=== PATIENT | female | born 1940 | race Caucasian/White ===

== ENCOUNTER 2016-11-07 14:21 | Inpatient (IN) | payer MEDICARE, OTHER ==
[~2016-11-07] VITALS: Ht 157.5 cm; Wt 71.6 kg
[~2016-11-07 14:21] MED LIST: ADVA250A INH; AMLO10TA2 PO; ASPI-110 PO; ATOR20TA15 PO; CYMB60CA PO; FURO20TA PO; GABA300C5 PO; GLIP5TAB8 PO; JANU50TA8 PO; LISI10TA3 PO; MOBI15TA PO; MONT10TA2 PO; PROT40TA PO; VENTAER INH; WALKER WHEELS/F1 MIS
[2016-11-07 14:23] VITALS: BP 144/85; PULSE 93; RESP 14; TEMP 98.8; O2SAT 97
--- NOTE | 2016-11-07 15:14 | PD ---
HPI Chief Complaint: Respiratory Symptoms Time Seen by Provider: 15:14 Travel History International Travel<30 days: No Contact w/Intl Traveler<30days: No Traveled to known affect area: No History of Present Illness HPI 76-year-old female who is primarily Tongan speaking, translation done by a family member in the room presents to emergency department today for evaluation of worsening shortness of breath with associated chest pain. Patient had a stent placed one week ago by Dr. Tena. I am told that she has had intermittent bouts with shortness of breath up until this point and then 3 days ago developed shortness of breath again worsening to the point of coming to the emergency department today. Pain is on the left side of her chest. She is having a headache as well. She denies a nausea vomiting. No fever or chills. No other recent illnesses. She has no other symptoms to report. PFSH Past Medical History Arthritis: Yes Asthma: Yes Heart Rhythm Problems: Yes (TACYCARDIA) Cancer: No Cardiac Catheterization: No Cardiovascular Problems: Yes High Cholesterol: Yes Congestive Heart Failure: Yes Diabetes: Yes Diminished Hearing: No Endocrine: Yes Genitourinary: Yes Hypertension: Yes Immune Disorder: No Kidney Stones: Yes Musculoskeletal: Yes (RIGHT KNEE FX, RIGHT 5TH FINGER FX) Neurologic: Yes (Diabetic neuropathy) Psychiatric: No Reproductive: No Respiratory: Yes Sickle Cell Disease: No ?: Not : 2 Para: 2 Miscarriage: 0 : 0 Past Surgical History Coronary Artery Bypass Graft: No Tonsillectomy: Yes Social History Alcohol Use: No Tobacco Use: No Substance Use: No Allergies-Medications (Allergen,Severity, Reaction): Coded Allergies: Shellfish (Verified Allergy, Severe, rash, 09/10/16) Reported Meds & Prescriptions Reported Meds & Active Scripts Active Ventolin Hfa 18 GM Inh (Albuterol Sulfate) 90 Mcg/Act Aer 2 Puff INH Q4H PRN Lisinopril 10 Mg Tab 10 Mg PO DAILY Walker with Front Wheels (Device) 1 Mis Mis 1 Ea .ROUTE DIRECTED Atorvastatin (Atorvastatin Calcium) 20 Mg Tab 20 Mg PO HS Furosemide 20 Mg Tab 20 Mg PO BID Advair Diskus Inh (Fluticasone-Salmeterol Inh) 250-50 Mcg/Blist Aer 1 Puff INH BID Rinse mouth after use. Glipizide 5 Mg Tab 5 Mg PO DAILY Take 30 minutes before a meal Amlodipine (Amlodipine Besylate) 10 Mg Tab 10 Mg PO DAILY Cymbalta DR (Duloxetine HCl) 60 Mg Capdr 60 Mg PO DAILY Aspirin 81 (Aspirin) 81 Mg Tabdr 81 Mg PO DAILY Mobic (Meloxicam) 15 Mg Tab 15 Mg PO DAILY Protonix (Pantoprazole Sodium) 40 Mg Tab 40 Mg PO DAILY Singulair (Montelukast Sodium) 10 Mg Tab 10 Mg PO HS Gabapentin 300 Mg Cap 300 Mg PO TID Janumet (Sitagliptin-Metformin) 50-1,000 Mg Tab 1 Tab PO BID Review of Systems Except as stated in HPI: all other systems reviewed are Neg Physical Exam Narrative GENERAL: Well-nourished but chronically ill appearing female, ambulatory and in no acute distress SKIN: Warm and dry. HEAD: Atraumatic. Normocephalic. EYES: Pupils equal and round. No scleral icterus. No injection or drainage. ENT: No nasal bleeding or discharge. Mucous membranes pink and moist. NECK: Trachea midline. No JVD. CARDIOVASCULAR: Elevated rate and rhythm. No murmur appreciated. RESPIRATORY: No accessory muscle use. Diminished throughout with faint inspiratory expiratory wheeze. Breath sounds equal bilaterally. GASTROINTESTINAL: Abdomen soft, non-tender, nondistended. Hepatic and splenic margins not palpable. MUSCULOSKELETAL: No obvious deformities. No clubbing. No cyanosis. No edema. NEUROLOGICAL: Awake and alert. No obvious cranial nerve deficits. Motor grossly within normal limits. Normal speech. PSYCHIATRIC: Appropriate mood and affect; insight and judgment normal. Data Data Last Documented VS Vital Signs Date Time Temp Pulse Resp B/P Pulse Ox O2 Delivery O2 Flow Rate FiO2 11/07/16 14:23 98.8 93 14 144/85 97 Room Air Orders Electrocardiogram (11/07/16 15:13) Basic Metabolic Panel (Bmp) (11/07/16 15:13) B-Type Natriuretic Peptide (11/07/16 15:13) Ckmb (Isoenzyme) Profile (11/07/16 15:13) Complete Blood Count With Diff (11/07/16 15:13) Magnesium (Mg) (11/07/16 15:13) Prothrombin Time / Inr (Pt) (11/07/16 15:13) Act Partial Throm Time (Ptt) (11/07/16 15:13) Troponin I (11/07/16 15:13) Chest, Single Ap (11/07/16 15:13) Electrocardiogram (11/07/16 18:23) Ckmb (Isoenzyme) Profile (11/07/16 18:23) Troponin I (11/07/16 18:23) Labs Laboratory Tests Test 11/07/16 15:36 White Blood Count 7.8 TH/MM3 Red Blood Count 3.63 MIL/MM3 Hemoglobin 9.8 GM/DL Hematocrit 30.3 % Mean Corpuscular Volume 83.3 FL Mean Corpuscular Hemoglobin 27.1 PG Mean Corpuscular Hemoglobin 32.5 % Concent Red Cell Distribution Width 15.8 % Platelet Count 297 TH/MM3 Mean Platelet Volume 9.4 FL Neutrophils (%) (Auto) 56.1 % Lymphocytes (%) (Auto) 29.0 % Monocytes (%) (Auto) 9.1 % Eosinophils (%) (Auto) 5.0 % Basophils (%) (Auto) 0.8 % Neutrophils # (Auto) 4.4 TH/MM3 Lymphocytes # (Auto) 2.3 TH/MM3 Monocytes # (Auto) 0.7 TH/MM3 Eosinophils # (Auto) 0.4 TH/MM3 Basophils # (Auto) 0.1 TH/MM3 CBC Comment DIFF FINAL Differential Comment Prothrombin Time 10.1 SEC Prothromb Time International 0.9 RATIO Ratio Activated Partial 24.9 SEC Thromboplast Time Sodium Level 140 MEQ/L Potassium Level 4.1 MEQ/L Chloride Level 103 MEQ/L Carbon Dioxide Level 28.2 MEQ/L Anion Gap 9 MEQ/L Blood Urea Nitrogen 17 MG/DL Creatinine 1.33 MG/DL Estimat Glomerular Filtration 39 ML/MIN Rate Random Glucose 145 MG/DL Calcium Level 9.1 MG/DL Magnesium Level 1.5 MG/DL Total Creatine Kinase 50 U/L Troponin I 0.06 NG/ML B-Type Natriuretic Peptide 553 PG/ML MDM Medical Decision Making Medical Screen Exam Complete: Yes Emergency Medical Condition: Yes Medical Record Reviewed: Yes Differential Diagnosis COPD exacerbation versus pneumonia versus influenza versus ACS Narrative Course 76 year-old female presents to emergency department for evaluation of worsening shortness of breath. Workup was initiated in triage once a medical bed becomes available, patient will be transferred and care assumed by that provider. 1830 patient troponin is elevated 0.06. Repeat troponin is due at this time. EKG and troponin are drawn. Condition: Stable Lu Patel Nov 07, 2016 15:14 Lu Patel Nov 07, 2016 15:14
[2016-11-07 15:48] LABS: AUTOMATED NEUTROPHIL # 4.4 TH/MM3 (1.8-7.7); BASOPHIL # 0.1 TH/MM3 (0-0.2); BASOPHIL % 0.8 % (0.0-2.0); EOSINOPHIL # 0.4 TH/MM3 (0-0.4); HEMATOCRIT 30.3 % (35.0-46.0); HEMO FLAGS DIFF FINAL; LYMPHOCYTE # 2.3 TH/MM3 (1.0-4.8); MEAN CELL VOLUME 83.3 FL (80.0-100.0); MEAN CORPUSCULAR HEMOGLOBIN 27.1 PG (27.0-34.0); MEAN CORPUSCULAR HGB CONC 32.5 % (32.0-36.0); MONO % 9.1 % (0.0-8.0); NEUT % 56.1 % (16.0-70.0); PLATELET COUNT 297 TH/MM3 (150-450); RED BLOOD COUNT 3.63 MIL/MM3 (4.00-5.30); RED CELL DISTRIBUTION WIDTH 15.8 % (11.6-17.2); WHITE BLOOD COUNT 7.8 TH/MM3 (4.0-11.0)
--- NOTE | 2016-11-07 15:59 | RADRPT ---
EXAM DATE/TIME: 11/07/2016 15:13 [facility] COMPARISON: CHEST SINGLE AP, September 11, 2016, 8:47. INDICATIONS : Short of breath and chest pain. MEDICAL HISTORY : None. SURGICAL HISTORY : None. ENCOUNTER: Initial ACUITY: 3 days PAIN SCORE: 3/10 LOCATION: Bilateral chest FINDINGS: A single view of the chest demonstrates the lungs to be symmetrically aerated without evidence of mas s, infiltrate or effusion. The cardiomediastinal contours reveal compensated left ventricular cardio megaly. Osseous structures are intact. CONCLUSION: Compensated left ventricular cardiomegaly Mik Hardin MD on November 07, 2016 at 15:57 Board Certified Radiologist. This report was verified electronically.
[2016-11-07 16:00] LABS: APTT (PATIENT) 24.9 SEC (24.3-30.1); INTERNATIONAL NORMALIZED RATIO 0.9 RATIO; PROTHROMBIN TIME - PATIENT 10.1 SEC (9.8-11.6)
[2016-11-07 16:05] LABS: BICARBONATE 28.2 MEQ/L (21.0-32.0); MAGNESIUM 1.5 MG/DL (1.5-2.5); POTASSIUM 4.1 MEQ/L (3.5-5.1)
--- NOTE | 2016-11-07 19:19 | EKG ---
Date Performed: 11/07/2016 Time Performed: 16:10:09 PTAGE: 76 years EKG: Sinus rhythm WITH FREQUENT VENTRICULAR PREMATURE COMPLEXES NONSPECIFIC T-WAVE ABNORMALITY ABNORMAL RHYTHM ECG NO PREVIOUS TRACING DOCTOR: Glen French Interpretating Date/Time 11/07/2016 19:18:16
[2016-11-07 20:05] VITALS: BP 204/98; PULSE 88; RESP 20; O2SAT 100
[2016-11-07] MEDS ORDERED: SODIUM CHLORIDE 0.9% FLUSH 5 ML FLUSH IVF PRN (20:15)
[2016-11-07] MEDS ORDERED: RESP: ALBUTEROL 2.5 MG/3 ML NEB (SCH) INH ONE (20:15)
[2016-11-07] MEDS ORDERED: methylPREDNISolone SOD SUCC 125 MG/2 ML VIAL IVP ONE (20:15)
[2016-11-07] MEDS ORDERED: FUROSEMIDE 40 MG/4 ML VIAL IVP ONE (20:15)
[2016-11-07] MEDS ORDERED: RANI300T PO (20:19)
[2016-11-07] MEDS ORDERED: CLOP75TA PO (20:19)
[2016-11-07] MEDS ORDERED: PRAV80TA2 PO (20:19)
[2016-11-07] MEDS ORDERED: PRED20 PO (20:19)
[2016-11-07] MEDS ORDERED: ISOS60TA PO (20:19)
[2016-11-07] MEDS ORDERED: VALS1TAB70 PO (20:19)
[2016-11-07] MEDS ORDERED: DEXI60CA PO (20:19)
--- NOTE | 2016-11-07 20:24 | PD ---
Data Data Last Documented VS Vital Signs Date Time Temp Pulse Resp B/P Pulse Ox O2 Delivery O2 Flow Rate FiO2 11/07/16 20:25 79 20 184/82 97 Room Air 11/07/16 14:23 98.8 Orders Electrocardiogram (11/07/16 15:13) Basic Metabolic Panel (Bmp) (11/07/16 15:13) B-Type Natriuretic Peptide (11/07/16 15:13) Ckmb (Isoenzyme) Profile (11/07/16 15:13) Complete Blood Count With Diff (11/07/16 15:13) Magnesium (Mg) (11/07/16 15:13) Prothrombin Time / Inr (Pt) (11/07/16 15:13) Act Partial Throm Time (Ptt) (11/07/16 15:13) Troponin I (11/07/16 15:13) Chest, Single Ap (11/07/16 15:13) Electrocardiogram (11/07/16 18:23) Ckmb (Isoenzyme) Profile (11/07/16 18:23) Troponin I (11/07/16 18:23) Sodium Chloride 0.9% Flush (Ns Flush) (11/07/16 20:15) Furosemide Inj (Lasix Inj) (11/07/16 20:15) Methylprednisolone So Succ Inj (Solumedr (11/07/16 20:15) Albuterol Neb (Albuterol Neb) (11/07/16 20:15) Nitroglycerin Sl (Nitrostat Sl) (11/07/16 20:30) Admit Order (Ed Use Only) (11/07/16 20:24) Labs Laboratory Tests Test 11/07/16 11/07/16 15:36 18:41 White Blood Count 7.8 TH/MM3 Red Blood Count 3.63 MIL/MM3 Hemoglobin 9.8 GM/DL Hematocrit 30.3 % Mean Corpuscular Volume 83.3 FL Mean Corpuscular Hemoglobin 27.1 PG Mean Corpuscular Hemoglobin 32.5 % Concent Red Cell Distribution Width 15.8 % Platelet Count 297 TH/MM3 Mean Platelet Volume 9.4 FL Neutrophils (%) (Auto) 56.1 % Lymphocytes (%) (Auto) 29.0 % Monocytes (%) (Auto) 9.1 % Eosinophils (%) (Auto) 5.0 % Basophils (%) (Auto) 0.8 % Neutrophils # (Auto) 4.4 TH/MM3 Lymphocytes # (Auto) 2.3 TH/MM3 Monocytes # (Auto) 0.7 TH/MM3 Eosinophils # (Auto) 0.4 TH/MM3 Basophils # (Auto) 0.1 TH/MM3 CBC Comment DIFF FINAL Differential Comment Prothrombin Time 10.1 SEC Prothromb Time International 0.9 RATIO Ratio Activated Partial 24.9 SEC Thromboplast Time Sodium Level 140 MEQ/L Potassium Level 4.1 MEQ/L Chloride Level 103 MEQ/L Carbon Dioxide Level 28.2 MEQ/L Anion Gap 9 MEQ/L Blood Urea Nitrogen 17 MG/DL Creatinine 1.33 MG/DL Estimat Glomerular Filtration 39 ML/MIN Rate Random Glucose 145 MG/DL Calcium Level 9.1 MG/DL Magnesium Level 1.5 MG/DL Total Creatine Kinase 50 U/L 57 U/L Troponin I 0.06 NG/ML 0.07 NG/ML B-Type Natriuretic Peptide 553 PG/ML MDM Medical Record Reviewed: Yes Supervised Visit with SUSAN: Yes Narrative Course I, Dr. Hoover, have reviewed the advance practice practitioner's documentation and am in agreement, met with the patient face to face, made the diagnosis, and the medical decision making was done by me. *My assessment and Findings: EKG reveals a sinus rhythm with PVCs, rate 77 the axis is normal Last Impressions Chest X-Ray 11/07/16 1513 Signed Impressions: Service Date/Time: Monday, November 07, 2016 15:13 - CONCLUSION: Compensated left ventricular cardiomegaly Mik Hardin MD CBC & BMP Diagram 11/07/16 15:36 Tn 0.06 BNP 533 Coags 10.1 / 0.9 / 24.9 Patient prefers translation by her son as she speaks Gabonese primarily. She has dyspnea coupled with headache. Workup reveals mildly elevated troponin probably nonspecific following catheterization about 10 days ago. Additionally the BNP is elevated. Lasix administered. Admission for monitoring and evaluation by cardiology. Discussed with Dr Sue for resident service. Diagnosis Primary Impression: Acute exacerbation of congestive heart failure Qualified Code: I50.9 - Acute on chronic congestive heart failure, unspecified congestive heart failure type Additional Impression: Asthma Qualified Code: J45.909 - Uncomplicated asthma, unspecified asthma severity Admitting Information Admitting Physician Requests: Admit Jeremiah Hoover MD Nov 07, 2016 20:24
[2016-11-07 20:25] VITALS: BP 184/82; PULSE 79; RESP 20; O2SAT 97
--- NOTE | 2016-11-07 20:27 | HHI.HP ---
[facility] Service Family Medicine, [facility] Dr. Sher attending Primary Care Physician Sixto Kovacs MD Admission Diagnosis Diagnoses: International Travel<30 Days: No Contact w/Intl Traveler<30days: No Known Affected Area: No History of Present Illness This is a 76 yo [address] patient of Dr. Kovacs who presents to the ED for SOB x 2 days. The patient had a heart cath performed by Dr. Tena last Sunday. This was a scheduled outpatient procedure. She states she was told that there were not able to visualize things well and would have to have another one. She was discharged on Plavix. She was discharged from [facility] the next day and states she was feeling better but her "heart burned" and had a CASH. Since then she has felt progressively SOB. The home health nurse came by and was found to have elevated BP, 248 systolic and the nurse told her to come to the ER. The patient states her BP gets high when she cant breath. She has asthma and has a nebulizer machine at home. She has been out of the medication for quite some time so has not been able to treat her asthma. The patient has received nitro and albuterol in the ED. The patient states she feels better. She denies any current chest pain. The patient is a poor historian and it is difficult to understand which medicines exactly the patient is taking. I have reviewed the patient's medications in the EMR which are different from the medications that Dr. Kovacs has documented, which are different than the medications that are listed on her she is paper that the patient has from [facility]. Review of Systems ROS Limitations: Language Barrier, Poor Historian Constitutional: DENIES: Fever, Chills Eyes: COMPLAINS OF: Diplopia, DENIES: Blurred vision, Eye pain Ears, nose, mouth, throat: DENIES: Tinnitus, Hearing loss Respiratory: COMPLAINS OF: Wheezing, Shortness of breath, DENIES: Cough, Sputum production Cardiovascular: COMPLAINS OF: Chest pain, Palpitations, Dyspnea on Exertion, DENIES: Lower Extremity Edema Gastrointestinal: COMPLAINS OF: Abdominal pain, Nausea, Vomiting Musculoskeletal: COMPLAINS OF: Muscle aches, Joint Swelling Neurologic: COMPLAINS OF: Localized weakness, DENIES: Abnormal gait Past Family Social History Past Medical History Diabetes mellitus previously on insulin Hypertension Major Depression Disorder Hypercholesterolemia GERD Asthma/COPD Diabetic Neuropathy Seasonal allergies Past Surgical History Shoulder arthroscopic carpal tunnel tonsillectomy Allergies: Coded Allergies: Shellfish (Verified Allergy, Severe, rash, 11/07/16) Active Ordered Medications Meds per Dr. Kovacs in Jun 2016 & list provided by patient * Sitagliptin-Metformin (Janumet) 50-1,000 MG TAB: 1 TAB PO BID #90 Ref 0 * Gabapentin 300 MG CAP: 300 MG PO TID #90 Ref 2 * Montelukast (Singulair) 10 MG TAB: 10 MG PO HS #30 Ref 2 * Meloxicam (Mobic) 15 MG TAB: 15 MG PO DAILY #30 Ref 1 * Furosemide 20 MG TAB: 20 MG PO DAILY #60 Ref 1 * Aspirin DR (Aspirin 81) 81 MG TABDR: 81 MG PO DAILY #90 Ref 0 * Duloxetine DR (Cymbalta DR) 60 MG CAPDR: 60 MG PO DAILY #60 Ref 1 * Amlodipine 10 MG TAB: 10 MG PO DAILY #60 Ref 1 * Pravastatin 80 mg PO daily * Clopidogrel/plavix 75 mg PO daily * Valsartan 320 Mg Tab 320 Mg PO DAILY * Prednisone 20 mg daily (listed on patients meds but unclear if she is taking this) * Ranitidine 300 mg PO HS * Glipizide 5 MG TAB: 5 MG PO DAILY #60 Ref 1 Instructions: Take 30 minutes before a meal Family History Mom - passed in 50s from diabetes mellitus and heart failure Father - passed in 60s from DM, and CHF. Sisters and brothers: Majority with DM, CHF, depression, osteoarthritis. Daughter - thyroid cancer at age 53 y/o Son - 54 y/o and healthy. Social History Born in [place] drinks 2 cups of wine with meals no tobacco use, had second hand smoke exposure from no illicit drug use . Physical Exam Vital Signs Vital Signs Date Time Temp Pulse Resp B/P Pulse Ox O2 Delivery O2 Flow Rate FiO2 11/07/16 20:05 88 20 204/98 100 Room Air 11/07/16 20:02 85 20 100 Room Air 11/07/16 14:23 98.8 93 14 144/85 97 Room Air Physical Exam GENERAL: This is a well-nourished, well-developed patient, in no apparent distress. SKIN: No rashes, ecchymoses or lesions. Cool and dry. HEAD: Atraumatic. Normocephalic. No temporal or scalp tenderness. EYES: Pupils equal round and reactive. Extraocular motions intact. No scleral icterus. No injection or drainage. ENT: Nose without bleeding, purulent drainage or septal hematoma. Throat without erythema, tonsillar hypertrophy or exudate. Uvula midline. Airway patent. NECK: Trachea midline. No JVD or lymphadenopathy. Supple, nontender, no meningeal signs. CARDIOVASCULAR: Regular rate and rhythm without murmurs, gallops, or rubs. Some tenderness to palpation of left anterior chest wall. RESPIRATORY: Short inspiratory phase, some expiratory wheezing heard at bilateral bases. No rales or rhonchi. GASTROINTESTINAL: Abdomen soft, non-tender, nondistended. No hepato-splenomegaly , or palpable masses. No guarding. MUSCULOSKELETAL: Extremities without clubbing, cyanosis, or edema. No joint tenderness, effusion, or edema noted. No calf tenderness. NEUROLOGICAL: Awake and alert. Motor and sensory grossly within normal limits. Normal speech. Laboratory Laboratory Tests Test 11/07/16 11/07/16 15:36 18:41 White Blood Count 7.8 Red Blood Count 3.63 Hemoglobin 9.8 Hematocrit 30.3 Mean Corpuscular Volume 83.3 Mean Corpuscular Hemoglobin 27.1 Mean Corpuscular Hemoglobin 32.5 Concent Red Cell Distribution Width 15.8 Platelet Count 297 Mean Platelet Volume 9.4 Neutrophils (%) (Auto) 56.1 Lymphocytes (%) (Auto) 29.0 Monocytes (%) (Auto) 9.1 Eosinophils (%) (Auto) 5.0 Basophils (%) (Auto) 0.8 Neutrophils # (Auto) 4.4 Lymphocytes # (Auto) 2.3 Monocytes # (Auto) 0.7 Eosinophils # (Auto) 0.4 Basophils # (Auto) 0.1 CBC Comment DIFF FINAL Differential Comment Prothrombin Time 10.1 Prothromb Time International 0.9 Ratio Activated Partial 24.9 Thromboplast Time Sodium Level 140 Potassium Level 4.1 Chloride Level 103 Carbon Dioxide Level 28.2 Anion Gap 9 Blood Urea Nitrogen 17 Creatinine 1.33 Estimat Glomerular Filtration 39 Rate Random Glucose 145 Calcium Level 9.1 Magnesium Level 1.5 Total Creatine Kinase 50 57 Troponin I 0.06 0.07 B-Type Natriuretic Peptide 553 Result Diagram: 11/07/16 1536 11/07/16 1536 Imaging Last Impressions Chest X-Ray 11/07/16 1513 Signed Impressions: Service Date/Time: Monday, November 07, 2016 15:13 - CONCLUSION: Compensated left ventricular cardiomegaly Mik Hardin MD Assessment and Plan Assessment and Plan 76 yo female with CAD s/p stent placement presents with worsening SOB likely related to both CHF and asthma. Code Status Full Discussed Condition With ED physician Will discuss with Dr. Armendariz Problem List: (1) Shortness of breath Status: Acute Plan: Etiology likely multifactorial. DDX include asthma exacerbation, CHF exacerbation, ACS, PNA, PE. EKG shows PVS, sinus rhythm, unchanged from previous, no ST or T wave abnormalities. Troponin 0.06, 0.07. (Creatinine is slightly elevated above baseline which could also explain the elevated troponin. ) BNP 553. For now plan as follows: - We'll treat her asthma: Exam did reveal some wheezing although was mild * She receive Solu-Medrol 125 mg IV in the ED * Prednisone 40 mg daily * Dual nebs every 6 scheduled * Albuterol when necessary * Acapella - We'll treat her CHF * Status post 40 mg IV Lasix * Strict I's and O's * Fluid restrict 1.5 L 24 hours * Continue home Lasix 20 mg by mouth twice a day * Continue home valsartan 320 mg by mouth daily * Does not appear the patient is on an LUH inhibitor or beta monique * Echo ordered * Patient's legal instruments examiner Dr. Tena consulted - ACS rule out * trend troponin * trend EKG * SAURAV therapy available (2) Type 2 diabetes mellitus Status: Chronic Plan: Hold home metformin and glipizide - Low-dose sliding scale - Diabetic diet - Continue home gabapentin (3) Depression Status: Acute Plan: Continue patient's home Cymbalta (4) Presence of stent in coronary artery in patient with coronary artery disease Status: Chronic Plan: Patient is on aspirin 81 mg daily. After her stent she was started on Plavix 75 mg daily. We'll continue these. (5) Hypertension Status: Chronic Plan: Continue home amlodipine - Clonidine when necessary (6) FEN Status: Acute Plan: Fluids: Hep-Lock IV Electrolytes: currently wnl, replete as necessary Nutrition: diabetic diet Bilat SCDs, if stays > 24hs consider chemoprophylaxis Ranitidine for GI prophylaxis while on steroids (this is also a home med for the patient) Physician Certification 2 Midnight Certification Type: Admission for Inpatient Services Order for Inpatient Services The services are ordered in accordance with Medicare regulations or non- Medicare payer requirements, as applicable. In the case of services not specified as inpatient-only, they are appropriately provided as inpatient services in accordance with the 2-midnight benchmark. Estimated LOS (days): 3 days is the estimated time the patient will need to remain in the hospital, assuming treatment plan goals are met and no additional complications. Post-Hospital Plan: Not yet determined Loni Sue MD R3 Nov 07, 2016 20:27
[2016-11-07] MEDS: NITROGLYCERIN 0.4 MG SL 25 TABS/BTL SL SCH ×3 (20:31→20:40)
[2016-11-07] MEDS ORDERED: GLUCAGON 1 MG/ML VIAL OTHER PRN (21:45)
[2016-11-07] MEDS ORDERED: DEXTROSE 50% IN WATER 50 ML VIAL(D50) IV PUSH PRN (21:45)
[2016-11-07 22:02] VITALS: BP 187/92; PULSE 78; RESP 20; O2SAT 99
[2016-11-07] MEDS ORDERED: RESP: ALBUTEROL 2.5 MG/3 ML NEB (PRN) NEB (22:15)
[2016-11-07] MEDS ORDERED: cloNIDine HCL 0.1 MG TAB PO PRN (22:30)
[2016-11-07] MEDS ORDERED: MORPHINE SULFATE 4 MG/ML INJ IV PRN (22:30)
[2016-11-07] MEDS ORDERED: NITROGLYCERIN 0.4 MG SL 25 TABS/BTL SL PRN (22:30)
[2016-11-07] MEDS: INSULIN ASPART SUPPLEMENTAL SCALE SQ SCH (22:37)
[2016-11-07 23:28] VITALS: BP 165/82; PULSE 73; RESP 18; TEMP 98.4; O2SAT 95
[2016-11-08 05:22] VITALS: BP 181/76; PULSE 95; RESP 18; TEMP 97.9; O2SAT 95
[2016-11-08] MEDS: RESP: ALBUTEROL 2.5 MG/IPRATROPIUM 0.5 MG NEB (SCH) NEB ×3 (05:31→15:29)
--- NOTE | 2016-11-08 05:44 | EKG ---
Date Performed: 11/07/2016 Time Performed: 18:45:27 PTAGE: 76 years EKG: Sinus rhythm WITH FREQUENT VENTRICULAR PREMATURE COMPLEXES POSSIBLE LEFT ATRIAL ENLARGEMENT NONSPECIFIC T-WAVE AB NORMALITY ABNORMAL RHYTHM ECG NO SIGNIFICANT CHANGE FROM PRIOR ELECTROCARDIOGRAM. PREVIOUS TRACING : 11/07/2016 16.10 DOCTOR: Glen French Interpretating Date/Time 11/08/2016 05:42:31
[2016-11-08] MEDS: INSULIN ASPART SUPPLEMENTAL SCALE SQ SCH ×4 (06:23→20:52)
[2016-11-08] MEDS ORDERED: INSULIN ASPART SUPPLEMENTAL SCALE SQ SCH (07:00)
[2016-11-08] MEDS: PRAVASTATIN SOD 80 MG TAB PO SCH (07:52)
[2016-11-08] MEDS: VALSARTAN 160 MG TAB PO SCH (07:52)
[2016-11-08] MEDS: DULoxetine HCl DR 60 MG CAP PO SCH (07:55)
[2016-11-08] MEDS: GABAPENTIN 300 MG CAP PO SCH ×3 (07:55→18:08)
[2016-11-08] MEDS: predniSONE 20 MG TAB PO SCH (07:55)
[2016-11-08] MEDS: FUROSEMIDE 20 MG TAB PO SCH ×2 (07:56→20:53)
[2016-11-08 08:03] LABS: AUTOMATED NEUTROPHIL # 4.9 TH/MM3 (1.8-7.7); BASOPHIL % 0.2 % (0.0-2.0); HEMATOCRIT 30.7 % (35.0-46.0); HEMO FLAGS DIFF FINAL; LYMPH % 8.7 % (9.0-44.0); LYMPHOCYTE # 0.5 TH/MM3 (1.0-4.8); MEAN CELL VOLUME 81.5 FL (80.0-100.0); MEAN CORPUSCULAR HEMOGLOBIN 26.9 PG (27.0-34.0); MEAN CORPUSCULAR HGB CONC 33.1 % (32.0-36.0); MONO % 0.9 % (0.0-8.0); NEUT % 90.2 % (16.0-70.0); PLATELET COUNT 289 TH/MM3 (150-450); RED BLOOD COUNT 3.76 MIL/MM3 (4.00-5.30); RED CELL DISTRIBUTION WIDTH 15.6 % (11.6-17.2); WHITE BLOOD COUNT 5.4 TH/MM3 (4.0-11.0)
[2016-11-08] MEDS: ASPIRIN EC 81 MG TABEC PO SCH (08:04)
[2016-11-08] MEDS: CLOPIDOGREL 75 MG TAB PO SCH (08:04)
[2016-11-08] MEDS ORDERED: MINOXIDIL 2.5 MG TAB PO ONE (08:15)
[2016-11-08 08:30] LABS: POTASSIUM 4.1 MEQ/L (3.5-5.1)
[2016-11-08 08:40] VITALS: BP 139/72; PULSE 70; RESP 16; TEMP 98.5; O2SAT 96
--- NOTE | 2016-11-08 08:46 | EKG ---
Date Performed: 11/08/2016 Time Performed: 00:17:34 PTAGE: 76 years EKG: Sinus rhythm WITH FREQUENT VENTRICULAR PREMATURE COMPLEXES POSSIBLE LEFT ATRIAL ENLARGEMENT POSSIBLE LEFT VENTRIC ULAR HYPERTROPHY Nonspecific ST-T wave changes ABNORMAL ECG COMPARED TO PRIOR ELECTROCARDIOGRAM, T wa ve changes are more marked. PREVIOUS TRACING : 11/07/2016 18.45 DOCTOR: Glen French Interpretating Date/Time 11/08/2016 08:44:44
[2016-11-08] MEDS ORDERED: MINOXIDIL 2.5 MG TAB PO SCH (09:00)
--- NOTE | 2016-11-08 09:35 | HHI.HP ---
[facility] Service Family Medicine Primary Care Physician Unknown Admission Diagnosis Diagnoses: (1) Shortness of breath Diagnosis: Principal (2) Type 2 diabetes mellitus Diagnosis: Principal (3) Depression Diagnosis: Principal (4) Presence of stent in coronary artery in patient with coronary artery disease Diagnosis: Principal (5) Hypertension Diagnosis: Principal (6) FEN Diagnosis: Principal International Travel<30 Days: No Contact w/Intl Traveler<30days: No Known Affected Area: No History of Present Illness Ms Aguirre is a 76 yo female patient of Dr. Kovacs who presented to the ED for SOB x 2 days. The patient had a heart cath performed by Dr. Tena last Sunday. This was a scheduled outpatient procedure. She states she was told that they were not able to visualize things well and would have to have another one. She was discharged on Plavix. She was discharged from [facility] the next day and states she was feeling better but her "heart burned" and had a CASH. unfortunately, we do not have the records of her cath report. Since then she has felt progressively SOB. The home health nurse came by and was found to have elevated BP, 248 systolic and the nurse told her to come to the ER. The patient states her BP gets high when she can't breathe. She has asthma and has a nebulizer machine at home. She has been out of the medication for quite some time so has not been able to treat her asthma. The patient received nitro and albuterol in the ED. The patient stated she felt better. She denied any current chest pain. However, she stated she could not lie flat and still was having some problems with her asthma. She has a history of CHF diagnosed on her last hospitalization and has an elevated BNP to some extent on this admission. Per Dr Sue who admitted her, patient is a poor historian and it is difficult to understand which medicines exactly the patient is taking. The patient's medications in the EMR are different from the medications that Dr. Kovacs has documented, which are different than the medications that are listed on her she is paper that the patient has from [facility]. When seen this am she still had some trouble breathing and also said she has been weak at home and had falls. She has some chest sxs and feels burning in her chest at times. She was going to have cardiac catheterization this am. Her troponins had been elevated this hospitalization at 0.07. She has received solumedrol, prednisone and nebulizers with some relief and on exam this am she was moving air well. History was obtained from the pt with my somewhat limited knowledge of Micronesian as well as from her nurse and Dr cao who are more proficient in that language and also all the pts questions were answered. Review of Systems ROS Limitations: Language Barrier, Poor Historian Constitutional: COMPLAINS OF: Fatigue Respiratory: COMPLAINS OF: Cough, Wheezing, Shortness of breath Cardiovascular: COMPLAINS OF: Chest pain, Dyspnea on Exertion, PND, DENIES: Lower Extremity Edema, Orthopnea Gastrointestinal: DENIES: Abdominal pain Musculoskeletal: COMPLAINS OF: Joint pain (knees), Muscle aches Integumentary: DENIES: Rash Hematologic/lymphatic: DENIES: Bruising Immunologic/allergic: DENIES: Eczema Neurologic: COMPLAINS OF: Abnormal gait (weakness), Poor Balance Psychiatric: COMPLAINS OF: Depression Other ROS Limitations: Language Barrier, Poor Historian Constitutional: DENIES: Fever, Chills Eyes: COMPLAINS OF: Diplopia, DENIES: Blurred vision, Eye pain Ears, nose, mouth, throat: DENIES: Tinnitus, Hearing loss Respiratory: COMPLAINS OF: Wheezing, Shortness of breath, DENIES: Cough, Sputum production Cardiovascular: COMPLAINS OF: Chest pain, Palpitations, Dyspnea on Exertion, DENIES: Lower Extremity Edema Gastrointestinal: COMPLAINS OF: Abdominal pain, Nausea, Vomiting Musculoskeletal: COMPLAINS OF: Muscle aches, Joint Swelling Neurologic: COMPLAINS OF: Localized weakness, DENIES: Abnormal gait Past Family Social History Past Medical History Diabetes mellitus previously on insulin Hypertension Major Depression Disorder Hypercholesterolemia GERD Asthma/COPD Diabetic Neuropathy Seasonal allergies Asthma Past Surgical History cardiac cath 10/31 Shoulder arthroscopic carpal tunnel tonsillectomy Allergies: Coded Allergies: Shellfish (Verified Allergy, Severe, rash, 11/07/16) Family History Mom - passed in 50s from diabetes mellitus and heart failure Father - passed in 60s from DM, and CHF. Sisters and brothers: Majority with DM, CHF, depression, osteoarthritis. Daughter - thyroid cancer at age 53 y/o Son - 54 y/o and healthy. "Lamberto" Social History Born in [place] drinks 2 cups of wine with meals no tobacco use, had second hand smoke exposure from no illicit drug use . Physical Exam Vital Signs Vital Signs Date Time Temp Pulse Resp B/P Pulse Ox O2 Delivery O2 Flow Rate FiO2 11/08/16 08:40 98.5 70 16 139/72 96 11/08/16 05:22 97.9 95 18 181/76 95 11/07/16 23:28 98.4 73 18 165/82 95 Room Air 11/07/16 22:02 78 20 187/92 99 Room Air 11/07/16 20:53 18 11/07/16 20:25 79 20 184/82 97 Room Air 11/07/16 20:05 88 20 204/98 100 Room Air 11/07/16 20:02 85 20 100 Room Air 11/07/16 14:23 98.8 93 14 144/85 97 Room Air Physical Exam GENERAL: This is a well-nourished, well-developed patient, in no apparent distress. nearly exclusively Micronesian speaking SKIN: No rashes, ecchymoses or lesions. Cool and dry. HEAD: Atraumatic. Normocephalic. EYES: Pupils equal round and reactive. Extraocular motions intact. No scleral icterus. No injection or drainage. ENT: Nose without bleeding, purulent drainage or septal hematoma. Airway patent. NECK: Trachea midline. No JVD or lymphadenopathy. Supple, nontender, no meningeal signs. CARDIOVASCULAR: Regular rate and rhythm without murmurs, gallops, or rubs. Some tenderness to palpation of left anterior chest wall. RESPIRATORY: Short inspiratory phase, some expiratory wheezing heard at bilateral bases but mainly clear today. No rales or rhonchi. good air movement GASTROINTESTINAL: Abdomen soft, non-tender, nondistended. No hepato-splenomegaly , or palpable masses. No guarding. MUSCULOSKELETAL: Extremities without clubbing, cyanosis, or edema. No joint tenderness, effusion, or edema noted. No calf tenderness. NEUROLOGICAL: Awake and alert. Motor and sensory grossly within normal limits. Normal speech. Laboratory Laboratory Tests Test 11/07/16 11/07/16 11/08/16 11/08/16 15:36 18:41 00:30 07:34 White Blood Count 7.8 5.4 Red Blood Count 3.63 3.76 Hemoglobin 9.8 10.1 Hematocrit 30.3 30.7 Mean Corpuscular Volume 83.3 81.5 Mean Corpuscular Hemoglobin 27.1 26.9 Mean Corpuscular Hemoglobin 32.5 33.1 Concent Red Cell Distribution Width 15.8 15.6 Platelet Count 297 289 Mean Platelet Volume 9.4 9.8 Neutrophils (%) (Auto) 56.1 90.2 Lymphocytes (%) (Auto) 29.0 8.7 Monocytes (%) (Auto) 9.1 0.9 Eosinophils (%) (Auto) 5.0 0.0 Basophils (%) (Auto) 0.8 0.2 Neutrophils # (Auto) 4.4 4.9 Lymphocytes # (Auto) 2.3 0.5 Monocytes # (Auto) 0.7 0.0 Eosinophils # (Auto) 0.4 0.0 Basophils # (Auto) 0.1 0.0 CBC Comment DIFF FINAL DIFF FINAL Differential Comment Prothrombin Time 10.1 Prothromb Time International 0.9 Ratio Activated Partial 24.9 Thromboplast Time Sodium Level 140 139 Potassium Level 4.1 4.1 Chloride Level 103 100 Carbon Dioxide Level 28.2 30.0 Anion Gap 9 9 Blood Urea Nitrogen 17 18 Creatinine 1.33 1.23 Estimat Glomerular Filtration 39 42 Rate Random Glucose 145 287 Calcium Level 9.1 9.3 Magnesium Level 1.5 Total Creatine Kinase 50 57 Troponin I 0.06 0.07 0.05 B-Type Natriuretic Peptide 553 680 Result Diagram: 11/08/16 0734 11/08/16 0734 Imaging Last Impressions Chest X-Ray 11/07/16 1513 Signed Impressions: Service Date/Time: Monday, November 07, 2016 15:13 - CONCLUSION: Compensated left ventricular cardiomegaly Mik Hardin MD Assessment and Plan Assessment and Plan 76 yo female with CAD s/p stent placement presents with worsening SOB likely related to both CHF and asthma. Problem List: (1) Shortness of breath Status: Acute Plan: Etiology likely multifactorial. DDX include asthma exacerbation, CHF exacerbation, ACS, PNA, PE. EKG shows PVS, sinus rhythm, unchanged from previous, no ST or T wave abnormalities. Troponin 0.06, 0.07. (Creatinine is slightly elevated above baseline which could also explain the elevated troponin. ) BNP 553. For now plan as follows: - We'll treat her asthma: Exam did reveal some wheezing although was mild * She received Solu-Medrol 125 mg IV in the ED * Prednisone 40 mg daily * Duo nebs every 6 scheduled * Albuterol when necessary * Acapella - We'll treat her CHF * Status post 40 mg IV Lasix * Strict I's and O's * Fluid restrict 1.5 L 24 hours * Continue home Lasix 20 mg by mouth twice a day * Continue home valsartan 320 mg by mouth daily * Does not appear the patient is on an LUH inhibitor or beta monique * Echo ordered * Patient's table hand Dr. Tena consulted * she is going to cath and she may need more fluids especially if her renal fxn suffers - ACS rule out * trended troponin * trend EKG * SAURAV therapy available (2) Type 2 diabetes mellitus Status: Chronic Plan: Hold home metformin and glipizide - Low-dose sliding scale - Diabetic diet - Continue home gabapentin (3) Depression Status: Acute Plan: Continue patient's home Cymbalta (4) Presence of stent in coronary artery in patient with coronary artery disease Status: Chronic Plan: Patient is on aspirin 81 mg daily. After her stent she was started on Plavix 75 mg daily. We'll continue these. (5) Hypertension Status: Chronic Plan: Continue home amlodipine - Clonidine when necessary (6) FEN Status: Acute Plan: Fluids: Hep-Lock IV Electrolytes: currently wnl, replete as necessary Nutrition: diabetic diet Bilat SCDs, if stays > 24hs consider chemoprophylaxis. she will have cath and may need anticoagulation based on what Cardiology feel is appropriate Ranitidine for GI prophylaxis while on steroids (this is also a home med for the patient) Physician Certification 2 Midnight Certification Type: Admission for Inpatient Services Order for Inpatient Services The services are ordered in accordance with Medicare regulations or non- Medicare payer requirements, as applicable. In the case of services not specified as inpatient-only, they are appropriately provided as inpatient services in accordance with the 2-midnight benchmark. Estimated LOS (days): 3 3 days is the estimated time the patient will need to remain in the hospital, assuming treatment plan goals are met and no additional complications. Post-Hospital Plan: Not yet determined Problem Qualifiers (1) Type 2 diabetes mellitus: Qualified Code: E11.8 - Type 2 diabetes mellitus with complication, unspecified terminal system operator insulin use status (2) Depression: Qualified Code: F32.9 - Depression, unspecified depression type (3) Hypertension: Qualified Code: I10 - Essential hypertension Niurka Sher MD Nov 08, 2016 09:35
[2016-11-08] MEDS ORDERED: diphenhydrAMINE HCL 50 MG/ML VIAL IV PUSH ONE (10:00)
[2016-11-08] MEDS ORDERED: FAMOTIDINE 20 MG/2 ML VIAL IV PUSH ONE (10:00)
[2016-11-08 11:56] VITALS: BP 141/59; PULSE 58; RESP 18; TEMP 98.1; O2SAT 96
[2016-11-08] MEDS: NITROGLYCERIN 2% OINT 1 GM PACKET TOPICAL SCH ×2 (12:23→18:08)
[2016-11-08] MEDS ORDERED: HEPARIN-NS/PF INJ 500 ML ONE (15:32)
[2016-11-08] MEDS ORDERED: SODIUM CHLORIDE 0.9% FLUSH 5 ML FLUSH IVF PRN (16:30)
[2016-11-08] MEDS ORDERED: MISC INFORMATION XX ONE (16:30)
[2016-11-08] MEDS ORDERED: FUROSEMIDE 40 MG/4 ML VIAL ONE (16:42)
[2016-11-08 17:05] VITALS: BP 120/94; PULSE 79; RESP 18; TEMP 97.6; O2SAT 98
--- NOTE | 2016-11-08 17:11 | MB ---
cc: GABRIEL BURRELL M.D. DATE OF CONSULTATION 11/08/2016 HISTORY Carolin is a very pleasant 76-year lady who has history of diabetes mellitus, severe, expiratory wheezing, reactive airway disease, hypertension which is complex requiring multiple medications to control. She underwent direct PCI of the mid LAD after having an FFR 0.80 last week. The patient had chest pain post stent placement. On angiogram there was no evidence of stenosis. Flow was JAMES III. The patient came to my office. She was still having chest pain, shortness of breath. She had an EKG post procedure which shows sinus rhythm with PVCs, however, this is her baseline EKG that she had prior to PCI as well. She had a 2-D echo my office last week which showed an EF of 55-60% with moderate to severe MR. Previous echo at [facility] last month showed EF of 50% with mild MR. The plan was to have the patient undergo a Lexiscan sestamibi on SundayNovember 06. The patient did not show up for the procedure despite multiple calls placed to her residence. She presented to the emergency room yesterday with chief complaint of chest pain, shortness of breath. She was found have severely elevated systolic blood pressure about 200. She was placed back on her medications. Currently she is pain free. Denies any fever or chills, cough, GI or bleeding, paroxysmal nocturnal dyspnea, orthopnea, syncope or dizziness. PAST MEDICAL HISTORY Is per the history of present illness. The patient has a history of: 1. Arthritis. 2. Tachycardia. 3. Hyperlipidemia. 4. "Right knee fracture". 5. Diabetic neuropathy. 6. Tonsillectomy. SOCIAL HISTORY Denies tobacco or alcohol use. ALLERGIES SHELLFISH, IODINE, CONTRAST. MEDICATIONS Documented prior to admission: 1. Ventolin. 2. Lisinopril 10 mg daily. 3. Atorvastatin 20 grams at bedtime. 4. Lasix 20 b.i.d. 5. Glipizide 10 milligrams daily. 6. Amlodipine 10 milligrams daily. 7. Cymbalta. 8. Aspirin 81 milligrams daily. 9. Mobic. 10. Protonix. 11. Singulair. 12. Gabapentin. 13. Janumet twice a day. Medications in the hospital: 1. Minoxidil 2.5 daily. 2. Famotidine 20 bedtime. 3. 2 inch Nitro paste q.6h. 4. Prednisone 40 milligrams daily. 5. Aspirin 81 milligrams daily. 6. The patient also received Solu-Medrol 125 last evening IV. 7. Clopidogrel 75 milligrams daily. 8. Cymbalta 60 milligrams daily. 9. Lasix 20 twice a day. 10. Pravastatin 80 daily. 11. Valsartan 320 daily. 12. Amlodipine 10 milligrams daily. 13. Albuterol. PHYSICAL EXAMINATION VITAL SIGNS: Blood pressure 141/59, pulse 58, respiratory rate 18, temperature 98.1. Saturation is 96% on room air, ranging between 95%-99%. GENERAL: She is alert and oriented times three in no acute distress. NECK: Supple. No JVD. No bruits. CARDIOVASCULAR: S1-S2. No murmurs, rubs, or gallops. LUNGS: Clear to auscultation bilaterally. ABDOMEN: Soft, nontender. Nondistended. Positive bowel sounds. EXTREMITIES: No lower extremity edema. IMAGING Chest x-ray shows "compensated left ventricular cardiomegaly". Lungs to be symmetrically aerated without evidence of mass, infiltrate or effusion. LABORATORY DATA White count 5.4, hemoglobin 10.1, hematocrit 30.7, platelet count 289. Sodium 139, potassium 4.1, chloride 100, bicarbonate 30.0, BUN 18, creatinine 1.23. Blood sugar is 287. BNP 553. Second BNP is 680. Troponin is 0.07 followed by 0.05. The initial troponin is 0.06. Her most recent EKG shows normal sinus rhythm at 78 beats per minute. Nonspecific ST-T wave changes. Asymmetric two inversions of 1-2 mm in depth in V2, V3, V4 and V5, PVCs appears to be no significant change compared to previous EKGs during her last admission. Corrected QT interval of 463 milliseconds. DIAGNOSES She has the following diagnoses: 1. Non-ST elevation myocardial infarction. 2. Diabetes mellitus. 3. Coronary artery disease. 4. Hypertension. 5. Chronic renal insufficiency. 6. Reactive airway disease. 7. Moderate to severe mitral regurgitation. 8. Decompensated congestive heart failure. 9. Anemia. DISCUSSION I have discussed the case in detail with the patient and the patient's son. The patient only speaks English. I explained to them the risks of the procedure there is a 5-10% of , stroke, heart attack, bleeding, need for emergency bypass, need for emergency surgery, need for dialysis, need for blood transfusion, anaphylaxis, bleeding, infection and arrhythmia. The patient understands and consents. PLAN Left heart catheterization urgently. Further recommendations pending results of her left heart catheterization. Gabriel Burrell MD AWC/KK /3:51 PM /4:28 PM
[2016-11-08 18:04] VITALS: PULSE 84
[2016-11-08 20:00] VITALS: BP 134/68; PULSE 85; RESP 16; TEMP 97.9; O2SAT 97
[2016-11-08] MEDS: SODIUM CHLORIDE 0.9% FLUSH 5 ML FLUSH IVF SCH (20:52)
[2016-11-08] MEDS: FAMOTIDINE 20 MG TAB PO SCH (20:53)
--- NOTE | 2016-11-08 21:02 | EC ---
Study Study Date:11/08/2016 STUDY CONCLUSIONS SUMMARY - Left ventricle: The cavity size was normal. Systolic function was probably normal. The estimated ejection fraction was in the range of 55% to 60%. Although no diagnostic regional wall motion abnormality was identified, this possibility cannot be completely excluded on the basis of this study. - Aortic valve: There was very mild stenosis. Valve area: 1.66cm^2 (Vmax). - Mitral valve: Mild regurgitation. - Left atrium: The atrium was mildly dilated. - Pulmonary arteries: PA peak pressure: 41mm Hg (S). If LV function is below 40, please consider prescribing an ACEI or ARB or document rationale for non-use. PROCEDURE DATA STUDY STATUS: Elective. Procedure: Transthoracic echocardiography. Image quality was good. Scanning was performed from the parasternal, apical, and subcostal acoustic windows. Study completion: The patient tolerated the procedure well. Transthoracic echocardiography. M-mode, complete 2D, complete spectral Doppler, and color Doppler. Height: Height: 62in. Weight: Weight: 153.7lb. Body mass index: BMI: 28.2kg/m^2. Body surface area: BSA: 1.71m^2. Patient status: Inpatient. CARDIAC ANATOMY LEFT VENTRICLE: The cavity size was normal. Systolic function was probably normal. The estimated ejection fraction was in the range of 55% to 60%. Although no diagnostic regional wall motion abnormality was identified, this possibility cannot be completely excluded on the basis of this study. AORTIC VALVE: Trileaflet. Doppler: There was very mild stenosis. No significant regurgitation. Valve area: 1.66cm^2 (Vmax). Indexed valve area: 0.97cm^2/m^2 (Vmax). Peak gradient: 17mm Hg (S). MITRAL VALVE: The valve appears to be grossly normal. Doppler: There was no evidence for stenosis. Mild regurgitation. Peak gradient: 10mm Hg (D). LEFT ATRIUM: The atrium was mildly dilated. RIGHT VENTRICLE: The cavity size was normal. PULMONIC VALVE: Not well visualized. TRICUSPID VALVE: Doppler: There was no evidence for stenosis. Trace regurgitation. PERICARDIUM: There was no pericardial effusion. Patient weight: 153.7lb _Ejection fraction:_ 65-75% _Fractional shortening:_ 32% up to 5Kg 5-11.5Kg 11.6-22.9Kg 23-45Kg 45-57Kg Aortic Root 7-13 <17 13-22 17-27 17-27 LA diam 6-13 <23 24-38 33-47 37-40 RVID 10-17 7-15 7-15 7-18 8-17 LVIDd 12-22 <32 24-38 33-47 37-40 LVPW 2-4 3-6 5-7 6-8 7-8 IVS 2-4 3-6 5-7 6-8 7-8 BASIC MEASUREMENTS ADULT NORMAL Left ventricle LV internal dimension, ED, chordal *59.9 mm 43-52 level, PLAX LV internal dimension, ES, chordal *44.3 mm 23-38 level, PLAX Fractional shortening, chordal level, *26 % >29 PLAX LV posterior wall thickness, ED 8.69 mm IVS/LVPW ratio, ED 1.1 <1.3 Ventricular septum Septal thickness, ED 9.53 mm Aortic valve Leaflet separation 21 mm 15-26 Right ventricle RV internal dimension, ED, PLAX 21.1 mm 19-38 BASIC MEASUREMENTS ADULT NORMAL Aortic valve Leaflet separation 21 mm 15-26 Aorta Root diameter, ED 25 mm 20-37 Left atrium Anterior-posterior dimension, ES *48 mm 19-40 Anterior-posterior dimension index, ES *2.81 cm/m^2 <2.2 LA/aortic root ratio 1.92 DOPPLER MEASUREMENTS ADULT NORMAL Main pulmonary artery Pressure, S *41 mm Hg =30 Aortic valve Peak velocity, S 204 cm/s Peak gradient, S 17 mm Hg Valve area, Vmax 1.66 cm^2 Valve area index, Vmax 0.97 cm^2/m^2 Mitral valve Peak E-wave velocity 158 cm/s Peak A-wave velocity 157 cm/s Deceleration time *99 ms 150-230 Peak gradient, D 10 mm Hg Peak E/A ratio 1 Maximal regurgitant velocity 409 cm/s Tricuspid valve Regurgitant peak velocity 295 cm/s Peak RV-RA gradient, S 35 mm Hg Maximal regurgitant velocity 295 cm/s Systemic veins Estimated CVP 10 mm Hg Right ventricle RV pressure, S *45 mm Hg <30 Pulmonic valve Peak velocity, S 105 cm/s LEGEND: Mean values are shown as u=mean value. Asterisk (*) bardales values outside specified normal range. Prepared and signed by Kam Hoover [id number]
[2016-11-09] VITALS (24 sets, daily range): BP systolic 122–151; BP diastolic 54–77; PULSE 67–94; RESP 16–18; TEMP 97.6–98.2; O2SAT 92–98
[2016-11-09] MEDS: RESP: ALBUTEROL 2.5 MG/IPRATROPIUM 0.5 MG NEB (SCH) NEB ×4 (04:07→20:55)
[2016-11-09] MEDS: NITROGLYCERIN 2% OINT 1 GM PACKET TOPICAL SCH ×2 (05:05)
[2016-11-09 05:13] LABS: AUTOMATED NEUTROPHIL # 6.3 TH/MM3 (1.8-7.7); BASOPHIL # 0.1 TH/MM3 (0-0.2); EOSINOPHIL % 0.3 % (0.0-4.0); HEMATOCRIT 28.5 % (35.0-46.0); HEMO FLAGS DIFF FINAL; LYMPH % 19.6 % (9.0-44.0); LYMPHOCYTE # 1.8 TH/MM3 (1.0-4.8); MEAN CELL VOLUME 82.2 FL (80.0-100.0); MEAN CORPUSCULAR HEMOGLOBIN 27.1 PG (27.0-34.0); MONO % 10.6 % (0.0-8.0); NEUT % 68.5 % (16.0-70.0); PLATELET COUNT 298 TH/MM3 (150-450); RED BLOOD COUNT 3.47 MIL/MM3 (4.00-5.30); RED CELL DISTRIBUTION WIDTH 15.2 % (11.6-17.2); WHITE BLOOD COUNT 9.3 TH/MM3 (4.0-11.0)
[2016-11-09 05:43] LABS: BICARBONATE 30.7 MEQ/L (21.0-32.0); MAGNESIUM 1.8 MG/DL (1.5-2.5); POTASSIUM 3.4 MEQ/L (3.5-5.1)
[2016-11-09] MEDS: INSULIN ASPART SUPPLEMENTAL SCALE SQ SCH ×4 (06:15→21:52)
--- NOTE | 2016-11-09 08:55 | PD.CARD.PN ---
Subjective Subjective Remarks alert in nad Objective Vital Signs / I&O Vital Signs Date Time Temp Pulse Resp B/P Pulse Ox O2 Delivery O2 Flow Rate FiO2 11/09/16 06:00 73 11/09/16 04:15 96 21 11/09/16 04:00 97.7 71 16 122/57 93 11/09/16 04:00 76 11/09/16 02:00 74 11/09/16 00:00 75 11/09/16 00:00 97.8 75 16 123/54 92 11/08/16 20:00 85 11/08/16 20:00 97.9 85 16 134/68 97 11/08/16 18:04 84 11/08/16 17:05 97.6 79 18 120/94 98 11/08/16 11:56 98.1 58 18 141/59 96 I/O 11/08/16 11/08/16 11/08/16 11/09/16 11/09/16 11/09/16 07:00 15:00 23:00 07:00 15:00 23:00 Intake Total 340 ml 240 ml Balance 340 ml 240 ml Intake Oral 240 ml 240 ml IV Total 100 ml # Voids 2 # Bowel Movements 0 0 Physical Exam GENERAL: SKIN: Warm and dry. HEAD: Normocephalic. EYES: No scleral icterus. No injection or drainage. NECK: Supple, trachea midline. No JVD or lymphadenopathy. CARDIOVASCULAR: Regular rate and rhythm without murmurs, gallops, or rubs. RESPIRATORY: Breath sounds equal bilaterally. No accessory muscle use. GASTROINTESTINAL: Abdomen soft, non-tender, nondistended. MUSCULOSKELETAL: No cyanosis, or edema. BACK: Nontender without obvious deformity. No CVA tenderness. Laboratory Laboratory Tests Test 11/09/16 04:38 White Blood Count 9.3 TH/MM3 Red Blood Count 3.47 MIL/MM3 Hemoglobin 9.4 GM/DL Hematocrit 28.5 % Mean Corpuscular Volume 82.2 FL Mean Corpuscular Hemoglobin 27.1 PG Mean Corpuscular Hemoglobin 33.0 % Concent Red Cell Distribution Width 15.2 % Platelet Count 298 TH/MM3 Mean Platelet Volume 9.7 FL Neutrophils (%) (Auto) 68.5 % Lymphocytes (%) (Auto) 19.6 % Monocytes (%) (Auto) 10.6 % Eosinophils (%) (Auto) 0.3 % Basophils (%) (Auto) 1.0 % Neutrophils # (Auto) 6.3 TH/MM3 Lymphocytes # (Auto) 1.8 TH/MM3 Monocytes # (Auto) 1.0 TH/MM3 Eosinophils # (Auto) 0.0 TH/MM3 Basophils # (Auto) 0.1 TH/MM3 CBC Comment DIFF FINAL Differential Comment Sodium Level 141 MEQ/L Potassium Level 3.4 MEQ/L Chloride Level 103 MEQ/L Carbon Dioxide Level 30.7 MEQ/L Anion Gap 7 MEQ/L Blood Urea Nitrogen 27 MG/DL Creatinine 1.39 MG/DL Estimat Glomerular Filtration 37 ML/MIN Rate Random Glucose 185 MG/DL Calcium Level 8.7 MG/DL Magnesium Level 1.8 MG/DL B-Type Natriuretic Peptide 268 PG/ML Assessment and Plan Problem List: (1) Diabetes (2) Shortness of breath (3) Hypertension (4) Type 2 diabetes mellitus (5) Presence of stent in coronary artery in patient with coronary artery disease (6) Asthma (7) Acute exacerbation of congestive heart failure (8) MS (mitral stenosis) (9) MR (mitral regurgitation) Assessment and Plan 1.) CAD - stent widely patent, continue aspirin, plavix, statin, valsartan, beta monique held d/t severe rad, right groin clean/dy and intact 2.) CHF - d/t uncontrolled htn, possible ms, mvpg=10 mm hg on echo and pcwp@ 10- 15 mm hg > lvedp suggesting mitral stenosis, she will need ANABEL, but i am on vacation until nov 21, 2016, i have left my coverage with my service number; i think this could probably be done as an outpatient whrn i return and the patient could be discharged from cv standpoint today, f/u with me week of nov 20 ; i discussed f/u with patient personally, i have instructed her to hold janumet x 48 hrs post cath; f/u rec of dr Jacquie Cronin 3.) HTN - controlled on current hospital meds, rec continue as outpatient; i suspect she has issues with noncompliance d/t lanaguage barrier and multiple translators that i have encountered, rec f/u in my office liz whrn i return week of nov 20, 2016 Problem Qualifiers (1) Hypertension: Qualified Code: I10 - Essential hypertension (2) Type 2 diabetes mellitus: Qualified Code: E11.8 - Type 2 diabetes mellitus with complication, unspecified long term care administrator insulin use status (3) Asthma: Qualified Code: J45.909 - Uncomplicated asthma, unspecified asthma severity (4) Acute exacerbation of congestive heart failure: Qualified Code: I50.9 - Acute on chronic congestive heart failure, unspecified congestive heart failure type Gabriel Tena MD Nov 09, 2016 08:55
[2016-11-09] MEDS: DULoxetine HCl DR 60 MG CAP PO SCH ×2 (09:00→09:17)
[2016-11-09] MEDS: VALSARTAN 160 MG TAB PO SCH (09:17)
[2016-11-09] MEDS: GABAPENTIN 300 MG CAP PO SCH ×3 (09:17→17:08)
[2016-11-09] MEDS: ASPIRIN EC 81 MG TABEC PO SCH (09:17)
[2016-11-09] MEDS: predniSONE 20 MG TAB PO SCH (09:18)
[2016-11-09] MEDS: FUROSEMIDE 20 MG TAB PO SCH ×2 (09:18→21:50)
[2016-11-09] MEDS: PRAVASTATIN SOD 80 MG TAB PO SCH (09:18)
[2016-11-09] MEDS: SODIUM CHLORIDE 0.9% FLUSH 5 ML FLUSH IVF SCH ×2 (09:18→21:51)
[2016-11-09] MEDS: CLOPIDOGREL 75 MG TAB PO SCH (09:19)
[2016-11-09] MEDS ORDERED: ACETAMINOPHEN 325 MG TAB PO PRN (09:30)
[2016-11-09] MEDS ORDERED: ACETAMINOPHEN 325 MG TAB PO ONE (10:15)
--- NOTE | 2016-11-09 10:30 | HHI.FPPN ---
Subjective Remarks Patient seen this morning. No acute events overnight. Vitals essentially WNL. Sating in the mid-90s on room air. S/p cardiac cath yesterday, which showed patent stent. Cards has cleared. Echo showed normal EF with possible mitral stenosis. Ms. Portillo' main complaint today is of chest wall pain on the left. She has been coughing much more recently. Not using anything for pain. She feels breathing is approaching baseline. She is concerned asthma may be getting worse with allergies. Not taking anything for this currently, but was on regimen in [place]. She says she thinks this is from old carpet in her appt. No fever or chills. (Arian Armendariz MD R3) Objective Vitals Vital Signs Date Time Temp Pulse Resp B/P Pulse Ox O2 Delivery O2 Flow Rate FiO2 11/09/16 06:00 73 11/09/16 04:15 96 21 11/09/16 04:00 97.7 71 16 122/57 93 11/09/16 04:00 76 11/09/16 02:00 74 11/09/16 00:00 75 11/09/16 00:00 97.8 75 16 123/54 92 11/08/16 20:00 85 11/08/16 20:00 97.9 85 16 134/68 97 11/08/16 18:04 84 11/08/16 17:05 97.6 79 18 120/94 98 11/08/16 11:56 98.1 58 18 141/59 96 I/O 11/08/16 11/08/16 11/08/16 11/09/16 11/09/16 11/09/16 07:00 15:00 23:00 07:00 15:00 23:00 Intake Total 340 ml 240 ml Balance 340 ml 240 ml Intake Oral 240 ml 240 ml IV Total 100 ml # Voids 2 # Bowel Movements 0 0 (Arian Armendariz MD R3) Result Diagram: 11/09/1643711/09/16437 Objective Remarks GENERAL: This is a well-nourished, well-developed patient, in no apparent distress. nearly exclusively Lao speaking CARDIOVASCULAR: Regular rate and rhythm without murmurs, gallops, or rubs. Some tenderness to palpation of left anterior chest wall. RESPIRATORY: non-labored. Better air movement today. Prolonged expiratory phase. Mild wheezing at the bases. GASTROINTESTINAL: Abdomen soft, non-tender, nondistended. No hepato-splenomegaly , or palpable masses. No guarding. MUSCULOSKELETAL: Extremities without clubbing, cyanosis, or edema. No joint tenderness, effusion, or edema noted. No calf tenderness. NEUROLOGICAL: Awake and alert. Motor and sensory grossly within normal limits. Normal speech. (Arian Armendariz MD R3) A/P Assessment and Plan 76 yo female with CAD s/p stent placement presents with worsening SOB likely related to both CHF and asthma. S/p cardiac cath 11/08. Now with improving SOB. Discharge Planning Plan for DC home tomorrow. (Arian Armendariz MD R3) Attending Attestation Patient seen and examined. Case reviewed and discussed with the resident team. Agree with plan of care as discussed with me and documented in the resident note. discussed with pt and son that heart valve problems, CAD and asthma can all make her SOB. She will follow up with Cardiology and keep "an eye" on her heart (Niurka Sher MD) Problem List: (1) Shortness of breath Status: Acute Plan: Improving. Multifactorial. - We'll treat her asthma: Exam did reveal some wheezing although was mild * Prednisone 40 mg daily * Duo nebs every 6 scheduled * Albuterol when necessary * Add singulair * Acapella - We'll treat her CHF * Strict I's and O's * Fluid restrict 1.5 L 24 hours * Continue Aspirin * Continue home Lasix 20 mg by mouth twice a day * Continue home valsartan 320 mg by mouth daily and Amlodipine 10 mg daily * Per cards, hold BB 2/2 severe asthma * DC nitroglycerine paste. Cont PRN morphine and nitro. * Echo 11/08 normal EF, ? 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 Tena consulted. Cards surgery to see. (2) Presence of stent in coronary artery in patient with coronary artery disease Status: Chronic Plan: Patient is on aspirin 81 mg daily. After her stent she was started on Plavix 75 mg daily. We'll continue these. (3) Type 2 diabetes mellitus Status: Chronic Plan: Hold home metformin and glipizide - Low-dose sliding scale - Diabetic diet - Continue home gabapentin (4) Depression Status: Acute Plan: Continue patient's home Cymbalta (5) Hypertension Status: Chronic Plan: Continue home amlodipine and valsartan - Clonidine when necessary (6) Musculoskeletal chest pain Status: Acute Plan: Likely 2/2 cough. -start Tylenol 650mg BID -cont prednisone, as above (7) FEN Status: Acute Plan: Fluids: Hep-Lock IV Electrolytes: currently wnl, replete as necessary Nutrition: diabetic diet Bilat SCDs, if stays > 24hs consider chemoprophylaxis. 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
--- NOTE | 2016-11-09 12:00 | PQ ---
Physician Query Response Document PATIENT: JAX FRANKS : 1940 ADMIT DATE: 11/07/2016 8:26 PM DISCH DATE: RESPONDING PROVIDER #: Jason QUERY TEXT: CHF Acuity and Type Congestive Heart Failure is documented in the Medical Record. Please document the type and acuity (in cludes probable or suspected) Such as: Type: -- Systolic -- Diastolic -- Combined -- Other, please specify Acuity: -- Acute -- Chronic -- Acute on chronic The patient's Clinical Indicators include: PER H - We'll treat her CHF Status post 40 mg IV Lasix Strict I's and O's Fluid restrict 1.5 L 24 hours Continue home Lasix 20 mg by mouth twice a day Continue home valsartan 320 mg by mouth daily ECHO 11/08/16 EF=55-60%, MITRAL REGURGITATION, BNP ON 11/08/16 = 680 Query created by: Christina Salmon on 11/09/2016 11:07 AM RESPONSE TEXT: She has intermittent CHF related to her mitral valve. If her regurgitation gets worse she can get pul monary edema and her heart failure is related to that. It would be diastolic as her EF is good and ac hoopa as she does not have a daily always present problem. Electronically signed by: Niurka Sher MD 11/09/2016 11:56 AM
[2016-11-09] MEDS: MINOXIDIL 2.5 MG TAB PO SCH (12:05)
[2016-11-09] MEDS ORDERED: IOHEXOL 350 MG/ML 100 ML BTL (for Cath Lab) OTHER ONE (16:00)
--- NOTE | 2016-11-09 20:37 | MB ---
cc: CHARLOTTE JUAREZ MD DATE OF CONSULTATION 11/09/16 1940. HISTORY OF PRESENT ILLNESS A very pleasant 76-year-old patient known to Dr. Tena's service, also Dr. García, history of diabetes mellitus, reactive airway disease, hypertension, coronary artery disease recently underwent PCI with stent placement to the mid LAD over a week ago. The patient was still apparently having some shortness of breath and fatigue and saw Dr. Tena and she also had an echocardiogram in his office a week ago that showed an EF of 50-60% with moderate to severe MR. Previous echo at [facility] a month before showed mild mitral regurgitation. The patient presented to the emergency department on the with shortness of breath, chest pain, blood pressure was very elevated. There has been some concern about how she is taking her medications or whether or not she is. She underwent heart catheterization by Dr. Tena for possible non-STEMI which showed no evidence of further disease. Her stent was widely patent. We were, however, consulted to evaluate for her moderate to severe mitral regurgitation. She had a repeat echocardiogram on the that showed mild aortic stenosis, mild mitral valve regurgitation. PAST MEDICAL HISTORY 1. Coronary artery disease, 2. Arthritis, 3. Hyperlipidemia, 4. Diabetes mellitus. 5. Major depressive disorder, 6. Anxiety, 7. Gastroesophageal reflux disease, 8. Asthma, 9. COPD, 10. Diabetic neuropathy PAST SURGICAL HISTORY 1. PCI stent to the mid LAD over a week ago 2. Shoulder arthroscopic surgery, 3. Carpal tunnel surgery, 4. Tonsillectomy ALLERGIES SHELLFISH FAMILY HISTORY Mother passed in her 50s from diabetes and heart failure. Father passed in his 60s from diabetes and heart failure. SOCIAL HISTORY Born in [place], speaks very limited East Timorese, drinks two cups of wine with meals. No tobacco, has some secondhand exposure from her . No illicit drugs. She is now . REVIEW OF SYSTEMS As above in HPI, otherwise, 12 systems unremarkable. PHYSICAL EXAMINATION VITAL SIGNS: Blood pressure 140/80, heart rate of 90, afebrile. GENERAL: Patient is awake, alert, no acute distress. We had to have a hand paster at the bedside for all questions. HEENT: Head is normocephalic, atraumatic. Pupils equal and reactive. Oral mucosa pink, moist. NECK: Supple. No JVD. CARDIAC: Heart sounds S1-S2, regular rate and rhythm. No audible rubs, murmurs, gallops. LUNGS: Clear to auscultation. No wheezes, rales or rhonchi. ABDOMEN: Soft, nontender. No masses or organomegaly. EXTREMITIES: No cyanosis, clubbing or edema. LABORATORY DATA Troponin 0.07, sodium 139, potassium 4.1, BUN of 18, creatinine 1.23, hemoglobin 10, hematocrit 30. IMPRESSION 1. Patient with recurrent chest pain following PCI with stent to the LAD, has been apparently on Plavix and aspirin. She underwent heart catheterization which showed patent stent. No other disease noted. 2. She apparently had an echo Dr. Tena's office showing moderate to severe mitral regurgitation. However, the echo report here at [facility] just shows mild mitral regurgitation at this time. She is welcome to follow up with us in the future if this valve were to become worse and the patient becomes more symptomatic. Otherwise, no surgical intervention warranted at this time. Further plan per Dr. Juarez. CODY Michel Dictating for Dr. Go Juarez T/ /2:21 PM /8:23 PM
[2016-11-09] MEDS: MONTELUKAST SODIUM 10 MG TAB PO SCH (20:53)
[2016-11-09] MEDS: ACETAMINOPHEN 325 MG TAB PO SCH (21:00)
[2016-11-09] MEDS: MELATONIN 5 MG TAB PO SCH (21:50)
[2016-11-09] MEDS: FAMOTIDINE 20 MG TAB PO SCH (21:50)
[2016-11-09] MEDS ORDERED: POTASSIUM CHLORIDE 10 MEQ CONTROLLED RELEASE TAB PO ONE (22:45)
[2016-11-10] VITALS (27 sets, daily range): BP systolic 152–166; BP diastolic 54–84; PULSE 61–103; RESP 18–20; TEMP 97.7–98.6; O2SAT 93–100
[2016-11-10] MEDS: RESP: ALBUTEROL 2.5 MG/IPRATROPIUM 0.5 MG NEB (SCH) NEB (03:28)
[2016-11-10] MEDS: INSULIN ASPART SUPPLEMENTAL SCALE SQ SCH ×4 (06:02→21:19)
[2016-11-10] MEDS: MINOXIDIL 2.5 MG TAB PO SCH (09:00)
[2016-11-10] MEDS: DULoxetine HCl DR 60 MG CAP PO SCH (09:00)
--- NOTE | 2016-11-10 09:17 | HHI.FF ---
Face to Face Verification Diagnosis: (1) Asthma (2) Presence of stent in coronary artery in patient with coronary artery disease Physical Therapy Order: Evaluate and Treat Home Health Nursing Order: Medical education Signs/symptoms of disease process I have seen patient Carolin Aguirre on 11/10/16. My clinical findings support the need for the requested home health care services because: Ltd mobility - disease progression Patient has SOB High risk of falls I certify that my clinical findings support that this patient is homebound because: Hx COPD- exertion dyspnea/weakness Unsteady gait/balance Poor cardiac reserve Arian Armendariz MD R3 Nov 10, 2016 09:17
--- NOTE | 2016-11-10 09:18 | HHI.FPPN ---
Subjective Remarks Ms Aguirre is still feeling SOB whenever she walks . She is having trouble walking to the bathroom without feeling very SOB and believes this is her asthma still causing her breathing problems. She wishes C and PT. Her stent was patent and CAD should not be worsening her SOB. The mitral valve was read on different echocardiograms as mild, then one reading was moderate to severe regurgitation and then a subsequent echo was read as mild regurgitation again. It is unclear if one of the reading was off a little or maybe there were technical difficulties in interpretation. Surgery feels that she does not need any urgent procedure so she will be followed as an outpt. Discussed all this with pt and tried to call her son twice yesterday and once today but have left messages as he did not answer his phone. Per his mother he is working in [employer] now and may not have the best rose grading supervisor. Objective Vitals Vital Signs Date Time Temp Pulse Resp B/P Pulse Ox O2 Delivery O2 Flow Rate FiO2 11/10/16 06:00 80 11/10/16 05:00 97 11/10/16 04:28 98.3 84 18 155/54 97 11/10/16 04:00 79 11/10/16 03:29 95 11/10/16 03:00 88 11/10/16 02:00 77 11/10/16 01:00 78 11/10/16 00:12 98.6 88 18 164/63 97 11/10/16 00:00 81 11/09/16 23:00 81 11/09/16 22:00 87 11/09/16 21:00 85 11/09/16 20:50 98.2 80 18 151/74 98 11/09/16 20:00 86 11/09/16 19:00 87 11/09/16 18:00 90 11/09/16 17:00 86 11/09/16 16:00 85 11/09/16 15:05 98 21 11/09/16 15:00 97.7 88 18 131/66 98 11/09/16 15:00 88 11/09/16 14:00 80 11/09/16 13:00 94 11/09/16 12:00 86 11/09/16 11:00 97.6 80 18 124/63 94 11/09/16 11:00 76 11/09/16 10:00 75 I/O 11/09/16 11/09/16 11/09/16 11/10/16 11/10/16 11/10/16 07:00 15:00 23:00 07:00 15:00 23:00 Intake Total 240 ml 720 ml 680 ml Balance 240 ml 720 ml 680 ml Intake Oral 240 ml 720 ml 680 ml IV Total 0 ml # Voids 2 3 3 # Bowel Movements 0 0 0 Result Diagram: 11/09/16 0438 11/09/16 0438 Objective Remarks GENERAL: This is a well-nourished, well-developed patient, in no apparent distress. nearly exclusively Chinese speaking CARDIOVASCULAR: Regular rate and rhythm without murmurs, gallops, or rubs. Some tenderness to palpation of left anterior chest wall. RESPIRATORY: non-labored. Prolonged expiratory phase. Mild wheezing at the bases. moving air but still clearly not able to breathe with complete ease even when just sitting in bed though able to speak in full sentences and paragraphs GASTROINTESTINAL: Abdomen soft, non-tender, nondistended. No hepato-splenomegaly , or palpable masses. No guarding. MUSCULOSKELETAL: Extremities without clubbing, cyanosis, or edema. No joint tenderness, effusion, or edema noted. No calf tenderness. NEUROLOGICAL: Awake and alert. Motor and sensory grossly within normal limits. Normal speech. Urinary Catheter: No Vascular Central Line Catheter: No A/P Assessment and Plan 76 yo female with CAD s/p stent placement presents with worsening SOB likely related to both CHF and asthma. S/p cardiac cath 11/08. Now with improving SOB but having an asthma exacerbation. Discharge Planning Plan for DC home tomorrow or within next few days once better with her breathing. Problem List: (1) Shortness of breath Status: Acute Plan: Improving. Multifactorial. - We'll keep treat her asthma: Exam did reveal some wheezing although was mild * Prednisone 40 mg daily * Duo nebs every 6 scheduled, will stop duonebs and try ipratropium scheduled, as albuterol is causing tremors and ectopy * Albuterol when necessary * Added Singulair * Acapella * ipratropium neb * Pulmicort * PFTs * walking test - We'll treat her CHF * Strict I's and O's * Fluid restrict 1.5 L 24 hours * Continue Aspirin * Continue home Lasix 20 mg by mouth twice a day * Continue home valsartan 320 mg by mouth daily and Amlodipine 10 mg daily * Per cards, hold BB 2/2 severe asthma * DC nitroglycerine paste. Cont PRN morphine and nitro. * Echo 11/08 normal EF, ? 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 Cards surgery saw (2) Presence of stent in coronary artery in patient with coronary artery disease Status: Chronic Plan: Patient is on aspirin 81 mg daily. After her stent she was started on Plavix 75 mg daily. We'll continue these. (3) Type 2 diabetes mellitus Status: Chronic Plan: Hold home metformin and glipizide - Low-dose sliding scale - Diabetic diet - Continue home gabapentin (4) Depression Status: Acute Plan: Continue patient's home Cymbalta (5) Hypertension Status: Chronic Plan: Continue home amlodipine and valsartan - Clonidine when necessary (6) Musculoskeletal chest pain Status: Acute Plan: Likely 2/2 cough. -start Tylenol 650mg BID -cont prednisone, as above (7) FEN Status: Acute Plan: Fluids: Hep-Lock IV Electrolytes: currently wnl, replete as necessary Nutrition: diabetic diet Bilat SCDs, if stays > 24hs consider chemoprophylaxis. she will have cath and may need anticoagulation based on what Cardiology feel is appropriate Ranitidine for GI prophylaxis while on steroids (this is also a home med for the patient) Melatonin for sleep Problem Qualifiers (1) Type 2 diabetes mellitus: Qualified Code: E11.8 - Type 2 diabetes mellitus with complication, unspecified long-term insulin use status (2) Depression: Qualified Code: F32.9 - Depression, unspecified depression type (3) Hypertension: Qualified Code: I10 - Essential hypertension Niurka Sher MD Nov 10, 2016 09:18
[2016-11-10] MEDS: DOCUSATE SODIUM 50 MG/SENNA 8.6 MG TAB PO SCH ×2 (09:39→21:19)
[2016-11-10] MEDS: GABAPENTIN 300 MG CAP PO SCH ×3 (09:39→17:19)
[2016-11-10] MEDS: predniSONE 20 MG TAB PO SCH (09:39)
[2016-11-10] MEDS: VALSARTAN 160 MG TAB PO SCH (09:40)
[2016-11-10] MEDS: CLOPIDOGREL 75 MG TAB PO SCH (09:40)
[2016-11-10] MEDS: PRAVASTATIN SOD 80 MG TAB PO SCH (09:40)
[2016-11-10] MEDS: FUROSEMIDE 20 MG TAB PO SCH ×2 (09:40→21:19)
[2016-11-10] MEDS: ACETAMINOPHEN 325 MG TAB PO SCH ×2 (09:40→21:20)
[2016-11-10] MEDS: ASPIRIN EC 81 MG TABEC PO SCH (09:41)
[2016-11-10] MEDS: SODIUM CHLORIDE 0.9% FLUSH 5 ML FLUSH IVF SCH ×2 (09:41→21:23)
[2016-11-10] MEDS: RESP: IPRATROPIUM 0.5 MG/2.5 ML NEB NEB SCH ×3 (10:31→20:20)
[2016-11-10] MEDS: RESP: BUDESONIDE 0.5 MG/2 ML NEB NEB SCH ×2 (10:31→20:20)
[2016-11-10] MEDS: MONTELUKAST SODIUM 10 MG TAB PO SCH (21:19)
[2016-11-10] MEDS: FAMOTIDINE 20 MG TAB PO SCH (21:19)
[2016-11-10] MEDS: MELATONIN 5 MG TAB PO SCH (21:22)
[2016-11-11] VITALS (9 sets, daily range): BP systolic 135–158; BP diastolic 63–88; PULSE 66–76; RESP 18–20; TEMP 97.5–98.7; O2SAT 94–98
[2016-11-11] MEDS: RESP: IPRATROPIUM 0.5 MG/2.5 ML NEB NEB SCH ×4 (03:47→11:57)
[2016-11-11] MEDS: INSULIN ASPART SUPPLEMENTAL SCALE SQ SCH ×2 (06:04→11:21)
--- NOTE | 2016-11-11 07:33 | HHI.FPPN ---
Subjective Remarks Patient seen this morning. No acute events overnight. Vitals essentially WNL. Patient has no complaints this morning. Breathing improved. No longer shaking after albuterol DCed. She feels ready for DC. Ambulating around the room without difficulty. Denies any CP or F/C at this time. (Arian Armendariz MD R3) Objective Vitals Vital Signs Date Time Temp Pulse Resp B/P Pulse Ox O2 Delivery O2 Flow Rate FiO2 11/11/16 04:00 98.0 70 20 146/65 94 11/11/16 03:52 96 21 11/11/16 00:02 95 11/11/16 00:00 97.5 66 20 135/63 95 11/10/16 21:30 66 11/10/16 20:23 95 11/10/16 20:00 98.0 61 20 155/84 95 11/10/16 18:00 102 11/10/16 17:00 84 11/10/16 16:00 78 11/10/16 15:24 93 21 11/10/16 15:00 98.0 80 18 152/78 97 11/10/16 15:00 82 11/10/16 14:00 81 11/10/16 13:00 78 11/10/16 12:00 88 11/10/16 11:00 73 11/10/16 11:00 97.7 94 18 166/65 99 11/10/16 10:31 97 11/10/16 10:00 95 11/10/16 09:00 103 11/10/16 08:00 69 I/O 11/10/16 11/10/16 11/10/16 11/11/16 11/11/16 11/11/16 07:00 15:00 23:00 07:00 15:00 23:00 Intake Total 680 ml 1320 ml 720 ml Balance 680 ml 1320 ml 720 ml Intake Oral 680 ml 1320 ml 720 ml IV Total 0 ml # Voids 3 6 1 # Bowel Movements 0 1 1 (Arian Armendariz MD R3) Result Diagram: 11/09/168 11/10/162050 Objective Remarks GENERAL: This is a well-nourished, well-developed patient, in no apparent distress. nearly exclusively Slovak speaking CARDIOVASCULAR: Regular rate and rhythm without murmurs, gallops, or rubs. Some tenderness to palpation of left anterior chest wall. RESPIRATORY: non-labored. CTAB. No adventitious sounds. GASTROINTESTINAL: Abdomen soft, non-tender, nondistended. No hepato-splenomegaly , or palpable masses. No guarding. MUSCULOSKELETAL: Extremities without clubbing, cyanosis, or edema. No joint tenderness, effusion, or edema noted. No calf tenderness. NEUROLOGICAL: Awake and alert. Motor and sensory grossly within normal limits. Normal speech. (Arian Armendariz MD R3) A/P Assessment and Plan 76 yo female with CAD s/p stent placement presents with worsening SOB likely related to both CHF and asthma. S/p cardiac cath 11/08. Now with improving SOB, approaching baseline. Discharge Planning DC home today with HH PT. Will discuss with case management. Will discuss with Dr. Sher. (Arian Armendariz MD R3) Attending Attestation Patient seen and examined. Case reviewed and discussed with the resident team. Agree with plan of care as discussed with me and documented in the resident note. she feels much better and wishes to go home today (Niurka Sher MD) Problem List: (1) Shortness of breath Status: Acute Plan: Improving. Multifactorial. At this point, believe more likely related to mitral valve regurgitation/CHF than asthma, given normal PFT on 11/07. - We'll keep treat her asthma: Exam did reveal some wheezing although was mild * Prednisone 40 mg daily * Ipratropium neb q4 * Albuterol when necessary * Singulair * Acapella * Pulmicort * PFTs show normal FEV1 * walking test passed - We'll treat her CHF * Strict I's and O's * Fluid restrict 1.5 L 24 hours * Continue Aspirin * Continue home Lasix 20 mg by mouth twice a day * Continue home valsartan 320 mg by mouth daily and Amlodipine 10 mg daily * Per cards, hold BB 2/2 severe asthma * DC nitroglycerine paste. Cont PRN morphine and nitro. * Echo 11/08 normal EF, ? 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 [facility] surgery has evaluated and recommend no intervention at this time. (2) Presence of stent in coronary artery in patient with coronary artery disease Status: Chronic Plan: Patient is on aspirin 81 mg daily. After her stent she was started on Plavix 75 mg daily. We'll continue these. (3) Type 2 diabetes mellitus Status: Chronic Plan: Hold home metformin and glipizide - Low-dose sliding scale - Diabetic diet - Continue home gabapentin (4) Depression Status: Acute Plan: Continue patient's home Cymbalta (5) Hypertension Status: Chronic Plan: Continue home amlodipine and valsartan - Clonidine when necessary (6) Musculoskeletal chest pain Status: Acute Plan: Likely 2/2 cough. -Tylenol 650mg BID -cont prednisone, as above (7) FEN Status: Acute Plan: Fluids: Hep-Lock IV Electrolytes: currently wnl, replete as necessary Nutrition: diabetic diet Bilat SCDs (patient ambulatory) Melatonin for sleep (Arian Armendariz MD R3) Problem Qualifiers (1) Type 2 diabetes mellitus: Qualified Code: E11.8 - Type 2 diabetes mellitus with complication, unspecified crisis clinician insulin use status (2) Depression: Qualified Code: F32.9 - Depression, unspecified depression type (3) Hypertension: Qualified Code: I10 - Essential hypertension Arian Armendariz MD R3 Nov 11, 2016 07:33 Niurka Sher MD Nov 13, 2016 10:21
[2016-11-11] MEDS ORDERED: MELA1TAB22 PO (07:39)
[2016-11-11] MEDS ORDERED: PRED20 PO (07:39)
[2016-11-11] MEDS ORDERED: MONT10TA4 PO (07:39)
[2016-11-11] MEDS ORDERED: IPRA0.02 NEB (07:39)
[2016-11-11] MEDS ORDERED: ADVA250A INH (07:40)
[2016-11-11] MEDS: RESP: BUDESONIDE 0.5 MG/2 ML NEB NEB SCH (07:58)
[2016-11-11] MEDS: predniSONE 20 MG TAB PO SCH (08:26)
[2016-11-11] MEDS: ACETAMINOPHEN 325 MG TAB PO SCH (08:26)
[2016-11-11] MEDS: VALSARTAN 160 MG TAB PO SCH (08:27)
[2016-11-11] MEDS: DULoxetine HCl DR 60 MG CAP PO SCH (08:27)
[2016-11-11] MEDS: DOCUSATE SODIUM 50 MG/SENNA 8.6 MG TAB PO SCH (08:27)
[2016-11-11] MEDS: MINOXIDIL 2.5 MG TAB PO SCH (08:27)
[2016-11-11] MEDS: CLOPIDOGREL 75 MG TAB PO SCH (08:27)
[2016-11-11] MEDS: GABAPENTIN 300 MG CAP PO SCH ×2 (08:27→13:17)
[2016-11-11] MEDS: ASPIRIN EC 81 MG TABEC PO SCH (08:28)
[2016-11-11] MEDS: SODIUM CHLORIDE 0.9% FLUSH 5 ML FLUSH IVF SCH (08:28)
[2016-11-11] MEDS: FUROSEMIDE 20 MG TAB PO SCH (08:28)
[2016-11-11] MEDS: PRAVASTATIN SOD 80 MG TAB PO SCH (08:28)
[2016-11-12] MEDS ORDERED: IPRASOL INH ×2 (12:22→14:45)
--- NOTE | 2016-11-14 18:12 | MR ---
cc: SYLVIA BURRELL M.D. DATE 11/08/16 PROCEDURES 1. Right heart catheterization, 2. Left heart catheterization, 3. Left coronary angiography INDICATIONS Non STEMI, hypertension, diabetes mellitus, [place] Cardiovascular Society Class IV angina. [place] Heart Association class IV heart failure, moderate to severe mitral valve regurgitation, pulmonary hypertension. The patient brought to the cardiac catheterization laboratory, prepped and draped in usual sterile fashion. Ten mL of 1% lidocaine was used to locally anesthetize the right common femoral artery. A 4-Mauritian sheath subsequently placed in the right common femoral artgery, 5-Mauritian sheath placed in the right common femoral vein. Right heart catheterization was performed first with a following findings: The pulmonary capillary wedge pressure was 32/71/24, PA pressure 44/13/30, EA sat 58.4%. RV pressure 48/11/14. RA sat 12/8/7. RA sat 62.7%. The FA sat 91.8%. Cardiac output by Yenny is 4.7 liters per minute. Cardiac index by Yenny is 2.7 liters per minute per meter squared. SVR is 1631 dynes. Left heart catheterization was then performed with a 4-Mauritian JR-4, JL-4 catheters with the following findings: LV pressure 150/12/14, EF 60%. The right coronary artery is dominant. Mild disease in the proximal segment up to 20% angiographically. The left main coronary artery has no significant disease angiographically. The left circumflex vessel has no significant disease angiographically. First obtuse marginal vessel is a large vessel approaching the apex, comes off the proximal circ and has no significant disease angiographically. The LAD has mild disease in the proximal segment up to 20% angiographically, distended proximal segment is widely patent. The LAD is transapical. The first diagonal artery is a small artery with an ostial 70% stenosis. CONCLUSION 1. Severe ostial first diagonal artery stenosis in a small vessel 60-70%. This is probably a 55 mm vessel at most. 2. Widely patent stent in proximal mid-LAD. 3. Normal LV systolic function, ejection fraction 60%. 4. Elevated pulmonary capillary wedge pressure with LVEDP within normal range suggestive of possible mitral valve stenosis or pulmonic main stenosis. RECOMMENDATION 1. Recommend continue aspirin, Plavix, statin. 2. Continue current medication for blood pressure control. Beta monique is held due to severe reactive airway disease requiring steroids. 3. We will continue minoxidil 2.5 daily, two inch nitro paste q.6 h, aspirin 81 mg daily, clopidogrel 75 daily, Lasix 20 b.i.d. valsartan 320 daily. Amlodipine 10 mg daily, 40 of IV Lasix has been given in the labor operator. We will follow up her BNP, BMP tomorrow. 4. I have consulted Dr. Jacquie Arnold for evaluation of risk and benefits of possible mitral valve repair and/or replacement as by echo in my office she has moderate to severe mitral valve regurgitation and right heart cath suggests the possibility of mitral valve stenosis of at least moderate to severe degree. 5. The patient has been instructed through collections representative to hold her Janumet for 14 hours postprocedure with myself present at the time. MD DARRELL Riley/ /4:31 PM /6:00 PM
--- NOTE | 2016-11-27 11:21 | RSPPFT ---
DATE OF PROCEDURE: 11/08/16 COMMENTS: Spirometry demonstrates an FEV1 of 1.6 at 88% of predicted, FVC of 1.9 at 76%, FEV1/FVC ratio at 88%. The FEF 25-75 is 127% of predicted. Post-bronchodilator study demonstrated significant improvements suggesting a response. Flow volume loops are unremarkable. IMPRESSION: 1. Essentially normal pulmonary function study. 2. Significant response to use of bronchodilator suggesting reactive airways.
--- NOTE | 2016-12-27 15:39 | HHI.DS ---
Discharge Summary Admission Date Nov 07, 2016 at 20:26 Discharge Date: Nov 11, 2016 Admitting Diagnosis (1) Shortness of breath Diagnosis: Principal Plan: Improving. Multifactorial. At this point, believe more likely related to mitral valve regurgitation/CHF than asthma, given normal PFT on 11/07. - We'll keep treat her asthma: Exam did reveal some wheezing although was mild * Prednisone 40 mg daily * Ipratropium neb q4 * Albuterol when necessary * Singulair * Acapella * Pulmicort * PFTs show normal FEV1 * walking test passed - We'll treat her CHF * Strict I's and O's * Fluid restrict 1.5 L 24 hours * Continue Aspirin * Continue home Lasix 20 mg by mouth twice a day * Continue home valsartan 320 mg by mouth daily and Amlodipine 10 mg daily * Per cards, hold BB 2/2 severe asthma * DC nitroglycerine paste. Cont PRN morphine and nitro. * Echo 11/08 normal EF, ? mitral valve regurgitation * cardiac cath 11/08 showed patent stent * Patient's commercial designer Dr. Tena consulted. [facility] surgery has evaluated and recommend no intervention at this time. (2) Presence of stent in coronary artery in patient with coronary artery disease Diagnosis: Secondary Plan: Patient is on aspirin 81 mg daily. After her stent she was started on Plavix 75 mg daily. We'll continue these. (3) Type 2 diabetes mellitus Diagnosis: Secondary Plan: Hold home metformin and glipizide - Low-dose sliding scale - Diabetic diet - Continue home gabapentin (4) Depression Diagnosis: Secondary Plan: Continue patient's home Cymbalta (5) Hypertension Diagnosis: Secondary Plan: Continue home amlodipine and valsartan - Clonidine when necessary (6) Musculoskeletal chest pain Diagnosis: Secondary Plan: Likely 2/2 cough. -Tylenol 650mg BID -cont prednisone, as above (7) FEN Plan: Fluids: Hep-Lock IV Electrolytes: currently wnl, replete as necessary Nutrition: diabetic diet Bilat SCDs (patient ambulatory) Melatonin for sleep Consultants Naif, Cardiovascular surgery Brief History Ms Aguirre is a 76 yo [address] patient of Dr. Kovacs who presented to the ED for SOB x 2 days. The patient had a heart cath performed by Dr. Tena last Sunday. This was a scheduled outpatient procedure. She states she was told that they were not able to visualize things well and would have to have another one. She was discharged on Plavix. She was discharged from [facility] the next day and states she was feeling better but her "heart burned" and had a CASH. unfortunately, we do not have the records of her cath report. Since then she has felt progressively SOB. The home health nurse came by and was found to have elevated BP, 248 systolic and the nurse told her to come to the ER. The patient states her BP gets high when she can't breathe. She has asthma and has a nebulizer machine at home. She has been out of the medication for quite some time so has not been able to treat her asthma. The patient received nitro and albuterol in the ED. The patient stated she felt better. She denied any current chest pain. However, she stated she could not lie flat and still was having some problems with her asthma. She has a history of CHF diagnosed on her last hospitalization and has an elevated BNP to some extent on this admission. Per Dr Sue who admitted her, patient is a poor historian and it is difficult to understand which medicines exactly the patient is taking. The patient's medications in the EMR are different from the medications that Dr. Kovacs has documented, which are different than the medications that are listed on her she is paper that the patient has from [facility]. When seen this am she still had some trouble breathing and also said she has been weak at home and had falls. She has some chest sxs and feels burning in her chest at times. She was going to have cardiac catheterization this am. Her troponins had been elevated this hospitalization at 0.07. She has received solumedrol, prednisone and nebulizers with some relief and on exam this am she was moving air well. History was obtained from the pt with my somewhat limited knowledge of Lao as well as from her nurse and Dr cao who are more proficient in that language and also all the pts questions were answered. PE at Discharge GENERAL: This is a well-nourished, well-developed patient, in no apparent distress. nearly exclusively Lao speaking CARDIOVASCULAR: Regular rate and rhythm without murmurs, gallops, or rubs. Some tenderness to palpation of left anterior chest wall. RESPIRATORY: non-labored. CTAB. No adventitious sounds. GASTROINTESTINAL: Abdomen soft, non-tender, nondistended. No hepato-splenomegaly , or palpable masses. No guarding. MUSCULOSKELETAL: Extremities without clubbing, cyanosis, or edema. No joint tenderness, effusion, or edema noted. No calf tenderness. NEUROLOGICAL: Awake and alert. Motor and sensory grossly within normal limits. Normal speech. Hospital Course 76 year old female with h/o CAD and asthma presenting with c/o SOB. ACS r/o was negative. Cardiology was consulted. Cardiac cath showed patent stent from previous PCI. No significant disease present. 2D echo showed mild mitral regurgitation with normal EF. BNP was elevated as high as the 600s. Cardiac surgery was consulted and recommended no intervention for mitral valve. She was started on empiric therapy for asthma exacerbation. Bedside PFT showed no evidence of obstruction. Also treated for CHF exacerbation with fluid restriction and lasix. Respiratory status improved throughout her course. Discharged home 11/11 with recommendation to f/u cards and PCP in the next 2 weeks. She did have some weakness during her stay and was seen by PT. She was DCed home with PT, per PT recs. Pt Condition on Discharge: Stable Discharge Disposition: Disch w/ Home Health Serv Discharge Instructions DIET: Follow Instructions for: Heart Healthy Diet, Diabetic Diet Activities you can perform: Weight Bearing as Arian Slaughter MD R3 Dec 27, 2016 15:39
== END 2016-11-11 16:21 | disposition home or self-care (01) | DRG 287 ==
LOC: NEPC 14:21 → NEDA 20:26 → NEDH 11-08 00:42 → NEPGCP 11-08 04:18 → HCIS 11-08 15:01 → N04B 11-10 18:50
PROVIDERS: ADMIT Family Medicine; ATTEND Family Medicine
PROC: B2111ZZ Fluoroscopy of Multiple Coronary Arteries using Low Osmolar Contrast (ICD-10-PCS; 2016-11-08)
PROC: 4A023N8 Measurement of Cardiac Sampling and Pressure, Bilateral, Percutaneous Approach (ICD-10-PCS; principal; 2016-11-08 15:00)
DX: I13.0 Hypertensive heart and chronic kidney disease with heart failure and stage 1 through stage 4 chronic kidney disease, or unspecified chronic kidney disease (principal); I50.9 Heart failure, unspecified; J45.901 Unspecified asthma with (acute) exacerbation; E11.22 Type 2 diabetes mellitus with diabetic chronic kidney disease; E11.40 Type 2 diabetes mellitus with diabetic neuropathy, unspecified; I27.2 Other secondary pulmonary hypertension; J44.9 Chronic obstructive pulmonary disease, unspecified; I34.0 Nonrheumatic mitral (valve) insufficiency; I25.119 Atherosclerotic heart disease of native coronary artery with unspecified angina pectoris; N18.9 Chronic kidney disease, unspecified; Z95.5 Presence of coronary angioplasty implant and graft; Z79.02 Long term (current) use of antithrombotics/antiplatelets; Z79.4 Long term (current) use of insulin; Z79.82 Long term (current) use of aspirin; E78.5 Hyperlipidemia, unspecified; E78.00 Pure hypercholesterolemia, unspecified; D64.9 Anemia, unspecified; K21.9 Gastro-esophageal reflux disease without esophagitis; F32.9 Major depressive disorder, single episode, unspecified; R00.0 Tachycardia, unspecified
CPT/HCPCS: 71010; 80048; 82550; 82810; 82947; 82948; 83735; 83880; 84484; 85025; 85610; 85730; 93005; 93306; 93460; 94060; 94620; 94640; 94664; 94667; 94668; C1769; C1893; J1200; J1644; J1815; J1940; J2930; J3010; J7512; J7613; J7626; J7644; Q9967

== ENCOUNTER 2016-11-17 11:41 | Emergency (ER) | payer MEDICARE, OTHER ==
[~2016-11-17] VITALS: Ht 157.5 cm; Wt 73.0 kg
[~2016-11-17 11:41] MED LIST changes: -ATOR20TA15 PO; +CLOP75TA PO; +DEXI60CA PO; +IPRA0.02 NEB; +IPRASOL INH; +ISOS60TA PO; +MELA1TAB22 PO; -MONT10TA2 PO; +MONT10TA4 PO; +PRAV80TA2 PO; +PRED20 PO; -PROT40TA PO; +RANI300T PO; +VALS1TAB70 PO
[2016-11-17 11:49] VITALS: BP 196/111; PULSE 50; RESP 24; TEMP 97.8; O2SAT 99
[2016-11-17 12:07] VITALS: BP 188/104; PULSE 92; RESP 17; O2SAT 96
[2016-11-17 12:15] VITALS: RESP 17; O2SAT 97
[2016-11-17] MEDS ORDERED: MORPHINE SULFATE 4 MG/ML INJ IV PUSH ONE (12:15)
[2016-11-17] MEDS ORDERED: SODIUM CHLORID 0.9% 500 ML INJ 500 ML IV ONE (12:15)
[2016-11-17] MEDS ORDERED: ONDANSETRON HCL 4 MG/2 ML VIAL IVP ONE (12:15)
[2016-11-17] MEDS ORDERED: SODIUM CHLORIDE 0.9% FLUSH 5 ML FLUSH IVF PRN (12:15)
[2016-11-17] MEDS ORDERED: ASPI81TA2 PO (12:54)
[2016-11-17] MEDS ORDERED: SYMB160A INH (12:54)
[2016-11-17] MEDS ORDERED: FURO1TAB62 PO (12:54)
[2016-11-17] MEDS ORDERED: PANT40TA3 PO (12:54)
[2016-11-17] MEDS ORDERED: LABE200T2 PO (12:56)
[2016-11-17 13:51] LABS: AUTOMATED NEUTROPHIL # 16.3 TH/MM3 (1.8-7.7); BASOPHIL # 0.1 TH/MM3 (0-0.2); BASOPHIL % 0.4 % (0.0-2.0); EOSINOPHIL # 0.2 TH/MM3 (0-0.4); EOSINOPHIL % 1.1 % (0.0-4.0); HEMATOCRIT 33.6 % (35.0-46.0); HEMO FLAGS DIFF FINAL; LYMPH % 1.7 % (9.0-44.0); LYMPHOCYTE # 0.3 TH/MM3 (1.0-4.8); MEAN CELL VOLUME 82.3 FL (80.0-100.0); MEAN CORPUSCULAR HEMOGLOBIN 26.7 PG (27.0-34.0); MEAN CORPUSCULAR HGB CONC 32.4 % (32.0-36.0); MONO % 4.4 % (0.0-8.0); NEUT % 92.4 % (16.0-70.0); PLATELET COUNT 298 TH/MM3 (150-450); RED BLOOD COUNT 4.09 MIL/MM3 (4.00-5.30); RED CELL DISTRIBUTION WIDTH 14.6 % (11.6-17.2); WHITE BLOOD COUNT 17.7 TH/MM3 (4.0-11.0)
[2016-11-17 14:03] LABS: ANION GAP 8 MEQ/L (5-15); AST (GOT) 7 U/L (15-37); BLOOD UREA NITROGEN 21 MG/DL (7-18); CHLORIDE 103 MEQ/L (98-107); GLOMERULAR FILTRATION RATE 45 ML/MIN (>89); POTASSIUM 4.6 MEQ/L (3.5-5.1); PROTHROMBIN TIME - PATIENT 10.7 SEC (9.8-11.6); SODIUM (NA) 139 MEQ/L (136-145)
[2016-11-17 14:08] LABS: ALKALINE PHOSPHATASE 54 U/L (45-117); ALT (GPT) 17 U/L (10-53)
[2016-11-17 15:01] VITALS: BP 145/67; PULSE 80; RESP 16; O2SAT 96
--- NOTE | 2016-11-17 15:04 | RADRPT ---
EXAM DATE/TIME: 11/17/2016 14:45 [facility] COMPARISON: CHEST SINGLE AP, November 07, 2016, 15:13. INDICATIONS: Chest pain. MEDICAL HISTORY: None. SURGICAL HISTORY: None. ENCOUNTER: Initial ACUITY: 1 day PAIN SCORE: 5/10 LOCATION: Left upper chest FINDINGS: Lungs under aerated with minimal bibasilar parenchymal changes worse on the left than the right. Hea rt is minimally enlarged. Pulmonary vascularity is normal. CONCLUSION: 1. Minimal bibasilar parenchymal changes, progressed from 11/07/16 worse on the left than the right. Say Jung MD FACR on November 17, 2016 at 14:53 Board Certified Radiologist. This report was verified electronically.
[2016-11-17] MEDS ORDERED: IOHEXOL 350 MG/ML 10 ML VIAL (for RAD DIAG) IV ONE (15:41)
--- NOTE | 2016-11-17 16:23 | RADRPT ---
EXAM DATE/TIME: 11/17/2016 15:34 [facility] COMPARISON: No previous studies available for comparison. INDICATIONS: Diffuse abdominal pain since yesterday. IV CONTRAST: 94 cc Omnipaque 350 (iohexol) IV ORAL CONTRAST: No oral contrast ingested. RADIATION DOSE: 10.08 CTDIvol (mGy) MEDICAL HISTORY: Hypertension. Cardiovascular disease Congestive heart failure. Renal calculi. SURGICAL HISTORY: Tonsillectomy. Cardiac stent. ENCOUNTER: Initial ACUITY: 1 day PAIN SCALE: 8/10 LOCATION: Bilateral abdomen TECHNIQUE: Volumetric scanning of the abdomen and pelvis was performed. Using automated exposure control and ad justment of the mA and/or kV according to patient size, radiation dose was kept as low as reasonably achievable to obtain optimal diagnostic quality images. FINDINGS: Lung bases are clear. There is no pericardial effusion. Trace ascites is present in the abdomen. T he liver is free of focal defects. Gallbladder, spleen, pancreas and adrenals unremarkable. Kidneys show multiple cortical defects. Extensive vascular disease is present involving the origin of both the right and the left renal arteries. Moderate vascular calcifications are seen in both common iliac origins. In the pelvis there is no diverticulitis, ascites or adenopathy. The superior mesenteric artery appears patent although there is calcification at the origin. The inf erior mesenteric artery is not visualized. Portal vein and superior mesenteric vein otherwise appear patent. CONCLUSION: 1. Extensive calcific vascular disease involving both renal arteries. Probably for the most part sp piyush the mesenteric vessel. 2. I do not see any other etiology for patient's abdominal pain. Say Jung MD FACR on November 17, 2016 at 15:45 Board Certified Radiologist. This report was verified electronically.
[2016-11-17 17:30] LABS: BLOOD, URINE NEG (NEG); COMMENT (UR) CULT NOT INDICATED; CULTURE IF INDICATED CULT NOT INDICATED; GLUCOSE,URINE 150 mg/dL (NEG); HYALINE CAST, URINE 3 /lpf (RARE); KETONE, URINE NEG (NEG); NITRITE,URINE NEG (NEG); PH, URINE 6.5 (5.0-8.5); SQUAMOUS EPITHELIAL CELL URINE 3 /hpf (0-5); URINE COLOR YELLOW (YELLW/STRAW)
[2016-11-17] MEDS ORDERED: LIDOCAINE VISCOUS 2% SOLN 15 ML UDC PO ONE (17:30)
[2016-11-17] MEDS ORDERED: FAMOTIDINE 20 MG TAB PO ONE (17:30)
[2016-11-17] MEDS ORDERED: ALUMINUM/MAGNESIUM/SIMETH 30 ML CUP PO ONE (17:30)
[2016-11-17] MEDS ORDERED: ZOFR4TAB3 SL (18:05)
[2016-11-17] MEDS ORDERED: ZANT150T2 PO (18:05)
--- NOTE | 2016-11-17 18:05 | PD ---
HPI Chief Complaint: Chest Pain Time Seen by Provider: 12:11 Travel History International Travel<30 days: No Contact w/Intl Traveler<30days: No Traveled to known affect area: No History of Present Illness HPI Patient is a 76-year-old female who comes in complaining of nausea, vomiting, and diarrhea. She also says she has some chest pain. Was here about a week ago with chest pain and had a cardiac catheterization at that time which showed a patent stent. She says she started to have vomiting and diarrhea last night. The last thing she ate was a distant had crab in it. She says she has some abdominal pain, mostly in the epigastric area. She denies any fever or chills. He denies seeing any blood in her vomit or her stool. PFSH Past Medical History Arthritis: Yes Asthma: Yes Heart Rhythm Problems: Yes (TACHYCARDIA) Cancer: No Cardiac Catheterization: No Cardiovascular Problems: Yes High Cholesterol: Yes Chest Pain: Yes Congestive Heart Failure: Yes Diabetes: Yes Patient Takes Glucophage: No Diminished Hearing: No Endocrine: Yes Genitourinary: Yes Hypertension: Yes Immune Disorder: No Kidney Stones: Yes Musculoskeletal: Yes (RIGHT KNEE FX, RIGHT 5TH FINGER FX) Neurologic: Yes (Diabetic neuropathy) Psychiatric: No Reproductive: No Respiratory: Yes Sickle Cell Disease: No Menopausal: Yes : 2 Para: 2 Miscarriage: 0 : 0 Past Surgical History Cardiac Surgery: Yes (cardiac stent) Coronary Artery Bypass Graft: No Tonsillectomy: Yes Other Surgery: Yes Family History Family Myocardial Infarction: Yes (MOM, ) Social History Alcohol Use: No Tobacco Use: No Substance Use: No Allergies-Medications (Allergen,Severity, Reaction): Coded Allergies: Shellfish (Verified Allergy, Severe, rash, 11/17/16) Reported Meds & Prescriptions Reported Meds & Active Scripts Active Zofran Odt (Ondansetron Odt) 4 Mg Tab 4 Mg SL Q6HR PRN Zantac (Ranitidine HCl) 150 Mg Tab 150 Mg PO BID Duoneb (Ipratropium-Albuterol Neb) 0.5-2.5 Mg/3 Ml Neb 1 Nebule INH Q6HR NEB Advair Diskus Inh (Fluticasone-Salmeterol Inh) 250-50 Mcg/Blist Aer 1 Puff INH BID Rinse mouth after use. Montelukast (Montelukast Sodium) 10 Mg Tab 10 Mg PO HS Melatonin 5 Mg Tab 5 Mg PO HS Cymbalta DR (Duloxetine HCl) 60 Mg Capdr 60 Mg PO DAILY Janumet (Sitagliptin-Metformin) 50-1,000 Mg Tab 1 Tab PO BID Reported Labetalol (Labetalol HCl) 200 Mg Tab 200 Mg PO BID Lasix (Furosemide) 20 Mg Tab 20 Mg PO DAILY Pantoprazole (Pantoprazole Sodium) 40 Mg Tab 40 Mg PO DAILY Aspirin EC Low Dose (Aspirin) 81 Mg Tabec 162 Mg PO DAILY Symbicort Inh (Budesonide/Formoterol Fumarate) 160-4.5 Mcg/Act Aero 1 Puff INH Q12HR Pravastatin 80 Mg Tab 80 Mg PO DAILY Isosorbide Mononitrate ER (Isosorbide Mononitrate) 60 Mg Tab 60 Mg PO DAILY Clopidogrel (Clopidogrel Bisulfate) 75 Mg Tab 75 Mg PO DAILY Review of Systems Except as stated in HPI: all other systems reviewed are Neg General / Constitutional: No: Fever, Chills Eyes: No: Blurred Vision HENT: No: Headaches, Lightheadedness Cardiovascular: Positive: Chest Pain or Discomfort Respiratory: No: Shortness of Breath Gastrointestinal: Positive: Nausea, Vomiting, Diarrhea, Abdominal Pain Genitourinary: No: Dysuria Musculoskeletal: No: Pain Skin: No Rash, No Change in Pigmentation Neurologic: No: Weakness, Dizziness Physical Exam Narrative GENERAL: Awake and alert in no acute distress. SKIN: Warm and dry. HEAD: Atraumatic. Normocephalic. EYES: Pupils equal and round. No scleral icterus. ENT: Mucous membranes pink and moist. NECK: Trachea midline. No JVD. CARDIOVASCULAR: Regular rate and rhythm. No murmur appreciated. RESPIRATORY: No accessory muscle use. Clear to auscultation. Breath sounds equal bilaterally. GASTROINTESTINAL: Abdomen soft, nondistended. Tender to palpation in the right lower quadrant as well as the midepigastric area. No rebound or guarding. MUSCULOSKELETAL: No obvious deformities. No clubbing. No cyanosis. No edema. NEUROLOGICAL: Awake and alert. No obvious cranial nerve deficits. Motor grossly within normal limits. Normal speech. PSYCHIATRIC: Appropriate mood and affect; insight and judgment normal. Data Data Last Documented VS Vital Signs Date Time Temp Pulse Resp B/P Pulse Ox O2 Delivery O2 Flow Rate FiO2 11/17/16 15:01 80 16 145/67 96 Room Air 11/17/16 11:49 97.8 Orders Electrocardiogram (11/17/16 ) Complete Blood Count With Diff (11/17/16 12:11) Comprehensive Metabolic Panel (11/17/16 12:11) Lipase (11/17/16 12:11) Lactic Acid (11/17/16 12:11) Prothrombin Time / Inr (Pt) (11/17/16 12:11) Act Partial Throm Time (Ptt) (11/17/16 12:11) Urinalysis - C+S If Indicated (11/17/16 12:11) Ua Includes Microscopic (11/17/16 12:11) Ct Abd/Pel W Iv Contrast(Rout) (11/17/16 12:11) Iv Access Insert/Monitor (11/17/16 12:11) Ecg Monitoring (11/17/16 12:11) Oximetry (11/17/16 12:11) Morphine Inj (Morphine Inj) (11/17/16 12:15) Ondansetron Inj (Zofran Inj) (11/17/16 12:15) Sodium Chloride 0.9% Flush (Ns Flush) (11/17/16 12:15) Sodium Chlorid 0.9% 500 Ml Inj (Ns 500 M (11/17/16 12:15) Troponin I (11/17/16 12:11) Chest, Single Ap (11/17/16 ) Iohexol 350 Inj (Omnipaque 350 Inj) (11/17/16 15:41) Al-Mag Hy-Si 40-40-4 Mg/Ml Liq (Mag-Al P (11/17/16 17:30) Lidocaine 2% Viscous (Xylocaine 2% Visco (11/17/16 17:30) Famotidine (Pepcid) (11/17/16 17:30) Labs Laboratory Tests Test 11/17/16 11/17/16 11/17/16 13:25 13:34 16:50 Lactic Acid Level 2.0 mmol/L White Blood Count 17.7 TH/MM3 Red Blood Count 4.09 MIL/MM3 Hemoglobin 10.9 GM/DL Hematocrit 33.6 % Mean Corpuscular Volume 82.3 FL Mean Corpuscular Hemoglobin 26.7 PG Mean Corpuscular Hemoglobin 32.4 % Concent Red Cell Distribution Width 14.6 % Platelet Count 298 TH/MM3 Mean Platelet Volume 9.3 FL Neutrophils (%) (Auto) 92.4 % Lymphocytes (%) (Auto) 1.7 % Monocytes (%) (Auto) 4.4 % Eosinophils (%) (Auto) 1.1 % Basophils (%) (Auto) 0.4 % Neutrophils # (Auto) 16.3 TH/MM3 Lymphocytes # (Auto) 0.3 TH/MM3 Monocytes # (Auto) 0.8 TH/MM3 Eosinophils # (Auto) 0.2 TH/MM3 Basophils # (Auto) 0.1 TH/MM3 CBC Comment DIFF FINAL Differential Comment Prothrombin Time 10.7 SEC Prothromb Time International 1.0 RATIO Ratio Activated Partial 21.0 SEC Thromboplast Time Sodium Level 139 MEQ/L Potassium Level 4.6 MEQ/L Chloride Level 103 MEQ/L Carbon Dioxide Level 28.0 MEQ/L Anion Gap 8 MEQ/L Blood Urea Nitrogen 21 MG/DL Creatinine 1.17 MG/DL Estimat Glomerular Filtration 45 ML/MIN Rate Random Glucose 275 MG/DL Calcium Level 8.8 MG/DL Total Bilirubin 1.0 MG/DL Aspartate Amino Transf 7 U/L (AST/SGOT) Alanine Aminotransferase 17 U/L (ALT/SGPT) Alkaline Phosphatase 54 U/L Troponin I 0.07 NG/ML Total Protein 6.4 GM/DL Albumin 3.3 GM/DL Lipase 217 U/L Urine Color YELLOW Urine Turbidity CLEAR Urine pH 6.5 Urine Specific [place] GREATER THAN 1.050 Urine Protein 30 mg/dL Urine Glucose (UA) 150 mg/dL Urine Ketones NEG mg/dL Urine Occult Blood NEG Urine Nitrite NEG Urine Bilirubin NEG Urine Urobilinogen LESS THAN 2.0 MG/DL Urine Leukocyte Esterase NEG Urine Squamous Epithelial 3 /hpf Cells Urine Hyaline Casts 3 /lpf Microscopic Urinalysis Comment CULT NOT INDICATED MDM Medical Decision Making Medical Screen Exam Complete: Yes Emergency Medical Condition: Yes Medical Record Reviewed: Yes Interpretation(s) ECG shows sinus rhythm at 94 with PVCs, no ST elevation or depression. Differential Diagnosis Appendicitis versus colitis versus gastroenteritis versus ACS Narrative Course Patient is a 76-year-old female who comes in complaining of nausea, vomiting, diarrhea as well as chest pain. Exam shows tenderness to her abdomen. IV established, patient connected to the court monitor. ECG shows no signs of ischemia. Sent show an elevated white blood cell count to 17. Troponin is 0.07. Patient given IV fluids, Zofran. Given GI cocktail. Patient was recently here for chest pain and had a repeat cath to check on her stent that was placed a few weeks ago. This Catheterization showed a patent stent with no issues. I spoke with Dr. Wing Borjas who says that patient can be discharged to follow up in the office. She says the pain is probably a chronic issue right now and that her Troponin is not worrisome. Patient reports feeling better. She is able to drink water without vomiting. I advised her to drink plenty of fluids. Advised her to follow-up with her managing consultant clinical professor on Sunday. Advised her to eat a bland diet if she is feeling hungry. Advised to return to the emergency department as needed for any worsening symptoms. Diagnosis Primary Impression: Nausea, vomiting and diarrhea Additional Impression: Atypical chest pain Patient Instructions: Acute Nausea and Vomiting (ED), General Instructions Additional Instructions: Drink plenty fluids. Eat a bland diet. Follow up with Dr. Tena Sunday. Return to the ED as needed for any worsening symptoms. Scripts Ondansetron Odt (Zofran Odt)4 Mg Tab4 Mg SL Q6HR PRN (Nausea/Vomiting) #10 TAB Ref 0 Prov:Ines Wright MD 11/17/16 Ranitidine (Zantac)150 Mg [id number] Mg PO BID #20 TAB Ref 0 Prov:Ines Wright MD 11/17/16 Disposition: 01 DISCHARGE HOME Condition: Stable Ines Wright MD Nov 17, 2016 18:05
--- NOTE | 2016-11-19 13:23 | EKG ---
Date Performed: 11/17/2016 Time Performed: 11:57:03 PTAGE: 76 years EKG: Sinus rhythm WITH FREQUENT VENTRICULAR PREMATURE COMPLEXES POSSIBLE LEFT ATRIAL ENLARGEMENT MODERATE T-WAVE ABNOR MALITY, CONSIDER LATERAL ISCHEMIA Since previous tracing, no significant change noted ABNORMAL ECG PREVIOUS TRACING : 11/08/2016 00.17 DOCTOR: Elysia Eastman Interpretating Date/Time 11/19/2016 13:21:51
== END 2016-11-17 18:25 | disposition home or self-care (01) ==
LOC: NEPC 11:41
DX: R11.2 Nausea with vomiting, unspecified (principal); R19.7 Diarrhea, unspecified; R07.89 Other chest pain; R10.31 Right lower quadrant pain; R10.13 Epigastric pain; R94.31 Abnormal electrocardiogram [ECG] [EKG]; E11.9 Type 2 diabetes mellitus without complications; I10 Essential (primary) hypertension; E78.00 Pure hypercholesterolemia, unspecified; Z79.84 Long term (current) use of oral hypoglycemic drugs; Z87.39 Personal history of other diseases of the musculoskeletal system and connective tissue; Z87.09 Personal history of other diseases of the respiratory system; Z86.79 Personal history of other diseases of the circulatory system; Z87.448 Personal history of other diseases of urinary system; Z86.69 Personal history of other diseases of the nervous system and sense organs
CPT/HCPCS: 71010; 74177; 80053; 81001; 83605; 83690; 84484; 85025; 85610; 85730; 93005; 96361; 96374; 96375; 99285; J2270; J2405; J7040; Q9967

== ENCOUNTER 2016-12-06 10:31 | Inpatient (IN) | payer MEDICARE, OTHER ==
[~2016-12-06] VITALS: Ht 157.5 cm; Wt 71.2 kg
[2016-12-06] VITALS (13 sets, daily range): BP systolic 133–219; BP diastolic 72–96; PULSE 68–101; RESP 18–24; TEMP 97.7; O2SAT 95–100
[~2016-12-06 10:31] MED LIST changes: -AMLO10TA2 PO; -ASPI-110 PO; +ASPI81TA2 PO; -DEXI60CA PO; +FURO1TAB62 PO; -FURO20TA PO; -GABA300C5 PO; -GLIP5TAB8 PO; -IPRA0.02 NEB; +LABE200T2 PO; -LISI10TA3 PO; -MOBI15TA PO; +PANT40TA3 PO; -PRED20 PO; -RANI300T PO; +SYMB160A INH; -VALS1TAB70 PO; -VENTAER INH; -WALKER WHEELS/F1 MIS; +ZANT150T2 PO; +ZOFR4TAB3 SL
[2016-12-06] MEDS ORDERED: SODIUM CHLORIDE 0.9% FLUSH 5 ML FLUSH IVF PRN (11:30)
[2016-12-06] MEDS ORDERED: methylPREDNISolone SOD SUCC 125 MG/2 ML VIAL IVP ONE (11:30)
[2016-12-06] MEDS: RESP: ALBUTEROL 2.5 MG/IPRATROPIUM 0.5 MG NEB (SCH) INH ×2 (11:44→11:45)
[2016-12-06 11:55] LABS: AUTOMATED NEUTROPHIL # 6.6 TH/MM3 (1.8-7.7); BASOPHIL # 0.1 TH/MM3 (0-0.2); BASOPHIL % 0.7 % (0.0-2.0); EOSINOPHIL # 0.1 TH/MM3 (0-0.4); EOSINOPHIL % 0.9 % (0.0-4.0); HEMATOCRIT 30.3 % (35.0-46.0); HEMO FLAGS DIFF FINAL; LYMPH % 16.1 % (9.0-44.0); LYMPHOCYTE # 1.5 TH/MM3 (1.0-4.8); MEAN CELL VOLUME 83.2 FL (80.0-100.0); MEAN CORPUSCULAR HEMOGLOBIN 26.6 PG (27.0-34.0); MEAN CORPUSCULAR HGB CONC 31.9 % (32.0-36.0); MONO % 10.4 % (0.0-8.0); NEUT % 71.9 % (16.0-70.0); PLATELET COUNT 263 TH/MM3 (150-450); RED BLOOD COUNT 3.64 MIL/MM3 (4.00-5.30); RED CELL DISTRIBUTION WIDTH 15.4 % (11.6-17.2); WHITE BLOOD COUNT 9.2 TH/MM3 (4.0-11.0)
--- NOTE | 2016-12-06 11:59 | RADRPT ---
EXAM DATE/TIME: 12/06/2016 11:31 [facility] COMPARISON: CHEST SINGLE AP, November 17, 2016, 14:45. INDICATIONS : Short of breath. MEDICAL HISTORY : 2 heart catherizations, 2 blockages SURGICAL HISTORY : None. ENCOUNTER: Initial ACUITY: 1 day PAIN SCORE: 0/10 LOCATION: Bilateral chest FINDINGS: There is diminished as Jann effort. There is persistent left ventricular cardiomegaly and there are b ibasilar faint opacities with thickening of the minor fissure suggesting effusion. Pulmonary vascular ity is probably mildly congested with perivascular edema. There are no consolidating infiltrates. CONCLUSION: Findings consistent with pulmonary vascular congestion CHF Mik Hardin MD on December 06, 2016 at 11:57 Board Certified Radiologist. This report was verified electronically.
[2016-12-06 12:01] LABS: APTT (PATIENT) 24.5 SEC (24.3-30.1); INTERNATIONAL NORMALIZED RATIO 1.1 RATIO; PROTHROMBIN TIME - PATIENT 11.8 SEC (9.8-11.6)
[2016-12-06 12:13] LABS: ALT (GPT) 27 U/L (10-53); ANION GAP 9 MEQ/L (5-15); AST (GOT) 24 U/L (15-37); BICARBONATE 25.1 MEQ/L (21.0-32.0); BLOOD UREA NITROGEN 19 MG/DL (7-18); CHLORIDE 108 MEQ/L (98-107); GLOMERULAR FILTRATION RATE 39 ML/MIN (>89); MAGNESIUM 1.5 MG/DL (1.5-2.5); POTASSIUM 4.5 MEQ/L (3.5-5.1); SODIUM (NA) 142 MEQ/L (136-145)
[2016-12-06] MEDS ORDERED: ONDANSETRON HCL 4 MG/2 ML VIAL ONE (12:16)
[2016-12-06 12:17] LABS: ALKALINE PHOSPHATASE 64 U/L (45-117); TOTAL BILIRUBIN ADULT 0.8 MG/DL (0.2-1.0)
[2016-12-06] MEDS ORDERED: FUROSEMIDE 20 MG/2 ML VIAL IV PUSH ONE (12:45)
--- NOTE | 2016-12-06 13:22 | PD ---
HPI Chief Complaint: Chest Pain Time Seen by Provider: 11:10 Travel History International Travel<30 days: No Contact w/Intl Traveler<30days: No Traveled to known affect area: No History of Present Illness HPI This 76-year-old woman who presents to the emergency department brought in by friends with worsening shortness of breath, chest pain, nausea. She has a history of CHF. A recent echo showed normal EF. There was some concern about mitral stenosis. She then apparently doing worse since being in the hospital. Cardiovascular the patient had worsening shortness of breath and chest pain associated with abdominal bloating. She started have nausea with that as well. He was systems is also positive for some constipation. History Past Medical History Narrative Medical Asthma Diabetes CAD Hypertension on hyperlipidemia depression Asthma/COPD, and normal PFTs November 08 Menopausal: Yes : 2 Para: 2 Social History Alcohol Use: No Tobacco Use: No Allergies-Medications (Allergen,Severity, Reaction): Coded Allergies: Shellfish (Verified Allergy, Severe, rash, 11/17/16) Reported Meds & Prescriptions Reported Meds & Active Scripts Active Zofran Odt (Ondansetron Odt) 4 Mg Tab 4 Mg SL Q6HR PRN Zantac (Ranitidine HCl) 150 Mg Tab 150 Mg PO BID Duoneb (Ipratropium-Albuterol Neb) 0.5-2.5 Mg/3 Ml Neb 1 Nebule INH Q6HR NEB Advair Diskus Inh (Fluticasone-Salmeterol Inh) 250-50 Mcg/Blist Aer 1 Puff INH BID Rinse mouth after use. Montelukast (Montelukast Sodium) 10 Mg Tab 10 Mg PO HS Melatonin 5 Mg Tab 5 Mg PO HS Cymbalta DR (Duloxetine HCl) 60 Mg Capdr 60 Mg PO DAILY Janumet (Sitagliptin-Metformin) 50-1,000 Mg Tab 1 Tab PO BID Reported Labetalol (Labetalol HCl) 200 Mg Tab 200 Mg PO BID Lasix (Furosemide) 20 Mg Tab 20 Mg PO DAILY Pantoprazole (Pantoprazole Sodium) 40 Mg Tab 40 Mg PO DAILY Aspirin EC Low Dose (Aspirin) 81 Mg Tabec 162 Mg PO DAILY Symbicort Inh (Budesonide/Formoterol Fumarate) 160-4.5 Mcg/Act Aero 1 Puff INH Q12HR Pravastatin 80 Mg Tab 80 Mg PO DAILY Isosorbide Mononitrate ER (Isosorbide Mononitrate) 60 Mg Tab 60 Mg PO DAILY Clopidogrel (Clopidogrel Bisulfate) 75 Mg Tab 75 Mg PO DAILY Review of Systems Except as stated in HPI: all other systems reviewed are Neg Physical Exam Narrative GENERAL: 76-year-old woman, somewhat ill-appearing, pale SKIN: Warm and dry. NECK: Trachea midline. No JVD. CARDIOVASCULAR: Regular rate and rhythm. No murmur appreciated. RESPIRATORY: Moderate respiratory distress with coarse wheezing. GASTROINTESTINAL: Abdomen is obese and soft. There is no jeronimo distention. Minimal tenderness. MUSCULOSKELETAL: No obvious deformities. Mild edema. NEUROLOGICAL: Awake and alert. No obvious cranial nerve deficits. Motor grossly within normal limits. Normal speech. PSYCHIATRIC: Appropriate mood and affect; insight and judgment normal. Data Data Last Documented VS Vital Signs Date Time Temp Pulse Resp B/P Pulse Ox O2 Delivery O2 Flow Rate FiO2 12/06/16 13:38 96 Nasal Cannula 2 12/06/16 13:38 68 18 164/77 Orders Complete Blood Count With Diff (12/06/16 11:18) Comprehensive Metabolic Panel (12/06/16 11:18) B-Type Natriuretic Peptide (12/06/16 11:18) Act Partial Throm Time (Ptt) (12/06/16 11:18) Prothrombin Time / Inr (Pt) (12/06/16 11:18) Magnesium (Mg) (12/06/16 11:18) Troponin I (12/06/16 11:18) Iv Access Insert/Monitor (12/06/16 11:18) Electrocardiogram (12/06/16 11:18) Ecg Monitoring (12/06/16 11:18) Oximetry (12/06/16 11:18) Oxygen Administration (12/06/16 11:18) Chest, Single Ap (12/06/16 11:18) Sodium Chloride 0.9% Flush (Ns Flush) (12/06/16 11:30) Methylprednisolone So Succ Inj (Solumedr (12/06/16 11:30) Albuterol-Ipratropium Neb (Duoneb Neb) (12/06/16 11:30) Ondansetron Inj (Zofran Inj) (12/06/16 12:16) Furosemide Inj (Lasix Inj) (12/06/16 12:45) Lactic Acid (12/06/16 13:17) Admit Order (Ed Use Only) (12/06/16 ) Labs Laboratory Tests Test 12/06/16 12/06/16 11:30 13:30 White Blood Count 9.2 TH/MM3 Red Blood Count 3.64 MIL/MM3 Hemoglobin 9.7 GM/DL Hematocrit 30.3 % Mean Corpuscular Volume 83.2 FL Mean Corpuscular Hemoglobin 26.6 PG Mean Corpuscular Hemoglobin 31.9 % Concent Red Cell Distribution Width 15.4 % Platelet Count 263 TH/MM3 Mean Platelet Volume 10.3 FL Neutrophils (%) (Auto) 71.9 % Lymphocytes (%) (Auto) 16.1 % Monocytes (%) (Auto) 10.4 % Eosinophils (%) (Auto) 0.9 % Basophils (%) (Auto) 0.7 % Neutrophils # (Auto) 6.6 TH/MM3 Lymphocytes # (Auto) 1.5 TH/MM3 Monocytes # (Auto) 1.0 TH/MM3 Eosinophils # (Auto) 0.1 TH/MM3 Basophils # (Auto) 0.1 TH/MM3 CBC Comment DIFF FINAL Differential Comment Prothrombin Time 11.8 SEC Prothromb Time International 1.1 RATIO Ratio Activated Partial 24.5 SEC Thromboplast Time Sodium Level 142 MEQ/L Potassium Level 4.5 MEQ/L Chloride Level 108 MEQ/L Carbon Dioxide Level 25.1 MEQ/L Anion Gap 9 MEQ/L Blood Urea Nitrogen 19 MG/DL Creatinine 1.33 MG/DL Estimat Glomerular Filtration 39 ML/MIN Rate Random Glucose 163 MG/DL Calcium Level 9.1 MG/DL Magnesium Level 1.5 MG/DL Total Bilirubin 0.8 MG/DL Aspartate Amino Transf 24 U/L (AST/SGOT) Alanine Aminotransferase 27 U/L (ALT/SGPT) Alkaline Phosphatase 64 U/L Troponin I 0.05 NG/ML B-Type Natriuretic Peptide GREATER THAN 5000 PG/ML Total Protein 6.7 GM/DL Albumin 3.5 GM/DL Lactic Acid Level 2.5 mmol/L [facility] Medical Decision Making Medical Screen Exam Complete: Yes Emergency Medical Condition: Yes Interpretation(s) My review of EKG: Sinus rhythm at a rate of 85, bigeminy, lateral T wave inversions. LABS: CBC remarkable for mild anemia. CMP remarkable for mildly elevated BUN/creatinine. Troponin 0.05 BNP greater than 5000 Coags unremarkable Chest x-ray: Pulmonary vascular Ulnar vascular congestion and CHF. Differential Diagnosis CHF exacerbation, cardiogenic shock, mesenteric ischemia, electrolyte abnormality, mitral stenosis, other Narrative Course Medical decision making FINAL: This is a 76-year-old woman with history of CHF. A pretty normal echocardiogram on her recent admission but now with shortness of breath pulmonary vascular congestion elevated BNP and ill appearance. She may be having some abdominal cardiogenic shock. She is not profoundly anemic. We'll check a lactate, diuresis, admission. Her EKG also shows bigeminy with the bigeminal PVCs being largely nonconducted giving her effective rate in the 40s. This could also be contributing to her symptoms. Diagnosis Primary Impression: Acute exacerbation of congestive heart failure Additional Impression: MS (mitral stenosis) Tod Vaca MD Dec 06, 2016 13:22
[2016-12-06] MEDS ORDERED: NALOXONE HCL 0.4 MG/ML AMP IV PRN (14:30)
[2016-12-06] MEDS ORDERED: SODIUM CHLORIDE 0.9% FLUSH 5 ML FLUSH FLUSH PRN (14:30)
[2016-12-06] MEDS ORDERED: GLUCAGON 1 MG/ML VIAL OTHER PRN ×2 (15:00→16:30)
[2016-12-06] MEDS ORDERED: DEXTROSE 50% IN WATER 50 ML VIAL(D50) IV PUSH PRN ×2 (15:00→16:30)
--- NOTE | 2016-12-06 15:23 | HHI.HP ---
[facility] Service [facility] Primary Care Physician Gabi Rios M.D. Admission Diagnosis CHF, rule out mitral stenosis Diagnoses: Chief Complaint: SOB, chest pain Travel History International Travel<30 Days: No Contact w/Intl Traveler <30 Da: No Traveled to Known Affected Are: No History of Present Illness 76-year-old female with history of CHF with echo with normal EF, very mild , mild MR, asthma/COPD, DM, CAD, HTN, HLD, depression, presents with a 3day history of shortness of breath and chest pain. Over the phone programmable logic controller assembler used per the patient request. The patient states she came to the hospital for her asthma, states she can "hardly breath". She also reports chest pain, states it's not sharp, but "it does bother me." She also has a nonproductive cough, worse when lying flat. She denies leg swelling but does report her stomach "swelled up" over the past several days and her eyes are "puffy". She reports compliance with her medications, has help from her son and [id number]. Denies any abdominal pain, constipation, or urinary complaints. In the ER, BP as high as 236/158. She checks her BP at home which is usually around 180s. She took her morning medications today. Of note, the patient has been using Afrin nasal spray over the past 2 weeks for her allergies. Her tutor coordinator is Dr. Tena. Review of Systems ROS Limitations: Language Barrier, Poor Historian Constitutional: DENIES: Fever, Chills, Dizziness Eyes: DENIES: Blurred vision, Double Vision Ears, nose, mouth, throat: COMPLAINS OF: Running Nose, DENIES: Throat pain, Odynophagia Respiratory: COMPLAINS OF: Cough, Wheezing, Shortness of breath, DENIES: Sputum production Cardiovascular: COMPLAINS OF: Chest pain, Dyspnea on Exertion, Orthopnea, DENIES: Palpitations, Syncope, Lower Extremity Edema Gastrointestinal: DENIES: Abdominal pain, Constipation, Diarrhea, Nausea, Vomiting Genitourinary: DENIES: Urinary frequency, Urgency, Dysuria Musculoskeletal: DENIES: Joint pain, Back pain, Neck pain Integumentary: DENIES: Abnormal pigmentation, Pruritus, Rash Hematologic/lymphatic: DENIES: Bruising, Lymphadenopathy Immunologic/allergic: DENIES: Eczema, Urticaria Neurologic: DENIES: Abnormal gait, Headache, Localized weakness Psychiatric: DENIES: Anxiety, Depression Past Family Social History Past Medical History CHF with echo with normal EF, very mild , mild MR asthma/COPD DM CAD HTN HLD depression diabetic neuropathy seasonal allergies Past Surgical History Cardiac catheterization 11/08 showed severe ostial first diagonal artery stenosis in small vessel 60-70%, widely patent stent in proximal mid-LAD, normal EF 60%, elevated pulmonary capillary wedge pressure with LVEDP within normal range suggestive of possible mitral valve stenosis or pulmonic main stenosis Arthroscopic shoulder surgery Carpal tunnel surgery Tonsillectomy Allergies: Coded Allergies: Shellfish (Verified Allergy, Severe, rash, 11/17/16) Active Ordered Medications Current Medications Medications (Trade) Dose Ordered Sig/Camille Route Start Time Stop Time Status Last Admin (NS Flush) 2 ml UNSCH PRN FLUSH 12/06/16 14:30 (NS Flush) 2 ml BID FLUSH 12/06/16 21:00 (Narcan Inj) 0.4 mg UNSCH PRN IV 12/06/16 14:30 (D50w (Vial) Inj) 25 ml UNSCH PRN IV PUSH 12/06/16 15:00 (Glucagon Inj) 1 mg UNSCH PRN OTHER 12/06/16 15:00 (Lasix Inj) 40 mg BID@09,18 IV PUSH 12/07/16 09:00 Family History Mom - passed in 50s from diabetes mellitus and heart failure Father - passed in 60s from DM, and CHF. Sisters and brothers: Majority with DM, CHF, depression, osteoarthritis. Daughter - thyroid cancer at age 53 y/o Son - 54 y/o and healthy. Social History From [place] Denies any tobacco use, second hand exposure from Very occasional glass of wine, but no recent alcohol use Denies illicit drug use Physical Exam Vital Signs Vital Signs Date Time Temp Pulse Resp B/P Pulse Ox O2 Delivery O2 Flow Rate FiO2 12/06/16 13:38 96 Nasal Cannula 2 12/06/16 13:38 68 18 164/77 96 Nasal Cannula 2 12/06/16 13:37 68 20 164/77 96 Nasal Cannula 2 12/06/16 11:40 100 Nasal Cannula 2.00 12/06/16 11:34 85 20 133/87 96 Nasal Cannula 2 12/06/16 11:34 86 20 133/87 96 2 12/06/16 11:34 96 Nasal Cannula 3 12/06/16 11:34 96 Nasal Cannula 2 12/06/16 10:33 92 24 187/87 95 Room Air Physical Exam GENERAL: Well-nourished, well-developed elderly female patient in NAD. SKIN: Warm and dry. No rash. HEAD: Normocephalic. Atraumatic. EYES: Pupils equal and round. No scleral icterus. No injection or drainage. ENT: No nasal bleeding or discharge. Mucous membranes pink and moist. NECK: Supple. Trachea midline. CARDIOVASCULAR: Regular rate and rhythm. S1, S2 noted. No murmur appreciated. RESPIRATORY: No accessory muscle use. Poor air movement throughout with diffuse expiratory wheezing. Breath sounds equal bilaterally. GASTROINTESTINAL: Abdomen soft, non-tender, nondistended. Normoactive bowel sounds x4. MUSCULOSKELETAL: No obvious deformities. Extremities without clubbing, cyanosis , or edema. NEUROLOGICAL: Awake and alert. No obvious cranial nerve deficits. Motor grossly within normal limits. Normal speech. PSYCHIATRIC: Appropriate mood and affect; insight and judgment normal. Laboratory Laboratory Tests Test 12/06/16 12/06/16 11:30 13:30 White Blood Count 9.2 Red Blood Count 3.64 Hemoglobin 9.7 Hematocrit 30.3 Mean Corpuscular Volume 83.2 Mean Corpuscular Hemoglobin 26.6 Mean Corpuscular Hemoglobin 31.9 Concent Red Cell Distribution Width 15.4 Platelet Count 263 Mean Platelet Volume 10.3 Neutrophils (%) (Auto) 71.9 Lymphocytes (%) (Auto) 16.1 Monocytes (%) (Auto) 10.4 Eosinophils (%) (Auto) 0.9 Basophils (%) (Auto) 0.7 Neutrophils # (Auto) 6.6 Lymphocytes # (Auto) 1.5 Monocytes # (Auto) 1.0 Eosinophils # (Auto) 0.1 Basophils # (Auto) 0.1 CBC Comment DIFF FINAL Differential Comment Prothrombin Time 11.8 Prothromb Time International 1.1 Ratio Activated Partial 24.5 Thromboplast Time Sodium Level 142 Potassium Level 4.5 Chloride Level 108 Carbon Dioxide Level 25.1 Anion Gap 9 Blood Urea Nitrogen 19 Creatinine 1.33 Estimat Glomerular Filtration 39 Rate Random Glucose 163 Calcium Level 9.1 Magnesium Level 1.5 Total Bilirubin 0.8 Aspartate Amino Transf 24 (AST/SGOT) Alanine Aminotransferase 27 (ALT/SGPT) Alkaline Phosphatase 64 Troponin I 0.05 B-Type Natriuretic Peptide GREATER THAN 5000 Total Protein 6.7 Albumin 3.5 Lactic Acid Level 2.5 Result Diagram: 12/06/16 1130 12/06/16 1130 Imaging Last Impressions Chest X-Ray 12/06/16 1118 Signed Impressions: Service Date/Time: Tuesday, December 06, 2016 11:31 - CONCLUSION: Findings consistent with pulmonary vascular congestion CHF Mik Hardin MD Assessment and Plan Assessment and Plan 76-year-old female with history of CHF with echo with normal EF, very mild , mild MR, asthma/COPD, DM, CAD, HTN, HLD, depression, presents with a 3day history of shortness of breath and chest pain. Dyspnea: suspect multifactorial with asthma exacerbation and possible CHF exacerbation, see treatment below. -CXR images reviewed by me, showed findings consistent with pulmonary vascular congestion/CHF. Acute CHF Exacerbation: CXR with vascular congestion. BNP >5000. S/p IV Lasix 20mg x1 in the ER. Echocardiogram 11/08/16 showed normal systolic function EF 55- 60%, very mild , mild MR. However, pt had Cardiac catheterization 11/08 which showed elevated pulmonary capillary wedge pressure with LVEDP wnl suggestive of possible mitral valve stenosis or pulmonic main stenosis. Cardiothoracic surgery was consulted by Dr. Tena, no surgical intervention recommended at that time. -Give another IV Lasix 40mg x1 now and continue on IV Lasix 40mg bid -Monitor Is&Os, Fluid restrictions < 1500cc/day -Continue patient's home meds once med list reconciled -Monitor on telemetry -Consult patient's tutor coordinator, Dr. Tena Asthma Exacerbation: pt with diffuse wheezing on exam. S/p duonebs x3 and IV Solumedrol 125mg x1 in the ED. -Continue duonebs q6h camille and q2h prn -Continue IV Solumedrol 40mg bid -Continue patient's Advair bid Hypertensive Urgency secondary to Accelerated Hypertension: BP 236/158 in the ED. Give IV Hydralazine 20mg x1 now, then give IV Labetalol 10mg x1. -Continue patient's home meds once list updated by RN, includes labetalol 200mg bid, imdur -Continue IV Hydralazine and IV Vasotec prn -Monitor BP, adjust antihypertensives as needed Diabetes Mellitus: chronic, HgbA1c 6.8 on 09/12/16 -Monitor Accuchecks and cover with low dose SSI -Diabetic diet CAD: Cardiac cath by Dr. Tena 11/08/16 showed severe ostial first diagonal artery stenosis in small vessel 60-70%, widely patent stent in proximal mid-LAD , normal EF 60%. -Continue patient's home meds once verified: labetalol, statin, imdur, aspirin, plavix -patient with vague complaint of chest pain, rule out ACS with serial cardiac enzymes and EKG HLD: chronic -continue patient's statin All other chronic medical problems stable, continue home medications once verified and updated in the med rec. DVT Prophylaxis: teds/SCDs, also on aspirin/plavix Written by Nicole Ventura, acting as scribe for Dr. Varma on 12/06/16 at 15:23. 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 Varma on 12/06/16 at 15:23. Nicole Ventura PA-C Dec 06, 2016 15:23 Rajat Varma MD Dec 06, 2016 22:45
[2016-12-06] MEDS ORDERED: hydrALAZINE HCL 20 MG/ML VIAL IV PUSH ONE (15:30)
[2016-12-06] MEDS ORDERED: LABETALOL HCL 100 MG/20 ML VIAL IV PUSH ONE (15:30)
[2016-12-06] MEDS ORDERED: FUROSEMIDE 40 MG/4 ML VIAL IV PUSH ONE (15:30)
[2016-12-06] MEDS ORDERED: cloNIDine HCL 0.1 MG TAB PO ONE (16:00)
[2016-12-06] MEDS ORDERED: RESP: ALBUTEROL 2.5 MG/IPRATROPIUM 0.5 MG NEB (PRN) NEB (16:30)
[2016-12-06] MEDS ORDERED: THIAMINE HCL 100 MG TAB PO ONE (16:45)
[2016-12-06] MEDS ORDERED: NEXI40CA PO (17:17)
[2016-12-06] MEDS ORDERED: ATOR20TA15 PO (17:17)
[2016-12-06] MEDS ORDERED: LISI10TA3 PO (17:17)
[2016-12-06] MEDS ORDERED: POTA10TA2 PO (17:17)
[2016-12-06] MEDS ORDERED: GABA300C5 PO (17:17)
[2016-12-06] MEDS ORDERED: FLUT1SPR5 EACH NARE (17:17)
[2016-12-06] MEDS ORDERED: MOBI15TA PO (17:17)
[2016-12-06] MEDS ORDERED: GLIP5TAB8 PO (17:17)
[2016-12-06] MEDS ORDERED: DEXI60CA PO (17:17)
[2016-12-06] MEDS ORDERED: HUMALOG SQ (17:22)
[2016-12-06] MEDS ORDERED: LABETALOL HCL 100 MG TAB PO ONE (17:30)
[2016-12-06] MEDS: GABAPENTIN 300 MG CAP PO SCH (18:19)
[2016-12-06] MEDS: INSULIN ASPART SUPPLEMENTAL SCALE SQ SCH ×2 (18:19→22:14)
[2016-12-06] MEDS ORDERED: ENALAPRILAT 1.25 MG/ML VIAL IV PUSH PRN (20:00)
[2016-12-06] MEDS: RESP: ALBUTEROL 2.5 MG/IPRATROPIUM 0.5 MG NEB (SCH) NEB (20:00)
[2016-12-06] MEDS: LISINOPRIL 10 MG TAB PO SCH (21:33)
[2016-12-06] MEDS: ATORVASTATIN 20 MG TAB PO SCH (21:33)
[2016-12-06] MEDS: SODIUM CHLORIDE 0.9% FLUSH 5 ML FLUSH FLUSH SCH (22:12)
[2016-12-06] MEDS: BUDESONIDE-FORMOTEROL 160/4.5 MCG INHALER INH SCH (22:12)
[2016-12-06] MEDS: methylPREDNISolone SOD SUCC 40 MG/1 ML VIAL IV PUSH SCH (22:13)
--- NOTE | 2016-12-06 23:17 | EKG ---
Date Performed: 12/06/2016 Time Performed: 12:32:11 PTAGE: 76 years EKG: Sinus rhythm WITH FREQUENT VENTRICULAR PREMATURE COMPLEXES IN A BIGEMINAL PATTERN POSSIBLE LEFT ATRIAL ENLARGEMEN T MODERATE T-WAVE ABNORMALITY, CONSIDER ANTEROLATERAL ISCHEMIA ABNORMAL ECG PREVIOUS TRACING : 11/17/2016 11.57 Compared to the previous tracing, previously sinus rhythm w ith PVCS not in bigeminy DOCTOR: Kam Hoover Interpretating Date/Time 12/06/2016 23:15:36
[2016-12-07] VITALS (11 sets, daily range): BP systolic 140–170; BP diastolic 62–75; PULSE 63–77; RESP 16–22; TEMP 97–98.1; O2SAT 93–100
[2016-12-07] MEDS: INSULIN ASPART SUPPLEMENTAL SCALE SQ SCH ×4 (05:34→22:23)
[2016-12-07 07:07] LABS: AUTOMATED NEUTROPHIL # 4.1 TH/MM3 (1.8-7.7); BASOPHIL % 0.7 % (0.0-2.0); EOSINOPHIL # 0.1 TH/MM3 (0-0.4); HEMATOCRIT 25.8 % (35.0-46.0); HEMO FLAGS DIFF FINAL; LYMPH % 14.9 % (9.0-44.0); LYMPHOCYTE # 0.8 TH/MM3 (1.0-4.8); MEAN CORPUSCULAR HEMOGLOBIN 26.9 PG (27.0-34.0); MEAN CORPUSCULAR HGB CONC 33.2 % (32.0-36.0); NEUT % 80.4 % (16.0-70.0); PLATELET COUNT 240 TH/MM3 (150-450); RED BLOOD COUNT 3.18 MIL/MM3 (4.00-5.30); RED CELL DISTRIBUTION WIDTH 15.5 % (11.6-17.2); WHITE BLOOD COUNT 5.1 TH/MM3 (4.0-11.0)
[2016-12-07 07:25] LABS: ALT (GPT) 27 U/L (10-53); ANION GAP 9 MEQ/L (5-15); AST (GOT) 17 U/L (15-37); BICARBONATE 28.3 MEQ/L (21.0-32.0); BLOOD UREA NITROGEN 24 MG/DL (7-18); CHLORIDE 104 MEQ/L (98-107); GLOMERULAR FILTRATION RATE 44 ML/MIN (>89); POTASSIUM 3.8 MEQ/L (3.5-5.1); SODIUM (NA) 141 MEQ/L (136-145)
[2016-12-07 07:34] LABS: ALKALINE PHOSPHATASE 51 U/L (45-117); FREE T4 1.13 NG/DL (0.76-1.46); TOTAL BILIRUBIN ADULT 0.6 MG/DL (0.2-1.0)
[2016-12-07] MEDS: RESP: ALBUTEROL 2.5 MG/IPRATROPIUM 0.5 MG NEB (SCH) NEB ×3 (08:08→21:49)
[2016-12-07] MEDS: BUDESONIDE-FORMOTEROL 160/4.5 MCG INHALER INH SCH ×2 (09:00→22:22)
[2016-12-07] MEDS: THIAMINE HCL 100 MG TAB PO SCH (09:01)
[2016-12-07] MEDS: SODIUM CHLORIDE 0.9% FLUSH 5 ML FLUSH FLUSH SCH ×2 (09:01→22:22)
[2016-12-07] MEDS: PANTOPRAZOLE SOD 40 MG DELAYED RELEASE TAB PO SCH (09:02)
[2016-12-07] MEDS: ISOSORBIDE MONONITRATE 60 MG TAB PO SCH (09:02)
[2016-12-07] MEDS: methylPREDNISolone SOD SUCC 40 MG/1 ML VIAL IV PUSH SCH (09:02)
[2016-12-07] MEDS: FUROSEMIDE 40 MG/4 ML VIAL IV PUSH SCH ×2 (09:02→16:51)
[2016-12-07] MEDS: ASPIRIN EC 81 MG TABEC PO SCH (09:02)
[2016-12-07] MEDS: LABETALOL HCL 100 MG TAB PO SCH ×2 (09:03→22:21)
[2016-12-07] MEDS: GABAPENTIN 300 MG CAP PO SCH ×3 (09:03→16:51)
[2016-12-07] MEDS: LISINOPRIL 10 MG TAB PO SCH ×2 (09:03→22:21)
[2016-12-07] MEDS ORDERED: CLOPIDOGREL 75 MG TAB PO ONE (11:45)
--- NOTE | 2016-12-07 12:50 | MB ---
cc: SYLVIA BURRELL M.D. DATE OF CONSULTATION 12/07/2016 REASON FOR CONSULTATION Carolin is a very pleasant 76-year lady with a history of coronary artery disease status post PCI of the proximal LAD. Re-look coronary angiogram last month showed widely patent stent in the LAD. No significant coronary disease, normal LV systolic function. The right heart catheterizations suggestive mitral stenosis. I actually talked to Dr. Cronin about this. The PA cell the patient, did not address the mitral stenosis and only addressed MR. The patient was discharged. I did see her in the office. She was doing well and she is readmitted with a chief complaint of shortness of breath. BNP is greater than 5000. She feels better today after diuresis. She speaks only Kinyarwanda and her chief complaint appears to be some sort of the epigastric otherwise denies any fever, chills, cough, GI/ bleeding, numbness or dizziness. PAST MEDICAL HISTORY Per history of present illness. History of: 1. Asthma 2. Severe reactive airway disease 3. Diabetes 4. Hypertension 5. Hyperlipidemia 6. Depression 7. COPD SOCIAL HISTORY Denies tobacco or alcohol use. ALLERGIES SHELLFISH Echocardiogram on 11/08/2016 shows an EF of 60%, mild aortic valve stenosis, mild mitral valve regurgitation. PA pressure of 41. Peak mitral valve gradient of 10 mmHg. Right heart catheterization revealed a pulmonary capillary wedge pressure of 10-15 mmHg greater than LVDP. MEDICATIONS In the hospital: 1. Lasix 40 mg IV q12h 2. Aspirin 162 daily 3. Imdur 60 daily 4. Pantoprazole 40 daily 5. Labetalol 100 q12h 6. Thiamine 7. Methylprednisolone 8. Atorvastatin 20 at bedtime 9. Symbicort 10. Lisinopril 10 b.i.d. 11. Gabapentin 12. Albuterol 13. Sliding scale insulin PHYSICAL EXAMINATION Blood pressure 170/73, pulse 77, respiratory rate 22, temperature 97.5, blood pressure on admission was 219/96 at peak. GENERAL: She is alert and oriented times three in no acute distress. NECK: Supple. No JVD or bruits. CARDIOVASCULAR: S1 and S2. No murmurs, rubs or gallops. LUNGS: Clear to auscultation bilaterally. ABDOMEN: Soft, nontender and nondistended with positive bowel sounds. EXTREMITIES: No extremity edema. LABORATORY DATA White count 5.1, hemoglobin 8.6, hematocrit 25.8, platelet count 240. Sodium 141, potassium 3.8, chloride 104, bicarb 28.3, BUN 24, creatinine 1.19, glucose 168, troponin is 0.05, 0.05 and 0.03. CK negative times 3, TSH 0.152. Albumin 3.2. BNP is greater than 5000. Lactic acid 2.5, INR is 1.1. Chest x-ray findings consistent with pulmonary vascular congestion, and CHF. EKG shows normal sinus rhythm at 85 beats per minute, PACs, right bundle-branch block, PVCs, biphasic T-wave V1, V2, V3 and V4. FINAL DIAGNOSIS 1. Decompensated congestive heart failure. 2. Coronary disease 3. Probable suspected mitral valve stenosis. 4. Mitral valve regurgitation. 5. Hypertension 6. Diabetes mellitus 7. Anemia DISCUSSION I have recommended the patient do a ANABEL as soon as possible. The patient refuses. I have told her I will discuss the risks and benefits with her son. Her son is going to call my office as soon as I can identify his phone number and call him back to discuss the risks and benefits of doing ANABEL. I do think noncardiac procedures would be high risk at this point time if she indeed does have moderate to severe mitral valve stenosis which her history, physical and prior work up suggests. Otherwise, recommend continue aspirin 162 daily and restart Plavix 75 daily given her recent stent placement. MD DARRELL Riley/HENRRY /11:36 AM /12:26 PM
--- NOTE | 2016-12-07 15:08 | RADRPT ---
EXAM DATE/TIME: 12/07/2016 14:55 [facility] COMPARISON: No previous studies available for comparison. INDICATIONS : Constipation. MEDICAL HISTORY : Hypertension. Cardiovascular disease Congestive heart failure. Renal calculi. SURGICAL HISTORY : None. ENCOUNTER: Initial ACUITY: 1 day PAIN SCORE: 5/10 LOCATION: Bilateral abdomen FINDINGS: Supine view of the abdomen was performed. The abdominal bowel gas pattern is normal. No abnormal ma sses, calcifications, or organomegaly is seen. The osseous structures are unremarkable. CONCLUSION: No dilated loops of small or large bowel. Dmitry Stuart MD on December 07, 2016 at 15:06 Board Certified Radiologist. This report was verified electronically.
--- NOTE | 2016-12-07 19:18 | RADRPT ---
EXAM DATE/TIME: 12/07/2016 19:08 [facility] COMPARISON: CHEST SINGLE AP, December 06, 2016, 11:31. INDICATIONS : Short of breath. MEDICAL HISTORY : Hypertension. Cardiovascular disease. Congestive heart failure. SURGICAL HISTORY : None. ENCOUNTER: Subsequent ACUITY: 2 days PAIN SCORE: 0/10 LOCATION: chest FINDINGS: A single view of the chest demonstrates the lungs to be symmetrically aerated without evidence of mas s, infiltrate or effusion. The cardiomediastinal contours again reveal left ventricular cardiomegaly which now appears compensated.. Osseous structures are intact. CONCLUSION: Compensated left ventricular cardiomegaly. Mik Hardin MD on December 07, 2016 at 19:16 Board Certified Radiologist. This report was verified electronically.
--- NOTE | 2016-12-07 19:21 | HHI.PR ---
Subjective Remarks Patient seen today around 3 PM. Used certified phone hydropulper operator. Patient says she is feeling better than yesterday. Says shortness of breath is much better. Denies any chest pain. Denies any nausea or vomiting. She says her chest pain from yesterday has resolved. She tells me she is constipated, says she has not had a bowel movement in 10 days. Does report some abnormal bloating from gas, however denies any abdominal pain. After further discussion with nurse, patient reportedly had bowel movement this afternoon, and continuing to do well. Objective Vital Signs Date Time Temp Pulse Resp B/P Pulse Ox O2 Delivery O2 Flow Rate FiO2 12/07/16 16:00 98.0 63 18 140/66 100 12/07/16 12:51 Nasal Cannula 2.00 12/07/16 12:51 71 12/07/16 12:00 98.1 66 20 162/64 95 12/07/16 08:10 97 Nasal Cannula 2.00 12/07/16 08:00 97.5 77 22 170/73 95 12/07/16 05:46 98 Nasal Cannula 2.00 12/07/16 04:00 97.0 76 17 145/75 93 12/07/16 00:09 96 Nasal Cannula 2.00 12/07/16 00:00 97.8 75 17 166/62 96 12/06/16 21:00 168/72 12/06/16 20:00 Nasal Cannula 3.00 12/06/16 20:00 97.7 76 18 194/84 95 I/O 12/06/16 12/06/16 12/06/16 12/07/16 12/07/16 12/07/16 07:00 15:00 23:00 07:00 15:00 23:00 Intake Total 9 ml Balance 9 ml Intake IV Total 9 ml # Voids 1 Result Diagram: 12/07/16 0647 12/07/16 0647 Imaging Last Impressions Abdomen X-Ray 12/07/16 0000 Signed Impressions: Service Date/Time: November 14:55 - CONCLUSION: No dilated loops of small or large bowel. Dmitry Stuart MD Chest X-Ray 12/06/16 1118 Signed Impressions: Service Date/Time: Tuesday, December 06, 2016 11:31 - CONCLUSION: Findings consistent with pulmonary vascular congestion CHF Mik Hardin MD Objective Remarks GENERAL: patient sitting up in bed initially, upon subsequent evaluation sitting up in chair. Appears comfortable. Alert and oriented 3. SKIN: Warm and dry. HEAD: Normocephalic. EYES: No scleral icterus. No injection or drainage. NECK: Supple, trachea midline. No JVD. CARDIOVASCULAR: Regular rate and rhythm without murmurs, gallops, or rubs. RESPIRATORY: Breath sounds equal bilaterally. No accessory muscle use. GASTROINTESTINAL: Abdomen soft, non-tender, nondistended. no rebound or guarding. Hyperresonance of stomach, which improved upon repeat examination after sitting up. MUSCULOSKELETAL: No cyanosis, or edema. BACK: Nontender without obvious deformity. No CVA tenderness. A/P Assessment and Plan === 12/07/16 Doing much better overall Lactic acid elevation. No fevers. No white count or sinus infection. Chest x- ray, repeat labs, ABG ordered. Urinalysis ordered. Constipation. Patient reported no bowel movement for week. Resolved today 76-year-old female with history of CHF with echo with normal EF, very mild , mild MR, asthma/COPD, DM, CAD, HTN, HLD, depression, presents with a 3day history of shortness of breath and chest pain. Dyspnea: suspect multifactorial with asthma exacerbation and possible CHF exacerbation, see treatment below. -CXR images reviewed by me, showed findings consistent with pulmonary vascular congestion/CHF. Acute CHF Exacerbation: CXR with vascular congestion. BNP >5000. S/p IV Lasix 20mg x1 in the ER. Echocardiogram 11/08/16 showed normal systolic function EF 55- 60%, very mild , mild MR. However, pt had Cardiac catheterization 11/08 which showed elevated pulmonary capillary wedge pressure with LVEDP wnl suggestive of possible mitral valve stenosis or pulmonic main stenosis. Cardiothoracic surgery was consulted by Dr. Tena, no surgical intervention recommended at that time. -Give another IV Lasix 40mg x1 now and continue on IV Lasix 40mg bid -Monitor Is&Os, Fluid restrictions < 1500cc/day -Continue patient's home meds once med list reconciled -Monitor on telemetry -Consult patient's manager traffic, Dr. Tena -Respiratory status much better. Continue Lasix IV 20 mg twice daily. Stressed monitor intake and output. Discussed with nursing. Asthma Exacerbation: pt with diffuse wheezing on exam. S/p duonebs x3 and IV Solumedrol 125mg x1 in the ED. -Respiratory status much improved. -We will taper to by mouth prednisone. Hypertensive Urgency secondary to Accelerated Hypertension: BP 236/158 in the ED. Give IV Hydralazine 20mg x1 now, then give IV Labetalol 10mg x1. -Continue patient's home meds once list updated by RN, includes labetalol 200mg bid, imdur -Continue IV Hydralazine and IV Vasotec prn -Monitor BP, adjust antihypertensives as needed Diabetes Mellitus: chronic, HgbA1c 6.8 on 09/12/16 -Monitor Accuchecks and cover with low dose SSI -Diabetic diet -Continue to monitor blood glucose CAD: Cardiac cath by Dr. Tena 11/08/16 showed severe ostial first diagonal artery stenosis in small vessel 60-70%, widely patent stent in proximal mid-LAD , normal EF 60%. -Continue patient's home meds once verified: labetalol, statin, imdur, aspirin, plavix -patient with vague complaint of chest pain, rule out ACS with serial cardiac enzymes and EKG HLD: chronic -continue patient's statin -12/07. Chest pain has resolved. Troponin peaked at 0.05.. Cardiology following. Appreciate assistance. Continue medications as ordered. //Constipation. Patient reported no bowel movement for week. Resolved today //Lactic acid elevation. Question significance of increase in lactic acid. Overall patient symptomatically is improving. No fevers or signs of infection.- 12/07. Lactic acid up to 4.8. No anion gap. Will repeat stat labs, ABG, chest x-ray, urinalysis. Repeat lactic acid ordered. -And is on metformin. Possibility of L lactate acidosis. Neuro last we'll continue to monitor. All other chronic medical problems stable, continue home medications once verified and updated in the med rec. DVT Prophylaxis: teds/SCDs, also on aspirin/plavix Rajat Varma MD Dec 07, 2016 19:21
--- NOTE | 2016-12-07 19:29 | EKG ---
Date Performed: 12/07/2016 Time Performed: 05:24:56 PTAGE: 76 years EKG: Sinus rhythm with PVC(s) Prolonged QT interval Possible left ventricular hypertrophy Extensive ST-T changes may b e due to hypertrophy and/or ischemia Abnormal ECG NO PREVIOUS TRACING Compared to the previous tracing, previously in [facility], ST/T wave c hanges are more prominent DOCTOR: Kam Hoover Interpretating Date/Time 12/07/2016 19:28:28
[2016-12-07 20:29] LABS: AUTOMATED NEUTROPHIL # 6.7 TH/MM3 (1.8-7.7); HEMATOCRIT 25.5 % (35.0-46.0); HEMO FLAGS DIFF FINAL; LYMPH % 9.5 % (9.0-44.0); LYMPHOCYTE # 0.8 TH/MM3 (1.0-4.8); MEAN CELL VOLUME 80.6 FL (80.0-100.0); MEAN CORPUSCULAR HEMOGLOBIN 26.7 PG (27.0-34.0); MEAN CORPUSCULAR HGB CONC 33.1 % (32.0-36.0); MONO % 7.7 % (0.0-8.0); NEUT % 82.8 % (16.0-70.0); PLATELET COUNT 254 TH/MM3 (150-450); RED BLOOD COUNT 3.16 MIL/MM3 (4.00-5.30); RED CELL DISTRIBUTION WIDTH 15.8 % (11.6-17.2); WHITE BLOOD COUNT 8.1 TH/MM3 (4.0-11.0)
[2016-12-07 20:33] LABS: BLOOD GAS BASE EXCESS 4.9 mmol/L (-2-2); BLOOD GAS CARBOXYHEMOGLOBIN 1.4 % (0-4); BLOOD GAS HCO3 29 mmol/L (22-26); BLOOD GAS METHEMOGLOBIN 0.8 % (0-2); BLOOD GAS O2 HGB SATURATION 97 % (90-100); BLOOD GAS OXYGEN CONTENT 11.4 Vol % (12.0-20.0); BLOOD GAS PCO2 41 mmHg (38-42); BLOOD GAS PO2 128 mmHg (61-120); BLOOD GAS TOTAL HGB 8.2 G/DL (12.0-16.0); CRITICAL VALUE NO; DRAW SITE RT RADIAL; LITER FLOW 4 L/M; NUMBER OF ARTERIAL PUNCTURES 1; OXYGEN DEVICE NASAL CANNULA; STAT YES; TEMP CORR TO 98.6; ULNAR PULSE PRESENT
[2016-12-07 20:44] LABS: ANION GAP 10 MEQ/L (5-15); AST (GOT) 19 U/L (15-37); BICARBONATE 29.9 MEQ/L (21.0-32.0); BLOOD UREA NITROGEN 31 MG/DL (7-18); CHLORIDE 96 MEQ/L (98-107); GLOMERULAR FILTRATION RATE 35 ML/MIN (>89); POTASSIUM 3.9 MEQ/L (3.5-5.1); SODIUM (NA) 136 MEQ/L (136-145)
[2016-12-07 20:47] LABS: ALKALINE PHOSPHATASE 50 U/L (45-117); ALT (GPT) 29 U/L (10-53); TOTAL BILIRUBIN ADULT 0.5 MG/DL (0.2-1.0)
[2016-12-07] MEDS: ATORVASTATIN 20 MG TAB PO SCH (22:20)
[2016-12-07] MEDS: predniSONE 20 MG TAB PO SCH (22:21)
[2016-12-07 22:55] LABS: BACTERIA, URINE RARE /hpf; BLOOD, URINE NEG (NEG); COMMENT (UR) CULT NOT INDICATED; CULTURE IF INDICATED CULT NOT INDICATED; GLUCOSE,URINE NEG (NEG); HYALINE CAST, URINE 1 /lpf (RARE); KETONE, URINE NEG (NEG); NITRITE,URINE NEG (NEG); SQUAMOUS EPITHELIAL CELL URINE <1 /hpf (0-5); URINE COLOR COLORLESS (YELLW/STRAW)
[2016-12-08] VITALS (8 sets, daily range): BP systolic 113–190; BP diastolic 55–85; PULSE 62–92; RESP 16–20; TEMP 97.4–98.8; O2SAT 91–100
[2016-12-08] MEDS: INSULIN ASPART SUPPLEMENTAL SCALE SQ SCH ×4 (06:01→21:00)
[2016-12-08] MEDS: RESP: ALBUTEROL 2.5 MG/IPRATROPIUM 0.5 MG NEB (SCH) NEB ×3 (07:46→19:48)
[2016-12-08 08:17] LABS: AUTOMATED NEUTROPHIL # 7.2 TH/MM3 (1.8-7.7); EOSINOPHIL % 0.1 % (0.0-4.0); HEMATOCRIT 25.4 % (35.0-46.0); HEMO FLAGS DIFF FINAL; LYMPH % 7.2 % (9.0-44.0); LYMPHOCYTE # 0.6 TH/MM3 (1.0-4.8); MEAN CORPUSCULAR HEMOGLOBIN 26.4 PG (27.0-34.0); MEAN CORPUSCULAR HGB CONC 32.2 % (32.0-36.0); MONO % 4.1 % (0.0-8.0); NEUT % 88.6 % (16.0-70.0); PLATELET COUNT 220 TH/MM3 (150-450); RED CELL DISTRIBUTION WIDTH 15.6 % (11.6-17.2); WHITE BLOOD COUNT 8.2 TH/MM3 (4.0-11.0)
[2016-12-08 08:37] LABS: BICARBONATE 30.5 MEQ/L (21.0-32.0); POTASSIUM 3.8 MEQ/L (3.5-5.1)
[2016-12-08] MEDS: THIAMINE HCL 100 MG TAB PO SCH (09:46)
[2016-12-08] MEDS: BUDESONIDE-FORMOTEROL 160/4.5 MCG INHALER INH SCH ×2 (09:46→20:57)
[2016-12-08] MEDS: SODIUM CHLORIDE 0.9% FLUSH 5 ML FLUSH FLUSH SCH ×2 (09:46→20:52)
[2016-12-08] MEDS: ISOSORBIDE MONONITRATE 60 MG TAB PO SCH (09:46)
[2016-12-08] MEDS: predniSONE 20 MG TAB PO SCH (09:47)
[2016-12-08] MEDS: CLOPIDOGREL 75 MG TAB PO SCH (09:47)
[2016-12-08] MEDS: PANTOPRAZOLE SOD 40 MG DELAYED RELEASE TAB PO SCH (09:47)
[2016-12-08] MEDS: GABAPENTIN 300 MG CAP PO SCH ×3 (09:47→16:15)
[2016-12-08] MEDS: ASPIRIN EC 81 MG TABEC PO SCH (09:47)
[2016-12-08] MEDS: LABETALOL HCL 100 MG TAB PO SCH ×2 (09:47→20:52)
[2016-12-08] MEDS ORDERED: LISINOPRIL 10 MG TAB PO ONE (11:00)
[2016-12-08] MEDS ORDERED: MAGNESIUM HYDROXIDE SUSP 30 ML CUP PO ONE (12:00)
[2016-12-08] MEDS ORDERED: FUROSEMIDE 20 MG TAB PO ONE (12:00)
[2016-12-08] MEDS ORDERED: DOCUSATE SODIUM 50 MG/SENNA 8.6 MG TAB PO ONE (12:00)
[2016-12-08] MEDS: FUROSEMIDE 20 MG TAB PO SCH (16:16)
--- NOTE | 2016-12-08 17:18 | PD.CARD.PN ---
Subjective Subjective Remarks alert in nad Objective Vital Signs / I&O Vital Signs Date Time Temp Pulse Resp B/P Pulse Ox O2 Delivery O2 Flow Rate FiO2 12/08/16 12:00 98.0 92 18 190/85 91 168/78 12/08/16 09:40 Nasal Cannula 3.00 12/08/16 08:00 98.8 62 20 181/79 100 170/76 12/08/16 07:46 99 Nasal Cannula 3.00 12/08/16 04:00 97.4 62 16 140/72 95 12/08/16 00:00 97.5 64 18 138/75 96 12/07/16 21:51 99 Nasal Cannula 4.00 12/07/16 20:00 97.8 63 16 142/70 97 12/07/16 20:00 Nasal Cannula 3.00 I/O 12/07/16 12/07/16 12/07/16 12/08/16 12/08/16 12/08/16 07:00 15:00 23:00 07:00 15:00 23:00 Intake Total 9 ml 360 ml 120 ml 2 ml Balance 9 ml 360 ml 120 ml 2 ml Intake Oral 360 ml 120 ml IV Total 9 ml 2 ml # Voids 3 1 # Bowel Movements 0 0 Physical Exam GENERAL: SKIN: Warm and dry. HEAD: Normocephalic. EYES: No scleral icterus. No injection or drainage. NECK: Supple, trachea midline. No JVD or lymphadenopathy. CARDIOVASCULAR: Regular rate and rhythm without murmurs, gallops, or rubs. RESPIRATORY: Breath sounds equal bilaterally. No accessory muscle use. GASTROINTESTINAL: Abdomen soft, non-tender, nondistended. MUSCULOSKELETAL: No cyanosis, or edema. BACK: Nontender without obvious deformity. No CVA tenderness. Laboratory Laboratory Tests Test 12/07/16 12/07/16 12/07/16 12/07/16 17:28 19:53 20:25 22:00 Lactic Acid Level 4.8 mmol/L 2.6 mmol/L White Blood Count 8.1 TH/MM3 Red Blood Count 3.16 MIL/MM3 Hemoglobin 8.4 GM/DL Hematocrit 25.5 % Mean Corpuscular Volume 80.6 FL Mean Corpuscular Hemoglobin 26.7 PG Mean Corpuscular Hemoglobin 33.1 % Concent Red Cell Distribution Width 15.8 % Platelet Count 254 TH/MM3 Mean Platelet Volume 10.1 FL Neutrophils (%) (Auto) 82.8 % Lymphocytes (%) (Auto) 9.5 % Monocytes (%) (Auto) 7.7 % Eosinophils (%) (Auto) 0.0 % Basophils (%) (Auto) 0.0 % Neutrophils # (Auto) 6.7 TH/MM3 Lymphocytes # (Auto) 0.8 TH/MM3 Monocytes # (Auto) 0.6 TH/MM3 Eosinophils # (Auto) 0.0 TH/MM3 Basophils # (Auto) 0.0 TH/MM3 CBC Comment DIFF FINAL Differential Comment Erythrocyte Sedimentation Rate 42 mm/hr Sodium Level 136 MEQ/L Potassium Level 3.9 MEQ/L Chloride Level 96 MEQ/L Carbon Dioxide Level 29.9 MEQ/L Anion Gap 10 MEQ/L Blood Urea Nitrogen 31 MG/DL Creatinine 1.47 MG/DL Estimat Glomerular Filtration 35 ML/MIN Rate Random Glucose 145 MG/DL Calcium Level 8.5 MG/DL Total Bilirubin 0.5 MG/DL Aspartate Amino Transf 19 U/L (AST/SGOT) Alanine Aminotransferase 29 U/L (ALT/SGPT) Alkaline Phosphatase 50 U/L Total Protein 6.4 GM/DL Albumin 3.3 GM/DL Blood Gas Puncture Site RT RADIAL Blood Gas Patient Temperature 98.6 Blood Gas HCO3 29 mmol/L Blood Gas Base Excess 4.9 mmol/L Blood Gas Oxygen Saturation 97 % Arterial Blood pH 7.46 Arterial Blood Partial 41 mmHg Pressure CO2 Arterial Blood Partial 128 mmHg Pressure O2 Arterial Blood Oxygen Content 11.4 Vol % Arterial Blood 1.4 % Carboxyhemoglobin Arterial Blood Methemoglobin 0.8 % Blood Gas Hemoglobin 8.2 G/DL Oxygen Delivery Device NASAL CANNULA Blood Gas Liter Flow 4 L/M Urine Color COLORLESS Urine Turbidity CLEAR Urine pH 5.0 Urine Specific [place] 1.004 Urine Protein NEG mg/dL Urine Glucose (UA) NEG mg/dL Urine Ketones NEG mg/dL Urine Occult Blood NEG Urine Nitrite NEG Urine Bilirubin NEG Urine Urobilinogen LESS THAN 2.0 MG/DL Urine Leukocyte Esterase NEG Urine RBC LESS THAN 1 /hpf Urine WBC LESS THAN 1 /hpf Urine Squamous Epithelial <1 /hpf Cells Urine Bacteria RARE /hpf Urine Hyaline Casts 1 /lpf Microscopic Urinalysis Comment CULT NOT INDICATED Test 12/08/16 07:35 White Blood Count 8.2 TH/MM3 Red Blood Count 3.10 MIL/MM3 Hemoglobin 8.2 GM/DL Hematocrit 25.4 % Mean Corpuscular Volume 82.0 FL Mean Corpuscular Hemoglobin 26.4 PG Mean Corpuscular Hemoglobin 32.2 % Concent Red Cell Distribution Width 15.6 % Platelet Count 220 TH/MM3 Mean Platelet Volume 9.9 FL Neutrophils (%) (Auto) 88.6 % Lymphocytes (%) (Auto) 7.2 % Monocytes (%) (Auto) 4.1 % Eosinophils (%) (Auto) 0.1 % Basophils (%) (Auto) 0.0 % Neutrophils # (Auto) 7.2 TH/MM3 Lymphocytes # (Auto) 0.6 TH/MM3 Monocytes # (Auto) 0.3 TH/MM3 Eosinophils # (Auto) 0.0 TH/MM3 Basophils # (Auto) 0.0 TH/MM3 CBC Comment DIFF FINAL Differential Comment Sodium Level 140 MEQ/L Potassium Level 3.8 MEQ/L Chloride Level 101 MEQ/L Carbon Dioxide Level 30.5 MEQ/L Anion Gap 9 MEQ/L Blood Urea Nitrogen 32 MG/DL Creatinine 1.41 MG/DL Estimat Glomerular Filtration 36 ML/MIN Rate Random Glucose 204 MG/DL Calcium Level 8.5 MG/DL B-Type Natriuretic Peptide 581 PG/ML Assessment and Plan Problem List: (1) Type 2 diabetes mellitus (2) MR (mitral regurgitation) (3) Presence of stent in coronary artery in patient with coronary artery disease Assessment and Plan 1.) mitral stenosis - rec saturnino, patient undecided Gabriel Tena MD Dec 08, 2016 17:18
[2016-12-08] MEDS ORDERED: SOD PHOSPHATE/SOD BIPHOSPHATE (ADULT) ENEMA 133ML PR ONE (18:45)
[2016-12-08] MEDS: ATORVASTATIN 20 MG TAB PO SCH (20:52)
[2016-12-08] MEDS ORDERED: NIFEdipine 30 MG SUSTAINED RELEASE TAB PO ONE (21:00)
[2016-12-08] MEDS: LISINOPRIL 10 MG TAB PO SCH (21:00)
--- NOTE | 2016-12-08 21:08 | HHI.PR ---
Subjective Remarks Patient seen today around 3 PM. Over the phone industrial methods consultant offered, however patient to use Polish-speaking family at bedside. Says she is feeling better than yesterday. Abdominal discomfort resolved, however still no bowel movement. Bowel movement had incorrectly been documented and reported. Discussed with nursing. Objective Vital Signs Date Time Temp Pulse Resp B/P Pulse Ox O2 Delivery O2 Flow Rate FiO2 12/08/16 19:50 98 Nasal Cannula 2.00 12/08/16 16:00 98.2 66 18 187/79 97 158/66 12/08/16 12:00 98.0 92 18 190/85 91 168/78 12/08/16 09:40 Nasal Cannula 3.00 12/08/16 08:00 98.8 62 20 181/79 100 170/76 12/08/16 07:46 99 Nasal Cannula 3.00 12/08/16 04:00 97.4 62 16 140/72 95 12/08/16 00:00 97.5 64 18 138/75 96 12/07/16 21:51 99 Nasal Cannula 4.00 I/O 12/07/16 12/07/16 12/07/16 12/08/16 12/08/16 12/08/16 07:00 15:00 23:00 07:00 15:00 23:00 Intake Total 9 ml 360 ml 120 ml 722 ml Output Total 2000 ml Balance 9 ml 360 ml 120 ml -1278 ml Intake Oral 360 ml 120 ml 720 ml IV Total 9 ml 2 ml Output Urine Total 2000 ml # Voids 3 1 # Bowel Movements 0 0 0 Result Diagram: 12/08/16 0735 12/08/16 0735 Objective Remarks GENERAL: patient sitting up in chair at bedside. Appears comfortable. Alert and oriented 3. SKIN: Warm and dry. HEAD: Normocephalic. EYES: No scleral icterus. No injection or drainage. NECK: Supple, trachea midline. No JVD. CARDIOVASCULAR: Regular rate and rhythm without murmurs, gallops, or rubs. RESPIRATORY: Breath sounds equal bilaterally. No accessory muscle use. GASTROINTESTINAL: Abdomen soft, non-tender, nondistended. no rebound or guarding. Positive bowel sounds. MUSCULOSKELETAL: No cyanosis, or edema. BACK: Nontender without obvious deformity. No CVA tenderness. A/P Assessment and Plan === 12/08/16 Feels much better today. Lactic acid elevation. Resolved. No signs of acute infection. Constipation. Resolution of constipation reported yesterday, however incorrect. Enema ordered for today. Abdominal distention resolved. Blood pressure elevated. Add nifedipine for better control. 76-year-old female with history of CHF with echo with normal EF, very mild , mild MR, asthma/COPD, DM, CAD, HTN, HLD, depression, presents with a 3day history of shortness of breath and chest pain. Dyspnea: suspect multifactorial with asthma exacerbation and possible CHF exacerbation, see treatment below. -CXR images reviewed by me, showed findings consistent with pulmonary vascular congestion/CHF. Acute CHF Exacerbation: CXR with vascular congestion. BNP >5000. S/p IV Lasix 20mg x1 in the ER. Echocardiogram 11/08/16 showed normal systolic function EF 55- 60%, very mild , mild MR. However, pt had Cardiac catheterization 11/08 which showed elevated pulmonary capillary wedge pressure with LVEDP wnl suggestive of possible mitral valve stenosis or pulmonic main stenosis. Cardiothoracic surgery was consulted by Dr. Tena, no surgical intervention recommended at that time. -Give another IV Lasix 40mg x1 now and continue on IV Lasix 40mg bid -Monitor Is&Os, Fluid restrictions < 1500cc/day -Continue patient's home meds once med list reconciled -Monitor on telemetry -Consult patient's manager market development, Dr. Tena -Respiratory status much better. -12/08. Lasix restarted at 20 mg by mouth twice daily. Asthma Exacerbation: pt with diffuse wheezing on exam. S/p duonebs x3 and IV Solumedrol 125mg x1 in the ED. -Respiratory status much improved. -10 you to taper prednisone. This will help with hyperglycemia. Hypertensive Urgency secondary to Accelerated Hypertension: BP 236/158 in the ED. Give IV Hydralazine 20mg x1 now, then give IV Labetalol 10mg x1. -Continue patient's home meds once list updated by RN, includes labetalol 200mg bid, imdur -Continue IV Hydralazine and IV Vasotec prn -Monitor BP, adjust antihypertensives as needed 12/08Blood pressure elevated. Add nifedipine for better control. Diabetes Mellitus: chronic, HgbA1c 6.8 on 09/12/16 -Monitor Accuchecks and cover with low dose SSI -Diabetic diet -Continue to monitor blood glucose 12/08. Expect hyperglycemia to improve with tapering prednisone. CAD: Cardiac cath by Dr. Tena 11/08/16 showed severe ostial first diagonal artery stenosis in small vessel 60-70%, widely patent stent in proximal mid-LAD , normal EF 60%. -Continue patient's home meds once verified: labetalol, statin, imdur, aspirin, plavix -patient with vague complaint of chest pain, rule out ACS with serial cardiac enzymes and EKGTroponin peaked at 0.05.. Chest pain resolved. Cardiology following. Appreciate assistance. HLD: chronic -continue patient's statin //Constipation. No bowel movements for week. Enema ordered 12/08. //Lactic acid elevation. Question significance of increase in lactic acid. Overall patient symptomatically is improving. No fevers or signs of infection.- 12/07. Lactic acid up to 4.8. No anion gap. -Resolved. -And is on metformin. Possibility of L lactate acidosis. All other chronic medical problems stable, continue home medications once verified and updated in the med rec. DVT Prophylaxis: teds/SCDs, also on aspirin/plavix Discharge Planning Home when cleared by cardiology. Rajat Varma MD Dec 08, 2016 21:08
[2016-12-09] VITALS (9 sets, daily range): BP systolic 150–186; BP diastolic 56–90; PULSE 62–71; RESP 18–20; TEMP 98.1–98.6; O2SAT 93–99
[2016-12-09] MEDS: INSULIN ASPART SUPPLEMENTAL SCALE SQ SCH ×4 (05:58→21:00)
[2016-12-09 07:03] LABS: AUTOMATED NEUTROPHIL # 5.7 TH/MM3 (1.8-7.7); BASOPHIL % 0.2 % (0.0-2.0); EOSINOPHIL # 0.2 TH/MM3 (0-0.4); HEMATOCRIT 25.1 % (35.0-46.0); HEMO FLAGS DIFF FINAL; LYMPH % 21.4 % (9.0-44.0); LYMPHOCYTE # 1.9 TH/MM3 (1.0-4.8); MEAN CELL VOLUME 81.7 FL (80.0-100.0); MEAN CORPUSCULAR HEMOGLOBIN 26.7 PG (27.0-34.0); MEAN CORPUSCULAR HGB CONC 32.7 % (32.0-36.0); MONO % 12.3 % (0.0-8.0); NEUT % 64.1 % (16.0-70.0); PLATELET COUNT 225 TH/MM3 (150-450); RED BLOOD COUNT 3.08 MIL/MM3 (4.00-5.30); RED CELL DISTRIBUTION WIDTH 15.2 % (11.6-17.2)
[2016-12-09 07:10] LABS: BICARBONATE 34.8 MEQ/L (21.0-32.0); POTASSIUM 3.9 MEQ/L (3.5-5.1)
[2016-12-09] MEDS: RESP: ALBUTEROL 2.5 MG/IPRATROPIUM 0.5 MG NEB (SCH) NEB ×3 (08:38→19:32)
[2016-12-09] MEDS ORDERED: predniSONE 20 MG TAB PO SCH (09:00)
[2016-12-09] MEDS ORDERED: NIFEdipine 30 MG SUSTAINED RELEASE TAB PO SCH (09:00)
[2016-12-09] MEDS: BUDESONIDE-FORMOTEROL 160/4.5 MCG INHALER INH SCH ×2 (09:00→22:27)
[2016-12-09] MEDS: SODIUM CHLORIDE 0.9% FLUSH 5 ML FLUSH FLUSH SCH ×2 (09:00→22:28)
[2016-12-09] MEDS: ISOSORBIDE MONONITRATE 60 MG TAB PO SCH (10:08)
[2016-12-09] MEDS: THIAMINE HCL 100 MG TAB PO SCH (10:08)
[2016-12-09] MEDS: PANTOPRAZOLE SOD 40 MG DELAYED RELEASE TAB PO SCH (10:08)
[2016-12-09] MEDS: ASPIRIN EC 81 MG TABEC PO SCH (10:08)
[2016-12-09] MEDS: GABAPENTIN 100 MG CAP PO SCH ×3 (10:08→16:27)
[2016-12-09] MEDS: LISINOPRIL 10 MG TAB PO SCH ×2 (10:09→22:27)
[2016-12-09] MEDS: LABETALOL HCL 100 MG TAB PO SCH ×2 (10:09→22:27)
[2016-12-09] MEDS: CLOPIDOGREL 75 MG TAB PO SCH (10:09)
[2016-12-09] MEDS: FUROSEMIDE 20 MG TAB PO SCH ×2 (10:09→16:27)
--- NOTE | 2016-12-09 12:49 | PD.CARD.PN ---
Subjective Subjective Remarks alert in nad Objective Vital Signs / I&O Vital Signs Date Time Temp Pulse Resp B/P Pulse Ox O2 Delivery O2 Flow Rate FiO2 12/09/16 12:18 98.1 66 20 186/73 98 150/56 12/09/16 08:38 97 Nasal Cannula 2.00 12/09/16 08:03 98.1 62 20 167/72 97 160/68 12/09/16 08:00 Nasal Cannula 2.00 12/09/16 04:00 98.1 64 18 168/68 98 12/09/16 00:00 98.2 63 18 160/90 99 12/08/16 20:30 Nasal Cannula 2.00 12/08/16 20:00 98.8 64 18 160/70 97 12/08/16 20:00 76 12/08/16 19:50 98 Nasal Cannula 2.00 12/08/16 16:00 98.2 66 18 187/79 97 158/66 I/O 12/08/16 12/08/16 12/08/16 12/09/16 12/09/16 12/09/16 07:00 15:00 23:00 07:00 15:00 23:00 Intake Total 120 ml 722 ml 320 ml Output Total 2000 ml Balance 120 ml -1278 ml 320 ml Intake Oral 120 ml 720 ml 320 ml IV Total 2 ml Output Urine Total 2000 ml # Voids 1 2 # Bowel Movements 0 0 0 Physical Exam GENERAL: SKIN: Warm and dry. HEAD: Normocephalic. EYES: No scleral icterus. No injection or drainage. NECK: Supple, trachea midline. No JVD or lymphadenopathy. CARDIOVASCULAR: Regular rate and rhythm without murmurs, gallops, or rubs. RESPIRATORY: Breath sounds equal bilaterally. No accessory muscle use. GASTROINTESTINAL: Abdomen soft, non-tender, nondistended. MUSCULOSKELETAL: No cyanosis, or edema. BACK: Nontender without obvious deformity. No CVA tenderness. Laboratory Laboratory Tests Test 12/09/16 05:21 White Blood Count 9.0 TH/MM3 Red Blood Count 3.08 MIL/MM3 Hemoglobin 8.2 GM/DL Hematocrit 25.1 % Mean Corpuscular Volume 81.7 FL Mean Corpuscular Hemoglobin 26.7 PG Mean Corpuscular Hemoglobin 32.7 % Concent Red Cell Distribution Width 15.2 % Platelet Count 225 TH/MM3 Mean Platelet Volume 9.6 FL Neutrophils (%) (Auto) 64.1 % Lymphocytes (%) (Auto) 21.4 % Monocytes (%) (Auto) 12.3 % Eosinophils (%) (Auto) 2.0 % Basophils (%) (Auto) 0.2 % Neutrophils # (Auto) 5.7 TH/MM3 Lymphocytes # (Auto) 1.9 TH/MM3 Monocytes # (Auto) 1.1 TH/MM3 Eosinophils # (Auto) 0.2 TH/MM3 Basophils # (Auto) 0.0 TH/MM3 CBC Comment DIFF FINAL Differential Comment Sodium Level 144 MEQ/L Potassium Level 3.9 MEQ/L Chloride Level 103 MEQ/L Carbon Dioxide Level 34.8 MEQ/L Anion Gap 6 MEQ/L Blood Urea Nitrogen 22 MG/DL Creatinine 1.03 MG/DL Estimat Glomerular Filtration 52 ML/MIN Rate Random Glucose 100 MG/DL Calcium Level 8.5 MG/DL Assessment and Plan Problem List: (1) Type 2 diabetes mellitus (2) MR (mitral regurgitation) (3) Presence of stent in coronary artery in patient with coronary artery disease Assessment and Plan 1.) mitral stenosis - rec saturnino, patient undecided, chf improved, continue lasix, lisinopril, imdur Gabriel Tena MD Dec 09, 2016 12:49
[2016-12-09] MEDS ORDERED: NIFEdipine 30 MG SUSTAINED RELEASE TAB PO ONE (18:00)
--- NOTE | 2016-12-09 18:26 | HHI.PR ---
Subjective Remarks pt says she is feeling well. no cp or sob. no n/v/abd pain. had bm last night, no need for enema. has bitemporal headache this am getting better throuighout day. says she snores and wakes herself up from sleep. sleeps on her side at home , but on her back here. no dx of sleep apnea in past. Objective Vital Signs Date Time Temp Pulse Resp B/P Pulse Ox O2 Delivery O2 Flow Rate FiO2 12/09/16 16:05 98.6 66 20 164/72 94 12/09/16 12:18 98.1 66 20 186/73 98 150/56 12/09/16 09:00 71 12/09/16 08:38 97 Nasal Cannula 2.00 12/09/16 08:03 98.1 62 20 167/72 97 160/68 12/09/16 08:00 Nasal Cannula 2.00 12/09/16 04:00 98.1 64 18 168/68 98 12/09/16 00:00 98.2 63 18 160/90 99 12/08/16 20:30 Nasal Cannula 2.00 12/08/16 20:00 98.8 64 18 160/70 97 12/08/16 20:00 76 12/08/16 19:50 98 Nasal Cannula 2.00 I/O 12/08/16 12/08/16 12/08/16 12/09/16 12/09/16 12/09/16 07:00 15:00 23:00 07:00 15:00 23:00 Intake Total 120 ml 722 ml 320 ml Output Total 2000 ml Balance 120 ml -1278 ml 320 ml Intake Oral 120 ml 720 ml 320 ml IV Total 2 ml Output Urine Total 2000 ml # Voids 1 2 # Bowel Movements 0 0 0 Result Diagram: 12/09/1621 12/09/16520 Objective Remarks GENERAL: patient sitting up in chair at bedside, walking in room. Appears comfortable. Alert and oriented 3. smiling today. SKIN: Warm and dry. HEAD: Normocephalic. EYES: No scleral icterus. No injection or drainage. NECK: Supple, trachea midline. No JVD. CARDIOVASCULAR: Regular rate and rhythm without murmurs, gallops, or rubs. RESPIRATORY: Breath sounds equal bilaterally. No accessory muscle use. still with wheezes BL improved. GASTROINTESTINAL: Abdomen soft, non-tender, nondistended. no rebound or guarding. Positive bowel sounds. MUSCULOSKELETAL: No cyanosis, or edema. BACK: Nontender without obvious deformity. No CVA tenderness. A/P Assessment and Plan === 12/09/16 Feels better today bp still elevated. incr nifedipine to 60mg QD hyperglycemia - misses am coverage. stop prednisone. Constipation. Resolved last night 76-year-old female with history of CHF with echo with normal EF, very mild , mild MR, asthma/COPD, DM, CAD, HTN, HLD, depression, presents with a 3day history of shortness of breath and chest pain. Dyspnea: suspect multifactorial with asthma exacerbation and possible CHF exacerbation, see treatment below. -CXR images reviewed by me, showed findings consistent with pulmonary vascular congestion/CHF. Acute CHF Exacerbation: CXR with vascular congestion. BNP >5000. S/p IV Lasix 20mg x1 in the ER. Echocardiogram 11/08/16 showed normal systolic function EF 55- 60%, very mild , mild MR. However, pt had Cardiac catheterization 11/08 which showed elevated pulmonary capillary wedge pressure with LVEDP wnl suggestive of possible mitral valve stenosis or pulmonic main stenosis. Cardiothoracic surgery was consulted by Dr. Tena, no surgical intervention recommended at that time. -Give another IV Lasix 40mg x1 now and continue on IV Lasix 40mg bid -Monitor Is&Os, Fluid restrictions < 1500cc/day -Continue patient's home meds once med list reconciled -Monitor on telemetry -Consult patient's hi lo driver, Dr. Tena -Respiratory status much better. -12/08. Lasix restarted at 20 mg by mouth twice daily. -12/09 bp still elevated. incr nifedipine to 60mg QD Asthma Exacerbation: pt with diffuse wheezing on exam. S/p duonebs x3 and IV Solumedrol 125mg x1 in the ED. -Respiratory status much improved. -stop prednisone. This will help with hyperglycemia. Hypertensive Urgency secondary to Accelerated Hypertension: BP 236/158 in the ED. Give IV Hydralazine 20mg x1 now, then give IV Labetalol 10mg x1. -Continue patient's home meds once list updated by RN, includes labetalol 200mg bid, imdur -Continue IV Hydralazine and IV Vasotec prn -Monitor BP, adjust antihypertensives as needed 12/09 again incr nifedipine for better control. monitor Diabetes Mellitus: chronic, HgbA1c 6.8 on 09/12/16 -Monitor Accuchecks and cover with low dose SSI -Diabetic diet -Continue to monitor blood glucose 12/08. Expect hyperglycemia to improve with tapering prednisone. hyperglycemia - 300s. missed am coverage. stop prednisone. a1c 6.8 - should not need insulin off of prednisone CAD: Cardiac cath by Dr. Tena 11/08/16 showed severe ostial first diagonal artery stenosis in small vessel 60-70%, widely patent stent in proximal mid-LAD , normal EF 60%. -Continue patient's home meds once verified: labetalol, statin, imdur, aspirin, plavix -patient with vague complaint of chest pain, rule out ACS with serial cardiac enzymes and EKGTroponin peaked at 0.05.. Chest pain resolved. Cardiology following. Appreciate assistance. HLD: chronic -continue patient's statin //Constipation. resolved. monitor //Lactic acid elevation. Question significance of increase in lactic acid. Overall patient symptomatically is improving. No fevers or signs of infection.- 12/07. Lactic acid up to 4.8. No anion gap. -Resolved. -And is on metformin. Possibility of L lactate acidosis. //headache. no alram symptoms. likle from PRIYA. pt will sleep on side tonight, help with breathing. All other chronic medical problems stable, continue home medications once verified and updated in the med rec. DVT Prophylaxis: teds/SCDs, also on aspirin/plavix Discharge Planning Home when cleared by cardiology. yvonne LITTLE sunday. Rajat Varma MD Dec 09, 2016 18:26
[2016-12-09] MEDS: ATORVASTATIN 20 MG TAB PO SCH (22:27)
[2016-12-10] VITALS (8 sets, daily range): BP systolic 144–221; BP diastolic 64–89; PULSE 50–65; RESP 18–20; TEMP 97.2–98.3; O2SAT 93–97
[2016-12-10] MEDS: INSULIN ASPART SUPPLEMENTAL SCALE SQ SCH ×4 (06:04→20:45)
[2016-12-10] MEDS: RESP: ALBUTEROL 2.5 MG/IPRATROPIUM 0.5 MG NEB (SCH) NEB ×3 (08:18→19:48)
[2016-12-10] MEDS: FUROSEMIDE 20 MG TAB PO SCH ×2 (08:53→17:53)
[2016-12-10] MEDS: CLOPIDOGREL 75 MG TAB PO SCH (08:54)
[2016-12-10] MEDS: GABAPENTIN 100 MG CAP PO SCH ×3 (08:54→17:54)
[2016-12-10] MEDS: ISOSORBIDE MONONITRATE 60 MG TAB PO SCH (08:54)
[2016-12-10] MEDS: ASPIRIN EC 81 MG TABEC PO SCH (08:55)
[2016-12-10] MEDS: THIAMINE HCL 100 MG TAB PO SCH (08:56)
[2016-12-10] MEDS: LISINOPRIL 10 MG TAB PO SCH ×2 (08:57→20:43)
[2016-12-10] MEDS: LABETALOL HCL 100 MG TAB PO SCH ×2 (08:57→20:43)
[2016-12-10] MEDS: PANTOPRAZOLE SOD 40 MG DELAYED RELEASE TAB PO SCH (08:57)
[2016-12-10] MEDS: SODIUM CHLORIDE 0.9% FLUSH 5 ML FLUSH FLUSH SCH ×2 (08:58→20:43)
[2016-12-10] MEDS ORDERED: NIFEdipine 30 MG SUSTAINED RELEASE TAB PO SCH (09:00)
[2016-12-10] MEDS: BUDESONIDE-FORMOTEROL 160/4.5 MCG INHALER INH SCH ×2 (09:05→20:46)
[2016-12-10 10:34] LABS: AUTOMATED NEUTROPHIL # 3.9 TH/MM3 (1.8-7.7); BASOPHIL % 0.2 % (0.0-2.0); EOSINOPHIL # 0.2 TH/MM3 (0-0.4); EOSINOPHIL % 2.8 % (0.0-4.0); HEMATOCRIT 29.5 % (35.0-46.0); HEMO FLAGS DIFF FINAL; LYMPH % 31.4 % (9.0-44.0); LYMPHOCYTE # 2.4 TH/MM3 (1.0-4.8); MEAN CELL VOLUME 81.1 FL (80.0-100.0); MEAN CORPUSCULAR HGB CONC 32.1 % (32.0-36.0); MONO % 13.2 % (0.0-8.0); NEUT % 52.4 % (16.0-70.0); PLATELET COUNT 279 TH/MM3 (150-450); RED BLOOD COUNT 3.65 MIL/MM3 (4.00-5.30); RED CELL DISTRIBUTION WIDTH 15.3 % (11.6-17.2); WHITE BLOOD COUNT 7.5 TH/MM3 (4.0-11.0)
[2016-12-10 10:55] LABS: BICARBONATE 32.7 MEQ/L (21.0-32.0); POTASSIUM 3.3 MEQ/L (3.5-5.1)
--- NOTE | 2016-12-10 13:44 | PD.CARD.PN ---
Subjective Subjective Remarks alert in nad Objective Vital Signs / I&O Vital Signs Date Time Temp Pulse Resp B/P Pulse Ox O2 Delivery O2 Flow Rate FiO2 12/10/16 12:00 98.3 50 18 184/75 97 176/70 12/10/16 08:00 98.0 60 20 221/89 94 144/78 12/10/16 04:00 97.2 58 18 183/79 93 12/10/16 00:00 97.9 64 18 164/73 96 12/09/16 22:00 Room Air 12/09/16 20:00 98.1 70 18 169/71 93 12/09/16 20:00 69 12/09/16 19:33 96 Nasal Cannula 12/09/16 16:05 98.6 66 20 164/72 94 I/O 12/09/16 12/09/16 12/09/16 12/10/16 12/10/16 12/10/16 07:00 15:00 23:00 07:00 15:00 23:00 Intake Total 530 ml 180 ml Balance 530 ml 180 ml Intake Oral 530 ml 180 ml # Voids 2 1 # Bowel Movements 0 0 Physical Exam GENERAL: SKIN: Warm and dry. HEAD: Normocephalic. EYES: No scleral icterus. No injection or drainage. NECK: Supple, trachea midline. No JVD or lymphadenopathy. CARDIOVASCULAR: Regular rate and rhythm without murmurs, gallops, or rubs. RESPIRATORY: Breath sounds equal bilaterally. No accessory muscle use. GASTROINTESTINAL: Abdomen soft, non-tender, nondistended. MUSCULOSKELETAL: No cyanosis, or edema. BACK: Nontender without obvious deformity. No CVA tenderness. Laboratory Laboratory Tests Test 12/10/16 08:52 White Blood Count 7.5 TH/MM3 Red Blood Count 3.65 MIL/MM3 Hemoglobin 9.5 GM/DL Hematocrit 29.5 % Mean Corpuscular Volume 81.1 FL Mean Corpuscular Hemoglobin 26.0 PG Mean Corpuscular Hemoglobin 32.1 % Concent Red Cell Distribution Width 15.3 % Platelet Count 279 TH/MM3 Mean Platelet Volume 9.7 FL Neutrophils (%) (Auto) 52.4 % Lymphocytes (%) (Auto) 31.4 % Monocytes (%) (Auto) 13.2 % Eosinophils (%) (Auto) 2.8 % Basophils (%) (Auto) 0.2 % Neutrophils # (Auto) 3.9 TH/MM3 Lymphocytes # (Auto) 2.4 TH/MM3 Monocytes # (Auto) 1.0 TH/MM3 Eosinophils # (Auto) 0.2 TH/MM3 Basophils # (Auto) 0.0 TH/MM3 CBC Comment DIFF FINAL Differential Comment Sodium Level 141 MEQ/L Potassium Level 3.3 MEQ/L Chloride Level 99 MEQ/L Carbon Dioxide Level 32.7 MEQ/L Anion Gap 9 MEQ/L Blood Urea Nitrogen 18 MG/DL Creatinine 0.88 MG/DL Estimat Glomerular Filtration 62 ML/MIN Rate Random Glucose 164 MG/DL Calcium Level 9.5 MG/DL Assessment and Plan Problem List: (1) Type 2 diabetes mellitus (2) MR (mitral regurgitation) (3) Presence of stent in coronary artery in patient with coronary artery disease Assessment and Plan 1.) mitral stenosis - rec saturnino, patient undecided, chf improved, continue lasix, lisinopril, imdur, recheck bnp Gabriel Tena MD Dec 10, 2016 13:43
[2016-12-10] MEDS ORDERED: POTASSIUM CHLORIDE 10 MEQ CONTROLLED RELEASE TAB PO ONE (15:45)
[2016-12-10] MEDS ORDERED: NIFEdipine 30 MG SUSTAINED RELEASE TAB PO ONE (16:00)
--- NOTE | 2016-12-10 16:18 | HHI.PR ---
Subjective Remarks using art department head over phone. pt says she has some epigastric discomfort dull, which is releived by walking around. last bm two days ago. no n/v. slep better last night. no headache. Objective Vital Signs Date Time Temp Pulse Resp B/P Pulse Ox O2 Delivery O2 Flow Rate FiO2 12/10/16 12:00 98.3 50 18 184/75 97 176/70 12/10/16 08:00 98.0 60 20 221/89 94 144/78 12/10/16 08:00 Room Air 12/10/16 04:00 97.2 58 18 183/79 93 12/10/16 00:00 97.9 64 18 164/73 96 12/09/16 22:00 Room Air 12/09/16 20:00 98.1 70 18 169/71 93 12/09/16 20:00 69 12/09/16 19:33 96 Nasal Cannula I/O 12/09/16 12/09/16 12/09/16 12/10/16 12/10/16 12/10/16 07:00 15:00 23:00 07:00 15:00 23:00 Intake Total 530 ml 180 ml Balance 530 ml 180 ml Intake Oral 530 ml 180 ml # Voids 2 1 # Bowel Movements 0 0 Result Diagram: 12/10/1652 12/10/16851 Objective Remarks GENERAL: patient sitting up in bed. Appears comfortable. Alert and oriented 3. smiling today. SKIN: Warm and dry. HEAD: Normocephalic. EYES: No scleral icterus. No injection or drainage. NECK: Supple, trachea midline. No JVD. CARDIOVASCULAR: Regular rate and rhythm without murmurs, gallops, or rubs. RESPIRATORY: Breath sounds equal bilaterally. No accessory muscle use. still with wheezes BL improved. GASTROINTESTINAL: Abdomen soft, non-tender, nondistended. no rebound or guarding. Positive bowel sounds. MUSCULOSKELETAL: No cyanosis, or edema. BACK: Nontender without obvious deformity. No CVA tenderness. A/P Assessment and Plan === 12/10/16 bp still elevated 180s. incr nifedipine to 90mg QD. for ANABEL tomorrow. hyperglycemia - stop prednisone. still high 300s start glipizide, sitagliptin half dose. Constipation. says bm was not large enough. still constipated today. lax ordered. 76-year-old female with history of CHF with echo with normal EF, very mild , mild MR, asthma/COPD, DM, CAD, HTN, HLD, depression, presents with a 3day history of shortness of breath and chest pain. Dyspnea: suspect multifactorial with asthma exacerbation and possible CHF exacerbation, see treatment below. -CXR images reviewed by me, showed findings consistent with pulmonary vascular congestion/CHF. Acute CHF Exacerbation: CXR with vascular congestion. BNP >5000. S/p IV Lasix 20mg x1 in the ER. Echocardiogram 11/08/16 showed normal systolic function EF 55- 60%, very mild , mild MR. However, pt had Cardiac catheterization 11/08 which showed elevated pulmonary capillary wedge pressure with LVEDP wnl suggestive of possible mitral valve stenosis or pulmonic main stenosis. Cardiothoracic surgery was consulted by Dr. Tena, no surgical intervention recommended at that time. -Give another IV Lasix 40mg x1 now and continue on IV Lasix 40mg bid -Monitor Is&Os, Fluid restrictions < 1500cc/day -Continue patient's home meds once med list reconciled -Monitor on telemetry -Consult patient's engineering lab technician, Dr. Tena -Respiratory status much better. -12/08. Lasix restarted at 20 mg by mouth twice daily. -12/09 bp still elevated. incr nifedipine to 60mg QD 12/10 bp still elevated 180s. incr nifedipine to 90mg QD. for ANABEL tomorrow. Asthma Exacerbation: pt with diffuse wheezing on exam. S/p duonebs x3 and IV Solumedrol 125mg x1 in the ED. -Respiratory status much improved. -stop prednisone. This will help with hyperglycemia. Hypertensive Urgency secondary to Accelerated Hypertension: BP 236/158 in the ED. Give IV Hydralazine 20mg x1 now, then give IV Labetalol 10mg x1. -Continue patient's home meds once list updated by RN, includes labetalol 200mg bid, imdur -Continue IV Hydralazine and IV Vasotec prn -Monitor BP, adjust antihypertensives as needed 12/09 incr nifedipine again for better control. monitor Diabetes Mellitus: chronic, HgbA1c 6.8 on 09/12/16 -Monitor Accuchecks and cover with low dose SSI -Diabetic diet -Continue to monitor blood glucose 12/08. Expect hyperglycemia to improve with tapering prednisone. hyperglycemia - 300s. missed am coverage. stop prednisone. a1c 6.8 - should not need insulin off of prednisone 12/10hyperglycemia - stop prednisone. still high 300s start glipizide, sitagliptin half dose. CAD: Cardiac cath by Dr. Tena 11/08/16 showed severe ostial first diagonal artery stenosis in small vessel 60-70%, widely patent stent in proximal mid-LAD , normal EF 60%. -Continue patient's home meds once verified: labetalol, statin, imdur, aspirin, plavix -patient with vague complaint of chest pain, rule out ACS with serial cardiac enzymes and EKGTroponin peaked at 0.05.. Chest pain resolved. Cardiology following. Appreciate assistance. HLD: chronic -continue patient's statin //Constipation. says bm was not large enough. still constipated today. lax ordered. //Lactic acid elevation. Question significance of increase in lactic acid. Overall patient symptomatically is improving. No fevers or signs of infection.- 12/07. Lactic acid up to 4.8. No anion gap. -Resolved. -And is on metformin. Possibility of L lactate acidosis. //headache. no alram symptoms. likle from PRIYA. pt will sleep on side tonight, help with breathing. All other chronic medical problems stable, continue home medications once verified and updated in the med rec. DVT Prophylaxis: teds/SCDs, also on aspirin/plavix Discharge Planning Home when cleared by cardiology. ANABEL sunday. Rajat Varma MD Dec 10, 2016 16:18
[2016-12-10] MEDS ORDERED: MAGNESIUM HYDROXIDE SUSP 30 ML CUP PO ONE (16:30)
[2016-12-10] MEDS ORDERED: SOD PHOSPHATE/SOD BIPHOSPHATE (ADULT) ENEMA 133ML PR ONE (16:30)
[2016-12-10] MEDS ORDERED: DOCUSATE SODIUM 50 MG/SENNA 8.6 MG TAB PO ONE (16:30)
[2016-12-10] MEDS: glipiZIDE 5 MG TAB PO SCH (18:35)
[2016-12-10] MEDS: ATORVASTATIN 20 MG TAB PO SCH (20:43)
[2016-12-11] VITALS (8 sets, daily range): BP systolic 107–164; BP diastolic 57–77; PULSE 56–79; RESP 16–20; TEMP 97.5–98; O2SAT 93–98
[2016-12-11] MEDS: INSULIN ASPART SUPPLEMENTAL SCALE SQ SCH ×4 (05:59→21:00)
[2016-12-11] MEDS: glipiZIDE 5 MG TAB PO SCH (08:24)
[2016-12-11] MEDS: GABAPENTIN 100 MG CAP PO SCH ×3 (08:24→16:53)
[2016-12-11] MEDS: FUROSEMIDE 20 MG TAB PO SCH ×2 (08:24→16:53)
[2016-12-11] MEDS: LISINOPRIL 10 MG TAB PO SCH ×2 (08:24→21:43)
[2016-12-11] MEDS: THIAMINE HCL 100 MG TAB PO SCH (08:24)
[2016-12-11] MEDS: CLOPIDOGREL 75 MG TAB PO SCH (08:25)
[2016-12-11] MEDS: ISOSORBIDE MONONITRATE 60 MG TAB PO SCH (08:25)
[2016-12-11] MEDS: PANTOPRAZOLE SOD 40 MG DELAYED RELEASE TAB PO SCH (08:25)
[2016-12-11] MEDS: NIFEdipine 90 MG SUSTAINED RELEASE TAB PO SCH (08:25)
[2016-12-11] MEDS: ASPIRIN EC 81 MG TABEC PO SCH (08:25)
[2016-12-11] MEDS: SODIUM CHLORIDE 0.9% FLUSH 5 ML FLUSH FLUSH SCH ×2 (08:26→21:43)
[2016-12-11] MEDS: BUDESONIDE-FORMOTEROL 160/4.5 MCG INHALER INH SCH ×2 (08:26→21:43)
[2016-12-11] MEDS: LABETALOL HCL 100 MG TAB PO SCH ×2 (08:26→21:43)
[2016-12-11 09:00] LABS: BASOPHIL % 0.5 % (0.0-2.0); EOSINOPHIL # 0.5 TH/MM3 (0-0.4); EOSINOPHIL % 5.8 % (0.0-4.0); HEMATOCRIT 34.2 % (35.0-46.0); HEMO FLAGS DIFF FINAL; LYMPH % 26.4 % (9.0-44.0); LYMPHOCYTE # 2.3 TH/MM3 (1.0-4.8); MEAN CELL VOLUME 81.2 FL (80.0-100.0); MEAN CORPUSCULAR HEMOGLOBIN 26.1 PG (27.0-34.0); MEAN CORPUSCULAR HGB CONC 32.1 % (32.0-36.0); MONO % 10.8 % (0.0-8.0); NEUT % 56.5 % (16.0-70.0); PLATELET COUNT 352 TH/MM3 (150-450); RED BLOOD COUNT 4.21 MIL/MM3 (4.00-5.30); RED CELL DISTRIBUTION WIDTH 15.3 % (11.6-17.2); WHITE BLOOD COUNT 8.9 TH/MM3 (4.0-11.0)
[2016-12-11 09:30] LABS: BICARBONATE 33.8 MEQ/L (21.0-32.0); POTASSIUM 4.5 MEQ/L (3.5-5.1)
--- NOTE | 2016-12-11 14:19 | PD.CARD.PN ---
Subjective Subjective Remarks alert in nad Objective Vital Signs / I&O Vital Signs Date Time Temp Pulse Resp B/P Pulse Ox O2 Delivery O2 Flow Rate FiO2 12/11/16 12:29 97.6 69 18 142/63 96 12/11/16 08:20 Room Air 12/11/16 08:03 97.5 71 20 145/67 96 12/11/16 08:00 79 12/11/16 04:00 97.9 62 18 137/65 95 12/11/16 00:00 97.5 63 18 164/77 98 12/10/16 21:00 Room Air 12/10/16 20:00 97.7 62 18 183/79 96 12/10/16 20:00 65 12/10/16 19:49 97 Nasal Cannula 12/10/16 18:18 64 12/10/16 16:00 98.1 54 18 157/64 95 I/O 12/10/16 12/10/16 12/10/16 12/11/16 12/11/16 12/11/16 07:00 15:00 23:00 07:00 15:00 23:00 Intake Total 180 ml 1000 ml 240 ml 240 ml Output Total 1800 ml Balance 180 ml -800 ml 240 ml 240 ml Intake Oral 180 ml 1000 ml 240 ml 240 ml Output Urine Total 1800 ml # Voids 1 2 2 # Bowel Movements 0 0 0 0 Physical Exam GENERAL: SKIN: Warm and dry. HEAD: Normocephalic. EYES: No scleral icterus. No injection or drainage. NECK: Supple, trachea midline. No JVD or lymphadenopathy. CARDIOVASCULAR: Regular rate and rhythm without murmurs, gallops, or rubs. RESPIRATORY: Breath sounds equal bilaterally. No accessory muscle use. GASTROINTESTINAL: Abdomen soft, non-tender, nondistended. MUSCULOSKELETAL: No cyanosis, or edema. BACK: Nontender without obvious deformity. No CVA tenderness. Laboratory Laboratory Tests Test 12/11/16 08:31 White Blood Count 8.9 TH/MM3 Red Blood Count 4.21 MIL/MM3 Hemoglobin 11.0 GM/DL Hematocrit 34.2 % Mean Corpuscular Volume 81.2 FL Mean Corpuscular Hemoglobin 26.1 PG Mean Corpuscular Hemoglobin 32.1 % Concent Red Cell Distribution Width 15.3 % Platelet Count 352 TH/MM3 Mean Platelet Volume 9.5 FL Neutrophils (%) (Auto) 56.5 % Lymphocytes (%) (Auto) 26.4 % Monocytes (%) (Auto) 10.8 % Eosinophils (%) (Auto) 5.8 % Basophils (%) (Auto) 0.5 % Neutrophils # (Auto) 5.0 TH/MM3 Lymphocytes # (Auto) 2.3 TH/MM3 Monocytes # (Auto) 1.0 TH/MM3 Eosinophils # (Auto) 0.5 TH/MM3 Basophils # (Auto) 0.0 TH/MM3 CBC Comment DIFF FINAL Differential Comment Sodium Level 138 MEQ/L Potassium Level 4.5 MEQ/L Chloride Level 98 MEQ/L Carbon Dioxide Level 33.8 MEQ/L Anion Gap 6 MEQ/L Blood Urea Nitrogen 23 MG/DL Creatinine 1.24 MG/DL Estimat Glomerular Filtration 42 ML/MIN Rate Random Glucose 156 MG/DL Calcium Level 9.9 MG/DL B-Type Natriuretic Peptide 192 PG/ML Assessment and Plan Problem List: (1) Type 2 diabetes mellitus (2) MR (mitral regurgitation) (3) Presence of stent in coronary artery in patient with coronary artery disease Assessment and Plan 1.) mitral stenosis - rec saturnino, patient undecided, chf improved, continue lasix, lisinopril, imdur, recheck bnp; d/w son at patient request, son states patient had severe reaction to anesthesia, will get anesthesia consult to d/w son risks and benefits of anesthesia, d/w patient, charge nurse Gabriel Ramos MD Dec 11, 2016 14:19
--- NOTE | 2016-12-11 20:35 | HHI.PR ---
Subjective Remarks using autism specialist over the phone. Patient says she feels well. Denies any chest pain or shortness of breath. Walking around without difficulty. Objective Vital Signs Date Time Temp Pulse Resp B/P Pulse Ox O2 Delivery O2 Flow Rate FiO2 12/11/16 16:03 98.0 66 20 107/57 98 12/11/16 12:29 97.6 69 18 142/63 96 12/11/16 08:20 Room Air 12/11/16 08:03 97.5 71 20 145/67 96 12/11/16 08:00 79 12/11/16 04:00 97.9 62 18 137/65 95 12/11/16 00:00 97.5 63 18 164/77 98 12/10/16 21:00 Room Air I/O 12/10/16 12/10/16 12/10/16 12/11/16 12/11/16 12/11/16 07:00 15:00 23:00 07:00 15:00 23:00 Intake Total 180 ml 1000 ml 240 ml 240 ml 840 ml Output Total 1800 ml Balance 180 ml -800 ml 240 ml 240 ml 840 ml Intake Oral 180 ml 1000 ml 240 ml 240 ml 840 ml Output Urine Total 1800 ml # Voids 1 2 2 3 # Bowel Movements 0 0 0 0 0 Result Diagram: 12/11/1683012/11/16830 Objective Remarks GENERAL: patient sitting up in bed. Appears comfortable. Alert and oriented 3. sitting up in chair. Walking in room. Smiling. SKIN: Warm and dry. HEAD: Normocephalic. EYES: No scleral icterus. No injection or drainage. NECK: Supple, trachea midline. No JVD. CARDIOVASCULAR: Regular rate and rhythm without murmurs, gallops, or rubs. RESPIRATORY: Breath sounds equal bilaterally. No accessory muscle use. no wheezing at all. GASTROINTESTINAL: Abdomen soft, non-tender, nondistended. no rebound or guarding. Positive bowel sounds. MUSCULOSKELETAL: No cyanosis, or edema. BACK: Nontender without obvious deformity. No CVA tenderness. A/P Assessment and Plan === 12/11/16 creatinine elevation. Creatinine 1.24. Around recent baseline. Will decrease lisinopril to once daily. Continue to monitor. blood pressure much lower. Patient feeling great however. No wheezing whatsoever. due to history of anesthesia reaction, patient will need anesthesia sedation prior to ANABEL hyperglycemia - improved. We'll increase sitigliptin to 50 mg daily, iss. Constipation. resolved. 76-year-old female with history of CHF with echo with normal EF, very mild , mild MR, asthma/COPD, DM, CAD, HTN, HLD, depression, presents with a 3day history of shortness of breath and chest pain. Dyspnea: suspect multifactorial with asthma exacerbation and possible CHF exacerbation, see treatment below. -CXR images reviewed by me, showed findings consistent with pulmonary vascular congestion/CHF. Acute CHF Exacerbation: CXR with vascular congestion. BNP >5000. S/p IV Lasix 20mg x1 in the ER. Echocardiogram 11/08/16 showed normal systolic function EF 55- 60%, very mild , mild MR. However, pt had Cardiac catheterization 11/08 which showed elevated pulmonary capillary wedge pressure with LVEDP wnl suggestive of possible mitral valve stenosis or pulmonic main stenosis. Cardiothoracic surgery was consulted by Dr. Tena, no surgical intervention recommended at that time. -Give another IV Lasix 40mg x1 now and continue on IV Lasix 40mg bid -Monitor Is&Os, Fluid restrictions < 1500cc/day -Continue patient's home meds once med list reconciled -Monitor on telemetry -Consult patient's drivers license examiner, Dr. Tena -Respiratory status much better. -12/08. Lasix restarted at 20 mg by mouth twice daily. -12/09 bp still elevated. incr nifedipine to 60mg QD 12/10 bp still elevated 180s. incr nifedipine to 90mg QD. for ANABEL tomorrow. Asthma Exacerbation: pt with diffuse wheezing on exam. S/p duonebs x3 and IV Solumedrol 125mg x1 in the ED. -Respiratory status much improved. -stop prednisone. This will help with hyperglycemia. Hypertensive Urgency secondary to Accelerated Hypertension: BP 236/158 in the ED. Give IV Hydralazine 20mg x1 now, then give IV Labetalol 10mg x1. -Continue patient's home meds once list updated by RN, includes labetalol 200mg bid, imdur -Continue IV Hydralazine and IV Vasotec prn -Monitor BP, adjust antihypertensives as needed 12/09 incr nifedipine again for better control. monitor =blood pressure a little low. Decrease lisinopril to once daily. Diabetes Mellitus: chronic, HgbA1c 6.8 on 09/12/16 -Monitor Accuchecks and cover with low dose SSI -Diabetic diet -Continue to monitor blood glucose 12/08. Expect hyperglycemia to improve with tapering prednisone. hyperglycemia - 300s. missed am coverage. stop prednisone. a1c 6.8 - should not need insulin off of prednisone 12/10hyperglycemia - stop prednisone. still high 300s start glipizide, sitagliptin half dose. CAD: Cardiac cath by Dr. Tena 11/08/16 showed severe ostial first diagonal artery stenosis in small vessel 60-70%, widely patent stent in proximal mid-LAD , normal EF 60%. -Continue patient's home meds once verified: labetalol, statin, imdur, aspirin, plavix -patient with vague complaint of chest pain, rule out ACS with serial cardiac enzymes and EKGTroponin peaked at 0.05.. Chest pain resolved. Cardiology following. Appreciate assistance. HLD: chronic -continue patient's statin //Constipation. says bm was not large enough. still constipated today. lax ordered. //Lactic acid elevation. Question significance of increase in lactic acid. Overall patient symptomatically is improving. No fevers or signs of infection.- 12/07. Lactic acid up to 4.8. No anion gap. -Resolved. -And is on metformin. Possibility of L lactate acidosis. //headache. no alram symptoms. likle from PRIYA. pt will sleep on side tonight, help with breathing. All other chronic medical problems stable, continue home medications once verified and updated in the med rec. DVT Prophylaxis: teds/SCDs, also on aspirin/plavix Discharge Planning Home when cleared by cardiology. ANABEL pending.. Rajat Varma MD Dec 11, 2016 20:35
[2016-12-11] MEDS: ATORVASTATIN 20 MG TAB PO SCH (21:43)
[2016-12-12] VITALS: BP 140/66; PULSE 60; RESP 18; TEMP 97.8; O2SAT 95
[2016-12-12 04:00] VITALS: BP 138/64; PULSE 65; RESP 16; TEMP 98.4; O2SAT 95
[2016-12-12] MEDS: INSULIN ASPART SUPPLEMENTAL SCALE SQ SCH ×3 (06:12→17:10)
[2016-12-12 08:00] VITALS: BP 176/76; PULSE 58; RESP 18; TEMP 98.3; O2SAT 100
[2016-12-12 08:20] VITALS: PULSE 73
[2016-12-12] MEDS: BUDESONIDE-FORMOTEROL 160/4.5 MCG INHALER INH SCH (09:20)
[2016-12-12] MEDS: PANTOPRAZOLE SOD 40 MG DELAYED RELEASE TAB PO SCH (09:21)
[2016-12-12] MEDS: ASPIRIN EC 81 MG TABEC PO SCH (09:21)
[2016-12-12] MEDS: GABAPENTIN 100 MG CAP PO SCH ×3 (09:21→17:09)
[2016-12-12] MEDS: LISINOPRIL 10 MG TAB PO SCH (09:21)
[2016-12-12] MEDS: LABETALOL HCL 100 MG TAB PO SCH (09:22)
[2016-12-12] MEDS: SODIUM CHLORIDE 0.9% FLUSH 5 ML FLUSH FLUSH SCH (09:22)
[2016-12-12] MEDS: ISOSORBIDE MONONITRATE 60 MG TAB PO SCH (09:22)
[2016-12-12] MEDS: CLOPIDOGREL 75 MG TAB PO SCH (09:22)
[2016-12-12] MEDS: THIAMINE HCL 100 MG TAB PO SCH (09:22)
[2016-12-12] MEDS: FUROSEMIDE 20 MG TAB PO SCH (09:22)
[2016-12-12] MEDS: NIFEdipine 90 MG SUSTAINED RELEASE TAB PO SCH (09:22)
[2016-12-12] MEDS: glipiZIDE 5 MG TAB PO SCH (09:22)
[2016-12-12 10:28] LABS: AUTOMATED NEUTROPHIL # 4.8 TH/MM3 (1.8-7.7); BASOPHIL % 0.6 % (0.0-2.0); EOSINOPHIL # 0.3 TH/MM3 (0-0.4); EOSINOPHIL % 3.9 % (0.0-4.0); HEMATOCRIT 30.5 % (35.0-46.0); HEMO FLAGS DIFF FINAL; LYMPH % 22.6 % (9.0-44.0); LYMPHOCYTE # 1.7 TH/MM3 (1.0-4.8); MEAN CELL VOLUME 80.2 FL (80.0-100.0); MEAN CORPUSCULAR HGB CONC 33.6 % (32.0-36.0); MONO % 9.8 % (0.0-8.0); NEUT % 63.1 % (16.0-70.0); PLATELET COUNT 337 TH/MM3 (150-450); RED BLOOD COUNT 3.81 MIL/MM3 (4.00-5.30); RED CELL DISTRIBUTION WIDTH 15.2 % (11.6-17.2); WHITE BLOOD COUNT 7.6 TH/MM3 (4.0-11.0)
[2016-12-12 10:52] LABS: MAGNESIUM 1.8 MG/DL (1.5-2.5); POTASSIUM 3.5 MEQ/L (3.5-5.1)
[2016-12-12 11:43] VITALS: BP 136/62; PULSE 64; RESP 16; TEMP 97.8; O2SAT 98
[2016-12-12] MEDS ORDERED: PILL SPLITTER OTHER PRN (13:30)
[2016-12-12] MEDS ORDERED: POTASSIUM CHLORIDE 10 MEQ CONTROLLED RELEASE TAB PO ONE (14:00)
--- NOTE | 2016-12-12 14:05 | PD.CARD.PN ---
Subjective Subjective Remarks alert in nad Objective Vital Signs / I&O Vital Signs Date Time Temp Pulse Resp B/P Pulse Ox O2 Delivery O2 Flow Rate FiO2 12/12/16 11:43 97.8 64 16 136/62 98 12/12/16 08:20 73 12/12/16 08:20 Room Air 12/12/16 08:00 98.3 58 18 176/76 100 12/12/16 04:00 98.4 65 16 138/64 95 12/12/16 00:00 97.8 60 18 140/66 95 12/11/16 20:55 Room Air 12/11/16 20:28 56 12/11/16 20:00 97.6 58 16 158/74 93 12/11/16 16:03 98.0 66 20 107/57 98 I/O 12/11/16 12/11/16 12/11/16 12/12/16 12/12/16 12/12/16 07:00 15:00 23:00 07:00 15:00 23:00 Intake Total 240 ml 840 ml 362 ml 120 ml Balance 240 ml 840 ml 362 ml 120 ml Intake Oral 240 ml 840 ml 360 ml 120 ml IV Total 2 ml # Voids 2 3 2 1 # Bowel Movements 0 0 0 0 Physical Exam GENERAL: SKIN: Warm and dry. HEAD: Normocephalic. EYES: No scleral icterus. No injection or drainage. NECK: Supple, trachea midline. No JVD or lymphadenopathy. CARDIOVASCULAR: Regular rate and rhythm without murmurs, gallops, or rubs. RESPIRATORY: Breath sounds equal bilaterally. No accessory muscle use. GASTROINTESTINAL: Abdomen soft, non-tender, nondistended. MUSCULOSKELETAL: No cyanosis, or edema. BACK: Nontender without obvious deformity. No CVA tenderness. Laboratory Laboratory Tests Test 12/12/16 09:25 White Blood Count 7.6 TH/MM3 Red Blood Count 3.81 MIL/MM3 Hemoglobin 10.3 GM/DL Hematocrit 30.5 % Mean Corpuscular Volume 80.2 FL Mean Corpuscular Hemoglobin 27.0 PG Mean Corpuscular Hemoglobin 33.6 % Concent Red Cell Distribution Width 15.2 % Platelet Count 337 TH/MM3 Mean Platelet Volume 9.4 FL Neutrophils (%) (Auto) 63.1 % Lymphocytes (%) (Auto) 22.6 % Monocytes (%) (Auto) 9.8 % Eosinophils (%) (Auto) 3.9 % Basophils (%) (Auto) 0.6 % Neutrophils # (Auto) 4.8 TH/MM3 Lymphocytes # (Auto) 1.7 TH/MM3 Monocytes # (Auto) 0.7 TH/MM3 Eosinophils # (Auto) 0.3 TH/MM3 Basophils # (Auto) 0.0 TH/MM3 CBC Comment DIFF FINAL Differential Comment Sodium Level 141 MEQ/L Potassium Level 3.5 MEQ/L Chloride Level 103 MEQ/L Carbon Dioxide Level 30.0 MEQ/L Anion Gap 8 MEQ/L Blood Urea Nitrogen 27 MG/DL Creatinine 1.27 MG/DL Estimat Glomerular Filtration 41 ML/MIN Rate Random Glucose 273 MG/DL Calcium Level 8.9 MG/DL Phosphorus Level 3.9 MG/DL Magnesium Level 1.8 MG/DL Albumin 3.2 GM/DL Assessment and Plan Problem List: (1) Type 2 diabetes mellitus (2) MR (mitral regurgitation) (3) Presence of stent in coronary artery in patient with coronary artery disease Assessment and Plan 1.) mitral stenosis - rec saturnino, patient undecided, chf improved, continue lasix, lisinopril, imdur, recheck bnp; d/w son at patient request, son states patient had severe reaction to anesthesia, euvolemic, ok to dc fom cv standpoint, d/w nurse Gabriel Tena MD Dec 12, 2016 14:05
[2016-12-12 16:00] VITALS: BP 134/63; PULSE 66; RESP 18; TEMP 98.6; O2SAT 99
[2016-12-12] MEDS ORDERED: glipiZIDE 5 MG TAB PO SCH (16:00)
[2016-12-12 16:27] LABS: HEMOGLOBIN A1a 1.4 %; HEMOGLOBIN A1b 1.1 %; HEMOGLOBIN F 1.4 %; HEMOGLOBIN P3 4.5 %
[2016-12-12] MEDS ORDERED: LISI10TA3 PO (17:05)
[2016-12-12] MEDS ORDERED: GABA100C4 PO (17:05)
[2016-12-12] MEDS ORDERED: PLAV75TA29 PO (17:05)
[2016-12-12] MEDS ORDERED: FURO20TA PO (17:05)
[2016-12-12] MEDS ORDERED: VITA100T2 PO (17:05)
[2016-12-12] MEDS ORDERED: GLIP5TAB8 PO (17:05)
[2016-12-12] MEDS ORDERED: POTA10TA2 PO (17:05)
[2016-12-12] MEDS ORDERED: GLIP5 PO (17:05)
[2016-12-12] MEDS ORDERED: LABE100T2 PO (17:05)
[2016-12-12] MEDS ORDERED: SITA1TAB2 PO (17:05)
[2016-12-12] MEDS ORDERED: LEVEMIR SQ (17:05)
[2016-12-12] MEDS ORDERED: NIFE90TA2 PO (17:05)
[2016-12-12] MEDS ORDERED: GETGO ROLLING W1 MI1 (17:06)
--- NOTE | 2016-12-12 17:09 | HHI.FF ---
Face to Face Verification Diagnosis: (1) Acute exacerbation of congestive heart failure (2) Generalized weakness (3) Presence of stent in coronary artery in patient with coronary artery disease (4) Type 2 diabetes mellitus Home Health Nursing Order: Medical education Diabetic education Nursing assessment with vital signs Instructions: medication management. I have seen patient Carolin Aguirre on 12/12/16. My clinical findings support the need for the requested home health care services because: Limited ability to care for self I certify that my clinical findings support that this patient is homebound because: Unsafe to leave home unassisted Rajat Varma MD Dec 12, 2016 17:09
[2016-12-13] MEDS ORDERED: FUROSEMIDE 20 MG TAB PO SCH (09:00)
--- NOTE | 2016-12-18 01:10 | HHI.DS ---
Discharge Summary Admission Date Dec 06, 2016 at 14:32 Discharge Date: Dec 12, 2016 Admitting Diagnosis CHF, rule out mitral stenosis (1) Type 2 diabetes mellitus ICD Code: E11.9 (2) Hypertension ICD Code: I10 (3) Acute exacerbation of congestive heart failure ICD Code: I50.9 Procedures no invasive procedures. Brief History - From Admission 76-year-old female with history of CHF with echo with normal EF, very mild , mild MR, asthma/COPD, DM, CAD, HTN, HLD, depression, presents with a 3day history of shortness of breath and chest pain. Over the phone biological aide used per the patient request. The patient states she came to the hospital for her asthma, states she can "hardly breath". She also reports chest pain, states it's not sharp, but "it does bother me." She also has a nonproductive cough, worse when lying flat. She denies leg swelling but does report her stomach "swelled up" over the past several days and her eyes are "puffy". She reports compliance with her medications, has help from her son and [id number]. Denies any abdominal pain, constipation, or urinary complaints. In the ER, BP as high as 236/158. She checks her BP at home which is usually around 180s. She took her morning medications today. Of note, the patient has been using Afrin nasal spray over the past 2 weeks for her allergies. Her hoop driving machine operator helper is Dr. Tena. Imaging Last Impressions Chest X-Ray 12/07/16 0000 Signed Impressions: Service Date/Time: November 19:08 - CONCLUSION: Compensated left ventricular cardiomegaly. Mik Hardin MD Abdomen X-Ray 12/07/16 0000 Signed Impressions: Service Date/Time: November 14:55 - CONCLUSION: No dilated loops of small or large bowel. Dmitry Stuart MD PE at Discharge GENERAL: patient sitting up in bed. Appears comfortable. Alert and oriented 3. sitting up in chair. Walking in room. Smiling.exam unchanged. SKIN: Warm and dry. HEAD: Normocephalic. EYES: No scleral icterus. No injection or drainage. NECK: Supple, trachea midline. No JVD. CARDIOVASCULAR: Regular rate and rhythm without murmurs, gallops, or rubs. RESPIRATORY: Breath sounds equal bilaterally. No accessory muscle use. no wheezing at all. GASTROINTESTINAL: Abdomen soft, non-tender, nondistended. no rebound or guarding. Positive bowel sounds. MUSCULOSKELETAL: No cyanosis, or edema. BACK: Nontender without obvious deformity. No CVA tenderness. Pt update on day of discharge patient says she is feeling well. Denies any chest pain or shortness of breath. Hospital Course Patient was treated for acute CHF exacerbation. BNP 2000 on admission. Cardiology consultation. Appreciate assistance. Medications were adjusted, patient started on diuretics, as well as increased doses of blood pressure medications. Patient will need follow-up with Dr. Tena, as well as primary care as outpatient...TSH was found to be low, however in the setting of acute hospitalization, will need to be rechecked as outpatient. For problem-based summary from most recent progress note, please see below. === 12/11/16 creatinine elevation. Creatinine 1.24. Around recent baseline. Will decrease lisinopril to once daily. Continue to monitor. blood pressure much lower. Patient feeling great however. No wheezing whatsoever. due to history of anesthesia reaction, patient will need anesthesia sedation prior to ANABEL hyperglycemia - improved. We'll increase sitigliptin to 50 mg daily, iss. Constipation. resolved. 76-year-old female with history of CHF with echo with normal EF, very mild , mild MR, asthma/COPD, DM, CAD, HTN, HLD, depression, presents with a 3day history of shortness of breath and chest pain. Dyspnea: suspect multifactorial with asthma exacerbation and possible CHF exacerbation, see treatment below. -CXR images reviewed by me, showed findings consistent with pulmonary vascular congestion/CHF. Acute CHF Exacerbation: CXR with vascular congestion. BNP >5000. S/p IV Lasix 20mg x1 in the ER. Echocardiogram 11/08/16 showed normal systolic function EF 55- 60%, very mild , mild MR. However, pt had Cardiac catheterization 11/08 which showed elevated pulmonary capillary wedge pressure with LVEDP wnl suggestive of possible mitral valve stenosis or pulmonic main stenosis. Cardiothoracic surgery was consulted by Dr. Tena, no surgical intervention recommended at that time. -Give another IV Lasix 40mg x1 now and continue on IV Lasix 40mg bid -Monitor Is&Os, Fluid restrictions < 1500cc/day -Continue patient's home meds once med list reconciled -Monitor on telemetry -Consult patient's hoop driving machine operator helper, Dr. Tena -Respiratory status much better. -12/08. Lasix restarted at 20 mg by mouth twice daily. -12/09 bp still elevated. incr nifedipine to 60mg QD 12/10 bp still elevated 180s. incr nifedipine to 90mg QD. for ANABEL tomorrow. Asthma Exacerbation: pt with diffuse wheezing on exam. S/p duonebs x3 and IV Solumedrol 125mg x1 in the ED. -Respiratory status much improved. -stop prednisone. This will help with hyperglycemia. Hypertensive Urgency secondary to Accelerated Hypertension: BP 236/158 in the ED. Give IV Hydralazine 20mg x1 now, then give IV Labetalol 10mg x1. -Continue patient's home meds once list updated by RN, includes labetalol 200mg bid, imdur -Continue IV Hydralazine and IV Vasotec prn -Monitor BP, adjust antihypertensives as needed 12/09 incr nifedipine again for better control. monitor =blood pressure a little low. Decrease lisinopril to once daily. Diabetes Mellitus: chronic, HgbA1c 6.8 on 09/12/16 -Monitor Accuchecks and cover with low dose SSI -Diabetic diet -Continue to monitor blood glucose 12/08. Expect hyperglycemia to improve with tapering prednisone. hyperglycemia - 300s. missed am coverage. stop prednisone. a1c 6.8 - should not need insulin off of prednisone 12/10hyperglycemia - stop prednisone. still high 300s start glipizide, sitagliptin half dose. CAD: Cardiac cath by Dr. Tena 11/08/16 showed severe ostial first diagonal artery stenosis in small vessel 60-70%, widely patent stent in proximal mid-LAD , normal EF 60%. -Continue patient's home meds once verified: labetalol, statin, imdur, aspirin, plavix -patient with vague complaint of chest pain, rule out ACS with serial cardiac enzymes and EKGTroponin peaked at 0.05.. Chest pain resolved. Cardiology following. Appreciate assistance. HLD: chronic -continue patient's statin //Constipation. says bm was not large enough. still constipated today. lax ordered. //Lactic acid elevation. Question significance of increase in lactic acid. Overall patient symptomatically is improving. No fevers or signs of infection.- 12/07. Lactic acid up to 4.8. No anion gap. -Resolved. -And is on metformin. Possibility of L lactate acidosis. //headache. no alram symptoms. likle from PRIYA. pt will sleep on side tonight, help with breathing. All other chronic medical problems stable, continue home medications once verified and updated in the med rec. DVT Prophylaxis: teds/SCDs, also on aspirin/plavix Discharge Planning Home when cleared by cardiology. ANABEL pending.. Pt Condition on Discharge: Good Discharge Disposition: Disch w/ Home Health Serv Discharge Time: <= 30 minutes Discharge Instructions DIET: Follow Instructions for: Diabetic Diet Activities you can perform: Regular-No Restrictions Follow up Referrals: Cardiology - 2-3 Days with Gabriel Tena MD PCP Follow-up - 2-3 Days with Gabi Rios M.d. New Medications: Insulin Detemir Inj (Levemir Inj) 1,000 unit/ 10 ML Vial 5 UNITS SQ HS Do not mix with any other Insulin. Blood Sugar Management Days 30 Ref 0 VIAL Walker Rolling/GetGo (Walker Rolling/GetGo) 1 Mis Mis 1 EA .ROUTE DIRECTED #1 EA Clopidogrel (Plavix) 75 Mg Tab 75 MG PO DAILY heart Days 30 TAB Furosemide (Furosemide) 20 Mg Tab 30 MG PO DAILY heart Days 30 TAB Gabapentin (Gabapentin) 100 Mg Cap 200 MG PO TID Pain Management Days 30 CAP Glipizide (Glucotrol) 5 Mg Tab 5 MG PO BIDAC Blood Sugar Management Days 30 TAB Labetalol (Labetalol) 100 Mg Tab 100 MG PO Q12HR heart Days 30 TAB Nifedipine (Nifedipine ER) 90 Mg Tab 90 MG PO DAILY heart Days 30 TAB Sitagliptin (Januvia) 100 Mg Tab 100 MG PO DAILY Blood Sugar Management Days 30 TAB Thiamine (Vitamin B-1) 100 Mg Tab 100 MG PO DAILY vitamin Days 30 TAB Changed Medications: Glipizide (Glipizide) 5 Mg Tab 5 MG PO BID Take 30 minutes before a meal Blood Sugar Management #30 Ref 0 TAB ( Changed from: DAILY) Lisinopril (Lisinopril) 10 Mg Tab 10 MG PO DAILY #30 Ref 0 TAB (Changed from: BID) Potassium Chloride ER (Potassium Chloride ER) 10 Meq Tab 30 MEQ PO DAILY Electrolyte Replacement #30 Ref 0 TAB (Changed from: 10 MEQ) Continued Medications: Aspirin DR (Aspirin EC Low Dose) 81 Mg Tabec 162 MG PO DAILY TAB Atorvastatin (Atorvastatin) 20 Mg Tab 20 MG PO HS Cholesterol Management #30 Ref 0 TAB Budesonide-Formoterol Inh (Symbicort Inh) 160-4.5 Mcg/Act Aero 1 PUFF INH Q12HR #1 Ref [address] (Nexium) 40 Mg Capdr 40 MG PO BID Ref 0 CAP Fluticasone Nasal [place] (Flonase Nasal [place]) 50 Mcg/Act [place] 1 SPRAY EACH NARE BID Allergies #1 Ref 0 BOTTLE Fluticasone-Salmeterol Inh (Advair Diskus Inh) 250-50 Mcg/Blist Aer 1 PUFF INH BID Rinse mouth after use. #1 Ref 5 INHALER Ipratropium-Albuterol Neb (Duoneb) 0.5-2.5 Mg/3 Ml Neb 1 NEBULE INH Q6HR NEB Breathing Treatment #120 Ref 5 NEBULE Isosorbide Mononitrate ER (Isosorbide Mononitrate ER) 60 Mg Tab 60 MG PO DAILY Prevent Chest Pain #30 Ref 0 TAB Discontinued Medications: Dexlansoprazole (Dexilant) 60 Mg Cap 60 MG PO DAILY #30 Ref 0 CAP Gabapentin (Gabapentin) 300 Mg Cap 300 MG PO TID #90 Ref 0 CAP Insulin Lispro (Human) Inj (Humalog Inj) 1,000 Unit/10 Ml Vial 1-9 UNITS SQ ACHS sugars< 70,(0)units; sugars 150-199,(1)unit; sugars 200-249,(3 )units; sugars 250-299,(5)units; sugars 300-349,(7)units; sugars more than 349,( 9)units. Blood Sugar Management #1 Ref 0 VIAL Meloxicam (Mobic) 15 Mg Tab 15 MG PO DAILY Arthritis pain Ref 0 TAB Sitagliptin-Metformin (Janumet) 50-1,000 Mg Tab 1 TAB PO BID Blood Sugar Management #90 Ref 0 TAB Rajat Varma MD Dec 18, 2016 01:10
== END 2016-12-12 19:58 | disposition home health service (06) | DRG 292 ==
LOC: NEPC 10:31 → NEDA 14:32 → N04A 18:54
PROVIDERS: ADMIT Hospitalist; ATTEND Hospitalist
DX: I50.9 Heart failure, unspecified (principal); J45.901 Unspecified asthma with (acute) exacerbation; E87.2 Acidosis; I08.0 Rheumatic disorders of both mitral and aortic valves; E11.65 Type 2 diabetes mellitus with hyperglycemia; E11.40 Type 2 diabetes mellitus with diabetic neuropathy, unspecified; J44.9 Chronic obstructive pulmonary disease, unspecified; I10 Essential (primary) hypertension; E78.5 Hyperlipidemia, unspecified; K59.00 Constipation, unspecified; I25.10 Atherosclerotic heart disease of native coronary artery without angina pectoris; Z91.013 Allergy to seafood; I16.0 Hypertensive urgency; Z95.5 Presence of coronary angioplasty implant and graft; R51 Headache; G47.33 Obstructive sleep apnea (adult) (pediatric); J30.2 Other seasonal allergic rhinitis
CPT/HCPCS: 36600; 71010; 74000; 76937; 80048; 80053; 80069; 81001; 82550; 82805; 82948; 83036; 83605; 83735; 83880; 84439; 84443; 84480; 84484; 85025; 85610; 85652; 85730; 93005; 94640; 94664; 96374; 96375; J0360; J1815; J1940; J2405; J2920; J2930; J7512

== ENCOUNTER 2017-03-16 13:02 | Inpatient (IN) | payer MEDICARE, MEDICAID ==
[2017-03-16] VITALS (8 sets, daily range): BP systolic 136–200; BP diastolic 74–96; PULSE 44–77; RESP 16–22; TEMP 97.8–98.4; O2SAT 95–99
[~2017-03-16] VITALS: Ht 154.9 cm; Wt 72.2 kg
[~2017-03-16 13:02] MED LIST changes: +ATOR20TA15 PO; -CLOP75TA PO; -CYMB60CA PO; +FLUT1SPR5 EACH NARE; -FURO1TAB62 PO; +FURO20TA PO; +GABA100C4 PO; +GETGO ROLLING W1 MI1; +GLIP5 PO; +GLIP5TAB8 PO; -JANU50TA8 PO; +LABE100T2 PO; -LABE200T2 PO; +LEVEMIR SQ; +LISI10TA3 PO; -MELA1TAB22 PO; -MONT10TA4 PO; +NEXI40CA PO; +NIFE90TA2 PO; -PANT40TA3 PO; +PLAV75TA29 PO; +POTA10TA2 PO; -PRAV80TA2 PO; +SITA1TAB2 PO; +VITA100T2 PO; -ZANT150T2 PO; -ZOFR4TAB3 SL
--- NOTE | 2017-03-16 13:09 | PD ---
Physical Exam Time Seen by Provider: 13:07 Narrative 76 y/o female here for evaluation of fatigue, shortness of breath, cp/back pain. Vital signs reviewed. Seen at triage desk. Awaiting bed placement. Data Data Last Documented VS Vital Signs Date Time Temp Pulse Resp B/P Pulse Ox O2 Delivery O2 Flow Rate FiO2 03/16/17 13:04 97.8 71 18 138/74 95 MDM Medical Record Reviewed: Yes Supervised Visit with SUSAN: Milton Velazquez Mar 16, 2017 13:09
[2017-03-16] MEDS ORDERED: SODIUM CHLORIDE 0.9% FLUSH 10 ML FLUSH IVF PRN (13:45)
[2017-03-16] MEDS ORDERED: RESP: ALBUTEROL 2.5 MG/IPRATROPIUM 0.5 MG NEB (SCH) INH ONE (13:45)
[2017-03-16 14:30] LABS: AUTOMATED NEUTROPHIL # 7.1 TH/MM3 (1.8-7.7); BASOPHIL # 0.1 TH/MM3 (0-0.2); BASOPHIL % 0.7 % (0.0-2.0); EOSINOPHIL # 0.3 TH/MM3 (0-0.4); EOSINOPHIL % 3.3 % (0.0-4.0); HEMATOCRIT 28.4 % (35.0-46.0); HEMO FLAGS DIFF FINAL; LYMPH % 17.3 % (9.0-44.0); LYMPHOCYTE # 1.7 TH/MM3 (1.0-4.8); MEAN CELL VOLUME 76.7 FL (80.0-100.0); MEAN CORPUSCULAR HEMOGLOBIN 25.1 PG (27.0-34.0); MEAN CORPUSCULAR HGB CONC 32.7 % (32.0-36.0); MONO % 8.5 % (0.0-8.0); NEUT % 70.2 % (16.0-70.0); PLATELET COUNT 284 TH/MM3 (150-450); RED BLOOD COUNT 3.71 MIL/MM3 (4.00-5.30); RED CELL DISTRIBUTION WIDTH 17.4 % (11.6-17.2); WHITE BLOOD COUNT 10.1 TH/MM3 (4.0-11.0)
[2017-03-16 14:37] LABS: ANION GAP 10 MEQ/L (5-15); AST (GOT) 13 U/L (15-37); BICARBONATE 25.5 MEQ/L (21.0-32.0); BLOOD UREA NITROGEN 34 MG/DL (7-18); CHLORIDE 109 MEQ/L (98-107); GLOMERULAR FILTRATION RATE 29 ML/MIN (>89); SODIUM (NA) 144 MEQ/L (136-145)
[2017-03-16 14:40] LABS: APTT (PATIENT) 23.3 SEC (24.3-30.1); INTERNATIONAL NORMALIZED RATIO 0.9 RATIO
[2017-03-16 14:41] LABS: ALKALINE PHOSPHATASE 71 U/L (45-117); ALT (GPT) 18 U/L (10-53); CREATINE KINASE 124 U/L (26-192); TOTAL BILIRUBIN ADULT 0.3 MG/DL (0.2-1.0)
--- NOTE | 2017-03-16 14:49 | RADRPT ---
EXAM DATE/TIME: 03/16/2017 14:00 [facility] COMPARISON: CHEST SINGLE AP, December 07, 2016, 19:08. INDICATIONS : Shortness of Breath MEDICAL HISTORY : Hypertension. Cardiovascular disease. Congestive heart failure. Asthma SURGICAL HISTORY : None. ENCOUNTER: Initial ACUITY: 1 day PAIN SCORE: 0/10 LOCATION: Bilateral chest FINDINGS: Single AP view of the chest. The lungs are clear. Chronic mild cardiac silhouette enlargement. No chintan dence of pleural effusion or pneumothorax. CONCLUSION: Chronic mild cardiac silhouette enlargement. No acute cardiopulmonary disease iden tified. Evan Lal MD on March 16, 2017 at 14:46 Board Certified Radiologist. This report was verified electronically.
[2017-03-16 14:54] LABS: CKMB 1.5 NG/ML (0.5-3.6)
[2017-03-16] MEDS ORDERED: K-TA10TA PO (15:02)
[2017-03-16] MEDS ORDERED: JANU50TA8 PO (15:02)
[2017-03-16] MEDS ORDERED: DEXILANT PO (15:02)
[2017-03-16] MEDS ORDERED: MONT10TA4 PO (15:02)
[2017-03-16] MEDS ORDERED: LABE200T2 PO (15:04)
[2017-03-16] MEDS ORDERED: GABA300C5 PO (15:04)
[2017-03-16] MEDS ORDERED: FURO1TAB62 PO (15:06)
[2017-03-16] MEDS ORDERED: GLIP5TAB8 PO (15:14)
[2017-03-16] MEDS: RESP: ALBUTEROL 2.5 MG/IPRATROPIUM 0.5 MG NEB (SCH) INH ×2 (17:02→20:28)
[2017-03-16] MEDS ORDERED: FUROSEMIDE 40 MG/4 ML VIAL IV PUSH ONE (17:45)
--- NOTE | 2017-03-16 17:45 | PD ---
HPI Chief Complaint: Cardiac Complaint Time Seen by Provider: 13:22 Travel History International Travel<30 days: No Contact w/Intl Traveler<30days: No Traveled to known affect area: No History of Present Illness HPI 76-year-old female with a history of asthma and CHF arrives with shortness of breath and fatigue for a few days. She used breathing treatments at home without significant improvement. The patient reports for a few months she has had difficulty walking and bathing. Compliance with medications is reported. No fever reported. Chest pain with radiation to the back reported. PFSH Past Medical History Arthritis: Yes Asthma: Yes Heart Rhythm Problems: Yes (TACHYCARDIA) Cancer: No Cardiac Catheterization: No Cardiovascular Problems: Yes (CHF) High Cholesterol: Yes Chest Pain: Yes Congestive Heart Failure: Yes Diabetes: Yes Diminished Hearing: No Endocrine: Yes Genitourinary: Yes Hypertension: Yes Immune Disorder: No Kidney Stones: Yes Musculoskeletal: Yes (RIGHT KNEE FX, RIGHT 5TH FINGER FX) Neurologic: Yes (Diabetic neuropathy) Psychiatric: No Reproductive: No Respiratory: Yes (ASTHMA) Sickle Cell Disease: No Menopausal: Yes : 2 Para: 2 Miscarriage: 0 : 0 Past Surgical History Cardiac Surgery: Yes (cardiac stent) Coronary Artery Bypass Graft: No Tonsillectomy: Yes Other Surgery: Yes Social History Alcohol Use: No Tobacco Use: No Substance Use: No Allergies-Medications (Allergen,Severity, Reaction): Coded Allergies: Shellfish (Verified Allergy, Severe, rash, 11/17/16) Reported Meds & Prescriptions Reported Meds & Active Scripts Active Levemir Inj (Insulin Detemir) 1,000 unit/ 10 ML Vial 5 Units SQ HS 30 Days Do not mix with any other Insulin. Nifedipine ER (Nifedipine) 90 Mg Tab 90 Mg PO DAILY 30 Days Plavix (Clopidogrel Bisulfate) 75 Mg Tab 75 Mg PO DAILY 30 Days Lisinopril 10 Mg Tab 10 Mg PO DAILY Duoneb (Ipratropium-Albuterol Neb) 0.5-2.5 Mg/3 Ml Neb 1 Nebule INH Q6HR NEB Advair Diskus Inh (Fluticasone-Salmeterol Inh) 250-50 Mcg/Blist Aer 1 Puff INH BID Rinse mouth after use. Reported Glipizide 5 Mg Tab 5 Mg PO DAILY Take 30 minutes before a meal Lasix (Furosemide) 20 Mg Tab 20 Mg PO DAILY Gabapentin 300 Mg Cap 300 Mg PO TID Labetalol (Labetalol HCl) 200 Mg Tab 200 Mg PO BID Janumet (Sitagliptin-Metformin) 50-1,000 Mg Tab 1 Tab PO BID K-Tab (Potassium Chloride) 10 Meq Tab 10 Meq PO BID Montelukast (Montelukast Sodium) 10 Mg Tab 10 Mg PO DAILY [Dexilant] 60 Mg PO DAILY Nexium (Esomeprazole DR) 40 Mg Capdr 40 Mg PO DAILY Atorvastatin (Atorvastatin Calcium) 20 Mg Tab 20 Mg PO HS Flonase Nasal [place] (Fluticasone Nasal [place]) 50 Mcg/Act [place] 1 [place] EACH NARE BID Isosorbide Mononitrate ER (Isosorbide Mononitrate) 60 Mg Tab 60 Mg PO DAILY Review of Systems Except as stated in HPI: all other systems reviewed are Neg General / Constitutional: No: Fever Cardiovascular: Positive: Chest Pain or Discomfort Respiratory: Positive: Shortness of Breath Physical Exam Narrative GENERAL: 76 -year-old female well-nourished well-developed pleasant, patient speaks Yoruba however prefers translation by family members SKIN: Focused skin assessment warm/dry. HEAD: Atraumatic. Normocephalic. EYES: Pupils equal and round. No scleral icterus. No injection or drainage. ENT: No nasal bleeding or discharge. Mucous membranes pink and moist. NECK: Trachea midline. No JVD. CARDIOVASCULAR: Regular rate and rhythm. No murmur appreciated. RESPIRATORY: Tachypnea with minimal accessory muscle use present. GASTROINTESTINAL: Abdomen soft, non-tender, nondistended. Hepatic and splenic margins not palpable. MUSCULOSKELETAL: No obvious deformities. No clubbing. No cyanosis. No edema. NEUROLOGICAL: Awake and alert. No obvious cranial nerve deficits. Motor grossly within normal limits. Normal speech. PSYCHIATRIC: Appropriate mood and affect; insight and judgment normal. Data Data Last Documented VS Vital Signs Date Time Temp Pulse Resp B/P Pulse Ox O2 Delivery O2 Flow Rate FiO2 03/16/17 18:02 71 16 157/96 97 03/16/17 14:16 Room Air 03/16/17 13:53 21 03/16/17 13:04 97.8 Orders Complete Blood Count With Diff (03/16/17 13:34) Comprehensive Metabolic Panel (03/16/17 13:34) B-Type Natriuretic Peptide (03/16/17 13:34) Act Partial Throm Time (Ptt) (03/16/17 13:34) Prothrombin Time / Inr (Pt) (03/16/17 13:34) Ckmb (Isoenzyme) Profile (03/16/17 13:34) Troponin I (03/16/17 13:34) Iv Access Insert/Monitor (03/16/17 13:34) Electrocardiogram (03/16/17 13:34) Ecg Monitoring (03/16/17 13:34) Oximetry (03/16/17 13:34) Oxygen Administration (03/16/17 13:34) Chest, Single Ap (03/16/17 13:34) Sodium Chloride 0.9% Flush (Ns Flush) (03/16/17 13:45) Albuterol-Ipratropium Neb (Duoneb Neb) (03/16/17 13:45) CKMB (03/16/17 14:00) CKMB% (03/16/17 14:00) Albuterol-Ipratropium Neb (Duoneb Neb) (03/16/17 17:00) Furosemide Inj (Lasix Inj) (03/16/17 17:45) Admit To Inpatient (03/16/17 ) Vital Signs (Adult) Q4H (03/16/17 18:14) Activity Oob With Assistance (03/16/17 18:14) Residential Real Estate Assistant / Telemetry .CONTINUOUS (03/16/17 18:14) Diet 1800 Ada Cons Carb (03/16/17 Dinner) Sodium Chloride 0.9% Flush (Ns Flush) (03/16/17 18:15) Sodium Chloride 0.9% Flush (Ns Flush) (03/16/17 21:00) Comprehensive Metabolic Panel (03/17/17 06:00) Complete Blood Count With Diff (03/17/17 06:00) Scd Bilateral/Knee High KELLY.BID (03/16/17 18:14) Naloxone Inj (Narcan Inj) (03/16/17 18:15) Docusate Sodium-Senna (Laine-Colace) (03/16/17 21:00) Magnesium Hydroxide Liq (Milk Of Magnesi (03/16/17 18:15) Sennosides (Senokot) (03/16/17 18:15) Bisacodyl Supp (Dulcolax Supp) (03/16/17 18:15) Lactulose Liq (Lactulose Liq) (03/16/17 18:15) Inpatient Certification (03/16/17 ) Consult Cardiology (03/16/17 ) Furosemide Inj (Lasix Inj) (03/17/17 09:00) Admit Order (Ed Use Only) (03/16/17 18:23) Labs Laboratory Tests Test 03/16/17 14:00 White Blood Count 10.1 TH/MM3 Red Blood Count 3.71 MIL/MM3 Hemoglobin 9.3 GM/DL Hematocrit 28.4 % Mean Corpuscular Volume 76.7 FL Mean Corpuscular Hemoglobin 25.1 PG Mean Corpuscular Hemoglobin 32.7 % Concent Red Cell Distribution Width 17.4 % Platelet Count 284 TH/MM3 Mean Platelet Volume 9.5 FL Neutrophils (%) (Auto) 70.2 % Lymphocytes (%) (Auto) 17.3 % Monocytes (%) (Auto) 8.5 % Eosinophils (%) (Auto) 3.3 % Basophils (%) (Auto) 0.7 % Neutrophils # (Auto) 7.1 TH/MM3 Lymphocytes # (Auto) 1.7 TH/MM3 Monocytes # (Auto) 0.9 TH/MM3 Eosinophils # (Auto) 0.3 TH/MM3 Basophils # (Auto) 0.1 TH/MM3 CBC Comment DIFF FINAL Differential Comment Prothrombin Time 10.0 SEC Prothromb Time International 0.9 RATIO Ratio Activated Partial 23.3 SEC Thromboplast Time Sodium Level 144 MEQ/L Potassium Level 5.0 MEQ/L Chloride Level 109 MEQ/L Carbon Dioxide Level 25.5 MEQ/L Anion Gap 10 MEQ/L Blood Urea Nitrogen 34 MG/DL Creatinine 1.70 MG/DL Estimat Glomerular Filtration 29 ML/MIN Rate Random Glucose 125 MG/DL Calcium Level 9.2 MG/DL Total Bilirubin 0.3 MG/DL Aspartate Amino Transf 13 U/L (AST/SGOT) Alanine Aminotransferase 18 U/L (ALT/SGPT) Alkaline Phosphatase 71 U/L Total Creatine Kinase 124 U/L Creatine Kinase MB 1.5 NG/ML Troponin I LESS THAN 0.02 NG/ML B-Type Natriuretic Peptide 470 PG/ML Total Protein 7.1 GM/DL Albumin 3.8 GM/DL MDM Medical Decision Making Medical Screen Exam Complete: Yes Emergency Medical Condition: Yes Medical Record Reviewed: Yes Differential Diagnosis CHF, COPD, pneumonia, anemia, renal failure, electrolyte imbalance Narrative Course CBC & BMP Diagram 03/16/17 14:00 Troponin less than 0.02 BNP 470 EKG reveals a sinus rhythm with ventricular premature contractions rate 62 Last 24 hours Impressions Chest X-Ray 03/16/17 1334 Signed Impressions: Service Date/Time: Thursday, March 16, 2017 14:00 - CONCLUSION: Chronic mild cardiac silhouette enlargement. No acute cardiopulmonary disease identified. Evan Lal MD Patient received breathing treatments which helped marginally. BNP is elevated. We'll admit for CHF exacerbation. IV Lasix administered. Diagnosis Primary Impression: Acute exacerbation of congestive heart failure Qualified Code: I50.9 - Acute on chronic congestive heart failure, unspecified congestive heart failure type Additional Impression: Chest pain Qualified Code: R07.9 - Chest pain, unspecified type Admitting Information Admitting Physician Requests: Observation Jeremiah Hoover MD Mar 16, 2017 17:44
[2017-03-16] MEDS ORDERED: BISACODYL 10 MG SUPP RECTAL PRN (18:15)
[2017-03-16] MEDS ORDERED: LACTULOSE SYRUP 20 GM/30 ML CUP PO PRN (18:15)
[2017-03-16] MEDS ORDERED: NALOXONE HCL 0.4 MG/ML AMP IV PRN (18:15)
[2017-03-16] MEDS ORDERED: SENNOSIDES 8.6 MG TAB PO PRN (18:15)
[2017-03-16] MEDS ORDERED: MAGNESIUM HYDROXIDE SUSP 30 ML CUP PO PRN (18:15)
[2017-03-16] MEDS ORDERED: SODIUM CHLORIDE 0.9% FLUSH 10 ML FLUSH IV FLUSH PRN (18:15)
[2017-03-16] MEDS ORDERED: RESP: ALBUTEROL 2.5 MG/3 ML NEB (PRN) NEB (18:30)
--- NOTE | 2017-03-16 18:41 | HHI.HP ---
[facility] Service [facility] Primary Care Physician Gabi Rios M.D. Admission Diagnosis Diagnoses: (1) Acute exacerbation of congestive heart failure Diagnosis: Principal (2) Mitral stenosis Diagnosis: Principal (3) Hypertension Diagnosis: Principal (4) Generalized weakness Diagnosis: Principal (5) Acute dyspnea Diagnosis: Principal (6) Acute pulmonary edema Diagnosis: Principal Travel History International Travel<30 Days: No Contact w/Intl Traveler <30 Da: No Traveled to Known Affected Are: No History of Present Illness Mrs. hCong is a 76-year-old female with a history of congestive heart failure and mitral valve stenosis. She came into the emergency department today with complaints of progressive shortness of breath over the last week. She has asthma but does not feel that this is an asthma exacerbation. Findings are consistent with a CHF exacerbation, related to mitral stenosis. Increase work of breathing. Moderate respiratory distress. Pulmonary edema on exam. Elevated BNP. She also complains of chest wall pain. The pain is worse with deep breathing. The pain has been worsening as her CHF exacerbation symptoms have been worsening. As an outpatient she says she follows with Dr. Gabriel Tena. No other complaints tonight. No reports of syncope, no cough or fever, no new changes in medications. Review of Systems Constitutional: DENIES: Fatigue, Fever, Chills Eyes: DENIES: Blurred vision, Diplopia Ears, nose, mouth, throat: DENIES: Hearing loss, Vertigo Respiratory: COMPLAINS OF: Cough, Shortness of breath, DENIES: Wheezing Cardiovascular: COMPLAINS OF: Chest pain, DENIES: Palpitations, Syncope Gastrointestinal: DENIES: Abdominal pain, Black stools, Bloody stools Musculoskeletal: DENIES: Joint pain, Muscle aches Integumentary: DENIES: Abnormal pigmentation Hematologic/lymphatic: DENIES: Bruising Immunologic/allergic: DENIES: Eczema Neurologic: DENIES: Abnormal gait Psychiatric: DENIES: Anxiety, Confusion Past Family Social History Past Medical History CHF related to mitral stenosis Asthma Diabetes mellitus type 2 Coronary artery disease Hypertension Hyperlipidemia Depression Diabetic neuropathy Allergic rhinitis Past Surgical History Cardiac catheterization Carpal tunnel surgery Tonsillectomy Arthroscopic shoulder surgery Reported Medications Reported Meds & Active Scripts Active Levemir Inj (Insulin Detemir) 1,000 unit/ 10 ML Vial 5 Units SQ HS 30 Days Do not mix with any other Insulin. Nifedipine ER (Nifedipine) 90 Mg Tab 90 Mg PO DAILY 30 Days Plavix (Clopidogrel Bisulfate) 75 Mg Tab 75 Mg PO DAILY 30 Days Lisinopril 10 Mg Tab 10 Mg PO DAILY Duoneb (Ipratropium-Albuterol Neb) 0.5-2.5 Mg/3 Ml Neb 1 Nebule INH Q6HR NEB Advair Diskus Inh (Fluticasone-Salmeterol Inh) 250-50 Mcg/Blist Aer 1 Puff INH BID Rinse mouth after use. Reported Glipizide 5 Mg Tab 5 Mg PO DAILY Take 30 minutes before a meal Lasix (Furosemide) 20 Mg Tab 20 Mg PO DAILY Gabapentin 300 Mg Cap 300 Mg PO TID Labetalol (Labetalol HCl) 200 Mg Tab 200 Mg PO BID Janumet (Sitagliptin-Metformin) 50-1,000 Mg Tab 1 Tab PO BID K-Tab (Potassium Chloride) 10 Meq Tab 10 Meq PO BID Montelukast (Montelukast Sodium) 10 Mg Tab 10 Mg PO DAILY [Dexilant] 60 Mg PO DAILY Nexium (Esomeprazole DR) 40 Mg Capdr 40 Mg PO DAILY Atorvastatin (Atorvastatin Calcium) 20 Mg Tab 20 Mg PO HS Flonase Nasal [place] (Fluticasone Nasal [place]) 50 Mcg/Act [place] 1 [place] EACH NARE BID Isosorbide Mononitrate ER (Isosorbide Mononitrate) 60 Mg Tab 60 Mg PO DAILY Allergies: Coded Allergies: Shellfish (Verified Allergy, Severe, rash, 11/17/16) Family History Diabetes and CHF in mother Diabetes CHF and father Diabetes CHF depression and osteoarthritis in siblings Thyroid cancer in daughter Social History No tobacco use History of secondhand exposure from her smoking Occasional glass of wine, no alcohol abuse No drug abuse Patient is Physical Exam Vital Signs Vital Signs Date Time Temp Pulse Resp B/P Pulse Ox O2 Delivery O2 Flow Rate FiO2 03/16/17 18:02 71 16 157/96 97 03/16/17 14:16 59 20 96 Room Air 03/16/17 13:54 Room Air 03/16/17 13:54 20 96 03/16/17 13:53 99 21 03/16/17 13:04 97.8 71 18 138/74 95 Physical Exam GENERAL: NAD, A&Ox3 SKIN: Warm and dry. HEAD: Normocephalic. EYES: No scleral icterus. No injection or drainage. NECK: Supple, trachea midline. No JVD or lymphadenopathy. CARDIOVASCULAR: Regular rate and rhythm without murmurs, gallops, or rubs. RESPIRATORY: Breath sounds equal bilaterally. No accessory muscle use. Bilateral crackles at bases GASTROINTESTINAL: Abdomen soft, non-tender, nondistended. MUSCULOSKELETAL: No cyanosis, or edema. Laboratory Laboratory Tests Test 03/16/17 14:00 White Blood Count 10.1 Red Blood Count 3.71 Hemoglobin 9.3 Hematocrit 28.4 Mean Corpuscular Volume 76.7 Mean Corpuscular Hemoglobin 25.1 Mean Corpuscular Hemoglobin 32.7 Concent Red Cell Distribution Width 17.4 Platelet Count 284 Mean Platelet Volume 9.5 Neutrophils (%) (Auto) 70.2 Lymphocytes (%) (Auto) 17.3 Monocytes (%) (Auto) 8.5 Eosinophils (%) (Auto) 3.3 Basophils (%) (Auto) 0.7 Neutrophils # (Auto) 7.1 Lymphocytes # (Auto) 1.7 Monocytes # (Auto) 0.9 Eosinophils # (Auto) 0.3 Basophils # (Auto) 0.1 CBC Comment DIFF FINAL Differential Comment Prothrombin Time 10.0 Prothromb Time International 0.9 Ratio Activated Partial 23.3 Thromboplast Time Sodium Level 144 Potassium Level 5.0 Chloride Level 109 Carbon Dioxide Level 25.5 Anion Gap 10 Blood Urea Nitrogen 34 Creatinine 1.70 Estimat Glomerular Filtration 29 Rate Random Glucose 125 Calcium Level 9.2 Total Bilirubin 0.3 Aspartate Amino Transf 13 (AST/SGOT) Alanine Aminotransferase 18 (ALT/SGPT) Alkaline Phosphatase 71 Total Creatine Kinase 124 Creatine Kinase MB 1.5 Troponin I LESS THAN 0.02 B-Type Natriuretic Peptide 470 Total Protein 7.1 Albumin 3.8 Result Diagram: 03/16/17 1400 03/16/17 1400 Imaging Last Impressions Chest X-Ray 03/16/17 1334 Signed Impressions: Service Date/Time: Thursday, March 16, 2017 14:00 - CONCLUSION: Chronic mild cardiac silhouette enlargement. No acute cardiopulmonary disease identified. Evan Lal MD Assessment and Plan Problem List: (1) Acute pulmonary edema ICD Code: J81.0 Status: Acute (2) Acute dyspnea ICD Code: R06.00 Status: Acute (3) Acute exacerbation of congestive heart failure ICD Code: I50.9 Status: Acute (4) Hypertension ICD Code: I10 Status: Chronic (5) INGRIS (acute kidney injury) ICD Code: N17.9 Status: Acute Assessment and Plan Assessment and plan 76-year-old female admitted with CHF exacerbation related to mitral stenosis. Acute CHF exacerbation Pulmonary edema Mitral stenosis coronary artery disease Lasix 40 mg IV twice a day Follow for improvement Oxygen supplementation as needed Monitor for improvement in raspatory status Acute kidney injury on chronic kidney disease Creatinine levels worsening baseline Diuresis and monitor Etiology is likely secondary to CHF exacerbation Asthma No exacerbation Continue baseline treatments When necessary albuterol Diabetes mellitus type 2 Insulin sliding scale Follow blood sugars Diabetic diet Hypertension Continue baseline blood pressure medications next time follow blood pressure Adjust if necessary Hyperlipidemia continue statin Follow cholesterol as an outpatient DVT prophylaxis SCDs given acute kidney injury Physician Certification 2 Midnight Certification Type: Admission for Inpatient Services Order for Inpatient Services The services are ordered in accordance with Medicare regulations or non- Medicare payer requirements, as applicable. In the case of services not specified as inpatient-only, they are appropriately provided as inpatient services in accordance with the 2-midnight benchmark. Estimated LOS (days): 2 days is the estimated time the patient will need to remain in the hospital, assuming treatment plan goals are met and no additional complications. Post-Hospital Plan: Home Problem Qualifiers (1) Acute exacerbation of congestive heart failure: Qualified Code: I50.9 - Acute on chronic congestive heart failure, unspecified congestive heart failure type Jeremiah Page MD Mar 16, 2017 18:41
[2017-03-16] MEDS ORDERED: DEXTROSE 50% IN WATER 50 ML VIAL(D50) IV PRN (18:45)
[2017-03-16] MEDS ORDERED: GLUCAGON 1 MG/ML VIAL OTHER PRN (18:45)
[2017-03-16] MEDS: BUDESONIDE-FORMOTEROL 160/4.5 MCG INHALER INH SCH (21:00)
[2017-03-16] MEDS: INSULIN DETEMIR 100 UNITS/ML VIAL SQ SCH (21:37)
[2017-03-16] MEDS: ATORVASTATIN 20 MG TAB PO SCH (21:38)
[2017-03-16] MEDS: DOCUSATE SODIUM 50 MG/SENNA 8.6 MG TAB PO SCH (21:38)
[2017-03-16] MEDS: SODIUM CHLORIDE 0.9% FLUSH 10 ML FLUSH IV FLUSH SCH (21:38)
[2017-03-16] MEDS: INSULIN ASPART SUPPLEMENTAL SCALE SQ SCH (21:38)
[2017-03-16] MEDS: POTASSIUM CHLORIDE 10 MEQ CONTROLLED RELEASE TAB PO SCH (21:39)
[2017-03-16] MEDS: LABETALOL HCL 200 MG TAB PO SCH (21:39)
[2017-03-16] MEDS: guaiFENesin/DEXTROMETHORPHAN 200 MG/20 MG/10 ML CUP PO PRN (22:26)
[2017-03-17] VITALS (8 sets, daily range): BP systolic 143–183; BP diastolic 65–77; PULSE 56–69; RESP 16–20; TEMP 97.6–98.8; O2SAT 95–98
[2017-03-17] MEDS: RESP: ALBUTEROL 2.5 MG/IPRATROPIUM 0.5 MG NEB (SCH) INH ×4 (03:49→21:40)
[2017-03-17] MEDS: INSULIN ASPART SUPPLEMENTAL SCALE SQ SCH ×4 (06:03→21:59)
[2017-03-17] MEDS ORDERED: cloNIDine HCL 0.1 MG TAB PO PRN (08:00)
[2017-03-17 08:14] LABS: AUTOMATED NEUTROPHIL # 4.1 TH/MM3 (1.8-7.7); BASOPHIL # 0.1 TH/MM3 (0-0.2); BASOPHIL % 0.8 % (0.0-2.0); EOSINOPHIL # 0.5 TH/MM3 (0-0.4); EOSINOPHIL % 7.2 % (0.0-4.0); HEMATOCRIT 29.2 % (35.0-46.0); HEMO FLAGS DIFF FINAL; LYMPH % 22.9 % (9.0-44.0); LYMPHOCYTE # 1.6 TH/MM3 (1.0-4.8); MEAN CELL VOLUME 77.1 FL (80.0-100.0); MEAN CORPUSCULAR HEMOGLOBIN 24.5 PG (27.0-34.0); MEAN CORPUSCULAR HGB CONC 31.8 % (32.0-36.0); MONO % 12.1 % (0.0-8.0); PLATELET COUNT 245 TH/MM3 (150-450); RED BLOOD COUNT 3.79 MIL/MM3 (4.00-5.30); RED CELL DISTRIBUTION WIDTH 17.7 % (11.6-17.2); WHITE BLOOD COUNT 7.2 TH/MM3 (4.0-11.0)
[2017-03-17 08:31] LABS: ANION GAP 6 MEQ/L (5-15); AST (GOT) 6 U/L (15-37); BLOOD UREA NITROGEN 30 MG/DL (7-18); CHLORIDE 106 MEQ/L (98-107); GLOMERULAR FILTRATION RATE 38 ML/MIN (>89); POTASSIUM 4.3 MEQ/L (3.5-5.1); SODIUM (NA) 141 MEQ/L (136-145)
[2017-03-17 08:32] LABS: ALT (GPT) 16 U/L (10-53)
[2017-03-17 08:35] LABS: ALKALINE PHOSPHATASE 51 U/L (45-117); TOTAL BILIRUBIN ADULT 0.6 MG/DL (0.2-1.0)
[2017-03-17] MEDS ORDERED: DEXILANT 60 MG PO SCH (09:00)
--- NOTE | 2017-03-17 09:12 | HHI.PR ---
Subjective Remarks Shortness of breath is improved. She has chest pain with deep breaths. Chest pain is likely secondary to CHF. Her present condition is not conducive with stress test. Given CHF has improved since yesterday should continue to improve over the next 24 hours. We discussed the possibility of a stress test tomorrow. Objective Vital Signs Date Time Temp Pulse Resp B/P Pulse Ox O2 Delivery O2 Flow Rate FiO2 03/17/17 08:00 98.8 69 18 168/73 97 03/17/17 04:34 97.8 60 18 166/74 95 03/17/17 03:52 98 21 03/17/17 00:39 98.8 60 16 165/74 95 03/16/17 21:00 98.4 44 22 200/84 98 03/16/17 20:29 95 03/16/17 20:00 73 03/16/17 18:46 77 16 136/76 97 03/16/17 18:02 71 16 157/96 97 03/16/17 14:16 59 20 96 Room Air 03/16/17 13:54 Room Air 03/16/17 13:54 20 96 03/16/17 13:53 99 21 03/16/17 13:04 97.8 71 18 138/74 95 I/O 03/16/17 03/16/17 03/16/17 03/17/17 03/17/17 03/17/17 07:00 15:00 23:00 07:00 15:00 23:00 Intake Total 360 ml Balance 360 ml Intake Oral 360 ml # Voids 1 # Bowel Movements 0 Result Diagram: 03/17/17 0715 03/17/17 0715 Imaging Last Impressions Chest X-Ray 03/16/17 1334 Signed Impressions: Service Date/Time: Thursday, March 16, 2017 14:00 - CONCLUSION: Chronic mild cardiac silhouette enlargement. No acute cardiopulmonary disease identified. Evan Lal MD Objective Remarks GENERAL: NAD, A&Ox3 SKIN: Warm and dry. HEAD: Normocephalic. EYES: No scleral icterus. No injection or drainage. NECK: Supple, trachea midline. No JVD or lymphadenopathy. CARDIOVASCULAR: Regular rate and rhythm without murmurs, gallops, or rubs. RESPIRATORY: Breath sounds equal bilaterally. No accessory muscle use. GASTROINTESTINAL: Abdomen soft, non-tender, nondistended. MUSCULOSKELETAL: No cyanosis, or edema. Medications and IVs Administered Medications Medications (Trade) Dose Ordered Sig/Camille Route PRN Reason Start Time Stop Time Status Last Admin Dose Admin Sodium Chloride (NS Flush) 2 ml BID IV FLUSH 03/16/17 21:00 03/16/17 21:38 Senna/Docusate Sodium (Laine-Colace) 1 tab BID PO 03/16/17 21:00 03/16/17 21:38 Atorvastatin Calcium (Lipitor) 20 mg HS PO 03/16/17 21:00 03/16/17 21:38 Insulin Detemir (Levemir Inj) 5 units HS SQ 03/16/17 21:00 03/16/17 21:37 Labetalol HCl (Trandate) 200 mg BID PO 03/16/17 21:00 03/16/17 21:39 Potassium Chloride (KCl) 10 meq BID PO 03/16/17 21:00 03/16/17 21:39 Budesonide/ Formoterol Fumarate (Symbicort 160-4.5 Inh) 2 puff BID INH 03/16/17 21:00 03/16/17 21:00 Guaifenesin/ Dextromethorphan (Robitussin Dm 200-20 Mg/10 ml Liq) 10 ml Q4H PRN PO COUGH 03/16/17 22:15 03/16/17 22:26 A/P Problem List: (1) Acute dyspnea ICD Code: R06.00 (2) INGRIS (acute kidney injury) ICD Code: N17.9 (3) Acute exacerbation of congestive heart failure ICD Code: I50.9 (4) Hypertension ICD Code: I10 (5) Acute pulmonary edema ICD Code: J81.0 (6) Mitral stenosis ICD Code: I05.0 (7) Chest pain ICD Code: R07.9 (8) Generalized weakness ICD Code: R53.1 Assessment and Plan Assessment and plan 76-year-old female admitted with acute CHF exacerbation secondary to mitral stenosis. Acute CHF exacerbation Pulmonary edema Mitral stenosis coronary artery disease Chest pain Improved through this morning Not yet to baseline Continue Lasix 40 mg IV twice a day Follow for improvement Oxygen supplementation as needed Monitor for improvement in raspatory status Chest pain is pleuritic in nature Acute kidney injury on chronic kidney disease Creatinine levels returned to baseline Diuresis and monitor Etiology is likely secondary to CHF exacerbation Asthma No exacerbation Continue baseline treatments When necessary albuterol Diabetes mellitus type 2 Insulin sliding scale Follow blood sugars Diabetic diet Hypertension Continue baseline blood pressure medications next time follow blood pressure Adjust if necessary Hyperlipidemia continue statin Follow cholesterol as an outpatient DVT prophylaxis SCDs given acute kidney injury Problem Qualifiers (1) Acute exacerbation of congestive heart failure: Qualified Code: I50.9 - Acute on chronic congestive heart failure, unspecified congestive heart failure type (2) Chest pain: Qualified Code: R07.9 - Chest pain, unspecified type Jeremiah Page MD Mar 17, 2017 09:12
[2017-03-17] MEDS: MONTELUKAST SODIUM 10 MG TAB PO SCH (09:40)
[2017-03-17] MEDS: PANTOPRAZOLE SOD 40 MG DELAYED RELEASE TAB PO SCH (09:40)
[2017-03-17] MEDS: DOCUSATE SODIUM 50 MG/SENNA 8.6 MG TAB PO SCH ×2 (09:40→21:59)
[2017-03-17] MEDS: GABAPENTIN 300 MG CAP PO SCH (09:40)
[2017-03-17] MEDS: NIFEdipine 90 MG SUSTAINED RELEASE TAB PO SCH (09:40)
[2017-03-17] MEDS: ISOSORBIDE MONONITRATE 60 MG TAB PO SCH (09:40)
[2017-03-17] MEDS: LABETALOL HCL 200 MG TAB PO SCH ×2 (09:40→21:59)
[2017-03-17] MEDS: CLOPIDOGREL 75 MG TAB PO SCH (09:40)
[2017-03-17] MEDS: FUROSEMIDE 40 MG/4 ML VIAL IV PUSH SCH ×2 (09:41→17:58)
[2017-03-17] MEDS: POTASSIUM CHLORIDE 10 MEQ CONTROLLED RELEASE TAB PO SCH ×2 (09:41→21:58)
[2017-03-17] MEDS: SODIUM CHLORIDE 0.9% FLUSH 10 ML FLUSH IV FLUSH SCH ×2 (09:41→22:00)
[2017-03-17] MEDS: guaiFENesin/DEXTROMETHORPHAN 200 MG/20 MG/10 ML CUP PO PRN ×3 (09:51→22:04)
[2017-03-17] MEDS: BUDESONIDE-FORMOTEROL 160/4.5 MCG INHALER INH SCH ×2 (09:51→22:01)
--- NOTE | 2017-03-17 13:56 | EKG ---
Date Performed: 03/16/2017 Time Performed: 13:38:29 PTAGE: 76 years EKG: Sinus rhythm WITH OCCASIONAL VENTRICULAR PREMATURE COMPLEXES DIFFUSE NONSPECIFIC ST-T WAVE CHANGE Compared to marcia or tracing no significant change ABNORMAL ECG INTERPRETATION BASED ON A DEFAULT AGE OF 40 YEARS PREVIOUS TRACING : 12/07/2016 05.24 DOCTOR: Nathan Jacobo Interpretating Date/Time 03/17/2017 13:54:48
--- NOTE | 2017-03-17 15:05 | MB ---
cc: SYLVIA BURRELL M.D. DATE OF CONSULTATION: 03/17/2017. HISTORY OF PRESENT ILLNESS: Carolin is a very pleasant 76-year-old lady with history of coronary artery disease status post percutaneous coronary intervention of the left anterior descending, multiple admissions for congestive heart failure exacerbations. From what I recall, she has severe MR and possibly some degree of mitral valve stenosis. She has been seen by CT surgery at [place] in the past and essentially no further workup or plans for surgery were completed. The patient did see Dr. Leblanc as an outpatient. Again from what I recall, I think there was a lack of follow up for proceeding with mitral valve surgery. The patient only speaks [place] and communication is definitely difficulty and there does appear to be a pattern of missed follow up appointments over time. Nevertheless, the patient presents with a chief complaint of shortness of breath and fatigue, also dyspnea on exertion with activities of daily living. She also reported chest pain radiating to the back. This morning she appears to be very comfortable. She is sitting up in her chair eating breakfast in no acute distress. She denies current chest pain, shortness of breath, fevers, chills, cough, GI or bleeding, paroxysmal nocturnal dyspnea, orthopnea, syncope or dizziness. She does state she wants to stay in the hospital another day to further recover however. PAST MEDICAL HISTORY: Her past medical history is per the history of present illness. 1. She has a history of arthritis. 2. Asthma. 3. Tachycardia. 4. Congestive heart failure. 5. Diabetes. 6. Hypertension. SOCIAL HISTORY: Denies tobacco or alcohol use. ALLERGIES: Shellfish. MEDICATIONS PRIOR TO ADMISSION: 1. Levemir. 2. Nifedipine. 3. Plavix 75. 4. Lisinopril 10. 5. DuoNeb. 6. Advair. 7. Glipizide. 8. Lasix. 9. Gabapentin. 10. Labetalol 200 twice a day.. 11. Janumet. 12. K-Tab. 13. Montelukast. 14. Nexium. 15. Atorvastatin 20. 16. Flonase. 17. Isosorbide. MEDICATIONS IN THE HOSPITAL: 1. Lasix 40 IV twice a day. 2. Clopidogrel 75 daily. 3. Gabapentin 300 daily. 4. Imdur 60 daily. 5. Montelukast 10 daily. 6. Nifedipine 90 milligrams daily. 7. Pantoprazole 40 daily. 8. Atorvastatin 20 at bedtime. 9. Levemir. 10. Labetalol 200 twice a day. PHYSICAL EXAMINATION: VITAL SIGNS: Her blood pressure was 200/84 with a pulse of 44 at 2100 on 03/16/17. Currently blood pressure 178/73, pulse 69, respiratory rate 18, temperature 98.8. GENERAL: She is alert and oriented times three and in no acute distress. NECK: The neck is supple. No jugular venous distention. No bruits. CARDIOVASCULAR EXAM: S1-S2. No murmurs, rubs or gallops. LUNGS: Clear to auscultation bilaterally. ABDOMEN: The abdomen is soft, nontender and nondistended with positive bowel sounds. EXTREMITIES: No lower extremity edema. IMAGING STUDIES: Chest x-ray shows chronic mild cardiac silhouette enlargement. No acute cardiopulmonary disease identified. EKGS: EKG shows normal sinus rhythm at 63 beats per minute, PVCs, left anterior fascicular block, nonspecific S-T wave changes, possible lateral ischemia. LABORATORY DATA: White count 7.2, hemoglobin 9.3, hematocrit 29.2, platelet count 245,000. Sodium 141, potassium 4.3, chloride 106, bicarb 29, BUN 30. Initial creatinine 1.70, current creatinine 1.34, blood glucose 123. Troponin less than 0.02. BNP is 470. Liver function tests normal. INR was 0.9. DIAGNOSES: She has the following diagnoses: 1. Severe mitral regurgitation. 2. Mitral stenosis. 3. Coronary artery disease. 4. Diabetes. 5. Asthma. 6. Chronic renal insufficiency. 7. Acute renal failure. 8. Anemia. 9. Noncompliance. 10. Hypertension. DISCUSSION: At this point in time, the patient is euvolemic responding well to diuresis. Blood pressure is suboptimally controlled on what appears to be optimal medical therapy. Could consider adding an ARB if the patient's creatinine improves. I do think that her CHF exacerbations are due to her mitral valve disease as she has had multiple heart catheterizations have shown a patent LAD stent. She has followup with Dr. Leblanc as an outpatient and from what I recall there were plans to possibly proceed with surgery or a referral for on mitral valve surgery. I do think it is reasonable to ascertain that the patient is euvolemic with a BNP in the morning and make sure creatinine is stable and blood pressure is stable and at that point in time, if the patient is asymptomatic, I do think she can be discharged with follow up with Dr. Leblanc as soon as possible. MD DARRELL Riley/MARIUSZ /10:02 AM /2:50 PM
[2017-03-17] MEDS: INSULIN DETEMIR 100 UNITS/ML VIAL SQ SCH (21:58)
[2017-03-17] MEDS: ATORVASTATIN 20 MG TAB PO SCH (21:59)
[2017-03-18] VITALS (9 sets, daily range): BP systolic 137–179; BP diastolic 64–72; PULSE 55–65; RESP 16–20; TEMP 95–98; O2SAT 93–98
[2017-03-18] MEDS: RESP: ALBUTEROL 2.5 MG/IPRATROPIUM 0.5 MG NEB (SCH) INH ×4 (03:44→21:06)
[2017-03-18] MEDS: guaiFENesin/DEXTROMETHORPHAN 200 MG/20 MG/10 ML CUP PO PRN (06:01)
[2017-03-18] MEDS: INSULIN ASPART SUPPLEMENTAL SCALE SQ SCH ×4 (06:03→20:39)
[2017-03-18] MEDS: SODIUM CHLORIDE 0.9% FLUSH 10 ML FLUSH IV FLUSH SCH ×2 (09:00→20:36)
[2017-03-18] MEDS: BUDESONIDE-FORMOTEROL 160/4.5 MCG INHALER INH SCH ×2 (09:00→20:37)
[2017-03-18] MEDS: CLOPIDOGREL 75 MG TAB PO SCH (09:09)
[2017-03-18] MEDS: DOCUSATE SODIUM 50 MG/SENNA 8.6 MG TAB PO SCH ×2 (09:09→20:35)
[2017-03-18] MEDS: PANTOPRAZOLE SOD 40 MG DELAYED RELEASE TAB PO SCH (09:10)
[2017-03-18] MEDS: GABAPENTIN 300 MG CAP PO SCH (09:10)
[2017-03-18] MEDS: NIFEdipine 90 MG SUSTAINED RELEASE TAB PO SCH (09:10)
[2017-03-18] MEDS: ISOSORBIDE MONONITRATE 60 MG TAB PO SCH (09:10)
[2017-03-18] MEDS: LABETALOL HCL 200 MG TAB PO SCH ×2 (09:10→20:35)
[2017-03-18] MEDS: MONTELUKAST SODIUM 10 MG TAB PO SCH (09:10)
[2017-03-18] MEDS: FUROSEMIDE 40 MG/4 ML VIAL IV PUSH SCH ×2 (09:10→16:48)
[2017-03-18] MEDS: POTASSIUM CHLORIDE 10 MEQ CONTROLLED RELEASE TAB PO SCH ×2 (09:10→20:36)
[2017-03-18 10:11] LABS: HEMATOCRIT 29.8 % (35.0-46.0); MEAN CELL VOLUME 77.4 FL (80.0-100.0); MEAN CORPUSCULAR HEMOGLOBIN 24.3 PG (27.0-34.0); MEAN CORPUSCULAR HGB CONC 31.3 % (32.0-36.0); PLATELET COUNT 274 TH/MM3 (150-450); RED BLOOD COUNT 3.85 MIL/MM3 (4.00-5.30); RED CELL DISTRIBUTION WIDTH 17.2 % (11.6-17.2); REVIEW FLAG FINAL; WHITE BLOOD COUNT 6.4 TH/MM3 (4.0-11.0)
[2017-03-18] MEDS ORDERED: hydrALAZINE HCL 25 MG TAB PO ONE (10:15)
[2017-03-18 10:29] LABS: ANION GAP 8 MEQ/L (5-15); BICARBONATE 29.2 MEQ/L (21.0-32.0); BLOOD UREA NITROGEN 32 MG/DL (7-18); CHLORIDE 105 MEQ/L (98-107); GLOMERULAR FILTRATION RATE 40 ML/MIN (>89); POTASSIUM 4.1 MEQ/L (3.5-5.1); SODIUM (NA) 142 MEQ/L (136-145)
--- NOTE | 2017-03-18 10:34 | PD.CARD.PN ---
Subjective Subjective Remarks alert in nad Objective Vital Signs / I&O Vital Signs Date Time Temp Pulse Resp B/P Pulse Ox O2 Delivery O2 Flow Rate FiO2 03/18/17 09:00 65 03/18/17 08:05 97.8 64 18 179/69 94 03/18/17 04:00 Room Air 03/18/17 04:00 98.0 64 18 141/65 93 03/18/17 03:45 95 21 03/18/17 00:00 95.0 65 20 164/72 97 03/18/17 00:00 Room Air 03/17/17 22:00 Room Air 03/17/17 20:00 97.6 61 20 183/77 97 03/17/17 20:00 61 03/17/17 16:00 98.2 60 18 143/65 96 03/17/17 12:00 98.7 56 18 161/74 97 I/O 03/17/17 03/17/17 03/17/17 03/18/17 03/18/17 03/18/17 07:00 15:00 23:00 07:00 15:00 23:00 Intake Total 360 ml 600 ml Output Total 150 ml 350 ml Balance 360 ml 600 ml -150 ml -350 ml Intake Oral 360 ml 600 ml Output Urine Total 150 ml 350 ml # Voids 1 2 # Bowel Movements 0 0 0 Laboratory GENERAL: SKIN: Warm and dry. HEAD: Normocephalic. EYES: No scleral icterus. No injection or drainage. NECK: Supple, trachea midline. No JVD or lymphadenopathy. CARDIOVASCULAR: Regular rate and rhythm without murmurs, gallops, or rubs. RESPIRATORY: Breath sounds equal bilaterally. No accessory muscle use. GASTROINTESTINAL: Abdomen soft, non-tender, nondistended. MUSCULOSKELETAL: No cyanosis, or edema. BACK: Nontender without obvious deformity. No CVA tenderness. Laboratory Tests Test 03/18/17 08:37 White Blood Count 6.4 TH/MM3 Red Blood Count 3.85 MIL/MM3 Hemoglobin 9.3 GM/DL Hematocrit 29.8 % Mean Corpuscular Volume 77.4 FL Mean Corpuscular Hemoglobin 24.3 PG Mean Corpuscular Hemoglobin 31.3 % Concent Red Cell Distribution Width 17.2 % Platelet Count 274 TH/MM3 Mean Platelet Volume 9.6 FL Sodium Level 142 MEQ/L Potassium Level 4.1 MEQ/L Chloride Level 105 MEQ/L Carbon Dioxide Level 29.2 MEQ/L Anion Gap 8 MEQ/L Blood Urea Nitrogen 32 MG/DL Creatinine 1.29 MG/DL Estimat Glomerular Filtration 40 ML/MIN Rate Random Glucose 131 MG/DL Calcium Level 9.4 MG/DL Assessment and Plan Problem List: (1) Wheezing (2) Heart failure (3) Shortness of breath (4) Diabetes (5) Asthma (6) MS (mitral stenosis) (7) MR (mitral regurgitation) (8) Type 2 diabetes mellitus (9) Presence of stent in coronary artery in patient with coronary artery disease (10) Hypertension (11) INGRIS (acute kidney injury) Assessment and Plan 1.) CHF - suspect due to mr and htn, rec add hydralazine 25 mg q8, beta monique held to severe asthma with active wheezing, maria isabel held due to arf, f/u bnp/bmp 2.) CAD - continue lipitor, plavix Gabriel Tena MD Mar 18, 2017 10:34
--- NOTE | 2017-03-18 10:36 | HHI.PR ---
Subjective Remarks Blood pressure is not controlled today. Patient complains of shortness of breath with ambulation. She has a cough. Pulmonary edema is improved from time of admit that she may benefit from one more day of treatment as her cough and blood pressure may be secondary to pulmonary edema. She does not feel strong on her feet yet. Objective Vital Signs Date Time Temp Pulse Resp B/P Pulse Ox O2 Delivery O2 Flow Rate FiO2 03/18/17 09:00 65 03/18/17 08:05 97.8 64 18 179/69 94 03/18/17 04:00 Room Air 03/18/17 04:00 98.0 64 18 141/65 93 03/18/17 03:45 95 21 03/18/17 00:00 95.0 65 20 164/72 97 03/18/17 00:00 Room Air 03/17/17 22:00 Room Air 03/17/17 20:00 97.6 61 20 183/77 97 03/17/17 20:00 61 03/17/17 16:00 98.2 60 18 143/65 96 03/17/17 12:00 98.7 56 18 161/74 97 I/O 03/17/17 03/17/17 03/17/17 03/18/17 03/18/17 03/18/17 07:00 15:00 23:00 07:00 15:00 23:00 Intake Total 360 ml 600 ml Output Total 150 ml 350 ml Balance 360 ml 600 ml -150 ml -350 ml Intake Oral 360 ml 600 ml Output Urine Total 150 ml 350 ml # Voids 1 2 # Bowel Movements 0 0 0 Result Diagram: 03/18/1737 03/18/17 0837 Objective Remarks GENERAL: NAD, A&Ox3 SKIN: Warm and dry. HEAD: Normocephalic. EYES: No scleral icterus. No injection or drainage. NECK: Supple, trachea midline. No JVD or lymphadenopathy. CARDIOVASCULAR: Regular rate and rhythm without murmurs, gallops, or rubs. RESPIRATORY: Breath sounds equal bilaterally. No accessory muscle use. GASTROINTESTINAL: Abdomen soft, non-tender, nondistended. MUSCULOSKELETAL: No cyanosis, or edema. A/P Problem List: (1) Acute dyspnea ICD Code: R06.00 (2) INGRIS (acute kidney injury) ICD Code: N17.9 (3) Acute exacerbation of congestive heart failure ICD Code: I50.9 (4) Hypertension ICD Code: I10 (5) Acute pulmonary edema ICD Code: J81.0 (6) Mitral stenosis ICD Code: I05.0 (7) Chest pain ICD Code: R07.9 (8) Generalized weakness ICD Code: R53.1 Assessment and Plan Assessment and plan 76-year-old female admitted with acute CHF exacerbation secondary to mitral stenosis. Improved from time of admit. Not yet to baseline. Blood pressures are not controlled. Treatment will be continued for 1 day further, with reassessment tomorrow. Robitussin added for cough. Lisinopril added for better blood pressure control. Acute CHF exacerbation Pulmonary edema Mitral stenosis coronary artery disease Chest pain Improved through this morning Not yet to baseline Continue Lasix 40 mg IV twice a day Follow for improvement Oxygen supplementation as needed Monitor for improvement in raspatory status Chest pain is pleuritic in nature Acute kidney injury on chronic kidney disease Creatinine levels returned to baseline Diuresis and monitor Etiology is likely secondary to CHF exacerbation Asthma No exacerbation Continue baseline treatments When necessary albuterol Diabetes mellitus type 2 Insulin sliding scale Follow blood sugars Diabetic diet Hypertension Continue baseline blood pressure medications next time follow blood pressure Lisinopril added 10 mg by mouth daily. Hyperlipidemia continue statin Follow cholesterol as an outpatient DVT prophylaxis SCDs given acute kidney injury Problem Qualifiers (1) Acute exacerbation of congestive heart failure: Qualified Code: I50.9 - Acute on chronic congestive heart failure, unspecified congestive heart failure type (2) Chest pain: Qualified Code: R07.9 - Chest pain, unspecified type Jeremiah Page MD Mar 18, 2017 10:36
[2017-03-18] MEDS ORDERED: ASPIRIN EC 81 MG TABEC PO ONE (10:45)
[2017-03-18] MEDS ORDERED: LISINOPRIL 10 MG TAB PO ONE (10:45)
[2017-03-18] MEDS: guaiFENesin SOLUTION 200 MG/10 ML CUP PO PRN ×2 (16:47→20:35)
[2017-03-18] MEDS: hydrALAZINE HCL 25 MG TAB PO SCH ×2 (16:47→20:36)
[2017-03-18] MEDS: ATORVASTATIN 20 MG TAB PO SCH (20:36)
[2017-03-18] MEDS: INSULIN DETEMIR 100 UNITS/ML VIAL SQ SCH (20:40)
[2017-03-19] VITALS: BP 144/69; PULSE 67; RESP 18; TEMP 97.9; O2SAT 99
[2017-03-19] MEDS: RESP: ALBUTEROL 2.5 MG/IPRATROPIUM 0.5 MG NEB (SCH) INH ×3 (03:13→16:48)
[2017-03-19] MEDS: guaiFENesin SOLUTION 200 MG/10 ML CUP PO PRN (03:48)
[2017-03-19 04:00] VITALS: BP 143/67; PULSE 58; RESP 16; TEMP 98.1; O2SAT 96
[2017-03-19] MEDS: INSULIN ASPART SUPPLEMENTAL SCALE SQ SCH ×3 (05:13→16:30)
[2017-03-19] MEDS: hydrALAZINE HCL 25 MG TAB PO SCH ×2 (05:38→13:18)
[2017-03-19 08:00] VITALS: BP 141/72; PULSE 51; RESP 20; TEMP 97.7; O2SAT 99
[2017-03-19] MEDS ORDERED: ASPIRIN EC 81 MG TABEC PO SCH (09:00)
[2017-03-19] MEDS ORDERED: LISINOPRIL 10 MG TAB PO SCH (09:00)
[2017-03-19] MEDS: NIFEdipine 90 MG SUSTAINED RELEASE TAB PO SCH (10:05)
[2017-03-19] MEDS: PANTOPRAZOLE SOD 40 MG DELAYED RELEASE TAB PO SCH (10:06)
[2017-03-19] MEDS: ISOSORBIDE MONONITRATE 60 MG TAB PO SCH (10:07)
[2017-03-19] MEDS: LABETALOL HCL 200 MG TAB PO SCH (10:07)
[2017-03-19] MEDS: CLOPIDOGREL 75 MG TAB PO SCH (10:07)
[2017-03-19] MEDS: POTASSIUM CHLORIDE 10 MEQ CONTROLLED RELEASE TAB PO SCH (10:07)
[2017-03-19] MEDS: GABAPENTIN 300 MG CAP PO SCH (10:08)
[2017-03-19] MEDS: MONTELUKAST SODIUM 10 MG TAB PO SCH (10:08)
[2017-03-19] MEDS: FUROSEMIDE 40 MG/4 ML VIAL IV PUSH SCH ×2 (10:08→18:00)
[2017-03-19] MEDS: SODIUM CHLORIDE 0.9% FLUSH 10 ML FLUSH IV FLUSH SCH (10:09)
[2017-03-19] MEDS: DOCUSATE SODIUM 50 MG/SENNA 8.6 MG TAB PO SCH (10:11)
[2017-03-19] MEDS: guaiFENesin/DEXTROMETHORPHAN 200 MG/20 MG/10 ML CUP PO PRN ×2 (10:15→19:22)
[2017-03-19 10:47] VITALS: O2SAT 96
[2017-03-19 12:00] VITALS: BP 131/60; PULSE 57; RESP 20; TEMP 97; O2SAT 96
--- NOTE | 2017-03-19 12:23 | PD.CARD.PN ---
Subjective Subjective Remarks alert in nad Objective Vital Signs / I&O Vital Signs Date Time Temp Pulse Resp B/P Pulse Ox O2 Delivery O2 Flow Rate FiO2 03/19/17 10:47 96 21 03/19/17 08:00 97.7 51 20 141/72 99 03/19/17 07:59 98 Room Air 03/19/17 04:00 98.1 58 16 143/67 96 03/19/17 00:00 97.9 67 18 144/69 99 03/18/17 21:55 Room Air 03/18/17 21:40 Room Air 03/18/17 20:08 59 03/18/17 20:00 98.0 60 16 141/64 98 03/18/17 16:04 97.6 55 18 137/64 96 I/O 03/18/17 03/18/17 03/18/17 03/19/17 03/19/17 03/19/17 07:00 15:00 23:00 07:00 15:00 23:00 Intake Total 360 ml 2 ml 0 ml Output Total 350 ml 800 ml 700 ml Balance -350 ml 360 ml -798 ml -700 ml Intake Oral 360 ml 0 ml 0 ml IV Total 0 ml 2 ml Output Urine Total 350 ml 800 ml 700 ml # Voids 5 # Bowel Movements 0 0 0 0 Laboratory GENERAL: SKIN: Warm and dry. HEAD: Normocephalic. EYES: No scleral icterus. No injection or drainage. NECK: Supple, trachea midline. No JVD or lymphadenopathy. CARDIOVASCULAR: Regular rate and rhythm without murmurs, gallops, or rubs. RESPIRATORY: Breath sounds equal bilaterally. No accessory muscle use. GASTROINTESTINAL: Abdomen soft, non-tender, nondistended. MUSCULOSKELETAL: No cyanosis, or edema. BACK: Nontender without obvious deformity. No CVA tenderness. Laboratory Tests Test 03/19/17 06:17 B-Type Natriuretic Peptide 150 PG/ML Assessment and Plan Problem List: (1) Wheezing (2) Heart failure (3) Shortness of breath (4) Diabetes (5) Asthma (6) MS (mitral stenosis) (7) MR (mitral regurgitation) (8) Type 2 diabetes mellitus (9) Presence of stent in coronary artery in patient with coronary artery disease (10) Hypertension (11) INGRIS (acute kidney injury) Assessment and Plan 1.) CHF - suspect due to mr and htn, rec add hydralazine 25 mg q8, beta monique held to severe asthma with active wheezing, maria isabel held due to arf, f/u bnp/bmp 2.) CAD - continue lipitor, plavix 3.) HTN - controlled with addition of hydralazine 4.) i advised patient to f/u with me in office liz(shyla or wed) Gabriel Tena MD Mar 19, 2017 12:23
[2017-03-19] MEDS: BUDESONIDE-FORMOTEROL 160/4.5 MCG INHALER INH SCH (13:18)
[2017-03-19] MEDS ORDERED: HYDR-3799 PO (13:54)
[2017-03-19 16:00] VITALS: BP 124/58; PULSE 53; RESP 20; TEMP 98.1; O2SAT 96
--- NOTE | 2017-03-19 16:40 | HHI.DS ---
Discharge Summary Admission Date Mar 16, 2017 at 20:22 Discharge Date: Mar 19, 2017 Admitting Diagnosis (1) Acute pulmonary edema ICD Code: J81.0 Diagnosis: Principal (2) Acute dyspnea ICD Code: R06.00 Diagnosis: Principal (3) Acute exacerbation of congestive heart failure ICD Code: I50.9 Diagnosis: Principal (4) Hypertension ICD Code: I10 Diagnosis: Principal (5) INGRIS (acute kidney injury) ICD Code: N17.9 Diagnosis: Principal Procedures none Brief History - From Admission Mrs. Chong is a 76-year-old female with a history of congestive heart failure and mitral valve stenosis. She came into the emergency department today with complaints of progressive shortness of breath over the last week. She has asthma but does not feel that this is an asthma exacerbation. Findings are consistent with a CHF exacerbation, related to mitral stenosis. Increase work of breathing. Moderate respiratory distress. Pulmonary edema on exam. Elevated BNP. She also complains of chest wall pain. The pain is worse with deep breathing. The pain has been worsening as her CHF exacerbation symptoms have been worsening. As an outpatient she says she follows with Dr. Gabriel Tena. No other complaints tonight. No reports of syncope, no cough or fever, no new changes in medications. CBC/BMP: 03/18/17 0837 03/18/17 0837 Significant Findings Laboratory Tests Test 03/17/17 03/18/17 03/19/17 07:15 08:37 06:17 Red Blood Count 3.79 MIL/MM3 3.85 MIL/MM3 (4.00-5.30) (4.00-5.30) Hemoglobin 9.3 GM/DL 9.3 GM/DL (11.6-15.3) (11.6-15.3) Hematocrit 29.2 % 29.8 % (35.0-46.0) (35.0-46.0) Mean Corpuscular Volume 77.1 FL 77.4 FL (80.0-100.0) (80.0-100.0) Mean Corpuscular Hemoglobin 24.5 PG 24.3 PG (27.0-34.0) (27.0-34.0) Mean Corpuscular Hemoglobin 31.8 % 31.3 % Concent (32.0-36.0) (32.0-36.0) Red Cell Distribution Width 17.7 % (11.6-17.2) Monocytes (%) (Auto) 12.1 % (0.0-8.0) Eosinophils (%) (Auto) 7.2 % (0.0-4.0) Eosinophils # (Auto) 0.5 TH/MM3 (0-0.4) Blood Urea Nitrogen 30 MG/DL (7-18) 32 MG/DL (7-18) Creatinine 1.34 MG/DL 1.29 MG/DL (0.50-1.00) (0.50-1.00) Estimat Glomerular Filtration 38 ML/MIN (>89) 40 ML/MIN (>89) Rate Random Glucose 123 MG/DL 131 MG/DL (74-106) (74-106) Aspartate Amino Transf 6 U/L (15-37) (AST/SGOT) Albumin 3.3 GM/DL (3.4-5.0) Troponin I LESS THAN 0.02 NG/ML (0.02-0.05) B-Type Natriuretic Peptide 224 PG/ML 150 PG/ML (0-100) (0-100) Hospital Course Mrs. Aguirre is a 76 year old female admitted with a CHF Exacerbation related to her mitral valve stenosis. She has done well with diuresis through time. Complications of her CHF exacerbation included pulmonary edema, acute dyspnea, and INGRIS. All of these have resolved and she is at her baseline state this afternoon. Presently she is medically stable for a return home with resumption of home diuretic dosings. Her HTN treatment has been adjusted with cessation of lisinopril and a start of hydralazine. Pt Condition on Discharge: Stable Discharge Disposition: Discharge Home Discharge Time: <= 30 minutes Discharge Instructions DIET: Follow Instructions for: As Tolerated, No Restrictions Activities you can perform: Regular-No Restrictions Follow up Referrals: Cardiology - 2-3 Days PCP Follow-up - 2 Weeks New Medications: Hydralazine HCl (Hydralazine HCl) 25 Mg Tablet 25 MG PO Q8HR Blood Pressure Management #90 BOTTLE Continued Medications: Atorvastatin (Atorvastatin) 20 Mg Tab 20 MG PO HS Cholesterol Management #30 Ref 0 TAB Clopidogrel (Plavix) 75 Mg Tab 75 MG PO DAILY heart Days [address] (Nexium) 40 Mg Capdr 40 MG PO DAILY Ref 0 CAP Fluticasone Nasal [place]ren[place] (Flonase Nasal Trenary) 50 Mcg/Act Trenary 1 SPRAY EACH NARE BID Allergies #1 Ref 0 BOTTLE Fluticasone-Salmeterol Inh (Advair Diskus Inh) 250-50 Mcg/Blist Aer 1 PUFF INH BID Rinse mouth after use. #1 Ref 5 INHALER Furosemide (Lasix) 20 Mg Tab 20 MG PO DAILY #30 Ref 0 TAB Gabapentin (Gabapentin) 300 Mg Cap 300 MG PO TID #90 Ref 0 CAP Glipizide (Glipizide) 5 Mg Tab 5 MG PO DAILY Take 30 minutes before a meal Blood Sugar Management #30 Ref 0 TAB Insulin Detemir Inj (Levemir Inj) 1,000 unit/ 10 ML Vial 5 UNITS SQ HS Do not mix with any other Insulin. Blood Sugar Management Days 30 Ref 0 VIAL Ipratropium-Albuterol Neb (Duoneb) 0.5-2.5 Mg/3 Ml Neb 1 NEBULE INH Q6HR NEB Breathing Treatment #120 Ref 5 NEBULE Isosorbide Mononitrate ER (Isosorbide Mononitrate ER) 60 Mg Tab 60 MG PO DAILY Prevent Chest Pain #30 Ref 0 TAB Labetalol (Labetalol) 200 Mg Tab 200 MG PO BID Blood Pressure Management Ref 0 TAB Montelukast (Montelukast) 10 Mg Tab 10 MG PO DAILY #30 Ref 0 TAB Nifedipine (Nifedipine ER) 90 Mg Tab 90 MG PO DAILY heart Days 30 TAB Potassium Chloride ER (K-Tab) 10 Meq Tab 10 MEQ PO BID Electrolyte Replacement #60 Ref 0 TAB Sitagliptin-Metformin (Janumet) 50-1,000 Mg Tab 1 TAB PO BID Blood Sugar Management #60 Ref 0 TAB ([Dexilant]) 60 MG PO DAILY Discontinued Medications: Lisinopril (Lisinopril) 10 Mg Tab 10 MG PO DAILY #30 Ref 0 TAB Jeremiah Page MD Mar 19, 2017 16:40
== END 2017-03-19 19:41 | disposition home or self-care (01) | DRG 292 ==
LOC: NEPE 13:02 → NEDA 18:24 → OBSVTOIN 20:22 → N04B 20:45
PROVIDERS: ADMIT Hospitalist; ATTEND Hospitalist
DX: I50.9 Heart failure, unspecified (principal); N17.9 Acute kidney failure, unspecified; E11.40 Type 2 diabetes mellitus with diabetic neuropathy, unspecified; E11.22 Type 2 diabetes mellitus with diabetic chronic kidney disease; Z79.4 Long term (current) use of insulin; Z79.84 Long term (current) use of oral hypoglycemic drugs; I34.0 Nonrheumatic mitral (valve) insufficiency; D64.9 Anemia, unspecified; R53.1 Weakness; J45.909 Unspecified asthma, uncomplicated; I25.10 Atherosclerotic heart disease of native coronary artery without angina pectoris; E78.5 Hyperlipidemia, unspecified; F32.9 Major depressive disorder, single episode, unspecified; I12.9 Hypertensive chronic kidney disease with stage 1 through stage 4 chronic kidney disease, or unspecified chronic kidney disease; N18.9 Chronic kidney disease, unspecified; Z77.22 Contact with and (suspected) exposure to environmental tobacco smoke (acute) (chronic)
CPT/HCPCS: 71010; 80048; 80053; 82550; 82552; 82948; 83880; 84484; 85025; 85027; 85610; 85730; 93005; 94640; 94664; 96374; J1815; J1940

== ENCOUNTER 2017-03-22 13:47 | Emergency (ER) | payer MEDICARE, MEDICAID ==
[~2017-03-22] VITALS: Ht 157.5 cm; Wt 74.0 kg
[~2017-03-22 13:47] MED LIST changes: -ASPI81TA2 PO; +DEXILANT PO; +FURO1TAB62 PO; -FURO20TA PO; -GABA100C4 PO; +GABA300C5 PO; -GETGO ROLLING W1 MI1; -GLIP5 PO; +HYDR-3799 PO; +JANU50TA8 PO; +K-TA10TA PO; -LABE100T2 PO; +LABE200T2 PO; -LISI10TA3 PO; +MONT10TA4 PO; -POTA10TA2 PO; -SITA1TAB2 PO; -SYMB160A INH; -VITA100T2 PO
[2017-03-22 13:48] VITALS: BP 153/103; PULSE 62; RESP 24; TEMP 98.7; O2SAT 98
--- NOTE | 2017-03-22 16:21 | PD ---
HPI Chief Complaint: Respiratory Symptoms Time Seen by Provider: 16:17 Travel History International Travel<30 days: No Contact w/Intl Traveler<30days: No Traveled to known affect area: No History of Present Illness HPI pt was admitted over weekend for asthma ? got released on sunday and now returns today because SOB got worse last night and today RETURNS...DENIES SPUTUM /FEVER/ABD PAIN/N/V/D PFSH Past Medical History Arthritis: Yes Asthma: Yes Heart Rhythm Problems: Yes (TACHYCARDIA) Cancer: No Cardiac Catheterization: No Cardiovascular Problems: Yes High Cholesterol: Yes Chest Pain: Yes Congestive Heart Failure: Yes Diabetes: Yes Diminished Hearing: No Endocrine: Yes Genitourinary: Yes Hypertension: Yes Immune Disorder: No Kidney Stones: Yes Musculoskeletal: Yes (RIGHT KNEE FX, RIGHT 5TH FINGER FX) Neurologic: Yes (Diabetic neuropathy) Psychiatric: No Reproductive: No Respiratory: Yes (ASTHMA) Sickle Cell Disease: No Menopausal: Yes : 2 Para: 2 Miscarriage: 0 : 0 Past Surgical History Cardiac Surgery: Yes (cardiac stent) Coronary Artery Bypass Graft: No Tonsillectomy: Yes Other Surgery: Yes Social History Alcohol Use: No Tobacco Use: No Substance Use: No Allergies-Medications (Allergen,Severity, Reaction): Coded Allergies: Shellfish (Verified Allergy, Severe, rash, 03/22/17) Reported Meds & Prescriptions Reported Meds & Active Scripts Active Hydralazine HCl 25 Mg Tablet 25 Mg PO Q8HR Levemir Inj (Insulin Detemir) 1,000 unit/ 10 ML Vial 5 Units SQ HS 30 Days Do not mix with any other Insulin. Nifedipine ER (Nifedipine) 90 Mg Tab 90 Mg PO DAILY 30 Days Plavix (Clopidogrel Bisulfate) 75 Mg Tab 75 Mg PO DAILY 30 Days Duoneb (Ipratropium-Albuterol Neb) 0.5-2.5 Mg/3 Ml Neb 1 Nebule INH Q6HR NEB Advair Diskus Inh (Fluticasone-Salmeterol Inh) 250-50 Mcg/Blist Aer 1 Puff INH BID Rinse mouth after use. Reported Glipizide 5 Mg Tab 5 Mg PO DAILY Take 30 minutes before a meal Lasix (Furosemide) 20 Mg Tab 20 Mg PO DAILY Gabapentin 300 Mg Cap 300 Mg PO TID Labetalol (Labetalol HCl) 200 Mg Tab 200 Mg PO BID Janumet (Sitagliptin-Metformin) 50-1,000 Mg Tab 1 Tab PO BID K-Tab (Potassium Chloride) 10 Meq Tab 10 Meq PO BID Montelukast (Montelukast Sodium) 10 Mg Tab 10 Mg PO DAILY [Dexilant] 60 Mg PO DAILY Nexium (Esomeprazole DR) 40 Mg Capdr 40 Mg PO DAILY Atorvastatin (Atorvastatin Calcium) 20 Mg Tab 20 Mg PO HS Flonase Nasal [place] (Fluticasone Nasal [place]) 50 Mcg/Act [place] 1 [place] EACH NARE BID Isosorbide Mononitrate ER (Isosorbide Mononitrate) 60 Mg Tab 60 Mg PO DAILY Review of Systems Except as stated in HPI: all other systems reviewed are Neg Respiratory: Positive: Shortness of Breath, Wheezing Physical Exam Narrative GENERAL: SKIN: Warm and dry. HEAD: Atraumatic. Normocephalic. EYES: Pupils equal and round. No scleral icterus. No injection or drainage. ENT: No nasal bleeding or discharge. Mucous membranes pink and moist. NECK: Trachea midline. No JVD. CARDIOVASCULAR: Regular rate and rhythm. RESPIRATORY: No accessory muscle use. wheezing, tachypneic, but no tripoding 97% ra GASTROINTESTINAL: Abdomen soft, non-tender, nondistended. Hepatic and splenic margins not palpable. MUSCULOSKELETAL: Extremities without clubbing, cyanosis, or edema. No obvious deformities. NEUROLOGICAL: Awake and alert. No obvious cranial nerve deficits. Motor grossly within normal limits. Five out of 5 muscle strength in the arms and legs. Normal speech. PSYCHIATRIC: Appropriate mood and affect; insight and judgment normal. Data Data Last Documented VS Vital Signs Date Time Temp Pulse Resp B/P Pulse Ox O2 Delivery O2 Flow Rate FiO2 03/22/17 13:48 98.7 62 24 153/103 98 Room Air Orders Complete Blood Count With Diff (03/22/17 16:23) Comprehensive Metabolic Panel (03/22/17 16:23) B-Type Natriuretic Peptide (03/22/17 16:23) Act Partial Throm Time (Ptt) (03/22/17 16:23) Prothrombin Time / Inr (Pt) (03/22/17 16:23) Ckmb (Isoenzyme) Profile (03/22/17 16:23) Troponin I (03/22/17 16:23) Influenzae A/B Antigen (03/22/17 16:23) Blood Culture (03/22/17 16:23) Iv Access Insert/Monitor (03/22/17 16:23) Electrocardiogram (03/22/17 16:23) Ecg Monitoring (03/22/17 16:23) Oximetry (03/22/17 16:23) Oxygen Administration (03/22/17 16:23) Chest, Single Ap (03/22/17 16:23) Sodium Chloride 0.9% Flush (Ns Flush) (03/22/17 16:30) Methylprednisolone So Succ Inj (Solumedr (03/22/17 16:30) Albuterol Neb (Albuterol Neb) (03/22/17 16:30) Albuterol Neb (Albuterol Neb) (03/22/17 18:00) Labs Laboratory Tests Test 03/22/17 16:35 White Blood Count 8.4 TH/MM3 Red Blood Count 3.66 MIL/MM3 Hemoglobin 9.1 GM/DL Hematocrit 28.2 % Mean Corpuscular Volume 77.1 FL Mean Corpuscular Hemoglobin 24.8 PG Mean Corpuscular Hemoglobin 32.2 % Concent Red Cell Distribution Width 17.4 % Platelet Count 261 TH/MM3 Mean Platelet Volume 9.5 FL Neutrophils (%) (Auto) 64.3 % Lymphocytes (%) (Auto) 22.6 % Monocytes (%) (Auto) 9.7 % Eosinophils (%) (Auto) 2.8 % Basophils (%) (Auto) 0.6 % Neutrophils # (Auto) 5.4 TH/MM3 Lymphocytes # (Auto) 1.9 TH/MM3 Monocytes # (Auto) 0.8 TH/MM3 Eosinophils # (Auto) 0.2 TH/MM3 Basophils # (Auto) 0.0 TH/MM3 CBC Comment DIFF FINAL Differential Comment Prothrombin Time 10.1 SEC Prothromb Time International 0.9 RATIO Ratio Activated Partial 24.5 SEC Thromboplast Time Sodium Level 138 MEQ/L Potassium Level 3.8 MEQ/L Chloride Level 103 MEQ/L Carbon Dioxide Level 24.4 MEQ/L Anion Gap 11 MEQ/L Blood Urea Nitrogen 33 MG/DL Creatinine 1.39 MG/DL Estimat Glomerular Filtration 37 ML/MIN Rate Random Glucose 73 MG/DL Calcium Level 9.6 MG/DL Total Bilirubin 0.4 MG/DL Aspartate Amino Transf 7 U/L (AST/SGOT) Alanine Aminotransferase 14 U/L (ALT/SGPT) Alkaline Phosphatase 59 U/L Total Creatine Kinase 92 U/L Troponin I LESS THAN 0.02 NG/ML B-Type Natriuretic Peptide 333 PG/ML Total Protein 6.7 GM/DL Albumin 3.7 GM/DL MDM Medical Decision Making Medical Screen Exam Complete: Yes Emergency Medical Condition: Yes Medical Record Reviewed: Yes Differential Diagnosis chf, pna, asthma exacerbation, mi syndrome Narrative Course SEE ABOVE...CXR CLEAR, WILL D/C Diagnosis Primary Impression: Asthma exacerbation Patient Instructions: General Instructions Med/Other Pt SpecificInfo: Prescription(s) given Scripts Methylprednisolone Dosepak (Medrol Dosepak)4 Mg Dspk4 Mg PO DIRECTED #1 DSPK Ref 1 Per Pharmacist direction Prov:Carlos Lo MD 03/22/17 Disposition: 01 DISCHARGE HOME Condition: Stable Carlos Lo MD Mar 22, 2017 16:21
[2017-03-22] MEDS ORDERED: SODIUM CHLORIDE 0.9% FLUSH 10 ML FLUSH IVF PRN (16:30)
[2017-03-22] MEDS ORDERED: methylPREDNISolone SOD SUCC 125 MG/2 ML VIAL IVP ONE (16:30)
[2017-03-22] MEDS: RESP: ALBUTEROL 2.5 MG/3 ML NEB (SCH) INH ×4 (16:32→17:59)
[2017-03-22 17:10] LABS: AUTOMATED NEUTROPHIL # 5.4 TH/MM3 (1.8-7.7); BASOPHIL % 0.6 % (0.0-2.0); EOSINOPHIL # 0.2 TH/MM3 (0-0.4); EOSINOPHIL % 2.8 % (0.0-4.0); HEMATOCRIT 28.2 % (35.0-46.0); HEMO FLAGS DIFF FINAL; LYMPH % 22.6 % (9.0-44.0); LYMPHOCYTE # 1.9 TH/MM3 (1.0-4.8); MEAN CELL VOLUME 77.1 FL (80.0-100.0); MEAN CORPUSCULAR HEMOGLOBIN 24.8 PG (27.0-34.0); MEAN CORPUSCULAR HGB CONC 32.2 % (32.0-36.0); MONO % 9.7 % (0.0-8.0); NEUT % 64.3 % (16.0-70.0); PLATELET COUNT 261 TH/MM3 (150-450); RED BLOOD COUNT 3.66 MIL/MM3 (4.00-5.30); RED CELL DISTRIBUTION WIDTH 17.4 % (11.6-17.2); WHITE BLOOD COUNT 8.4 TH/MM3 (4.0-11.0)
--- NOTE | 2017-03-22 17:12 | RADRPT ---
EXAM DATE/TIME: 03/22/2017 16:45 [facility] COMPARISON: CHEST SINGLE AP, March 16, 2017, 14:00. INDICATIONS : Short of breath. MEDICAL HISTORY : None. SURGICAL HISTORY : None. ENCOUNTER: Initial ACUITY: 3 days PAIN SCORE: 0/10 LOCATION: Bilateral chest FINDINGS: A single view of the chest demonstrates the lungs to be symmetrically aerated without evidence of mas s, infiltrate or effusion. The cardiomediastinal contours are unremarkable. Osseous structures are intact. CONCLUSION: The lungs are clear. Dmitry Stuart MD on March 22, 2017 at 17:10 Board Certified Radiologist. This report was verified electronically.
[2017-03-22 17:21] LABS: APTT (PATIENT) 24.5 SEC (24.3-30.1); INTERNATIONAL NORMALIZED RATIO 0.9 RATIO; PROTHROMBIN TIME - PATIENT 10.1 SEC (9.8-11.6)
[2017-03-22 17:46] LABS: ANION GAP 11 MEQ/L (5-15); AST (GOT) 7 U/L (15-37); BICARBONATE 24.4 MEQ/L (21.0-32.0); BLOOD UREA NITROGEN 33 MG/DL (7-18); CHLORIDE 103 MEQ/L (98-107); GLOMERULAR FILTRATION RATE 37 ML/MIN (>89); POTASSIUM 3.8 MEQ/L (3.5-5.1); SODIUM (NA) 138 MEQ/L (136-145)
[2017-03-22 17:47] LABS: ALT (GPT) 14 U/L (10-53)
[2017-03-22 17:51] LABS: ALKALINE PHOSPHATASE 59 U/L (45-117); TOTAL BILIRUBIN ADULT 0.4 MG/DL (0.2-1.0)
[2017-03-22 17:54] LABS: CREATINE KINASE 92 U/L (26-192)
[2017-03-22] MEDS ORDERED: MEDR4PAK PO (18:17)
[2017-03-22 18:45] VITALS: BP 178/97; PULSE 74; RESP 18; O2SAT 98
--- NOTE | 2017-03-23 17:50 | EKG ---
Date Performed: 03/22/2017 Time Performed: 16:37:51 PTAGE: 76 years EKG: SINUS BRADYCARDIA WITH OCCASIONAL VENTRICULAR PREMATURE COMPLEXES NONSPECIFIC T-WAVE ABNORM ALITY ABNORMAL RHYTHM ECG PREVIOUS TRACING : 03/16/2017 13.38 Compared to prior tracing no significant change DOCTOR: Poonam Naranjo Interpretating Date/Time 03/23/2017 17:48:50
== END 2017-03-22 18:50 | disposition home or self-care (01) ==
LOC: NEPC 13:47
DX: J45.901 Unspecified asthma with (acute) exacerbation (principal); I10 Essential (primary) hypertension; I50.9 Heart failure, unspecified; E11.40 Type 2 diabetes mellitus with diabetic neuropathy, unspecified; Z79.02 Long term (current) use of antithrombotics/antiplatelets; Z79.84 Long term (current) use of oral hypoglycemic drugs; Z79.4 Long term (current) use of insulin; Z79.899 Other long term (current) drug therapy
CPT/HCPCS: 71010; 80053; 82550; 83880; 84484; 85025; 85610; 85730; 87040; 87804; 93005; 94640; 94664; 96374; 99285; J2930; J7613

== ENCOUNTER 2017-07-22 14:13 | Emergency (ER) | payer MEDICARE, MEDICAID ==
[~2017-07-22] VITALS: Ht 160 cm; Wt 72.0 kg
[~2017-07-22 14:13] MED LIST changes: +MEDR4PAK PO
[2017-07-22 14:16] VITALS: BP 146/60; PULSE 73; RESP 13; TEMP 99.3; O2SAT 95
[2017-07-22 14:51] LABS: AUTOMATED NEUTROPHIL # 5.5 TH/MM3 (1.8-7.7); BASOPHIL # 0.1 TH/MM3 (0-0.2); BASOPHIL % 0.8 % (0.0-2.0); EOSINOPHIL # 0.2 TH/MM3 (0-0.4); EOSINOPHIL % 1.9 % (0.0-4.0); HEMO FLAGS DIFF FINAL; LYMPH % 22.2 % (9.0-44.0); LYMPHOCYTE # 1.8 TH/MM3 (1.0-4.8); MEAN CELL VOLUME 85.7 FL (80.0-100.0); MEAN CORPUSCULAR HEMOGLOBIN 28.2 PG (27.0-34.0); MEAN CORPUSCULAR HGB CONC 32.9 % (32.0-36.0); MONO % 8.3 % (0.0-8.0); NEUT % 66.8 % (16.0-70.0); PLATELET COUNT 214 TH/MM3 (150-450); WHITE BLOOD COUNT 8.3 TH/MM3 (4.0-11.0)
[2017-07-22 15:02] LABS: ANION GAP 12 MEQ/L (5-15); BICARBONATE 21.1 MEQ/L (21.0-32.0); BLOOD UREA NITROGEN 39 MG/DL (7-18); CHLORIDE 105 MEQ/L (98-107); GLOMERULAR FILTRATION RATE 22 ML/MIN (>89); POTASSIUM 4.6 MEQ/L (3.5-5.1); SODIUM (NA) 138 MEQ/L (136-145)
[2017-07-22 15:09] LABS: CREATINE KINASE 78 U/L (26-192)
--- NOTE | 2017-07-22 15:11 | RADRPT ---
EXAM DATE/TIME: 07/22/2017 14:56 [facility] COMPARISON: CHEST SINGLE AP, March 22, 2017, 16:45. INDICATIONS : Chest pain. MEDICAL HISTORY : None. SURGICAL HISTORY : None. ENCOUNTER: Initial ACUITY: 2 days PAIN SCORE: 7/10 LOCATION: Bilateral chest FINDINGS: The heart is normal in size. The lungs are clear. The visualized bony structures are grossly intact. CONCLUSION: 1. No acute cardiopulmonary findings. Stable compared to previous. Jeremiah Jung MD on July 22, 2017 at 15:09 Board Certified Radiologist. This report was verified electronically.
[2017-07-22] MEDS ORDERED: ALUMINUM/MAGNESIUM/SIMETH 30 ML CUP PO ONE (16:45)
[2017-07-22] MEDS ORDERED: LIDOCAINE VISCOUS 2% SOLN 15 ML UDC PO ONE (16:45)
[2017-07-22] MEDS ORDERED: MORPHINE SULFATE 4 MG/ML INJ IV PUSH ONE (16:45)
[2017-07-22] MEDS ORDERED: PANTOPRAZOLE SODIUM 40 MG VIAL IVP ONE (16:45)
[2017-07-22] MEDS ORDERED: ONDANSETRON HCL 4 MG/2 ML VIAL IVP ONE (16:45)
[2017-07-22] MEDS ORDERED: SODIUM CHLORID 0.9% 500 ML INJ 500 ML IV ONE (16:45)
--- NOTE | 2017-07-22 16:49 | PD ---
HPI Chief Complaint: Abdominal Pain Time Seen by Provider: 16:45 Travel History International Travel<30 days: No Contact w/Intl Traveler<30days: No Traveled to known affect area: No History of Present Illness HPI This patient speaks Ghanaian. She declines official translator/interpreter. Interpretation was performed by her friend and the nurse. This is a 77-year- old female who has a history of diabetes, hypertension, coronary artery disease , CHF, asthma. She presents for evaluation of epigastric pain. Symptoms started early this morning. She reports that the pain is constant, burning sensation, seems to be exacerbated by vomiting, no alleviating factors. 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 Because of the epigastric pain, she came for evaluation. She denies shortness of breath, flank pain, fevers or chills, dysuria. Her primary care physician is Dr. Bojorquez. Her friend reports that she ate chicken nuggets and fries yesterday evening and the friend ate the same food and did not develop any of these symptoms. No other complaints. PFSH Past Medical History Arthritis: Yes Asthma: Yes Heart Rhythm Problems: Yes (TACHYCARDIA) Cancer: No Cardiac Catheterization: No Cardiovascular Problems: Yes High Cholesterol: Yes Chest Pain: Yes Congestive Heart Failure: Yes Diabetes: Yes Patient Takes Glucophage: Yes Diminished Hearing: No Endocrine: Yes Genitourinary: Yes Hypertension: Yes Immune Disorder: No Kidney Stones: Yes Musculoskeletal: Yes (RIGHT KNEE FX, RIGHT 5TH FINGER FX) Neurologic: Yes (Diabetic neuropathy) Psychiatric: No Reproductive: No Respiratory: Yes (ASTHMA) Sickle Cell Disease: No Tetanus Vaccination: > 5 Years Influenza Vaccination: Yes Menopausal: Yes : 2 Para: 2 Miscarriage: 0 : 0 Past Surgical History Cardiac Surgery: Yes (cardiac stent) Coronary Artery Bypass Graft: No Tonsillectomy: Yes Other Surgery: Yes Family History Family Myocardial Infarction: Yes (MOM, ) Social History Alcohol Use: No Tobacco Use: No Substance Use: No Allergies-Medications (Allergen,Severity, Reaction): Coded Allergies: shellfish derived (Verified Allergy, Severe, rash, 07/22/17) Reported Meds & Prescriptions Reported Meds & Active Scripts Active Phenergan (Promethazine HCl) 25 Mg Tablet 25 Mg PO Q6H PRN Hydralazine HCl 25 Mg Tablet 25 Mg PO Q8HR Levemir Inj (Insulin Detemir) 1,000 unit/ 10 ML Vial 5 Units SQ HS 30 Days Do not mix with any other Insulin. Nifedipine ER (Nifedipine) 90 Mg Tab 90 Mg PO DAILY 30 Days Plavix (Clopidogrel Bisulfate) 75 Mg Tab 75 Mg PO DAILY 30 Days Duoneb (Ipratropium-Albuterol Neb) 0.5-2.5 Mg/3 Ml Neb 1 Nebule INH Q6HR NEB Advair Diskus Inh (Fluticasone-Salmeterol Inh) 250-50 Mcg/Blist Aer 1 Puff INH BID Rinse mouth after use. Reported Glipizide 5 Mg Tab 5 Mg PO DAILY Take 30 minutes before a meal Lasix (Furosemide) 20 Mg Tab 20 Mg PO DAILY Gabapentin 300 Mg Cap 300 Mg PO TID Labetalol (Labetalol HCl) 200 Mg Tab 200 Mg PO BID Janumet (Sitagliptin-Metformin) 50-1,000 Mg Tab 1 Tab PO BID K-Tab (Potassium Chloride) 10 Meq Tab 10 Meq PO BID Montelukast (Montelukast Sodium) 10 Mg Tab 10 Mg PO DAILY Nexium (Esomeprazole DR) 40 Mg Capdr 40 Mg PO DAILY Atorvastatin (Atorvastatin Calcium) 20 Mg Tab 20 Mg PO HS Flonase Nasal [place] (Fluticasone Nasal [place]) 50 Mcg/Act [place] 1 [place] EACH NARE BID Isosorbide Mononitrate ER (Isosorbide Mononitrate) 60 Mg Tab 60 Mg PO DAILY Review of Systems Except as stated in HPI: all other systems reviewed are Neg Physical Exam Narrative GENERAL: Well-developed well-nourished female in no acute distress SKIN: Warm and dry. HEAD: Atraumatic. Normocephalic. EYES: Pupils equal and round. No scleral icterus. No injection or drainage. ENT: No nasal bleeding or discharge. Mucous membranes pink and moist. NECK: Trachea midline. No JVD. CARDIOVASCULAR: Regular rate and rhythm. No murmur appreciated. RESPIRATORY: No accessory muscle use. Clear to auscultation. Breath sounds equal bilaterally. GASTROINTESTINAL: Abdomen soft, mild epigastric tenderness without guarding. MUSCULOSKELETAL: No obvious deformities. No clubbing. No cyanosis. No edema. NEUROLOGICAL: Awake and alert. No obvious cranial nerve deficits. Motor grossly within normal limits. Normal speech. PSYCHIATRIC: Appropriate mood and affect; insight and judgment normal. Data Data Last Documented VS Vital Signs Date Time Temp Pulse Resp B/P (MAP) Pulse Ox O2 Delivery O2 Flow Rate FiO2 07/22/17 18:35 68 18 129/60 (83) 96 Room Air 07/22/17 14:16 99.3 Orders Orders Electrocardiogram (07/22/17 14:28) Complete Blood Count With Diff (07/22/17 14:28) Basic Metabolic Panel (Bmp) (07/22/17 14:28) Ckmb (Isoenzyme) Profile (07/22/17 14:28) Troponin I (07/22/17 14:28) Chest, Single Ap (07/22/17 14:28) Hepatic Functional Panel (07/22/17 16:40) Lipase (07/22/17 16:40) Ct Abd/Pel W/O Iv Contrast (07/22/17 16:40) Ondansetron Inj (Zofran Inj) (07/22/17 16:45) Pantoprazole Inj (Protonix Inj) (07/22/17 16:45) Al-Mag Hy-Si 40-40-4 Mg/Ml Liq (Mag-Al P (07/22/17 16:45) Lidocaine 2% Viscous (Xylocaine 2% Visco (07/22/17 16:45) Iv Access Insert/Monitor (07/22/17 16:40) Sodium Chlorid 0.9% 500 Ml Inj (Ns 500 M (07/22/17 16:45) Morphine Inj (Morphine Inj) (07/22/17 16:45) Creatine Kinase (Cpk) (07/22/17 18:46) Troponin I (07/22/17 18:46) Electrocardiogram (07/22/17 ) Labs Laboratory Tests Test 07/22/17 14:30 07/22/17 18:50 White Blood Count 8.3 TH/MM3 Red Blood Count 4.20 MIL/MM3 Hemoglobin 11.8 GM/DL Hematocrit 36.0 % Mean Corpuscular Volume 85.7 FL Mean Corpuscular Hemoglobin 28.2 PG Mean Corpuscular Hemoglobin Concent 32.9 % Red Cell Distribution Width 19.0 % Platelet Count 214 TH/MM3 Mean Platelet Volume 9.6 FL Neutrophils (%) (Auto) 66.8 % Lymphocytes (%) (Auto) 22.2 % Monocytes (%) (Auto) 8.3 % Eosinophils (%) (Auto) 1.9 % Basophils (%) (Auto) 0.8 % Neutrophils # (Auto) 5.5 TH/MM3 Lymphocytes # (Auto) 1.8 TH/MM3 Monocytes # (Auto) 0.7 TH/MM3 Eosinophils # (Auto) 0.2 TH/MM3 Basophils # (Auto) 0.1 TH/MM3 CBC Comment DIFF FINAL Differential Comment Blood Urea Nitrogen 39 MG/DL Creatinine 2.15 MG/DL Random Glucose 122 MG/DL Calcium Level 9.3 MG/DL Sodium Level 138 MEQ/L Potassium Level 4.6 MEQ/L Chloride Level 105 MEQ/L Carbon Dioxide Level 21.1 MEQ/L Anion Gap 12 MEQ/L Estimat Glomerular Filtration Rate 22 ML/MIN Total Bilirubin 0.4 MG/DL Direct Bilirubin 0.1 MG/DL Indirect Bilirubin 0.3 MG/DL Aspartate Amino Transf (AST/SGOT) 10 U/L Alanine Aminotransferase (ALT/SGPT) 16 U/L Alkaline Phosphatase 58 U/L Total Creatine Kinase 78 U/L 76 U/L Troponin I LESS THAN 0.02 NG/ML LESS THAN 0.02 NG/ML Total Protein 6.9 GM/DL Albumin 3.7 GM/DL Lipase 141 U/L MDM Medical Decision Making Medical Screen Exam Complete: Yes Emergency Medical Condition: Yes Medical Record Reviewed: Yes Differential Diagnosis Gastritis, pancreatitis, aortic dissection, acute coronary syndrome, pneumothorax, angina Narrative Course The patient was placed on ECG monitoring pulse oximetry. Plan is for basic lab work, 12-lead EKG, chest x-ray, CT abdomen and pelvis. Her renal function is diminished and so the CT is being performed without IV contrast. The patient appears to have chronic kidney disease, she seems to have worsened renal function and her baseline today. Therefore 500 ml fluid bolus has been initiated. The patient will be given GI cocktail, Zofran, Protonix, morphine. Keep the abdomen and pelvis reveals a tiny lung nodule and the radiologist recommends outpatient CT imaging for stability. The patient feels improved after these medications. She feels that her symptoms are secondary to the nausea vomiting and diarrhea and her symptoms would be highly atypical for an acute coronary event. Reassuringly her EKG is nonischemic and her initial troponin or CK are negative. Also reassuringly the patient had a cardiac catheterization which revealed a patent stent on November [address] Tena. The plan will be to perform a second troponin and EKG and if negative the patient be discharged with Zofran. Diagnosis Primary Impression: Gastroenteritis Additional Instructions: Medication as needed for nausea. Slowly advance diet as tolerated. Follow up closely with primary care physician in regards to the pulmonary nodule. Return for any acutely new or worsening symptoms. Med/Other Pt SpecificInfo: Prescription(s) given Scripts Promethazine (Phenergan) 25 Mg Tablet 25 MG PO Q6H Y for NAUSEA OR VOMITING, #15 TAB 0 Refills Prov: Carlos Lo MD 07/22/17 Disposition: 01 DISCHARGE HOME Condition: Stable Milton Joyce Jul 22, 2017 16:49
--- NOTE | 2017-07-22 17:45 | RADRPT ---
EXAM DATE/TIME: 07/22/2017 17:27 [facility] COMPARISON: CT ABDOMEN & PELVIS W CONTRAST, November 17, 2016, 15:34. INDICATIONS : Abdomen pain. ORAL CONTRAST: No oral contrast ingested. RADIATION DOSE: 14.18 CTDIvol (mGy) MEDICAL HISTORY : Cardiovascular disease. Congestive heart failure. Hypertension. SURGICAL HISTORY : None. ENCOUNTER: Initial ACUITY: 1 day PAIN SCALE: 6/10 LOCATION: Bilateral lower quadrant TECHNIQUE: Volumetric scanning of the abdomen and pelvis was performed. Using automated exposure control and ad justment of the mA and/or kV according to patient size, radiation dose was kept as low as reasonably achievable to obtain optimal diagnostic quality images. DICOM format image data is available electro nically for review and comparison. FINDINGS: LOWER LUNGS: A 4 mm nodule in the lateral right lung base was not clearly seen previously. This will need to be fo llowed LIVER: Homogeneous density without lesion. There is no dilation of the biliary tree. No calcified gallston es. SPLEEN: Normal size without lesion. PANCREAS: Within normal limits. KIDNEYS: Normal in size and shape. There is no mass, stone, or hydronephrosis. ADRENAL GLANDS: Within normal limits. VASCULAR: There is no aortic aneurysm. BOWEL/MESENTERY: Small hiatal hernia. Distal colonic diverticulosis. No abnormal dilatation, wall thickening or focal inflammatory changes. ABDOMINAL WALL: Within normal limits. RETROPERITONEUM: There is no lymphadenopathy. BLADDER: No wall thickening or mass. REPRODUCTIVE: Within normal limits. INGUINAL: There is no lymphadenopathy or hernia. MUSCULOSKELETAL: Within normal limits for patient age. CONCLUSION: Tiny lung base nodule which was not clearly present previously. Followup with outpatient CT chest sug gested. No acute CT findings in the abdomen or pelvis. Mikey Lau MD on July 22, 2017 at 17:37 Board Certified Radiologist. This report was verified electronically.
[2017-07-22 18:14] LABS: INDIRECT BILIRUBIN 0.3 MG/DL (0.0-0.8); TOTAL BILIRUBIN ADULT 0.4 MG/DL (0.2-1.0)
[2017-07-22 18:35] VITALS: BP 129/60; PULSE 68; RESP 18; O2SAT 96
[2017-07-22] MEDS ORDERED: PROM25TA10 PO (19:13)
[2017-07-22 20:02] LABS: CREATINE KINASE 76 U/L (26-192)
--- NOTE | 2017-07-23 12:43 | EKG ---
Date Performed: 07/22/2017 Time Performed: 14:46:35 PTAGE: 77 years EKG: Sinus rhythm NORMAL ECG Compared to prior tracing no significant change PREVIOUS TRACING : 03/22/2017 16.37 DOCTOR: Neto Mendez Interpretating Date/Time 07/23/2017 12:42:57
--- NOTE | 2017-07-23 12:44 | EKG ---
Date Performed: 07/22/2017 Time Performed: 18:56:13 PTAGE: 77 years EKG: Sinus rhythm WITH OCCASIONAL VENTRICULAR PREMATURE COMPLEXES BORDERLINE ECG Compared to prior tracing no signific ant change PREVIOUS TRACING : 07/22/2017 14.46 DOCTOR: Neto Mendez Interpretating Date/Time 07/23/2017 12:43:11
== END 2017-07-22 20:20 | disposition home or self-care (01) ==
LOC: NEPC 14:13
DX: K52.9 Noninfective gastroenteritis and colitis, unspecified (principal); J45.909 Unspecified asthma, uncomplicated; I10 Essential (primary) hypertension; E11.21 Type 2 diabetes mellitus with diabetic nephropathy; R91.1 Solitary pulmonary nodule; R94.31 Abnormal electrocardiogram [ECG] [EKG]
CPT/HCPCS: 71010; 74176; 80048; 80076; 82550; 83690; 84484; 85025; 93005; 96361; 96374; 96375; 99285; C9113; J2270; J2405; J7040

== ENCOUNTER 2017-08-02 13:59 | Emergency (ER) | payer MEDICARE, MEDICAID ==
[~2017-08-02 13:59] MED LIST changes: -DEXILANT PO; -MEDR4PAK PO; +PROM25TA10 PO
[2017-08-02 14:03] VITALS: BP 182/81; PULSE 52; RESP 15; TEMP 99.4; O2SAT 98
[2017-08-02] MEDS ORDERED: SODIUM CHLORIDE 0.9% FLUSH 10 ML FLUSH IVF PRN (15:30)
[2017-08-02] MEDS ORDERED: methylPREDNISolone SOD SUCC 125 MG/2 ML VIAL IV PUSH ONE (15:30)
[2017-08-02 15:43] VITALS: BP 148/76; PULSE 82; RESP 16; O2SAT 97
[2017-08-02 15:47] VITALS: O2SAT 95
[2017-08-02] MEDS: RESP: ALBUTEROL 2.5 MG/IPRATROPIUM 0.5 MG NEB (SCH) INH (15:47)
--- NOTE | 2017-08-02 15:59 | RADRPT ---
EXAM DATE/TIME: 08/02/2017 16:30 [facility] COMPARISON: CT ABDOMEN & PELVIS W/O CONTRAST, July 22, 2017, 17:27. CHEST SINGLE AP, July 22, 2017, 14:56. INDICATIONS : Wheezing, cough, chest pain, nausea, vomiting. MEDICAL HISTORY : Hypertension. Diabetes mellitus type II. Congestive heart failure. Asthma. SURGICAL HISTORY : None. ENCOUNTER: Initial ACUITY: 2 weeks PAIN SCORE: 2/10 LOCATION: Left chest FINDINGS: Underinflated AP view of the chest demonstrates the cardiac silhouette size at upper limits for kymberly l. No effusion, consolidation, or pneumothorax is identified. There is mild atelectasis at the lung b ases. Bones and soft tissues demonstrate no acute finding. CONCLUSION: Underinflated examination with atelectasis at the lung bases. Otherwise, no acute finding is apprecia torres given the technique. Mikey Burrows MD on August 02, 2017 at 15:56 Board Certified Radiologist. This report was verified electronically.
[2017-08-02] MEDS ORDERED: DEXI60CA2 PO (16:21)
[2017-08-02] MEDS ORDERED: CYMB60CA PO (16:21)
[2017-08-02] MEDS ORDERED: ASPI1TAB91 PO (16:21)
[2017-08-02 16:31] LABS: AUTOMATED NEUTROPHIL # 9.4 TH/MM3 (1.8-7.7); BASOPHIL # 0.1 TH/MM3 (0-0.2); BASOPHIL % 0.6 % (0.0-2.0); EOSINOPHIL # 0.5 TH/MM3 (0-0.4); HEMATOCRIT 32.5 % (35.0-46.0); HEMO FLAGS DIFF FINAL; LYMPHOCYTE # 1.7 TH/MM3 (1.0-4.8); MEAN CELL VOLUME 86.6 FL (80.0-100.0); MEAN CORPUSCULAR HEMOGLOBIN 28.2 PG (27.0-34.0); MEAN CORPUSCULAR HGB CONC 32.5 % (32.0-36.0); MONO % 8.7 % (0.0-8.0); NEUT % 73.7 % (16.0-70.0); PLATELET COUNT 186 TH/MM3 (150-450); RED BLOOD COUNT 3.75 MIL/MM3 (4.00-5.30); RED CELL DISTRIBUTION WIDTH 18.7 % (11.6-17.2); WHITE BLOOD COUNT 12.8 TH/MM3 (4.0-11.0)
[2017-08-02 16:48] LABS: ALT (GPT) 16 U/L (10-53)
[2017-08-02 16:51] LABS: ALKALINE PHOSPHATASE 49 U/L (45-117); TOTAL BILIRUBIN ADULT 0.5 MG/DL (0.2-1.0)
[2017-08-02 16:55] LABS: ANION GAP 7 MEQ/L (5-15); AST (GOT) 16 U/L (15-37); BICARBONATE 24.4 MEQ/L (21.0-32.0); BLOOD UREA NITROGEN 27 MG/DL (7-18); CHLORIDE 107 MEQ/L (98-107); GLOMERULAR FILTRATION RATE 34 ML/MIN (>89); POTASSIUM 4.7 MEQ/L (3.5-5.1); SODIUM (NA) 138 MEQ/L (136-145)
--- NOTE | 2017-08-02 17:01 | PD ---
HPI Chief Complaint: Respiratory Distress Time Seen by Provider: 15:19 Travel History International Travel<30 days: No Contact w/Intl Traveler<30days: No Traveled to known affect area: No History of Present Illness HPI This is a 77-year-old female who presents to the emergency department with increasing cough, shortness of breath, constant, moderate severity associated with some productive yellow sputum with no fevers or chills. The Cough has been keeping her up at night. She also has had some abdominal cramping. She used her nebulizers at home but that's not helping. PFSH Past Medical History Arthritis: Yes Asthma: Yes Heart Rhythm Problems: Yes (TACHYCARDIA) Cancer: No Cardiac Catheterization: No Cardiovascular Problems: Yes High Cholesterol: Yes Chest Pain: Yes Congestive Heart Failure: Yes Diabetes: Yes Patient Takes Glucophage: No Diminished Hearing: No Endocrine: Yes Genitourinary: Yes Hypertension: Yes Immune Disorder: No Kidney Stones: Yes Musculoskeletal: Yes (RIGHT KNEE FX, RIGHT 5TH FINGER FX) Neurologic: Yes (Diabetic neuropathy) Psychiatric: No Reproductive: No Respiratory: Yes (ASTHMA) Sickle Cell Disease: No Influenza Vaccination: Yes ?: Not Menopausal: Yes : 2 Para: 2 Miscarriage: 0 : 0 Past Surgical History Cardiac Surgery: Yes (cardiac stent) Coronary Artery Bypass Graft: No Tonsillectomy: Yes Other Surgery: Yes Family History Family Myocardial Infarction: Yes (MOM, ) Social History Alcohol Use: No Tobacco Use: No Substance Use: No Allergies-Medications (Allergen,Severity, Reaction): Coded Allergies: shellfish derived (Verified Allergy, Severe, rash, 08/02/17) Reported Meds & Prescriptions Reported Meds & Active Scripts Active Phenergan (Promethazine HCl) 25 Mg Tablet 25 Mg PO Q6H PRN Hydralazine HCl 25 Mg Tablet 25 Mg PO Q8HR Levemir Inj (Insulin Detemir) 1,000 unit/ 10 ML Vial 5 Units SQ HS 30 Days Do not mix with any other Insulin. Nifedipine ER (Nifedipine) 90 Mg Tab 90 Mg PO DAILY 30 Days Plavix (Clopidogrel Bisulfate) 75 Mg Tab 75 Mg PO DAILY 30 Days Duoneb (Ipratropium-Albuterol Neb) 0.5-2.5 Mg/3 Ml Neb 1 Nebule INH Q6HR NEB Advair Diskus Inh (Fluticasone-Salmeterol Inh) 250-50 Mcg/Blist Aer 1 Puff INH BID Rinse mouth after use. Reported Cymbalta DR (Duloxetine HCl) 60 Mg Capdr 60 Mg PO DAILY Aspirin Adult Low Strength (Aspirin) 81 Mg Tabdr 81 Mg PO DAILY Dexilant (Dexlansoprazole) 60 Mg Cap.dr.bp 60 Mg PO DAILY Glipizide 5 Mg Tab 5 Mg PO DAILY Take 30 minutes before a meal Lasix (Furosemide) 20 Mg Tab 20 Mg PO DAILY Gabapentin 300 Mg Cap 300 Mg PO TID Labetalol (Labetalol HCl) 200 Mg Tab 200 Mg PO BID Janumet (Sitagliptin-Metformin) 50-1,000 Mg Tab 1 Tab PO BID K-Tab (Potassium Chloride) 10 Meq Tab 10 Meq PO BID Montelukast (Montelukast Sodium) 10 Mg Tab 10 Mg PO HS Nexium (Esomeprazole DR) 40 Mg Capdr 40 Mg PO DAILY Atorvastatin (Atorvastatin Calcium) 20 Mg Tab 20 Mg PO HS Flonase Nasal [place] (Fluticasone Nasal [place]) 50 Mcg/Act [place] 1 [place] EACH NARE BID Isosorbide Mononitrate ER (Isosorbide Mononitrate) 60 Mg Tab 60 Mg PO DAILY Review of Systems Except as stated in HPI: all other systems reviewed are Neg Physical Exam Narrative GENERAL:Well appearing, no acute distress SKIN: Focused skin assessment warm and dry. HEAD: Atraumatic. Normocephalic. EYES: Pupils equal and round. No injection or drainage. ENT: Moist mucous membranes NECK: Trachea midline. CARDIOVASCULAR: Regular rate and rhythm. No murmur appreciated. RESPIRATORY: Diffuse wheezing bilaterally, no increased work of breathing GASTROINTESTINAL: Abdomen soft, non-tender, nondistended. MUSCULOSKELETAL: No obvious deformities. NEUROLOGICAL: Awake and alert. No obvious cranial nerve deficits. Moving all extremities. Data Data Last Documented VS Vital Signs Date Time Temp Pulse Resp B/P (MAP) Pulse Ox O2 Delivery O2 Flow Rate FiO2 08/02/17 15:47 95 21 08/02/17 15:43 82 16 148/76 (100) Room Air 08/02/17 14:03 99.4 Orders Orders Complete Blood Count With Diff (08/02/17 15:23) Comprehensive Metabolic Panel (08/02/17 15:23) Chest, Single Ap (08/02/17 15:23) Ecg Monitoring (08/02/17 15:23) Iv Access Insert/Monitor (08/02/17 15:23) Oximetry (08/02/17 15:23) Oxygen Administration (08/02/17 15:23) Methylprednisolone So Succ Inj (Solumedr (08/02/17 15:30) Albuterol-Ipratropium Neb (Duoneb Neb) (08/02/17 15:30) Sodium Chloride 0.9% Flush (Ns Flush) (08/02/17 15:30) Labs Laboratory Tests Test 08/02/17 15:56 White Blood Count 12.8 TH/MM3 Red Blood Count 3.75 MIL/MM3 Hemoglobin 10.6 GM/DL Hematocrit 32.5 % Mean Corpuscular Volume 86.6 FL Mean Corpuscular Hemoglobin 28.2 PG Mean Corpuscular Hemoglobin Concent 32.5 % Red Cell Distribution Width 18.7 % Platelet Count 186 TH/MM3 Mean Platelet Volume 10.3 FL Neutrophils (%) (Auto) 73.7 % Lymphocytes (%) (Auto) 13.0 % Monocytes (%) (Auto) 8.7 % Eosinophils (%) (Auto) 4.0 % Basophils (%) (Auto) 0.6 % Neutrophils # (Auto) 9.4 TH/MM3 Lymphocytes # (Auto) 1.7 TH/MM3 Monocytes # (Auto) 1.1 TH/MM3 Eosinophils # (Auto) 0.5 TH/MM3 Basophils # (Auto) 0.1 TH/MM3 CBC Comment DIFF FINAL Differential Comment Blood Urea Nitrogen 27 MG/DL Creatinine 1.49 MG/DL Random Glucose 102 MG/DL Total Protein 6.5 GM/DL Albumin 3.5 GM/DL Calcium Level 9.0 MG/DL Alkaline Phosphatase 49 U/L Aspartate Amino Transf (AST/SGOT) 16 U/L Alanine Aminotransferase (ALT/SGPT) 16 U/L Total Bilirubin 0.5 MG/DL Sodium Level 138 MEQ/L Potassium Level 4.7 MEQ/L Chloride Level 107 MEQ/L Carbon Dioxide Level 24.4 MEQ/L Anion Gap 7 MEQ/L Estimat Glomerular Filtration Rate 34 ML/MIN MDM Medical Decision Making Medical Screen Exam Complete: Yes Emergency Medical Condition: Yes Interpretation(s) Temperature is 99.4, hypertensive Mild leukocytosis Mild anemia Mild renal insufficiency improved from prior Last 24 hours Impressions Chest X-Ray 08/02/17 0443 Signed Impressions: Service Date/Time: July 16:30 - CONCLUSION: Underinflated examination with atelectasis at the lung bases. Otherwise, no acute finding is appreciated given the technique. Mikey Burrows MD Differential Diagnosis COPD exacerbation, bronchitis, congestive heart failure, pneumonia Narrative Course This is a 77-year-old female who presents to the emergency department with wheezing and cough that's been going on for 2 days. She does have a history of COPD as well as mitral valve disease. She doesn't appear volume up on exam. Chest x-ray demonstrates no volume overload or pneumonia. Labs are reassuring. She feels much better after steroids and bronchodilator treatments. I think she can be discharged on prednisone and can follow-up with her primary care physician. Diagnosis Primary Impression: Asthma exacerbation Qualified Codes: J45.901 - Unspecified asthma with (acute) exacerbation Patient Instructions: General Instructions Additional Instructions: If you develop severe chest pain, shortness of breath, sweating, lightheadedness , dizziness or difficulty breathing return to the emergency department immediately. Followup with your primary care physician in 2-3 days if your symptoms are not resolved. Med/Other Pt SpecificInfo: Prescription(s) given Scripts Prednisone (Prednisone) 20 Mg Tab 40 MG PO DAILY, #10 TAB 0 Refills Take 40 mg (2 tablets) daily for 5 days Prov: Rowena Mays MD 08/02/17 Disposition: 01 DISCHARGE HOME Condition: Stable Rowena Mays MD Aug 02, 2017 17:01
[2017-08-02] MEDS ORDERED: PRED20 PO (17:03)
[2017-08-02] MEDS ORDERED: GUAISYP4 PO (17:21)
== END 2017-08-02 17:30 | disposition home or self-care (01) ==
LOC: NEPD 13:59
DX: J45.901 Unspecified asthma with (acute) exacerbation (principal); I11.0 Hypertensive heart disease with heart failure; I50.9 Heart failure, unspecified; E11.40 Type 2 diabetes mellitus with diabetic neuropathy, unspecified; Z79.4 Long term (current) use of insulin
CPT/HCPCS: 71010; 80053; 85025; 94640; 94664; 96374; 99284; J2930

== ENCOUNTER 2017-12-22 10:23 | Observation (INO) | payer OTHER ==
[~2017-12-22] VITALS: Ht 154.9 cm; Wt 70.0 kg
[~2017-12-22 10:23] MED LIST changes: +ASPI81TA16 PO; +CYMB60CA PO; +DEXI60CA3 PO; +GUAISYP4 PO; +PRED20 PO
[2017-12-22 10:44] VITALS: BP 211/88; PULSE 73; RESP 18; TEMP 98.5; O2SAT 98
--- NOTE | 2017-12-22 11:36 | RADRPT ---
EXAM DATE/TIME: 12/22/2017 11:13 [facility] COMPARISON: CHEST SINGLE AP, August 02, 2017, 16:30. INDICATIONS : Chest pain and shortness of breath. MEDICAL HISTORY : Hypertension. Diabetes mellitus type II. Congestive heart failure. Asthma. SURGICAL HISTORY : None. ENCOUNTER: Initial ACUITY: 3 days PAIN SCORE: 7/10 LOCATION: Left chest FINDINGS: The heart is moderately enlarged. Hilar and mediastinal structures are unremarkable. Lungs are well-expanded and clear. CONCLUSION: Cardiomegaly without evidence of acute process. Ryan Rosa MD on December 22, 2017 at 11:34 Board Certified Radiologist. This report was verified electronically.
[2017-12-22 12:23] LABS: AUTOMATED NEUTROPHIL # 6.6 TH/MM3 (1.8-7.7); BASOPHIL % 0.2 % (0.0-2.0); EOSINOPHIL % 0.5 % (0.0-4.0); HEMATOCRIT 35.3 % (35.0-46.0); LYMPH % 19.9 % (9.0-44.0); LYMPHOCYTE # 1.9 TH/MM3 (1.0-4.8); MEAN CORPUSCULAR HEMOGLOBIN 30.3 PG (27.0-34.0); MEAN CORPUSCULAR HGB CONC 34.1 % (32.0-36.0); MEAN PLATELET VOLUME 9.5 FL (7.0-11.0); MONO % 12.2 % (0.0-8.0); MONOCYTE # 1.2 TH/MM3 (0-0.9); NEUT % 67.2 % (16.0-70.0); PLATELET COUNT 300 TH/MM3 (150-450); RED BLOOD COUNT 3.97 MIL/MM3 (4.00-5.30); RED CELL DISTRIBUTION WIDTH 13.1 % (11.6-17.2); WHITE BLOOD COUNT 9.8 TH/MM3 (4.0-11.0)
[2017-12-22 12:48] LABS: BICARBONATE 23.5 MEQ/L (21.0-32.0); BLOOD UREA NITROGEN 31 MG/DL (7-18); CALCIUM 9.7 MG/DL (8.5-10.1); CHLORIDE 105 MEQ/L (98-107); CREATININE 1.54 MG/DL (0.50-1.00); GLOMERULAR FILTRATION RATE 33 ML/MIN (>89); GLUCOSE,RANDOM 141 MG/DL (74-106); SODIUM (NA) 138 MEQ/L (136-145)
[2017-12-22 12:52] LABS: TROPONIN I LESS THAN 0.02 NG/ML (0.02-0.05)
[2017-12-22 13:52] VITALS: BP 198/85; PULSE 62; RESP 16; TEMP 97.8; O2SAT 100
--- NOTE | 2017-12-22 14:04 | PD ---
HPI Chief Complaint: Chest Pain Time Seen by Provider: 13:19 Travel History International Travel<30 days: No Contact w/Intl Traveler<30days: No Traveled to known affect area: No History of Present Illness HPI Patient comes in complaining of chest pain substernal 4 out of 10 intermittent. Ongoing since yesterday when she presented to her primary care's office and it was relieved with a sublingual nitroglycerin that she received. Today patient presents complaining of chest pain along with elevated blood pressure. Chest pain is as previously described currently she is pain-free. Denies any aggravating factors. Alleviated by nitroglycerin. Allergies to pork and shellfish. Past medical history significant for diabetic neuropathy, congestive heart failure, hypercholesterolemia, hypertension, mitral valve disorder, kidney stones, stent 2, diabetes PFSH Past Medical History Arthritis: Yes Asthma: Yes Heart Rhythm Problems: Yes (TACHYCARDIA) Cancer: No Cardiac Catheterization: No Cardiovascular Problems: Yes High Cholesterol: Yes Chest Pain: Yes Congestive Heart Failure: Yes Diabetes: Yes Diminished Hearing: No Endocrine: Yes Genitourinary: Yes Hypertension: Yes Immune Disorder: No Kidney Stones: Yes Musculoskeletal: Yes (RIGHT KNEE FX, RIGHT 5TH FINGER FX) Neurologic: Yes (Diabetic neuropathy) Psychiatric: No Reproductive: No Respiratory: Yes (ASTHMA) Sickle Cell Disease: No Menopausal: Yes : 2 Para: 2 Miscarriage: 0 : 0 Past Surgical History Cardiac Surgery: Yes (cardiac stent) Coronary Artery Bypass Graft: No Tonsillectomy: Yes Other Surgery: Yes Social History Alcohol Use: No Tobacco Use: No Substance Use: No Allergies-Medications (Allergen,Severity, Reaction): Coded Allergies: shellfish derived (Verified Allergy, Severe, rash, 12/22/17) pork derived (porcine) (Verified Adverse Reaction, Unknown, nauseas/ diarrheas, 12/22/17) Reported Meds & Prescriptions Reported Meds & Active Scripts Active Hydralazine HCl 25 Mg Tablet 25 Mg PO Q8HR Levemir Inj (Insulin Detemir) 1,000 unit/ 10 ML Vial 5 Units SQ HS 30 Days Do not mix with any other Insulin. Nifedipine ER (Nifedipine) 90 Mg Tab 90 Mg PO DAILY 30 Days Plavix (Clopidogrel Bisulfate) 75 Mg Tab 75 Mg PO DAILY 30 Days Duoneb (Ipratropium-Albuterol Neb) 0.5-2.5 Mg/3 Ml Neb 1 Nebule INH Q6HR NEB Advair Diskus Inh (Fluticasone-Salmeterol Inh) 250-50 Mcg/Blist Aer 1 Puff INH BID Rinse mouth after use. Reported Cymbalta DR (Duloxetine HCl) 60 Mg Capdr 60 Mg PO DAILY Glipizide 5 Mg Tab 5 Mg PO DAILY Take 30 minutes before a meal Lasix (Furosemide) 20 Mg Tab 20 Mg PO DAILY Gabapentin 300 Mg Cap 300 Mg PO TID Labetalol (Labetalol HCl) 200 Mg Tab 200 Mg PO BID Janumet (Sitagliptin-Metformin) 50-1,000 Mg Tab 1 Tab PO BID Montelukast (Montelukast Sodium) 10 Mg Tab 10 Mg PO HS Atorvastatin (Atorvastatin Calcium) 20 Mg Tab 20 Mg PO HS Isosorbide Mononitrate ER (Isosorbide Mononitrate) 60 Mg Tab 60 Mg PO DAILY Review of Systems Except as stated in HPI: all other systems reviewed are Neg General / Constitutional: No: Fever Eyes: No: Visual changes HENT: No: Headaches Cardiovascular: Positive: Chest Pain or Discomfort Respiratory: No: Shortness of Breath Gastrointestinal: No: Abdominal Pain Genitourinary: No: Dysuria Musculoskeletal: No: Pain Skin: No Rash Neurologic: No: Weakness Psychiatric: No: Depression Endocrine: No: Polydipsia Hematologic/Lymphatic: No: Easy Bruising Physical Exam Narrative GENERAL: SKIN: Warm and dry. HEAD: Atraumatic. Normocephalic. EYES: Pupils equal and round. No scleral icterus. No injection or drainage. ENT: No nasal bleeding or discharge. Mucous membranes pink and moist. NECK: Trachea midline. No JVD. CARDIOVASCULAR: Regular rate and rhythm. RESPIRATORY: No accessory muscle use. Clear to auscultation. Breath sounds equal bilaterally. GASTROINTESTINAL: Abdomen soft, non-tender, nondistended. MUSCULOSKELETAL: Extremities without clubbing, cyanosis, or edema. No obvious deformities. NEUROLOGICAL: Awake and alert. No obvious cranial nerve deficits. Motor grossly within normal limits. Five out of 5 muscle strength in the arms and legs. Normal speech. PSYCHIATRIC: Appropriate mood and affect; insight and judgment normal. Data Data Last Documented VS Orders Orders Electrocardiogram (12/22/17 10:57) Complete Blood Count With Diff (12/22/17 10:57) Basic Metabolic Panel (Bmp) (12/22/17 10:57) Ckmb (Isoenzyme) Profile (12/22/17 10:57) Troponin I (12/22/17 10:57) Chest, Single Ap (12/22/17 10:57) Hydralazine Inj (Apresoline Inj) (12/22/17 14:15) Admit Order (Ed Use Only) (12/22/17 14:45) Labs Laboratory Tests Test 12/22/17 11:23 White Blood Count 9.8 TH/MM3 Red Blood Count 3.97 MIL/MM3 Hemoglobin 12.0 GM/DL Hematocrit 35.3 % Mean Corpuscular Volume 89.0 FL Mean Corpuscular Hemoglobin 30.3 PG Mean Corpuscular Hemoglobin Concent 34.1 % Red Cell Distribution Width 13.1 % Platelet Count 300 TH/MM3 Mean Platelet Volume 9.5 FL Neutrophils (%) (Auto) 67.2 % Lymphocytes (%) (Auto) 19.9 % Monocytes (%) (Auto) 12.2 % Eosinophils (%) (Auto) 0.5 % Basophils (%) (Auto) 0.2 % Neutrophils # (Auto) 6.6 TH/MM3 Lymphocytes # (Auto) 1.9 TH/MM3 Monocytes # (Auto) 1.2 TH/MM3 Eosinophils # (Auto) 0.0 TH/MM3 Basophils # (Auto) 0.0 TH/MM3 CBC Comment DIFF FINAL Differential Comment Blood Urea Nitrogen 31 MG/DL Creatinine 1.54 MG/DL Random Glucose 141 MG/DL Calcium Level 9.7 MG/DL Sodium Level 138 MEQ/L Potassium Level 4.1 MEQ/L Chloride Level 105 MEQ/L Carbon Dioxide Level 23.5 MEQ/L Anion Gap 10 MEQ/L Estimat Glomerular Filtration Rate 33 ML/MIN Total Creatine Kinase 58 U/L Troponin I LESS THAN 0.02 NG/ML B-Type Natriuretic Peptide 561 PG/ML MDM Medical Decision Making Medical Screen Exam Complete: Yes Emergency Medical Condition: Yes Medical Record Reviewed: Yes Interpretation(s) Normal sinus rhythm, motion artifact, LVH pattern, no STEMI pattern. Excellent pleth wave, pulse ox reading 98% room air which is of normal interpretation. Differential Diagnosis CT versus non-STEMI versus pneumonia versus pneumothorax versus pulmonary effusion versus accelerated hypertension Narrative Course CBC does not show any leukocytosis, anemia, or any left shift. Also no abnormal platelet count. Chemistry shows normal electrolytes, prerenal azotemia with a BUN of 31, creatinine 1.54, GFR 33, with a glucose of 141. First troponin is negative as less than 0.02 Diagnosis Primary Impression: Chest pain rule out CT Admitting Information Admitting Physician Requests: Observation Carlos Lo MD Dec 22, 2017 14:04
[2017-12-22] MEDS ORDERED: hydrALAZINE HCL 20 MG/ML VIAL IV PUSH ONE (14:15)
--- NOTE | 2017-12-22 14:52 | EKG ---
Date Performed: 12/22/2017 Time Performed: 11:03:52 PTAGE: 77 years EKG: Sinus rhythm WITH FREQUENT VENTRICULAR PREMATURE COMPLEXES POSSIBLE LEFT ATRIAL ENLARGEMENT ABNORMAL RHYTHM ECG N o significant change from prior electrocardiogram. PREVIOUS TRACING : 07/22/2017 18.56 DOCTOR: Glen French Interpretating Date/Time 12/25/2017 07:32:20
[2017-12-22 14:56] VITALS: BP 186/78; PULSE 76
[2017-12-22 16:00] VITALS: BP 185/85; PULSE 59; RESP 18; TEMP 98.1; O2SAT 99
[2017-12-22] MEDS ORDERED: TEMAZEPAM 15 MG CAP PO PRN (17:45)
[2017-12-22] MEDS ORDERED: SODIUM CHLORIDE 0.9% FLUSH 10 ML FLUSH IV FLUSH PRN (17:45)
--- NOTE | 2017-12-22 17:56 | HHI.HP ---
HPI Service [facility] Primary Care Physician Cardiology Dr. Tena and Dr. Pushpa Rogers Has new primary care name not known Chief Complaint Burning in the left chest History of Present Illness Very complicated 77-year-old lady with an extensive medical history. She has known coronary artery disease with a stent in the LAD subsequent cath showing patency. However she also has probably severe mitral regurgitation and possible mitral stenosis. She has been evaluated by Dr. Tena and by Dr. Rogers with referral and consultation to Dr. Leblanc regarding possible surgery. She has been deemed is a high risk surgical intervention with the feeling that she lacks the stamina and ability to make it through recovery and rehab. I verified this information personally with Dr. Rogers. She comes in currently complaining of a burning feeling in her left upper chest and elevated blood pressure. The patient has very poor understanding of her medical situation and in spite of assistance from several Ukrainian-speaking friends does not seem to comprehend thoroughly. She has had recurrent episodes of congestive heart failure but is not complaining of PND or shortness of breath currently. It is also learned that she has a problem with her hypertension apparently severe asthma chronic renal failure diabetes and hyperlipidemia. She also has a good bit of pain from her arthritis Review of Systems Consitutional: COMPLAINS OF: Fatigue Respiratory: COMPLAINS OF: See HPI Cardiovascular: COMPLAINS OF: See HPI Musculoskeletal: COMPLAINS OF: Joint pain Past Family Social History Allergies: Coded Allergies: shellfish derived (Verified Allergy, Severe, rash, 12/22/17) pork derived (porcine) (Verified Adverse Reaction, Unknown, nauseas/ diarrheas, 12/22/17) Past Medical History Coronary artery disease with a stent in the LAD Valvular heart disease with severe mitral regurgitation possible mitral stenosis Hypertension difficult to control Diabetes Chronic renal failure Severe asthma Arthritis Recurring CHF Past Surgical History Tonsillectomy Reported Medications Reported Meds & Active Scripts Active Hydralazine HCl 25 Mg Tablet 25 Mg PO Q8HR Levemir Inj (Insulin Detemir) 1,000 unit/ 10 ML Vial 5 Units SQ HS 30 Days Do not mix with any other Insulin. Nifedipine ER (Nifedipine) 90 Mg Tab 90 Mg PO DAILY 30 Days Plavix (Clopidogrel Bisulfate) 75 Mg Tab 75 Mg PO DAILY 30 Days Duoneb (Ipratropium-Albuterol Neb) 0.5-2.5 Mg/3 Ml Neb 1 Nebule INH Q6HR NEB Advair Diskus Inh (Fluticasone-Salmeterol Inh) 250-50 Mcg/Blist Aer 1 Puff INH BID Rinse mouth after use. Reported Cymbalta DR (Duloxetine HCl) 60 Mg Capdr 60 Mg PO DAILY Glipizide 5 Mg Tab 5 Mg PO DAILY Take 30 minutes before a meal Lasix (Furosemide) 20 Mg Tab 20 Mg PO DAILY Gabapentin 300 Mg Cap 300 Mg PO TID Labetalol (Labetalol HCl) 200 Mg Tab 200 Mg PO BID Janumet (Sitagliptin-Metformin) 50-1,000 Mg Tab 1 Tab PO BID Montelukast (Montelukast Sodium) 10 Mg Tab 10 Mg PO HS Atorvastatin (Atorvastatin Calcium) 20 Mg Tab 20 Mg PO HS Isosorbide Mononitrate ER (Isosorbide Mononitrate) 60 Mg Tab 60 Mg PO DAILY Active Ordered Medications Current Medications Medications (Trade) Dose Ordered Sig/Camille Route Start Time Stop Time Status Last Admin (NS Flush) 2 ml UNSCH PRN IV FLUSH 12/22/17 17:45 UNV (NS Flush) 2 ml BID IV FLUSH 12/22/17 21:00 UNV (Tylenol) 500 mg Q4H PRN PO 12/22/17 17:45 UNV (Morphine Inj) 2 mg Q4H PRN IV PUSH 12/22/17 17:45 UNV (Protonix) 40 mg DAILY PO 12/22/17 17:45 UNV (Nitroglycerin 2% Oint) 1 inch Q6HR TOP 12/22/17 18:00 UNV (Restoril) 15 mg HS PRN PO 12/22/17 17:45 UNV Family History Not pertinent to admission Social History Lives alone is dependent upon a son who is not present with her today No alcohol tobacco or drugs Physical Exam Vital Signs Vital Signs Date Time Temp Pulse Resp B/P (MAP) Pulse Ox O2 Delivery O2 Flow Rate FiO2 12/22/17 16:00 98.1 59 18 185/85 (118) 99 12/22/17 15:48 12/22/17 14:56 76 186/78 (114) 12/22/17 13:52 97.8 62 16 198/85 (122) 100 Room Air 12/22/17 10:44 98.5 73 18 211/88 (129) 98 Physical Exam GENERAL: Somewhat obese lady sitting upright in bed SKIN: Warm and dry. HEAD: Atraumatic. Normocephalic. EYES: Pupils equal and round. No scleral icterus. No injection or drainage. Bilateral intraocular lenses ENT: No nasal bleeding or discharge. Mucous membranes pink and moist. NECK: Trachea midline. No JVD. CARDIOVASCULAR: Regular rate and rhythm. Heart sounds are distant probably due to her obesity. There appears to be a soft systolic murmur at the apex radiating towards the axilla but it is difficult to define. The left chest costophrenic joints are exquisitely tender to palpation and may account for some of her chest pain. RESPIRATORY: No accessory muscle use. Clear to auscultation. Breath sounds equal bilaterally. GASTROINTESTINAL: Abdomen soft,tender in the epigastric area, nondistended. Hepatic and splenic margins not palpable. MUSCULOSKELETAL: Extremities without clubbing, cyanosis, or edema. Arthritic changes noted NEUROLOGICAL: Awake and alert. No obvious cranial nerve deficits. Motor grossly within normal limits. Five out of 5 muscle strength in the arms and legs. Normal speech. PSYCHIATRIC: Appropriate mood and affect; insight and judgment normal. Laboratory Laboratory Tests Test 12/22/17 11:23 White Blood Count 9.8 Red Blood Count 3.97 Hemoglobin 12.0 Hematocrit 35.3 Mean Corpuscular Volume 89.0 Mean Corpuscular Hemoglobin 30.3 Mean Corpuscular Hemoglobin Concent 34.1 Red Cell Distribution Width 13.1 Platelet Count 300 Mean Platelet Volume 9.5 Neutrophils (%) (Auto) 67.2 Lymphocytes (%) (Auto) 19.9 Monocytes (%) (Auto) 12.2 Eosinophils (%) (Auto) 0.5 Basophils (%) (Auto) 0.2 Neutrophils # (Auto) 6.6 Lymphocytes # (Auto) 1.9 Monocytes # (Auto) 1.2 Eosinophils # (Auto) 0.0 Basophils # (Auto) 0.0 CBC Comment DIFF FINAL Differential Comment Blood Urea Nitrogen 31 Creatinine 1.54 Random Glucose 141 Calcium Level 9.7 Sodium Level 138 Potassium Level 4.1 Chloride Level 105 Carbon Dioxide Level 23.5 Anion Gap 10 Estimat Glomerular Filtration Rate 33 Total Creatine Kinase 58 Troponin I LESS THAN 0.02 Result Diagram: 12/22/17 1123 12/22/17 1123 Imaging Chest x-ray results pending Course Chest pain is atypical for ischemic heart disease. She has a known stent in the LAD but recent documentation that vessels are patent. She has been seen and evaluated by 2 paper box cutter who apparently feel that surgical intervention for her mitral valve is probably contraindicated due to her age and general physical status. Some of her current symptoms may be due to arthritis in her chest however it appears unlikely that this is of cardiac origin. Her blood pressures a bit out of control and there may also be an overlying issue with anxiety depression. Have discussed with Dr. Rogers. Will attempt to lower her blood pressure gently diurese her a bit and rule out for ACS. Once this is done she will be discharged back for follow-up with Dr. Rogers. Caprini VTE Risk Assessment Caprini VTE Risk Assessment: No/Low Risk (score <= 1) VTE Pharm Contraindication: Caprini Risk Assessment Model Point Value = 1 Point Value = 2 Point Value = 3 Point Value = 5 Age 41-60 Minor surgery BMI > 25 kg/m2 Swollen legs Varicose veins or History of unexplained or recurrent spontaneous Oral contraceptives or hormone replacement Sepsis (< 1 month) Serious lung disease, including pneumonia (< 1 month) Abnormal pulmonary function Acute myocardial infarction Congestive heart failure (< 1 month) History of inflammatory bowel disease Medical patient at bed rest Age 61-74 Arthroscopic surgery Major open surgery (> 45 min) Laparoscopic surgery (> 45 min) Malignancy Confined to bed (> 72 hours) Immobilizing plaster cast Central venous access Age >= 75 History of VTE Family history of VTE Factor V Leiden Prothrombin [id number] Lupus anticoagulant Anticardiolipin antibodies Elevated serum homocysteine Heparin-induced thrombocytopenia Other congenital or acquired thrombophilia Stroke (< 1 month) Elective arthroplasty Hip, pelvis, or leg fracture Acute spinal cord injury (< 1 month) Prophylaxis Regimen Total Risk Factor Score Risk Level Prophylaxis Regimen 0-1 Low Early ambulation 2 Moderate Order ONE of the following: *Sequential Compression Device (SCD) *Heparin 5000 units SQ BID 3-4 Higher Order ONE of the following medications: *Heparin 5000 units SQ TID *Enoxaparin/Lovenox 40 mg SQ daily (WT < 150 kg, CrCl > 30 mL/min) *Enoxaparin/Lovenox 30 mg SQ daily (WT < 150 kg, CrCl > 10-29 mL/min) *Enoxaparin/Lovenox 30 mg SQ BID (WT < 150 kg, CrCl > 30 mL/min) AND/OR *Sequential Compression Device (SCD) 5 or more Highest Order ONE of the following medications: *Heparin 5000 units SQ TID (Preferred with Epidurals) *Enoxaparin/Lovenox 40 mg SQ daily (WT < 150 kg, CrCl > 30 mL/min) *Enoxaparin/Lovenox 30 mg SQ daily (WT < 150 kg, CrCl > 10-29 mL/min) *Enoxaparin/Lovenox 30 mg SQ BID (WT < 150 kg, CrCl > 30 mL/min) AND *Sequential Compression Device (SCD) Assessment and Plan Problem List: (1) Hypertension ICD Codes: I10 - Essential (primary) hypertension Status: Chronic (2) Arthritis ICD Codes: M19.90 - Unspecified osteoarthritis, unspecified site Status: Chronic (3) Depression ICD Codes: F32.9 - Major depressive disorder, single episode, unspecified Status: Acute (4) Musculoskeletal chest pain ICD Codes: R07.89 - Other chest pain Status: Acute (5) Atypical chest pain ICD Codes: R07.89 - Other chest pain Status: Acute (6) Mitral stenosis ICD Codes: I05.0 - Rheumatic mitral stenosis Status: Acute (7) Asthma ICD Codes: J45.909 - Unspecified asthma, uncomplicated Status: Chronic (8) MR (mitral regurgitation) ICD Codes: I34.0 - Nonrheumatic mitral (valve) insufficiency Status: Acute (9) Type 2 diabetes mellitus ICD Codes: E11.9 - Type 2 diabetes mellitus without complications Status: Chronic (10) Presence of stent in coronary artery in patient with coronary artery disease ICD Codes: I25.10 - Atherosclerotic heart disease of [place] coronary artery without angina pectoris; Z95.5 - Presence of coronary angioplasty implant and graft Status: Chronic Dru Pugh MD Dec 22, 2017 17:55
[2017-12-22] MEDS ORDERED: MORPHINE SULFATE 2 MG/ML INJ IV PRN (18:15)
[2017-12-22] MEDS ORDERED: amLODIPine BESYLATE 5 MG TAB PO ONE (18:15)
[2017-12-22] MEDS ORDERED: FUROSEMIDE 20 MG/2 ML VIAL IV PUSH ONE (18:30)
[2017-12-22] MEDS: PANTOPRAZOLE SOD 40 MG DELAYED RELEASE TAB PO SCH (19:22)
[2017-12-22] MEDS: NITROGLYCERIN 2% OINT 1 GM PACKET TOP SCH (19:23)
[2017-12-22] MEDS: ACETAMINOPHEN 500 MG CPLT PO PRN ×2 (19:27→21:31)
[2017-12-22 19:32] LABS: TROPONIN I LESS THAN 0.02 NG/ML (0.02-0.05)
[2017-12-22 20:20] VITALS: BP 167/87; PULSE 63; RESP 18; TEMP 98.2; O2SAT 94
[2017-12-22] MEDS: SODIUM CHLORIDE 0.9% FLUSH 10 ML FLUSH IV FLUSH SCH (21:25)
[2017-12-22 22:27] LABS: TROPONIN I LESS THAN 0.02 NG/ML (0.02-0.05)
[2017-12-23 00:17] VITALS: PULSE 58
[2017-12-23 00:30] VITALS: BP 195/81; PULSE 52; RESP 18; TEMP 98; O2SAT 94
[2017-12-23] MEDS: NITROGLYCERIN 2% OINT 1 GM PACKET TOP SCH ×3 (00:36→13:12)
[2017-12-23 05:28] VITALS: BP 157/87; PULSE 70; RESP 18; TEMP 98.1; O2SAT 92
[2017-12-23 08:30] VITALS: BP 200/86; PULSE 60; RESP 20; TEMP 98.2; O2SAT 96
[2017-12-23] MEDS: SODIUM CHLORIDE 0.9% FLUSH 10 ML FLUSH IV FLUSH SCH (09:05)
[2017-12-23] MEDS: PANTOPRAZOLE SOD 40 MG DELAYED RELEASE TAB PO SCH (09:05)
--- NOTE | 2017-12-23 11:59 | HHI.DS ---
Discharge Summary Admission Date Dec 22, 2017 at 14:47 Admitting Diagnosis CP R/O WI, ACCELERATED HTN CBC/BMP: 12/22/17 1123 12/22/17 1123 Significant Findings Laboratory Tests Test 12/22/17 11:23 12/22/17 18:15 12/22/17 21:20 Red Blood Count 3.97 MIL/MM3 (4.00-5.30) Monocytes (%) (Auto) 12.2 % (0.0-8.0) Monocytes # (Auto) 1.2 TH/MM3 (0-0.9) Blood Urea Nitrogen 31 MG/DL (7-18) Creatinine 1.54 MG/DL (0.50-1.00) Random Glucose 141 MG/DL (74-106) Estimat Glomerular Filtration Rate 33 ML/MIN (>89) Troponin I LESS THAN 0.02 NG/ML LESS THAN 0.02 NG/ML LESS THAN 0.02 NG/ML B-Type Natriuretic Peptide 561 PG/ML (0-100) Hospital Course Patient presented with complaints of chest pain however evaluation of her history revealed that she has extensive cardiac problems followed by Dr. Tena and Dr. Pushpa Rogers. She has a stent in the LAD but she also has severe mitral regurgitation and probable mitral stenosis. She has been recently evaluated for valvular heart surgery and for further intervention. Her condition is complicated by hyperlipidemia, diabetes, chronic renal failure severe asthma and recurrent heart failure with a significantly enlarged heart. Apparently it was determined that she was a poor surgical risk and poor candidate for further intervention. She is stabilized through her hospitalization, chest pain resolved, blood pressure improved, and sugar stable. She is discharged to follow-up with Dr. Pushpa Rogers with discussion so that she understands why she is not a candidate for further intervention. Would also recommend discussion with her primary care physician regarding palliative care for ongoing comfort management. Pt Condition on Discharge: Stable Discharge Disposition: Discharge Home Discharge Instructions DIET: Follow Instructions for: Heart Healthy Diet, Diabetic Diet Activities you can perform: Regular-No Restrictions Activities to avoid: Strenuous Activity Dru Pugh MD Dec 23, 2017 11:58
--- NOTE | 2017-12-23 12:45 | EKG ---
Date Performed: 12/22/2017 Time Performed: 21:59:02 PTAGE: 77 years EKG: SINUS BRADYCARDIA POSSIBLE LEFT ATRIAL ENLARGEMENT SEPTAL MYOCARDIAL INFARCTION ABNORMAL EC G No significant change PREVIOUS TRACING : 12/22/2017 21.58 DOCTOR: Dru Pugh Interpretating Date/Time 12/23/2017 12:44:27
--- NOTE | 2017-12-23 12:46 | EKG ---
Date Performed: 12/22/2017 Time Performed: 18:40:44 PTAGE: 77 years EKG: Sinus rhythm POSSIBLE LEFT ATRIAL ENLARGEMENT Possible anterior septal DE age undetermined BORDERLINE ECG No sign ificant change PREVIOUS TRACING : 12/22/2017 11.05 DOCTOR: Dru Pugh Interpretating Date/Time 12/23/2017 12:45:30
[2017-12-23 12:59] VITALS: BP 198/88; PULSE 68
[2017-12-23] MEDS ORDERED: amLODIPine BESYLATE 5 MG TAB PO ONE (13:15)
[2017-12-23 15:34] VITALS: BP 186/84; PULSE 70; RESP 20; TEMP 97.9; O2SAT 96
== END 2017-12-23 17:29 | disposition home or self-care (01) ==
LOC: NEPC 10:23 → NEDA 14:47 → NEPGCP 15:57
PROVIDERS: ADMIT Internal Medicine Interventional Cardiology; ATTEND Internal Medicine Interventional Cardiology
DX: I10 Essential (primary) hypertension (principal); R07.89 Other chest pain; R79.89 Other specified abnormal findings of blood chemistry; I25.10 Atherosclerotic heart disease of native coronary artery without angina pectoris; I13.0 Hypertensive heart and chronic kidney disease with heart failure and stage 1 through stage 4 chronic kidney disease, or unspecified chronic kidney disease; I50.9 Heart failure, unspecified; E11.22 Type 2 diabetes mellitus with diabetic chronic kidney disease; N18.9 Chronic kidney disease, unspecified; E11.40 Type 2 diabetes mellitus with diabetic neuropathy, unspecified; I34.0 Nonrheumatic mitral (valve) insufficiency; E78.00 Pure hypercholesterolemia, unspecified; R00.1 Bradycardia, unspecified; R94.31 Abnormal electrocardiogram [ECG] [EKG]; J45.909 Unspecified asthma, uncomplicated; F32.9 Major depressive disorder, single episode, unspecified; M19.90 Unspecified osteoarthritis, unspecified site; Z79.899 Other long term (current) drug therapy; Z95.5 Presence of coronary angioplasty implant and graft
CPT/HCPCS: 71045; 80048; 82550; 83880; 84484; 85025; 93005; 96374; 96375; 99285; G0378; J0360; J1940; J2270

== ENCOUNTER 2018-01-21 12:24 | Emergency (ER) | payer OTHER, MEDICAID ==
[~2018-01-21] VITALS: Ht 157.5 cm; Wt 65.0 kg
[~2018-01-21 12:24] MED LIST changes: -ASPI81TA16 PO; -DEXI60CA3 PO; -FLUT1SPR5 EACH NARE; -GUAISYP4 PO; -K-TA10TA PO; -NEXI40CA PO; -PRED20 PO; -PROM25TA10 PO
[2018-01-21 12:45] VITALS: BP 150/63; PULSE 63; RESP 16; TEMP 98.6; O2SAT 96
[2018-01-21] MEDS ORDERED: SODIUM CHLOR 0.9% 1000 ML INJ 1,000 ML IV SCH (13:00)
[2018-01-21] MEDS ORDERED: SODIUM CHLORIDE 0.9% FLUSH 10 ML FLUSH IV FLUSH PRN (13:00)
[2018-01-21] MEDS ORDERED: PANTOPRAZOLE SODIUM 40 MG VIAL IV PUSH ONE (13:00)
[2018-01-21] MEDS ORDERED: ONDANSETRON HCL 4 MG/2 ML VIAL IV PUSH ONE (13:00)
--- NOTE | 2018-01-21 13:47 | PD ---
HPI Chief Complaint: Abdominal Pain Time Seen by Provider: 12:48 Travel History International Travel<30 days: No Contact w/Intl Traveler<30days: No Traveled to known affect area: No History of Present Illness HPI 77-year-old female complains of abdominal pain and nausea vomiting. Patient states that she started having diffuse abdominal pain since this morning. Patient has intermittent nausea vomiting since this morning. Patient noted some blood in the vomitus this morning. Patient denies any headache. Patient denies any chest pain or shortness of breath. Patient states the pain and cramping pain diffuse over the abdomen. Patient denies any pain radiation. Patient denies any fever chills. Patient denies any dysuria frequency. She denies any vaginal discharge or bleeding. Patient has history of asthma, CAD status post stent placement, diabetes, hypertension, diabetic neuropathy. Patient complains of constipation for the past several days. Patient tried rectal suppository without much relief. Hospice nurse reported that the patient accidentally drinks small amount of morphine liquid this morning. Possible morphine 20 mg p.o. PFSH Past Medical History Arthritis: Yes Asthma: Yes Heart Rhythm Problems: Yes (TACHYCARDIA) Cardiac Catheterization: Yes (x 2 ) Cardiovascular Problems: Yes High Cholesterol: Yes Chest Pain: Yes Congestive Heart Failure: No Diabetes: Yes Patient Takes Glucophage: Yes Diminished Hearing: No Endocrine: Yes Genitourinary: Yes Hypertension: Yes Kidney Stones: Yes Musculoskeletal: Yes (RIGHT KNEE FX, RIGHT 5TH FINGER FX) Neurologic: Yes (Diabetic neuropathy) Respiratory: Yes (ASTHMA) Tetanus Vaccination: > 5 Years Influenza Vaccination: Yes Menopausal: Yes : 2 Para: 2 Miscarriage: 0 : 0 Past Surgical History Cardiac Surgery: Yes (cardiac stent) Coronary Artery Bypass Graft: No Tonsillectomy: Yes Other Surgery: Yes Family History Family Myocardial Infarction: Yes (MOM, ) Social History Alcohol Use: No Tobacco Use: No Substance Use: No Allergies-Medications (Allergen,Severity, Reaction): Coded Allergies: shellfish derived (Verified Allergy, Severe, rash, 12/22/17) pork derived (porcine) (Verified Adverse Reaction, Unknown, nauseas/ diarrheas, 12/22/17) Reported Meds & Prescriptions Reported Meds & Active Scripts Active Hydralazine HCl 25 Mg Tablet 25 Mg PO Q8HR Levemir Inj (Insulin Detemir) 1,000 unit/ 10 ML Vial 5 Units SQ HS 30 Days Do not mix with any other Insulin. Nifedipine ER (Nifedipine) 90 Mg Tab 90 Mg PO DAILY 30 Days Plavix (Clopidogrel Bisulfate) 75 Mg Tab 75 Mg PO DAILY 30 Days Duoneb (Ipratropium-Albuterol Neb) 0.5-2.5 Mg/3 Ml Neb 1 Nebule INH Q6HR NEB Advair Diskus Inh (Fluticasone-Salmeterol Inh) 250-50 Mcg/Blist Aer 1 Puff INH BID Rinse mouth after use. Reported Cymbalta DR (Duloxetine HCl) 60 Mg Capdr 60 Mg PO DAILY Glipizide 5 Mg Tab 5 Mg PO DAILY Take 30 minutes before a meal Lasix (Furosemide) 20 Mg Tab 20 Mg PO DAILY Gabapentin 300 Mg Cap 300 Mg PO TID Labetalol (Labetalol HCl) 200 Mg Tab 200 Mg PO BID Janumet (Sitagliptin-Metformin) 50-1,000 Mg Tab 1 Tab PO BID Montelukast (Montelukast Sodium) 10 Mg Tab 10 Mg PO HS Atorvastatin (Atorvastatin Calcium) 20 Mg Tab 20 Mg PO HS Isosorbide Mononitrate ER (Isosorbide Mononitrate) 60 Mg Tab 60 Mg PO DAILY Review of Systems General / Constitutional: No: Fever Eyes: No: Visual changes HENT: No: Headaches Cardiovascular: No: Chest Pain or Discomfort Respiratory: No: Shortness of Breath Gastrointestinal: Positive: Nausea, Vomiting, Abdominal Pain Genitourinary: No: Dysuria Musculoskeletal: No: Pain Skin: No Rash Neurologic: No: Weakness Psychiatric: No: Depression Endocrine: No: Polydipsia Hematologic/Lymphatic: No: Easy Bruising Physical Exam Narrative GENERAL: Well-nourished, well-developed patient. SKIN: Focused skin assessment warm/dry. HEAD: Normocephalic. EYES: No scleral icterus. No injection or drainage. NECK: Supple, trachea midline. No JVD or lymphadenopathy. CARDIOVASCULAR: Regular rate and rhythm without murmurs, gallops, or rubs. RESPIRATORY: Breath sounds equal bilaterally. No accessory muscle use. GASTROINTESTINAL: Abdomen soft, nondistended. Patient has mild diffuse tenderness over the abdomen. No rebound tenderness. No mass. MUSCULOSKELETAL: No cyanosis, or edema. BACK: Nontender without obvious deformity. No CVA tenderness. Neurologic exam normal. Data Data Last Documented VS Vital Signs Date Time Temp Pulse Resp B/P (MAP) Pulse Ox O2 Delivery O2 Flow Rate FiO2 01/21/18 12:52 18 01/21/18 12:45 98.6 63 150/63 (92) 96 Orders Orders Complete Blood Count With Diff (01/21/18 12:48) Comprehensive Metabolic Panel (01/21/18 12:48) Lipase (01/21/18 12:48) Prothrombin Time / Inr (Pt) (01/21/18 12:48) Act Partial Throm Time (Ptt) (01/21/18 12:48) Urinalysis - C+S If Indicated (01/21/18 12:48) Iv Access Insert/Monitor (01/21/18 12:48) Ecg Monitoring (01/21/18 12:48) Oximetry (01/21/18 12:48) Sodium Chloride 0.9% Flush (Ns Flush) (01/21/18 13:00) Sodium Chlor 0.9% 1000 Ml Inj (Ns 1000 M (01/21/18 13:00) Pantoprazole Inj (Protonix Inj) (01/21/18 13:00) Ondansetron Inj (Zofran Inj) (01/21/18 13:00) Ct Abd/Pel W/O Iv Contrast (01/21/18 12:48) Labs Laboratory Tests Test 01/21/18 12:15 White Blood Count 7.7 TH/MM3 Red Blood Count 3.32 MIL/MM3 Hemoglobin 10.1 GM/DL Hematocrit 29.8 % Mean Corpuscular Volume 89.7 FL Mean Corpuscular Hemoglobin 30.3 PG Mean Corpuscular Hemoglobin Concent 33.8 % Red Cell Distribution Width 13.3 % Platelet Count 272 TH/MM3 Mean Platelet Volume 10.2 FL Neutrophils (%) (Auto) 65.5 % Lymphocytes (%) (Auto) 23.4 % Monocytes (%) (Auto) 8.2 % Eosinophils (%) (Auto) 2.0 % Basophils (%) (Auto) 0.9 % Neutrophils # (Auto) 5.0 TH/MM3 Lymphocytes # (Auto) 1.8 TH/MM3 Monocytes # (Auto) 0.6 TH/MM3 Eosinophils # (Auto) 0.2 TH/MM3 Basophils # (Auto) 0.1 TH/MM3 CBC Comment DIFF FINAL Differential Comment Prothrombin Time 10.3 SEC Prothromb Time International Ratio 1.0 RATIO Activated Partial Thromboplast Time 20.2 SEC Blood Urea Nitrogen 46 MG/DL Creatinine 1.68 MG/DL Random Glucose 131 MG/DL Total Protein 7.0 GM/DL Albumin 3.6 GM/DL Calcium Level 9.4 MG/DL Alkaline Phosphatase 51 U/L Aspartate Amino Transf (AST/SGOT) 12 U/L Alanine Aminotransferase (ALT/SGPT) 16 U/L Total Bilirubin 0.5 MG/DL Sodium Level 139 MEQ/L Potassium Level 3.8 MEQ/L Chloride Level 103 MEQ/L Carbon Dioxide Level 27.1 MEQ/L Anion Gap 9 MEQ/L Estimat Glomerular Filtration Rate 30 ML/MIN Lipase 130 U/L [facility] Medical Decision Making Medical Screen Exam Complete: Yes Emergency Medical Condition: Yes Interpretation(s) Last Impressions Abdomen/Pelvis CT 01/21/18 1248 Signed Impressions: Service Date/Time: Sunday, January 21, 2018 14:51 - CONCLUSION: 1. Moderate- sized hiatal hernia. 2. Uncomplicated colonic diverticulosis. 3. Stable 4 mm noncalcified nodule within the right lateral lung base. 4. Cardiomegaly and coronary artery calcifications. 5. Degenerative changes and scoliosis of the thoracolumbar spine. Jeyson Colon MD 1539 PM. CBC with hemoglobin 10.1 hematocrit 29.8. BUN 46. Creatinine 1.68. GFR 30. Differential Diagnosis Differential diagnosis including gastritis, PUD, pancreatitis, cholecystitis, colitis, UTI, pyelonephritis, nephrolithiasis. Narrative Course 77-year-old female with abdominal pain, nausea vomiting. Patient possible had hematemesis this morning. Protonix 40 mg IV. Zofran 4 mg IV. Normal saline solution 1 25 cc an hour. Patient was observed while was in the ED. Patient is stable. Vital signs stable. No respiratory distress. Blood pressure stable. Patient will be discharged to the hospice care center. Diagnosis Primary Impression: Abdominal pain Qualified Codes: R10.84 - Generalized abdominal pain Additional Impressions: Hiatal hernia Morphine overdose Qualified Codes: T40.2X1A - Poisoning by other opioids, accidental ( unintentional), initial encounter Patient Instructions: General Instructions Additional Instructions: Advised patient to follow with local physician. Take medications as directed. Disposition: 01 DISCHARGE HOME Condition: Stable Sam Pettit MD Jan 21, 2018 13:47
[2018-01-21 13:51] LABS: BASOPHIL # 0.1 TH/MM3 (0-0.2); BASOPHIL % 0.9 % (0.0-2.0); EOSINOPHIL # 0.2 TH/MM3 (0-0.4); HEMATOCRIT 29.8 % (35.0-46.0); HEMOGLOBIN 10.1 GM/DL (11.6-15.3); LYMPH % 23.4 % (9.0-44.0); LYMPHOCYTE # 1.8 TH/MM3 (1.0-4.8); MEAN CELL VOLUME 89.7 FL (80.0-100.0); MEAN CORPUSCULAR HEMOGLOBIN 30.3 PG (27.0-34.0); MEAN CORPUSCULAR HGB CONC 33.8 % (32.0-36.0); MEAN PLATELET VOLUME 10.2 FL (7.0-11.0); MONO % 8.2 % (0.0-8.0); MONOCYTE # 0.6 TH/MM3 (0-0.9); NEUT % 65.5 % (16.0-70.0); PLATELET COUNT 272 TH/MM3 (150-450); RED BLOOD COUNT 3.32 MIL/MM3 (4.00-5.30); RED CELL DISTRIBUTION WIDTH 13.3 % (11.6-17.2); WHITE BLOOD COUNT 7.7 TH/MM3 (4.0-11.0)
[2018-01-21 14:04] LABS: ALBUMIN 3.6 GM/DL (3.4-5.0); ALT (GPT) 16 U/L (10-53); AST (GOT) 12 U/L (15-37); BICARBONATE 27.1 MEQ/L (21.0-32.0); BLOOD UREA NITROGEN 46 MG/DL (7-18); CALCIUM 9.4 MG/DL (8.5-10.1); CHLORIDE 103 MEQ/L (98-107); CREATININE 1.68 MG/DL (0.50-1.00); GLOMERULAR FILTRATION RATE 30 ML/MIN (>89); GLUCOSE,RANDOM 131 MG/DL (74-106); PROTHROMBIN TIME - PATIENT 10.3 SEC (9.8-11.6); SODIUM (NA) 139 MEQ/L (136-145)
[2018-01-21 14:07] LABS: ALKALINE PHOSPHATASE 51 U/L (45-117); TOTAL BILIRUBIN ADULT 0.5 MG/DL (0.2-1.0)
--- NOTE | 2018-01-21 15:28 | RADRPT ---
EXAM DATE/TIME: 01/21/2018 14:51 [facility] COMPARISON: CT ABDOMEN & PELVIS W/O CONTRAST, July 22, 2017, 17:27. INDICATIONS : Epigastric pain,vomiting ORAL CONTRAST: No oral contrast ingested. RADIATION DOSE: 14.69 CTDIvol (mGy) MEDICAL HISTORY : Cardiovascular disease. Hypertension. Renal calculi.Diabetes SURGICAL HISTORY : None. ENCOUNTER: Initial ACUITY: 1 day PAIN SCALE: 4/10 LOCATION: Epigatric abdomen TECHNIQUE: Volumetric scanning of the abdomen and pelvis was performed. Using automated exposure control and ad justment of the mA and/or kV according to patient size, radiation dose was kept as low as reasonably achievable to obtain optimal diagnostic quality images. DICOM format image data is available electro nically for review and comparison. FINDINGS: LOWER LUNGS: There is a tiny stable 4 mm noncalcified nodule within the right lateral lung base. Cardiomegaly and coronary artery calcifications are noted. LIVER: Homogeneous density without lesion. There is no dilation of the biliary tree. No calcified gallston es. SPLEEN: Normal size without lesion. PANCREAS: Within normal limits. KIDNEYS: The kidneys remain lobulated but are unchanged compared to previous examination. There is no mass, st one, or hydronephrosis. ADRENAL GLANDS: Within normal limits. VASCULAR: There is no aortic aneurysm. BOWEL/MESENTERY: There is a moderate-sized hiatal hernia. Uncomplicated colonic diverticulosis is noted. No acute dive rticulitis is noted. No bowel obstruction is noted. ABDOMINAL WALL: Within normal limits. RETROPERITONEUM: There is no lymphadenopathy. BLADDER: No wall thickening or mass. REPRODUCTIVE: Within normal limits. INGUINAL: There is no lymphadenopathy or hernia. MUSCULOSKELETAL: Degenerative changes and scoliosis of the thoracolumbar spine. CONCLUSION: 1. Moderate-sized hiatal hernia. 2. Uncomplicated colonic diverticulosis. 3. Stable 4 mm noncalcified nodule within the right lateral lung base. 4. Cardiomegaly and coronary artery calcifications. 5. Degenerative changes and scoliosis of the thoracolumbar spine. Jeyson Colon MD on January 21, 2018 at 15:17 Board Certified Radiologist. This report was verified electronically.
[2018-01-21 16:37] VITALS: BP 159/67; PULSE 65; RESP 12; O2SAT 91
[2018-01-21 19:55] VITALS: BP 173/74; PULSE 67; RESP 22; O2SAT 99
== END 2018-01-21 22:17 | disposition hospice, inpatient (51) ==
LOC: NEPE 12:24
DX: R10.84 Generalized abdominal pain (principal); K44.9 Diaphragmatic hernia without obstruction or gangrene; T40.2X1A Poisoning by other opioids, accidental (unintentional), initial encounter; K57.30 Diverticulosis of large intestine without perforation or abscess without bleeding; E78.00 Pure hypercholesterolemia, unspecified; E11.40 Type 2 diabetes mellitus with diabetic neuropathy, unspecified; Z79.4 Long term (current) use of insulin
CPT/HCPCS: 74176; 80053; 83690; 85025; 85610; 85730; 96374; 96375; 99284; C9113; J2405; J7030

== ENCOUNTER 2018-01-30 17:12 | Observation (INO) | payer MEDICAID, OTHER ==
[~2018-01-30] VITALS: Ht 165.1 cm; Wt 75.0 kg
[2018-01-30 17:20] VITALS: BP 155/75; PULSE 68; RESP 25; TEMP 98.9; O2SAT 95
--- NOTE | 2018-01-30 17:28 | PD ---
HPI Chief Complaint: Cardiac Time Seen by Provider: 17:20 Travel History International Travel<30 days: No Contact w/Intl Traveler<30days: No Traveled to known affect area: No History of Present Illness HPI 77-year-old female complains of chest pain. Patient states that the chest pain started this morning. Patient states that the pain is sharp pain burning pain indigestion feeling substernally. Patient states that the pain radiates to left -sided neck and down the right arm. Patient denies palpitation nausea diaphoresis. Patient denies any coughing congestion fever chills. Patient has history of CAD status post stent placement. Patient has history of hypertension , diabetes, hyperlipidemia, diabetic neuropathy. Patient is a non-smoker. EMS was called this afternoon. Patient shows frequent PVCs on the monitor. Patient was given IV lidocaine on the way to the ED. patient states that she has history of OK in the past. PFSH Past Medical History Arthritis: Yes Asthma: Yes Heart Rhythm Problems: Yes (TACHYCARDIA) Cardiac Catheterization: Yes (x 2 ) Cardiovascular Problems: Yes High Cholesterol: Yes Chest Pain: Yes Congestive Heart Failure: No Diabetes: Yes Diminished Hearing: No Endocrine: Yes Genitourinary: Yes Hypertension: Yes Kidney Stones: Yes Musculoskeletal: Yes (RIGHT KNEE FX, RIGHT 5TH FINGER FX) Neurologic: Yes (Diabetic neuropathy) Respiratory: Yes (ASTHMA) Menopausal: Yes : 2 Para: 2 Miscarriage: 0 : 0 Past Surgical History Cardiac Surgery: Yes (cardiac stent) Coronary Artery Bypass Graft: No Tonsillectomy: Yes Other Surgery: Yes Social History Alcohol Use: No Tobacco Use: No Substance Use: No Allergies-Medications (Allergen,Severity, Reaction): Coded Allergies: shellfish derived (Verified Allergy, Severe, rash, 01/30/18) pork derived (porcine) (Verified Adverse Reaction, Unknown, nauseas/ diarrheas, 01/30/18) Reported Meds & Prescriptions Reported Meds & Active Scripts Active Hydralazine HCl 25 Mg Tablet 25 Mg PO Q8HR Levemir Inj (Insulin Detemir) 1,000 unit/ 10 ML Vial 5 Units SQ HS 30 Days Do not mix with any other Insulin. Nifedipine ER (Nifedipine) 90 Mg Tab 90 Mg PO DAILY 30 Days Plavix (Clopidogrel Bisulfate) 75 Mg Tab 75 Mg PO DAILY 30 Days Duoneb (Ipratropium-Albuterol Neb) 0.5-2.5 Mg/3 Ml Neb 1 Nebule INH Q6HR NEB Advair Diskus Inh (Fluticasone-Salmeterol Inh) 250-50 Mcg/Blist Aer 1 Puff INH BID Rinse mouth after use. Reported Fluoxetine (Fluoxetine HCl) 10 Mg Tab 10 Mg PO DAILY Glipizide 5 Mg Tab 5 Mg PO DAILY Take 30 minutes before a meal Lasix (Furosemide) 20 Mg Tab 20 Mg PO DAILY Gabapentin 300 Mg Cap 300 Mg PO TID Labetalol (Labetalol HCl) 200 Mg Tab 200 Mg PO BID Janumet (Sitagliptin-Metformin) 50-1,000 Mg Tab 1 Tab PO BID Montelukast (Montelukast Sodium) 10 Mg Tab 10 Mg PO HS Atorvastatin (Atorvastatin Calcium) 20 Mg Tab 20 Mg PO HS Isosorbide Mononitrate ER (Isosorbide Mononitrate) 60 Mg Tab 60 Mg PO DAILY Review of Systems General / Constitutional: No: Fever Eyes: No: Visual changes HENT: No: Headaches Cardiovascular: Positive: Chest Pain or Discomfort Respiratory: No: Shortness of Breath Gastrointestinal: No: Abdominal Pain Genitourinary: No: Dysuria Musculoskeletal: No: Pain Skin: No Rash Neurologic: No: Weakness Psychiatric: No: Depression Endocrine: No: Polydipsia Hematologic/Lymphatic: No: Easy Bruising Physical Exam Narrative GENERAL: Well-nourished, well-developed patient. SKIN: Focused skin assessment warm/dry. HEAD: Normocephalic. EYES: No scleral icterus. No injection or drainage. NECK: Supple, trachea midline. No JVD or lymphadenopathy. CARDIOVASCULAR: Regular rate and rhythm without murmurs, gallops, or rubs. RESPIRATORY: Breath sounds equal bilaterally. No accessory muscle use. GASTROINTESTINAL: Abdomen soft, non-tender, nondistended. MUSCULOSKELETAL: No cyanosis, or edema. BACK: Nontender without obvious deformity. No CVA tenderness. Neurologic exam normal. Data Data Orders Orders Electrocardiogram (01/30/18 17:20) Complete Blood Count With Diff (01/30/18 17:20) Comprehensive Metabolic Panel (01/30/18 17:20) Creatine Kinase (Cpk) (01/30/18 17:20) Troponin I (01/30/18 17:20) B-Type Natriuretic Peptide (01/30/18 17:20) Prothrombin Time / Inr (Pt) (01/30/18 17:20) Act Partial Throm Time (Ptt) (01/30/18 17:20) Lipase (01/30/18 17:20) Urinalysis - C+S If Indicated (01/30/18 17:20) Thyroid Stimulating Hormone (01/30/18 17:20) Chest, Single Ap (01/30/18 17:20) Iv Access Insert/Monitor (01/30/18 17:20) Ecg Monitoring (01/30/18 17:20) Oximetry (01/30/18 17:20) (Hub Use Only)Inp Phy Cons/Ref (01/30/18 ) Aspirin Chew (Aspirin Chew) (01/30/18 20:00) Nitroglycerin 2% Oint (Nitroglycerin 2% (01/30/18 20:00) Admit Order (Ed Use Only) (01/30/18 ) Artist Agent / Telemetry [email or web address] (01/30/18 19:59) Activity Bed Rest (01/30/18 19:59) Notify Dr: Other (01/30/18 19:59) Labs Laboratory Tests Test 01/30/18 17:45 White Blood Count 6.1 TH/MM3 Red Blood Count 2.97 MIL/MM3 Hemoglobin 8.9 GM/DL Hematocrit 26.5 % Mean Corpuscular Volume 89.4 FL Mean Corpuscular Hemoglobin 30.0 PG Mean Corpuscular Hemoglobin Concent 33.6 % Red Cell Distribution Width 13.1 % Platelet Count 255 TH/MM3 Mean Platelet Volume 10.1 FL Neutrophils (%) (Auto) 59.8 % Lymphocytes (%) (Auto) 25.5 % Monocytes (%) (Auto) 11.0 % Eosinophils (%) (Auto) 2.8 % Basophils (%) (Auto) 0.9 % Neutrophils # (Auto) 3.6 TH/MM3 Lymphocytes # (Auto) 1.6 TH/MM3 Monocytes # (Auto) 0.7 TH/MM3 Eosinophils # (Auto) 0.2 TH/MM3 Basophils # (Auto) 0.1 TH/MM3 CBC Comment DIFF FINAL Differential Comment Prothrombin Time 9.7 SEC Prothromb Time International Ratio 1.0 RATIO Activated Partial Thromboplast Time 22.9 SEC Blood Urea Nitrogen 34 MG/DL Creatinine 2.54 MG/DL Random Glucose 363 MG/DL Total Protein 6.9 GM/DL Albumin 3.7 GM/DL Calcium Level 8.7 MG/DL Alkaline Phosphatase 73 U/L Aspartate Amino Transf (AST/SGOT) 16 U/L Alanine Aminotransferase (ALT/SGPT) 20 U/L Total Bilirubin 0.4 MG/DL Sodium Level 134 MEQ/L Potassium Level 4.0 MEQ/L Chloride Level 102 MEQ/L Carbon Dioxide Level 20.2 MEQ/L Anion Gap 12 MEQ/L Estimat Glomerular Filtration Rate 18 ML/MIN Total Creatine Kinase 107 U/L Troponin I LESS THAN 0.02 NG/ML B-Type Natriuretic Peptide 156 PG/ML Lipase 186 U/L Thyroid Stimulating Hormone 3rd Gen 0.597 uIU/ML MDM Medical Decision Making Medical Screen Exam Complete: Yes Emergency Medical Condition: Yes Interpretation(s) EKG shows sinus rhythm nonspecific ST-T wave change. Frequent PVCs. Differential Diagnosis Differential diagnosis including angina, OK, PE, pneumothorax. Narrative Course 77-year-old female with chest pain. Scripts Azithromycin (Azithromycin) 500 Mg Tab 500 MG PO DAILY for Infection, #3 TAB 0 Refills Prov: Nicole Ventura PA-C 02/01/18 Cefuroxime (Cefuroxime) 500 Mg Tab 500 MG PO BID for pneumonia for 5 Days, #10 TAB 0 Refills Prov: Nicole Ventura PA-C 02/01/18 Pantoprazole (Pantoprazole) 40 Mg Tab 40 MG PO DAILY for Manage Heartburn, #30 TAB Prov: Nicole Ventura PA-C 02/01/18 Sam Pettit MD Jan 30, 2018 17:28
[2018-01-30 18:00] VITALS: BP 161/74; PULSE 62; RESP 22; O2SAT 97
[2018-01-30] MEDS ORDERED: FLUO10TA PO (18:05)
--- NOTE | 2018-01-30 18:09 | RADRPT ---
EXAM DATE/TIME: 01/30/2018 17:52 [facility] COMPARISON: CHEST SINGLE AP, December 22, 2017, 11:13. INDICATIONS : Chest pain. MEDICAL HISTORY : Hypercholesterolemia. Hypertension Syncope, Asthma, Renal calculi, Arthritis, Diabetes, Tachycar [place]. SURGICAL HISTORY : Cardiac stent, Cardiac cath. ENCOUNTER: Initial ACUITY: 1 day PAIN SCORE: Non-responsive. LOCATION: Bilateral chest FINDINGS: There is hazy perihilar infiltrate on the right. Left lung is grossly clear. Cardiac contours are unc hanged. No significant effusion suspected. CONCLUSION: Hazy right lung infiltrate Mikey Lau MD on January 30, 2018 at 18:06 Board Certified Radiologist. This report was verified electronically.
[2018-01-30 18:55] LABS: ALBUMIN 3.7 GM/DL (3.4-5.0); AST (GOT) 16 U/L (15-37); AUTOMATED NEUTROPHIL # 3.6 TH/MM3 (1.8-7.7); BASOPHIL # 0.1 TH/MM3 (0-0.2); BASOPHIL % 0.9 % (0.0-2.0); BICARBONATE 20.2 MEQ/L (21.0-32.0); BLOOD UREA NITROGEN 34 MG/DL (7-18); CALCIUM 8.7 MG/DL (8.5-10.1); CHLORIDE 102 MEQ/L (98-107); CREATININE 2.54 MG/DL (0.50-1.00); EOSINOPHIL # 0.2 TH/MM3 (0-0.4); EOSINOPHIL % 2.8 % (0.0-4.0); GLOMERULAR FILTRATION RATE 18 ML/MIN (>89); GLUCOSE,RANDOM 363 MG/DL (74-106); HEMATOCRIT 26.5 % (35.0-46.0); HEMOGLOBIN 8.9 GM/DL (11.6-15.3); LYMPH % 25.5 % (9.0-44.0); LYMPHOCYTE # 1.6 TH/MM3 (1.0-4.8); MEAN CELL VOLUME 89.4 FL (80.0-100.0); MEAN CORPUSCULAR HGB CONC 33.6 % (32.0-36.0); MEAN PLATELET VOLUME 10.1 FL (7.0-11.0); MONOCYTE # 0.7 TH/MM3 (0-0.9); NEUT % 59.8 % (16.0-70.0); PLATELET COUNT 255 TH/MM3 (150-450); RED BLOOD COUNT 2.97 MIL/MM3 (4.00-5.30); RED CELL DISTRIBUTION WIDTH 13.1 % (11.6-17.2); SODIUM (NA) 134 MEQ/L (136-145); WHITE BLOOD COUNT 6.1 TH/MM3 (4.0-11.0)
[2018-01-30 19:06] LABS: PROTHROMBIN TIME - PATIENT 9.7 SEC (9.8-11.6)
[2018-01-30 19:07] LABS: ALKALINE PHOSPHATASE 73 U/L (45-117); ALT (GPT) 20 U/L (10-53); TOTAL BILIRUBIN ADULT 0.4 MG/DL (0.2-1.0); TOTAL PROTEIN 6.9 GM/DL (6.4-8.2); TROPONIN I LESS THAN 0.02 NG/ML (0.02-0.05)
--- NOTE | 2018-01-30 19:13 | PD ---
Physical Exam Date Seen by Provider: Jan 30, 2018 Time Seen by Provider: 19:12 Narrative Accepted in transfer of care from Dr. Pettit GENERAL: Well-developed well-nourished female no acute distress no respiratory distress SKIN: Warm and dry. NECK: Supple, trachea midline. No JVD or lymphadenopathy. CARDIOVASCULAR: Regular rate and rhythm without murmurs, gallops, or rubs. RESPIRATORY: Breath sounds equal bilaterally. No accessory muscle use. MUSCULOSKELETAL: No cyanosis, or edema. Data Data Last Documented VS Vital Signs Date Time Temp Pulse Resp B/P (MAP) Pulse Ox O2 Delivery O2 Flow Rate FiO2 01/30/18 20:01 74 20 146/91 (109) 97 Room Air 01/30/18 17:20 98.9 Orders Orders Electrocardiogram (01/30/18 17:20) Complete Blood Count With Diff (01/30/18 17:20) Comprehensive Metabolic Panel (01/30/18 17:20) Creatine Kinase (Cpk) (01/30/18 17:20) Troponin I (01/30/18 17:20) B-Type Natriuretic Peptide (01/30/18 17:20) Prothrombin Time / Inr (Pt) (01/30/18 17:20) Act Partial Throm Time (Ptt) (01/30/18 17:20) Lipase (01/30/18 17:20) Urinalysis - C+S If Indicated (01/30/18 17:20) Thyroid Stimulating Hormone (01/30/18 17:20) Chest, Single Ap (01/30/18 17:20) Iv Access Insert/Monitor (01/30/18 17:20) Ecg Monitoring (01/30/18 17:20) Oximetry (01/30/18 17:20) (Hub Use Only)Inp Phy Cons/Ref (01/30/18 ) Aspirin Chew (Aspirin Chew) (01/30/18 20:00) Nitroglycerin 2% Oint (Nitroglycerin 2% (01/30/18 20:00) Admit Order (Ed Use Only) (01/30/18 ) Energy Systems Engineer / Telemetry [email or web address] (01/30/18 19:59) Activity Bed Rest (01/30/18 19:59) Notify Dr: Other (01/30/18 19:59) Labs Laboratory Tests Test 01/30/18 17:45 White Blood Count 6.1 TH/MM3 Red Blood Count 2.97 MIL/MM3 Hemoglobin 8.9 GM/DL Hematocrit 26.5 % Mean Corpuscular Volume 89.4 FL Mean Corpuscular Hemoglobin 30.0 PG Mean Corpuscular Hemoglobin Concent 33.6 % Red Cell Distribution Width 13.1 % Platelet Count 255 TH/MM3 Mean Platelet Volume 10.1 FL Neutrophils (%) (Auto) 59.8 % Lymphocytes (%) (Auto) 25.5 % Monocytes (%) (Auto) 11.0 % Eosinophils (%) (Auto) 2.8 % Basophils (%) (Auto) 0.9 % Neutrophils # (Auto) 3.6 TH/MM3 Lymphocytes # (Auto) 1.6 TH/MM3 Monocytes # (Auto) 0.7 TH/MM3 Eosinophils # (Auto) 0.2 TH/MM3 Basophils # (Auto) 0.1 TH/MM3 CBC Comment DIFF FINAL Differential Comment Prothrombin Time 9.7 SEC Prothromb Time International Ratio 1.0 RATIO Activated Partial Thromboplast Time 22.9 SEC Blood Urea Nitrogen 34 MG/DL Creatinine 2.54 MG/DL Random Glucose 363 MG/DL Total Protein 6.9 GM/DL Albumin 3.7 GM/DL Calcium Level 8.7 MG/DL Alkaline Phosphatase 73 U/L Aspartate Amino Transf (AST/SGOT) 16 U/L Alanine Aminotransferase (ALT/SGPT) 20 U/L Total Bilirubin 0.4 MG/DL Sodium Level 134 MEQ/L Potassium Level 4.0 MEQ/L Chloride Level 102 MEQ/L Carbon Dioxide Level 20.2 MEQ/L Anion Gap 12 MEQ/L Estimat Glomerular Filtration Rate 18 ML/MIN Total Creatine Kinase 107 U/L Troponin I LESS THAN 0.02 NG/ML B-Type Natriuretic Peptide 156 PG/ML Lipase 186 U/L Thyroid Stimulating Hormone 3rd Gen 0.597 uIU/ML [facility] Medical Record Reviewed: Yes Supervised Visit with SUSAN: No Interpretation(s) Troponin I: Less than 0.02, not elevated; CK: 107, not elevated; BNP: 156 EKG as normal sinus rhythm rate 70 with unifocal PVCs no acute ST elevation Last Impressions Chest X-Ray 01/30/18 1720 Signed Impressions: Service Date/Time: Tuesday, January 30, 2018 17:52 - CONCLUSION: Hazy right lung infiltrate Mikey Lau MD CBC & BMP Diagram 01/30/18 17:45 Total Protein 6.9, Albumin 3.7, Calcium Level 8.7, Alkaline Phosphatase 73, Aspartate Amino Transf (AST/SGOT) 16, Alanine Aminotransferase (ALT/SGPT) 20, Total Bilirubin 0.4 Vital Signs Date Time Temp Pulse Resp B/P (MAP) Pulse Ox O2 Delivery O2 Flow Rate FiO2 01/30/18 19:30 66 22 147/71 (96) 98 Room Air 01/30/18 18:00 62 22 161/74 (103) 97 Room Air 01/30/18 17:30 Room Air 01/30/18 17:20 98.9 68 25 155/75 (101) 95 Differential Diagnosis Accepted in transfer of care from Dr. Pettit; please refer to his dictation Narrative Course Accepted in transfer of care from Dr. Pettit; follow up labs and disposition EKG is sinus rhythm with frequent unifocal PVCs; cardiac enzymes are not elevated except for minimal elevation of BNP of 156; chest x-ray shows haziness , right lung infiltrate; patient noted to have worsening renal function compared to prior 01/21/18. Critical Care Narrative Aggregate critical care time was 30 minutes. Time to perform other separately billable procedures was not included in the critical care time. My time did not include minutes spent treating any other patients simultaneously or on activities that did not directly contribute to the patient's treatment. The services I provided to this patient were to treat and/or prevent clinically significant deterioration that could result in: Arrhythmia, myocardial infarction, I provided critical care services requiring my management, as noted below: Chart data review, documentation time, medication orders and management, vital sign assessments/reviewing monitor data, ordering and reviewing lab tests, ordering and interpreting/reviewing x-rays and diagnostic studies, care of the patient and discussion of the patient with the admitting physicians. Physician Communication Physician Communication all placed to [facility] service Diagnosis Primary Impression: Chest pain Additional Impressions: Acute on chronic renal insufficiency Unifocal PVCs Right pulmonary infiltrate on CXR Mitral valve disease Admitting Information Admitting Physician Requests: Observation Pina Delacruz MD Jan 30, 2018 19:13
[2018-01-30 19:30] VITALS: BP 147/71; PULSE 66; RESP 22; O2SAT 98
[2018-01-30] MEDS ORDERED: NITROGLYCERIN 2% OINT 1 GM PACKET TOPICAL ONE (20:00)
[2018-01-30] MEDS ORDERED: ASPIRIN 81 MG CHEW TAB CHEW ONE (20:00)
[2018-01-30 20:01] VITALS: BP 146/91; PULSE 74; RESP 20; O2SAT 97
[2018-01-30 20:56] LABS: BILIRUBIN, URINE NEG (NEG); BLOOD, URINE NEG (NEG); GLUCOSE,URINE 300 mg/dL (NEG); KETONE, URINE NEG (NEG); NITRITE,URINE NEG (NEG); PH, URINE 5.5 (5.0-8.5); SQUAMOUS EPITHELIAL CELL URINE 1 /hpf (0-5); URINE COLOR YELLOW (YELLW/STRAW); URINE LEUKOCYTE ESTERASE NEG (NEG)
[2018-01-30] MEDS ORDERED: MORPHINE SULFATE 2 MG/ML SYRINGE IV PUSH PRN (22:00)
[2018-01-30] MEDS ORDERED: BISACODYL 10 MG SUPP RECTAL PRN (22:00)
[2018-01-30] MEDS ORDERED: SENNOSIDES 8.6 MG TAB PO PRN (22:00)
[2018-01-30] MEDS ORDERED: ONDANSETRON HCL 4 MG/2 ML VIAL IVP PRN (22:00)
[2018-01-30] MEDS ORDERED: LACTULOSE SYRUP 20 GM/30 ML CUP PO PRN (22:00)
[2018-01-30] MEDS ORDERED: ACETAMINOPHEN 325 MG TAB PO PRN (22:00)
[2018-01-30] MEDS ORDERED: MAGNESIUM HYDROXIDE SUSP 30 ML CUP PO PRN (22:00)
[2018-01-30] MEDS ORDERED: SODIUM CHLORIDE 0.9% FLUSH 10 ML FLUSH IV FLUSH PRN (22:00)
[2018-01-30] MEDS ORDERED: NALOXONE HCL 0.4 MG/ML AMP IV PUSH PRN (22:00)
--- NOTE | 2018-01-30 23:58 | RADRPT ---
EXAM DATE/TIME: 01/30/2018 22:53 [place] COMPARISON: CT ABDOMEN & PELVIS W/O CONTRAST, January 21, 2018, 14:51. INDICATIONS : Increased BUN and creatinine. MEDICAL HISTORY : Hypertension. Hypercholesterolemia. Syncope, Asthma, Renal calculi, Arthritis, Diabetes, Tachycardi a. SURGICAL HISTORY : Cardiac stent, Cardiac cath. ENCOUNTER: Initial ACUITY: 1 day PAIN SCORE: 0/10 LOCATION: Bilateral flank MEASUREMENTS: RIGHT KIDNEY: 9.0 x 4.9 x 4.3 cm LEFT KIDNEY: 10.0 x 5.3 x 4.9 cm FINDINGS: RIGHT KIDNEY: Diffusely increased renal parenchymal echogenicity with mild patchy cortical thinning/scarring. There is a 12 mm benign upper pole cyst. No hydronephrosis. LEFT KIDNEY: Diffusely increased parenchymal echogenicity with mild patchy cortical thinning/scarring. No hydronep hrosis. BLADDER: Within normal limits given the degree of distension. CONCLUSION: 1. Bilateral echogenic kidneys typical of chronic parenchymal disease such as from hypertension and/o r diabetes. 2. No obstructive uropathy or other acute abnormality demonstrated. 3. 12 mm benign appearing right upper pole cyst. Mikey Veliz MD on January 30, 2018 at 23:54 Board Certified Radiologist. This report was verified electronically.
[2018-01-31] VITALS (9 sets, daily range): BP systolic 115–169; BP diastolic 53–86; PULSE 60–100; RESP 16–24; TEMP 97.6–99.2; O2SAT 96–100
[2018-01-31] MEDS: SODIUM CHLOR 0.9% 1000 ML INJ 1,000 ML IV SCH ×2 (00:44→13:29)
[2018-01-31] MEDS: HEPARIN SODIUM - SQ 10,000 UNITS/ML VIAL SQ SCH ×3 (00:45→22:00)
[2018-01-31 01:10] LABS: TROPONIN I LESS THAN 0.02 NG/ML (0.02-0.05)
--- NOTE | 2018-01-31 01:15 | HHI.HP ---
HPI Service [facility] Primary Care Physician Unknown Admission Diagnosis chest pain; unifocal pvc's; renal insufficiency Diagnoses: Travel History International Travel<30 Days: No Contact w/Intl Traveler <30 Da: No Traveled to Known Affected Are: No History of Present Illness 77-year-old Israeli-speaking female with a past medical history significant for coronary artery disease, hypertension, diabetes mellitus, asthma, COPD, hyperlipidemia and chronic kidney disease presents the emergency department for evaluation of chest pain. The patient reports that all day today she has had a chest burning/tightness that is substernal. She reports accompanying dizziness and shortness of breath. Positive headaches. She denies any fever/chills. No abdominal pain. Her chest pain is nonradiating. No nausea/vomiting/diarrhea. No lateralizing signs/symptoms. Review of Systems Except as stated in HPI: all other systems reviewed are Neg Past Family Social History Past Medical History Hypertension Diabetes mellitus Coronary artery disease Asthma COPD Hyperlipidemia Chronic kidney disease Past Surgical History Bilateral tubal ligation Tonsillectomy Bilateral cataracts Right carpal tunnel release Bilateral shoulder surgery Reported Medications Reported Meds & Active Scripts Active Hydralazine HCl 25 Mg Tablet 25 Mg PO Q8HR Levemir Inj (Insulin Detemir) 1,000 unit/ 10 ML Vial 5 Units SQ HS 30 Days Do not mix with any other Insulin. Nifedipine ER (Nifedipine) 90 Mg Tab 90 Mg PO DAILY 30 Days Plavix (Clopidogrel Bisulfate) 75 Mg Tab 75 Mg PO DAILY 30 Days Duoneb (Ipratropium-Albuterol Neb) 0.5-2.5 Mg/3 Ml Neb 1 Nebule INH Q6HR NEB Advair Diskus Inh (Fluticasone-Salmeterol Inh) 250-50 Mcg/Blist Aer 1 Puff INH BID Rinse mouth after use. Reported Fluoxetine (Fluoxetine HCl) 10 Mg Tab 10 Mg PO DAILY Glipizide 5 Mg Tab 5 Mg PO DAILY Take 30 minutes before a meal Lasix (Furosemide) 20 Mg Tab 20 Mg PO DAILY Gabapentin 300 Mg Cap 300 Mg PO TID Labetalol (Labetalol HCl) 200 Mg Tab 200 Mg PO BID Janumet (Sitagliptin-Metformin) 50-1,000 Mg Tab 1 Tab PO BID Montelukast (Montelukast Sodium) 10 Mg Tab 10 Mg PO HS Atorvastatin (Atorvastatin Calcium) 20 Mg Tab 20 Mg PO HS Isosorbide Mononitrate ER (Isosorbide Mononitrate) 60 Mg Tab 60 Mg PO DAILY Allergies: Coded Allergies: shellfish derived (Verified Allergy, Severe, rash, 01/30/18) pork derived (porcine) (Verified Adverse Reaction, Unknown, nauseas/ diarrheas, 01/30/18) Family History Family history significant for hypertension and diabetes mellitus Social History Drinks 1 alcoholic beverage daily. Denies tobacco and illicit drugs. Physical Exam Vital Signs Vital Signs Date Time Temp Pulse Resp B/P (MAP) Pulse Ox O2 Delivery O2 Flow Rate FiO2 01/31/18 00:49 97 Room Air 01/31/18 00:47 76 24 148/65 (92) 100 Room Air 01/30/18 20:01 74 20 146/91 (109) 97 Room Air 01/30/18 19:30 66 22 147/71 (96) 98 Room Air 01/30/18 18:00 62 22 161/74 (103) 97 Room Air 01/30/18 17:30 Room Air 01/30/18 17:20 98.9 68 25 155/75 (101) 95 Physical Exam GENERAL: female lying in bed SKIN: No rashes, ecchymoses or lesions. Cool and dry. HEAD: Atraumatic. Normocephalic. No temporal or scalp tenderness. EYES: Pupils equal round and reactive. Extraocular motions intact. No scleral icterus. No injection or drainage. ENT: Nose without bleeding, purulent drainage or septal hematoma. Throat without erythema, tonsillar hypertrophy or exudate. Uvula midline. Airway patent. NECK: Trachea midline. No JVD or lymphadenopathy. Supple, nontender, no meningeal signs. CARDIOVASCULAR: Regular rate and rhythm without murmurs, gallops, or rubs. RESPIRATORY: Clear to auscultation. Breath sounds equal bilaterally. No wheezes , rales, or rhonchi. GASTROINTESTINAL: Abdomen soft, non-tender, nondistended. No hepato-splenomegaly , or palpable masses. No guarding. MUSCULOSKELETAL: Extremities without clubbing, cyanosis, or edema. No joint tenderness, effusion, or edema noted. No calf tenderness. NEUROLOGICAL: Awake and alert. Cranial nerves II through XII intact. Motor and sensory grossly within normal limits. Normal speech. Laboratory Laboratory Tests Test 01/30/18 17:45 01/30/18 20:35 01/31/18 00:10 White Blood Count 6.1 Red Blood Count 2.97 Hemoglobin 8.9 Hematocrit 26.5 Mean Corpuscular Volume 89.4 Mean Corpuscular Hemoglobin 30.0 Mean Corpuscular Hemoglobin Concent 33.6 Red Cell Distribution Width 13.1 Platelet Count 255 Mean Platelet Volume 10.1 Neutrophils (%) (Auto) 59.8 Lymphocytes (%) (Auto) 25.5 Monocytes (%) (Auto) 11.0 Eosinophils (%) (Auto) 2.8 Basophils (%) (Auto) 0.9 Neutrophils # (Auto) 3.6 Lymphocytes # (Auto) 1.6 Monocytes # (Auto) 0.7 Eosinophils # (Auto) 0.2 Basophils # (Auto) 0.1 CBC Comment DIFF FINAL Differential Comment Prothrombin Time 9.7 Prothromb Time International Ratio 1.0 Activated Partial Thromboplast Time 22.9 Blood Urea Nitrogen 34 Creatinine 2.54 Random Glucose 363 Total Protein 6.9 Albumin 3.7 Calcium Level 8.7 Alkaline Phosphatase 73 Aspartate Amino Transf (AST/SGOT) 16 Alanine Aminotransferase (ALT/SGPT) 20 Total Bilirubin 0.4 Sodium Level 134 Potassium Level 4.0 Chloride Level 102 Carbon Dioxide Level 20.2 Anion Gap 12 Estimat Glomerular Filtration Rate 18 Total Creatine Kinase 107 Troponin I LESS THAN 0.02 B-Type Natriuretic Peptide 156 Lipase 186 Thyroid Stimulating Hormone 3rd Gen 0.597 Urine Color YELLOW Urine Turbidity CLEAR Urine pH 5.5 Urine Specific [place] 1.008 Urine Protein 30 Urine Glucose (UA) 300 Urine Ketones NEG Urine Occult Blood NEG Urine Nitrite NEG Urine Bilirubin NEG Urine Urobilinogen LESS THAN 2.0 Urine Leukocyte Esterase NEG Urine RBC 1 Urine WBC 1 Urine Squamous Epithelial Cells 1 Microscopic Urinalysis Comment CULT NOT INDICATED Result Diagram: 01/30/18174401/30/181744 Caprini VTE Risk Assessment Caprini VTE Risk Assessment: Mod/High Risk (score >= 2) Caprini Risk Assessment Model Point Value = 1 Point Value = 2 Point Value = 3 Point Value = 5 Age 41-60 Minor surgery BMI > 25 kg/m2 Swollen legs Varicose veins or History of unexplained or recurrent spontaneous Oral contraceptives or hormone replacement Sepsis (< 1 month) Serious lung disease, including pneumonia (< 1 month) Abnormal pulmonary function Acute myocardial infarction Congestive heart failure (< 1 month) History of inflammatory bowel disease Medical patient at bed rest Age 61-74 Arthroscopic surgery Major open surgery (> 45 min) Laparoscopic surgery (> 45 min) Malignancy Confined to bed (> 72 hours) Immobilizing plaster cast Central venous access Age >= 75 History of VTE Family history of VTE Factor V Leiden Prothrombin [id number] Lupus anticoagulant Anticardiolipin antibodies Elevated serum homocysteine Heparin-induced thrombocytopenia Other congenital or acquired thrombophilia Stroke (< 1 month) Elective arthroplasty Hip, pelvis, or leg fracture Acute spinal cord injury (< 1 month) Prophylaxis Regimen Total Risk Factor Score Risk Level Prophylaxis Regimen 0-1 Low Early ambulation 2 Moderate Order ONE of the following: *Sequential Compression Device (SCD) *Heparin 5000 units SQ BID 3-4 Higher Order ONE of the following medications: *Heparin 5000 units SQ TID *Enoxaparin/Lovenox 40 mg SQ daily (WT < 150 kg, CrCl > 30 mL/min) *Enoxaparin/Lovenox 30 mg SQ daily (WT < 150 kg, CrCl > 10-29 mL/min) *Enoxaparin/Lovenox 30 mg SQ BID (WT < 150 kg, CrCl > 30 mL/min) AND/OR *Sequential Compression Device (SCD) 5 or more Highest Order ONE of the following medications: *Heparin 5000 units SQ TID (Preferred with Epidurals) *Enoxaparin/Lovenox 40 mg SQ daily (WT < 150 kg, CrCl > 30 mL/min) *Enoxaparin/Lovenox 30 mg SQ daily (WT < 150 kg, CrCl > 10-29 mL/min) *Enoxaparin/Lovenox 30 mg SQ BID (WT < 150 kg, CrCl > 30 mL/min) AND *Sequential Compression Device (SCD) Assessment and Plan Assessment and Plan Assessment/plan: 1. Chest pain EKG significant for sinus rhythm with PVCs, personally reviewed Patient received lidocaine by EMS for PVCs with coupling Initial troponin negative ACS rule out pending; serial troponins/EKGs Status post aspirin in the ED Morphine for pain 2. Pneumonia Chest x-ray significant for right infiltrate Azithromycin/Rocephin 3. Diabetes mellitus Sliding-scale insulin Monitor blood glucose 4. Hypertension/hyperlipidemia/coronary artery disease Continue home Plavix Continue home medications 5. Acute on chronic renal insufficiency Creatinine 2.54, baseline 1.5 Gentle IV fluid hydration Renal ultrasound pending Monitor renal function 6. COPD/asthma Duo nebs as needed FEN NPO Electrolytes: Monitor and replete as needed NS at 70 cc/hour Heparin Rakel Paul MD Jan 31, 2018 01:15
[2018-01-31] MEDS: AZITHROMYCIN INJ 500 MG in SODIUM CHLOR 0.9% 250 ML INJ 250 ML IV SCH (02:00)
[2018-01-31] MEDS: cefTRIAXone INJ 1,000 MG in SODIUM CHLORIDE 0.9% INJ 100 ML IV SCH (03:02)
[2018-01-31] MEDS: RESP: ALBUTEROL 2.5 MG/IPRATROPIUM 0.5 MG NEB (SCH) INH ×4 (03:08→20:27)
[2018-01-31] MEDS: hydrALAZINE HCL 25 MG TAB PO SCH ×3 (06:27→20:26)
[2018-01-31 06:32] LABS: BICARBONATE 21.1 MEQ/L (21.0-32.0); BLOOD UREA NITROGEN 27 MG/DL (7-18); CALCIUM 7.9 MG/DL (8.5-10.1); CHLORIDE 112 MEQ/L (98-107); CREATININE 1.71 MG/DL (0.50-1.00); GLOMERULAR FILTRATION RATE 29 ML/MIN (>89); GLUCOSE,RANDOM 195 MG/DL (74-106); SODIUM (NA) 142 MEQ/L (136-145); TROPONIN I LESS THAN 0.02 NG/ML (0.02-0.05)
[2018-01-31 07:07] LABS: AUTOMATED NEUTROPHIL # 2.2 TH/MM3 (1.8-7.7); BASOPHIL % 0.6 % (0.0-2.0); EOSINOPHIL # 0.2 TH/MM3 (0-0.4); EOSINOPHIL % 5.3 % (0.0-4.0); HEMATOCRIT 24.9 % (35.0-46.0); HEMOGLOBIN 8.4 GM/DL (11.6-15.3); LYMPH % 31.9 % (9.0-44.0); LYMPHOCYTE # 1.5 TH/MM3 (1.0-4.8); MEAN CELL VOLUME 87.3 FL (80.0-100.0); MEAN CORPUSCULAR HEMOGLOBIN 29.5 PG (27.0-34.0); MEAN CORPUSCULAR HGB CONC 33.7 % (32.0-36.0); MEAN PLATELET VOLUME 9.7 FL (7.0-11.0); MONO % 13.6 % (0.0-8.0); MONOCYTE # 0.6 TH/MM3 (0-0.9); NEUT % 48.6 % (16.0-70.0); PLATELET COUNT 235 TH/MM3 (150-450); RED BLOOD COUNT 2.85 MIL/MM3 (4.00-5.30); RED CELL DISTRIBUTION WIDTH 13.4 % (11.6-17.2); WHITE BLOOD COUNT 4.6 TH/MM3 (4.0-11.0)
[2018-01-31] MEDS: BUDESONIDE-FORMOTEROL 160/4.5 MCG INHALER INH SCH ×2 (09:00→21:33)
[2018-01-31] MEDS: SODIUM CHLORIDE 0.9% FLUSH 10 ML FLUSH IV FLUSH SCH ×2 (09:00→20:27)
[2018-01-31] MEDS: DOCUSATE SODIUM 50 MG/SENNA 8.6 MG TAB PO SCH ×2 (10:38→21:00)
[2018-01-31] MEDS: GABAPENTIN 300 MG CAP PO SCH (10:38)
[2018-01-31] MEDS: NIFEdipine 90 MG SUSTAINED RELEASE TAB PO SCH (10:38)
[2018-01-31] MEDS: CLOPIDOGREL 75 MG TAB PO SCH (10:39)
[2018-01-31] MEDS: ISOSORBIDE MONONITRATE 60 MG CR TAB (IMDUR) PO SCH (10:39)
[2018-01-31] MEDS: FLUoxetine HCL 10 MG CAP PO SCH (10:39)
[2018-01-31] MEDS: LABETALOL HCL 200 MG TAB PO SCH ×2 (10:39→20:25)
--- NOTE | 2018-01-31 12:22 | HHI.PR ---
Subjective Remarks Follow up for chest pain. The patient reports continued chest/substernal/ epigastric discomfort currently. She states she is hungry and wants to eat. Denies nausea/vomiting. She wishes to see her mold chipper Dr. Rogers. Objective Vitals Vital Signs Date Time Temp Pulse Resp B/P (MAP) Pulse Ox O2 Delivery O2 Flow Rate FiO2 01/31/18 08:23 99.2 77 20 115/53 (73) 97 01/31/18 03:57 98.6 68 18 127/86 (100) 96 Room Air 01/31/18 00:49 97 Room Air 01/31/18 00:47 76 24 148/65 (92) 100 Room Air 01/30/18 20:01 74 20 146/91 (109) 97 Room Air 01/30/18 19:30 66 22 147/71 (96) 98 Room Air 01/30/18 18:00 62 22 161/74 (103) 97 Room Air 01/30/18 17:30 Room Air 01/30/18 17:20 98.9 68 25 155/75 (101) 95 I/O 01/30/18 01/30/18 01/30/18 01/31/18 01/31/18 01/31/18 07:00 15:00 23:00 07:00 15:00 23:00 Intake Total 1350 ml Balance 1350 ml Intake IV Total 1350 ml # Voids 1 Result Diagram: 01/31/18 0619 01/31/18 0540 Imaging Last Impressions Chest X-Ray 01/30/18 1720 Signed Impressions: Service Date/Time: Tuesday, January 30, 2018 17:52 - CONCLUSION: Hazy right lung infiltrate Mikey Lau MD Renal Ultrasound 01/30/18 0000 Signed Impressions: Service Date/Time: Tuesday, January 30, 2018 22:53 - CONCLUSION: 1. Bilateral echogenic kidneys typical of chronic parenchymal disease such as from hypertension and/or diabetes. 2. No obstructive uropathy or other acute abnormality demonstrated. 3. 12 mm benign appearing right upper pole cyst. Mikey Veliz MD Objective Remarks GENERAL: Well-nourished, well-developed pleasant elderly Lebanese-speaking female patient in [facility]. SKIN: Warm and dry. No rash. HEENT: Normocephalic. Atraumatic. Pupils equal and round. No scleral icterus. No injection or drainage. Mucous membranes pink and moist. NECK: Supple. Trachea midline. CARDIOVASCULAR: Regular rate and rhythm. S1, S2 noted. 1/6 systolic murmur noted. RESPIRATORY: No accessory muscle use. Clear to auscultation. Breath sounds equal bilaterally. GASTROINTESTINAL: Abdomen soft, non-tender, nondistended. Normoactive bowel sounds x4. MUSCULOSKELETAL: No obvious deformities. Extremities without clubbing, cyanosis , or edema. NEUROLOGICAL: Awake and alert. No obvious cranial nerve deficits. Motor grossly within normal limits. Normal speech. PSYCHIATRIC: Appropriate mood and affect; insight and judgment normal. Medications and IVs Current Medications Medications (Trade) Dose Ordered Sig/Camille Route Start Time Stop Time Status Last Admin Sodium Chloride 1,000 ml @ 70 mls/hr [id number] IV 01/30/18 21:59 01/31/18 00:44 (NS Flush) 2 ml UNSCH PRN IV FLUSH 01/30/18 22:00 (NS Flush) 2 ml BID IV FLUSH 01/31/18 09:00 (Tylenol) 650 mg Q4H PRN PO 01/30/18 22:00 (Zofran Inj) 4 mg Q6H PRN IVP 01/30/18 22:00 (Heparin Inj) 5,000 units Q12H SQ 01/30/18 22:00 01/31/18 10:43 (Narcan Inj) 0.4 mg UNSCH PRN IV PUSH 01/30/18 22:00 (Laine-Colace) 1 tab BID PO 01/31/18 09:00 01/31/18 10:38 (Milk Of Magnesia Liq) 30 ml Q12H PRN PO 01/30/18 22:00 (Senokot) 17.2 mg Q12H PRN PO 01/30/18 22:00 (Dulcolax Supp) 10 mg DAILY PRN RECTAL 01/30/18 22:00 (Lactulose Liq) 30 ml DAILY PRN PO 01/30/18 22:00 (Morphine Inj) 2 mg Q3H PRN IV PUSH 01/30/18 22:00 (Lipitor) 20 mg HS PO 01/31/18 21:00 (Plavix) 75 mg DAILY PO 01/31/18 09:00 01/31/18 10:39 (PROzac) 10 mg DAILY PO 01/31/18 09:00 01/31/18 10:39 (Neurontin) 300 mg Q24H PO 01/31/18 09:00 01/31/18 10:38 (Apresoline) 25 mg Q8HR PO 01/31/18 06:00 01/31/18 06:27 (Duoneb Neb) 1 ampule Q6HR NEB INH 01/31/18 04:00 01/31/18 07:54 (Imdur) 60 mg DAILY PO 01/31/18 09:00 01/31/18 10:39 (Trandate) 200 mg BID PO 01/31/18 09:00 01/31/18 10:39 (Procardia Xl) 90 mg DAILY PO 01/31/18 09:00 01/31/18 10:38 (Symbicort 160-4.5 Mcg Inh) 2 puff BID INH 01/31/18 09:00 Azithromycin 500 mg/Sodium Chloride 250 ml @ 250 mls/hr Q24H IV 01/31/18 02:00 01/31/18 02:00 Ceftriaxone Sodium 1000 mg/ Sodium Chloride 100 ml @ 200 mls/hr Q24H IV 01/31/18 03:00 01/31/18 03:02 A/P Assessment and Plan 77-year-old Lebanese-speaking female with a past medical history significant for coronary artery disease, hypertension, diabetes mellitus, asthma, COPD, hyperlipidemia and chronic kidney disease presents the emergency department for evaluation of chest pain. Chest pain: atypical. Patient received lidocaine by EMS for PVCs with coupling. -ACS ruled out with negative serial cardiac enzymes x3 and EKG shows sinus rhythm with PVCs, no acute ischemic changes -Monitor on telemetry -S/p aspirin, IV morphine prn pain -Continue patient's plavix, statin, imdur -Consult cardiology, patient known to Dr. Rogers Community Acquired Pneumonia: acute -CXR reviewed, significant for right infiltrate -Continue antibiotics with Azithromycin/Rocephin -incentive spirometry -duonebs prn Diabetes mellitus, type 2, with hyperglycemia: acute on chronic. Glucose 363 upon arrival. -continue patient's Levemir 5u sq hs -hold patient's oral hypoglycemics -Monitor Accu-checks and cover with Sliding-scale insulin Hypertension/hyperlipidemia/coronary artery disease: chronic -Continue patient's home meds including plavix, hydralazine, labetalol, nifedipine, imdur, statin -hold patient's lasix for now -monitor BP and adjust antihypertensives as needed INGRIS on CKD stage III: Cr 2.54 upon arrival, baseline around 1.5 -Renal U/S reviewed, shows bilateral echogenic kidneys typical of chronic parenchymal disease; no obstructive uropathy -Hold patient's lasix -Avoid nephrotoxins -Given gentle IVF hydration -Repeat BMP shows improved with Cr 1.7, continue to monitor COPD/asthma: chronic, does not appear to be in exacerbation -Duo nebs as needed DVT Prophylaxis: heparin sq Discharge Planning Await cardiology evaluation, further disposition to follow. Nicole Ventura PA-C Jan 31, 2018 12:22
[2018-01-31] MEDS ORDERED: RESP: ALBUTEROL 2.5 MG/IPRATROPIUM 0.5 MG NEB (PRN) NEB (13:00)
--- NOTE | 2018-01-31 14:12 | EKG ---
Date Performed: 01/31/2018 Time Performed: 00:39:59 PTAGE: 77 years EKG: Sinus rhythm WITH FREQUENT VENTRICULAR PREMATURE COMPLEXES MODERATE INTRAVENTRICULAR CONDUCTION DELAY ABNORMAL [facility] ECG Since the PREVIOUS TRACING , no significant change noted PREVIOUS TRACIN01/30/2018 17.29 DOCTOR: Abelardo Branham Interpretating Date/Time 01/31/2018 14:11:48
--- NOTE | 2018-01-31 14:12 | EKG ---
Date Performed: 01/30/2018 Time Performed: 17:29:35 PTAGE: 77 years EKG: Sinus rhythm WITH FREQUENT VENTRICULAR PREMATURE COMPLEXES MODERATE INTRAVENTRICULAR CONDUCTION DELAY ABNORMAL [facility] ECG Compared to PREVIOUS TRACING PVCs are now seen PREVIOUS TRACIN12/22/17 DOCTOR: Abelardo Branham Interpretating Date/Time 01/31/2018 14:11:39
--- NOTE | 2018-01-31 14:13 | EKG ---
Date Performed: 01/31/2018 Time Performed: 05:33:55 PTAGE: 77 years EKG: Sinus rhythm WITH FREQUENT VENTRICULAR PREMATURE COMPLEXES MODERATE INTRAVENTRICULAR CONDUCTION DELAY ABNORMAL [facility] ECG Since the PREVIOUS TRACING , no significant change noted PREVIOUS TRACIN01/31/2018 00.39 DOCTOR: Abelardo Branham Interpretating Date/Time 01/31/2018 14:11:56
[2018-01-31] MEDS ORDERED: GLUCAGON 1 MG/ML VIAL OTHER PRN (14:45)
[2018-01-31] MEDS ORDERED: DEXTROSE 50% IN WATER 50 ML VIAL(D50) IV PUSH PRN (14:45)
[2018-01-31] MEDS: INSULIN ASPART SUPPLEMENTAL SCALE SQ SCH ×3 (17:00→21:00)
[2018-01-31] MEDS ORDERED: INSULIN DETEMIR 100 UNITS/ML VIAL SQ SCH (21:00)
[2018-01-31] MEDS ORDERED: MONTELUKAST SODIUM 10 MG TAB PO SCH (21:00)
[2018-01-31] MEDS ORDERED: ATORVASTATIN 20 MG TAB PO SCH (21:00)
[2018-02-01 00:01] VITALS: BP 163/69; PULSE 74; RESP 16; TEMP 97.9; O2SAT 97
[2018-02-01] MEDS: AZITHROMYCIN INJ 500 MG in SODIUM CHLOR 0.9% 250 ML INJ 250 ML IV SCH (01:29)
[2018-02-01] MEDS: cefTRIAXone INJ 1,000 MG in SODIUM CHLORIDE 0.9% INJ 100 ML IV SCH (02:56)
[2018-02-01 03:08] VITALS: BP 176/72; PULSE 83; RESP 16; TEMP 98.4; O2SAT 98
[2018-02-01] MEDS: RESP: ALBUTEROL 2.5 MG/IPRATROPIUM 0.5 MG NEB (SCH) INH ×3 (03:11→16:23)
[2018-02-01] MEDS: hydrALAZINE HCL 25 MG TAB PO SCH ×2 (05:17→13:39)
[2018-02-01] MEDS: SODIUM CHLOR 0.9% 1000 ML INJ 1,000 ML IV SCH (05:20)
[2018-02-01 07:41] VITALS: BP 188/86; PULSE 70; RESP 16; TEMP 98.2; O2SAT 98
--- NOTE | 2018-02-01 08:24 | HHI.PR ---
Subjective Remarks Follow up for chest pain and pneumonia. The patient reports continued constant burning substernal/epigastric pains overnight. Denies shortness of breath, nausea/vomiting, or diaphoresis. She is tolerating oral intake. She reports dry nonproductive cough. Denies fevers/chills. She has no other medical complaints at this time. Objective Vitals Vital Signs Date Time Temp Pulse Resp B/P (MAP) Pulse Ox O2 Delivery O2 Flow Rate FiO2 02/01/18 07:41 98.2 70 16 188/86 (120) 98 02/01/18 03:08 98.4 83 16 176/72 (106) 98 02/01/18 00:01 97.9 74 16 163/69 (100) 97 01/31/18 20:23 98.3 100 18 169/75 (106) 98 01/31/18 20:00 73 01/31/18 20:00 73 01/31/18 14:53 97.6 61 16 165/70 (101) 97 01/31/18 13:47 60 01/31/18 12:47 98.0 65 16 160/68 (98) 96 01/31/18 08:23 99.2 77 20 115/53 (73) 97 I/O 01/31/18 01/31/18 01/31/18 02/01/18 02/01/18 02/01/18 07:00 15:00 23:00 07:00 15:00 23:00 Intake Total 1350 ml Balance 1350 ml Intake IV Total 1350 ml # Voids 1 Result Diagram: 01/31/18 0619 01/31/18 0540 Imaging Last Impressions Chest X-Ray 01/30/18 1720 Signed Impressions: Service Date/Time: Tuesday, January 30, 2018 17:52 - CONCLUSION: Hazy right lung infiltrate Mikey Lau MD Renal Ultrasound 01/30/18 0000 Signed Impressions: Service Date/Time: Tuesday, January 30, 2018 22:53 - CONCLUSION: 1. Bilateral echogenic kidneys typical of chronic parenchymal disease such as from hypertension and/or diabetes. 2. No obstructive uropathy or other acute abnormality demonstrated. 3. 12 mm benign appearing right upper pole cyst. Mikey Veliz MD Objective Remarks GENERAL: Well-nourished, well-developed pleasant elderly Kittitian-speaking female patient in [facility]. SKIN: Warm and dry. No rash. HEENT: Normocephalic. Atraumatic. Pupils equal and round. No scleral icterus. No injection or drainage. Mucous membranes pink and moist. NECK: Supple. Trachea midline. CARDIOVASCULAR: Regular rate and rhythm. S1, S2 noted. 1/6 systolic murmur noted. RESPIRATORY: No accessory muscle use. Clear to auscultation. Breath sounds equal bilaterally. GASTROINTESTINAL: Abdomen soft, non-tender, nondistended. Normoactive bowel sounds x4. MUSCULOSKELETAL: No obvious deformities. Extremities without clubbing, cyanosis , or edema. NEUROLOGICAL: Awake and alert. No obvious cranial nerve deficits. Motor grossly within normal limits. Normal speech. PSYCHIATRIC: Appropriate mood and affect; insight and judgment normal. Medications and IVs Current Medications Medications (Trade) Dose Ordered Sig/Camille Route Start Time Stop Time Status Last Admin Sodium Chloride 1,000 ml @ 70 mls/hr [id number] IV 01/30/18 21:59 02/01/18 05:20 (NS Flush) 2 ml UNSCH PRN IV FLUSH 01/30/18 22:00 (NS Flush) 2 ml BID IV FLUSH 01/31/18 09:00 01/31/18 20:27 (Tylenol) 650 mg Q4H PRN PO 01/30/18 22:00 (Zofran Inj) 4 mg Q6H PRN IVP 01/30/18 22:00 (Heparin Inj) 5,000 units Q12H SQ 01/30/18 22:00 01/31/18 22:00 (Narcan Inj) 0.4 mg UNSCH PRN IV PUSH 01/30/18 22:00 (Laine-Colace) 1 tab BID PO 01/31/18 09:00 01/31/18 21:00 (Milk Of Magnesia Liq) 30 ml Q12H PRN PO 01/30/18 22:00 (Senokot) 17.2 mg Q12H PRN PO 01/30/18 22:00 (Dulcolax Supp) 10 mg DAILY PRN RECTAL 01/30/18 22:00 (Lactulose Liq) 30 ml DAILY PRN PO 01/30/18 22:00 (Morphine Inj) 2 mg Q3H PRN IV PUSH 01/30/18 22:00 (Lipitor) 20 mg HS PO 01/31/18 21:00 01/31/18 20:26 (Plavix) 75 mg DAILY PO 01/31/18 09:00 01/31/18 10:39 (PROzac) 10 mg DAILY PO 01/31/18 09:00 01/31/18 10:39 (Neurontin) 300 mg Q24H PO 01/31/18 09:00 01/31/18 10:38 (Apresoline) 25 mg Q8HR PO 01/31/18 06:00 02/01/18 05:17 (Duoneb Neb) 1 ampule Q6HR NEB INH 01/31/18 04:00 01/31/18 20:27 (Imdur) 60 mg DAILY PO 01/31/18 09:00 01/31/18 10:39 (Trandate) 200 mg BID PO 01/31/18 09:00 01/31/18 20:25 (Procardia Xl) 90 mg DAILY PO 01/31/18 09:00 01/31/18 10:38 (Symbicort 160-4.5 Mcg Inh) 2 puff BID INH 01/31/18 09:00 01/31/18 21:33 Azithromycin 500 mg/Sodium Chloride 250 ml @ 250 mls/hr Q24H IV 01/31/18 02:00 02/01/18 01:29 Ceftriaxone Sodium 1000 mg/ Sodium Chloride 100 ml @ 200 mls/hr Q24H IV 01/31/18 03:00 02/01/18 02:56 (Duoneb Neb) 1 ampule Q4HR NEB PRN NEB 01/31/18 13:00 (Levemir Inj) 5 units HS SQ 01/31/18 21:00 01/31/18 20:27 (Singulair) 10 mg HS PO 01/31/18 21:00 01/31/18 20:37 (D50w (Vial) Inj) 50 ml UNSCH PRN IV PUSH 01/31/18 14:45 (Glucagon Inj) 1 mg UNSCH PRN OTHER 01/31/18 14:45 (NovoLOG SUPPLEMENTAL SCALE) 1 ACHS SLIDING SCALE SQ 01/31/18 17:00 01/31/18 21:00 A/P Assessment and Plan 77-year-old Kittitian-speaking female with a past medical history significant for coronary artery disease, hypertension, diabetes mellitus, asthma, COPD, hyperlipidemia and chronic kidney disease presents the emergency department for evaluation of chest pain. Chest pain: atypical. Patient received lidocaine by EMS for PVCs with coupling. -ACS ruled out with negative serial cardiac enzymes x3 and EKG shows sinus rhythm with PVCs, no acute ischemic changes -Monitor on telemetry -S/p aspirin, IV morphine prn pain -Continue patient's plavix, statin, imdur -Consult cardiology, patient known to Dr. Rogers, seen by Dr. Navarro, cleared for discharge with outpatient f/up -suspect pain GI related, described as constant burning located substernal/ epigastric areas, trial of PPI and tums prn Community Acquired Pneumonia: acute -CXR reviewed, significant for right infiltrate -Continue antibiotics with Azithromycin/Rocephin -incentive spirometry -duonebs prn Diabetes mellitus, type 2, with hyperglycemia: acute on chronic. Glucose 363 upon arrival. -continue patient's Levemir 5u sq hs -hold patient's oral hypoglycemics -Monitor Accu-checks and cover with Sliding-scale insulin Hypertension/hyperlipidemia/coronary artery disease: chronic -Continue patient's home meds including plavix, hydralazine, labetalol, nifedipine, imdur, statin -hold patient's lasix for now -monitor BP and adjust antihypertensives as needed INGRIS on CKD stage III: Cr 2.54 upon arrival, baseline around 1.5 -Renal U/S reviewed, shows bilateral echogenic kidneys typical of chronic parenchymal disease; no obstructive uropathy -Hold patient's lasix -Avoid nephrotoxins -Given gentle IVF hydration -Repeat BMP shows improved with Cr 1.7, continue to monitor COPD/asthma: chronic, does not appear to be in exacerbation -Duo nebs as needed DVT Prophylaxis: heparin sq Discharge Planning Case management to assist with discharge planning. Patient declined to return to hospice. Will go home with [facility]. Discharge patient to home with [facility] Condition on discharge: Stable Heart Healthy/Diabetic Diet as tolerated Ad Tiarra activity Rx written: Ceftin, Azithro, Protonix Follow-up with primary care physician, pulmonology, cardiology Attending Statement patient was seen and examined today. denies chest pain or sob. cardiology consult appreciated. awaiting discharge with hospice. Nicole Ventura PA-C Feb 01, 2018 08:24 Pato Delaney MD Feb 01, 2018 12:43
[2018-02-01] MEDS ORDERED: CALCIUM CARBONATE 500 MG CHEWABLE TAB CHEW PRN (08:30)
--- NOTE | 2018-02-01 08:32 | MB ---
cc: Sarita Navarro MD,Pushpa Paul,Rakel Nunez MD DATE: 01/31/2018 REASON FOR CONSULTATION: Chest discomfort. HISTORY OF PRESENT ILLNESS: Ms. Aguirre is a 77-year-old Croatian speaking lady with history of coronary artery disease, status post stenting of the LAD about a year and a few months ago. This was followed by repeat cardiac catheterization by Dr. Tena, revealing widely patent stents and no significant disease as per Dr. Tena, who I called and got some information from him as well. She has history of bronchial asthma, COPD, TIA, diabetes mellitus, hypertension and hyperlipidemia, chronic kidney disease and possible history of noncompliance with medications in the past, as well as anxiety and depression. She came in with chest burning and discomfort in the epigastric area and left upper part of the chest, not necessarily related to exertion. It is clearly precipitated by deep palpation. She was found also in COPD with exacerbation and with right lower lobe infiltrate. Denies palpitations, dizziness or syncope. Denies orthopnea, PND, has occasional ankle swellings, but not on exam today. The history I obtained was by a window glass installer. PAST SURGICAL HISTORY: 1. Includes as mentioned above. There is questionable history of severe mitral regurgitation, as well as mitral stenosis. However, this was evaluated by CV surgery in 2017 and on the last echo from [facility] revealed only mild mitral regurgitation and mild aortic stenosis. She has normal LV systolic function. 2. Bronchial asthma. 3. COPD. 4. Bilateral tubal ligations in the past. 5. Tonsillectomy in the past. 6. Right carpal tunnel surgery in the past. 7. Bilateral shoulder surgery. 8. Bilateral cataract surgery. ALLERGIES: SHELLFISH AND PORK, DERIVED ALLERGIES WELL. FAMILY HISTORY: Positive for hypertension, diabetes. Negative for cancer or coronary artery disease. SOCIAL HISTORY: Denies smoking. Drinks 1 alcoholic beverage a day. Denies recreational drug abuse. MEDICATIONS AT HOME: Includes the followin. DuoNeb inhalers. 2. Plavix 75 mg p.o. daily. 3. Atorvastatin 20 mg p.o. at bedtime. 4. Hydralazine 25 mg t.i.d. 5. Imdur 60 mg p.o. daily. 6. Labetalol 200 mg p.o. b.i.d. 7. Nifedipine extended release 90 mg daily. 8. Gabapentin 300 mg p.o. t.i.d. 9. Fluoxetine HCL 10 mg p.o. daily. 10. Lasix 20 mg daily. 11. Advair inhalers. 12. Montelukast 10 mg daily. 13. Janumet mg p.o. b.i.d. 14. Insulin supplements 15. Glipizide 5 mg p.o. daily. REVIEW OF SYSTEMS: A 12-point system review was unremarkable and was difficult to obtain also at times from her. PHYSICAL EXAMINATION: GENERAL: This is a 77-year-old lady, somewhat anxious, lying in bed, in no apparent distress, alert and oriented x 3, answers questions appropriately. VITAL SIGNS: Blood pressure is 168/75 mmHg, pulse of 70 beats per minute and regular, respiratory rate 18 per minute, afebrile, O2 saturation is 98% on room air. She just had respiratory treatment. HEENT: Shows head is normocephalic. Pupils equal, reactive. Throat is within normal limits. NECK: Supple. No carotid bruit, no thyromegaly. No jugular venous distention noted. LUNGS: Diminished intensity at the right base, with scattered expiratory rhonchi and wheezing. CARDIOVASCULAR: S1, S2 are distant, with 1/6 systolic murmur across the precordium. Faint S4 gallop. ABDOMEN: Obese, but lax, nontender. Normoactive bowel sounds. No organomegaly, no masses felt. EXTREMITIES: No clubbing, cyanosis or edema. Pulses 2+ bilaterally and no bruit noted. NEUROLOGIC: Grossly intact. No focal deficits. ECHOCARDIOGRAM: Showed sinus rhythm with PVCs and nonspecific intraventricular conduction defect and no acute ischemic changes. LABORATORY DATA: She has a white count of 6.1, hemoglobin of 8.9 and a platelet count of 255. The chemistries came with a sodium of 134, repeat is 142, with a potassium of 3.4, BUN of 34, creatinine is 2.54 and the repeat today with hydration was 27 and 1.71. Troponin I 0.02 x 3 and CPK is also x 3 were normal limits. BNP is minimally elevated at 156. Clinically, she does not seem to be in heart failure. Coags were within normal limits. ASSESSMENT AND RECOMMENDATIONS: 1. Coronary artery disease, status post percutaneous coronary intervention to left anterior descending in the past and then repeat catheterization about a year ago showed widely patent stent, with no significant disease. Her current chest discomfort is clearly atypical and clearly precipitated by deep palpation of the epigastric area, as well as the left upper chest wall area. I doubt that this is coronary related. Her serial troponins are all within normal limits. At this point, I would continue on her home medications, and I do not see the need for any acute cardiac intervention at this point. Regarding the possibility of valvular heart disease. There is some conflicting reports about the presence or absence of significant mitral valve disease, and I will leave further management of that as an outpatient with Dr. Rogers. 2. Probable right lower lobe pneumonia. She is already started on antibiotics and for chronic obstructive pulmonary disease exacerbation, she should continue per medical team. 3. Hypertension. Resume her home medications and can increase the hydralazine dose as needed for better blood pressure control. 4. Hyperlipidemia. Continue her statin. 5. At this point, she can be discharged from the cardiac standpoint and followup with Dr. Rogers as an outpatient. She also has Dr. 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 I thank you for the consultation. I will be available on an as-needed basis. MD KYRA Doe/KAREN , 09:08 PM , 09:49 PM
[2018-02-01] MEDS ORDERED: PANTOPRAZOLE SOD 40 MG DELAYED RELEASE TAB PO SCH (09:00)
--- NOTE | 2018-02-01 09:07 | HHI.FF ---
Face to Face Verification Diagnosis: (1) Community acquired pneumonia (2) Atypical chest pain (3) Type 2 diabetes mellitus (4) Hypertension Physical Therapy Order: Evaluate and Treat, Improve ambulation, Strength and gait training Home Health Nursing Order: Medical education Signs/symptoms of disease process Nursing assessment with vital signs I have seen patient Carolin Aguirre on 02/01/18. My clinical findings support the need for the requested home health care services because: Deconditioned w/ increased weakness Limited ability to care for self Infection w/ risk of complications I certify that my clinical findings support that this patient is homebound because: Unsteady gait/balance Unsafe to leave home unassisted Unable to use public transportation Nicole Ventura PA-C Feb 01, 2018 09:07
[2018-02-01] MEDS ORDERED: PANT40TA3 PO (09:09)
[2018-02-01] MEDS ORDERED: CEFU1TAB20 PO (09:09)
[2018-02-01] MEDS ORDERED: AZIT500T2 PO (09:09)
--- NOTE | 2018-02-01 09:10 | HHI.DCPOC ---
Discharge Care Plan Diagnosis: (1) Community acquired pneumonia (2) Atypical chest pain (3) Type 2 diabetes mellitus (4) Hypertension Goals to Promote Your Health * To prevent worsening of your condition and complications * To maintain your health at the optimal level Directions to Meet Your Goals Take your medications as prescribed Follow your dietary instruction Follow activity as directed Keep your appointments as scheduled Take your immunizations and boosters as scheduled If your symptoms worsen call your PCP, if no PCP go to Urgent Care Center or Emergency Room Smoking is Dangerous to Your Health. Avoid second hand smoke Call the 24-hour hour crisis hotline for domestic abuse at Nicole Ventura PA-C Feb 01, 2018 09:10
[2018-02-01] MEDS: ISOSORBIDE MONONITRATE 60 MG CR TAB (IMDUR) PO SCH (10:00)
[2018-02-01] MEDS: CLOPIDOGREL 75 MG TAB PO SCH (10:00)
[2018-02-01] MEDS: LABETALOL HCL 200 MG TAB PO SCH (10:00)
[2018-02-01] MEDS: GABAPENTIN 300 MG CAP PO SCH (10:01)
[2018-02-01] MEDS: SODIUM CHLORIDE 0.9% FLUSH 10 ML FLUSH IV FLUSH SCH (10:01)
[2018-02-01] MEDS: DOCUSATE SODIUM 50 MG/SENNA 8.6 MG TAB PO SCH (10:01)
[2018-02-01] MEDS: INSULIN ASPART SUPPLEMENTAL SCALE SQ SCH ×2 (10:01→13:39)
[2018-02-01] MEDS: BUDESONIDE-FORMOTEROL 160/4.5 MCG INHALER INH SCH (10:02)
[2018-02-01] MEDS: HEPARIN SODIUM - SQ 10,000 UNITS/ML VIAL SQ SCH (10:02)
[2018-02-01] MEDS: NIFEdipine 90 MG SUSTAINED RELEASE TAB PO SCH (10:14)
[2018-02-01] MEDS: FLUoxetine HCL 10 MG CAP PO SCH (10:14)
[2018-02-01 11:30] LABS: AUTOMATED NEUTROPHIL # 3.1 TH/MM3 (1.8-7.7); BASOPHIL # 0.1 TH/MM3 (0-0.2); BASOPHIL % 1.1 % (0.0-2.0); EOSINOPHIL # 0.5 TH/MM3 (0-0.4); EOSINOPHIL % 8.9 % (0.0-4.0); HEMATOCRIT 27.7 % (35.0-46.0); HEMOGLOBIN 9.2 GM/DL (11.6-15.3); LYMPH % 22.9 % (9.0-44.0); LYMPHOCYTE # 1.2 TH/MM3 (1.0-4.8); MEAN CELL VOLUME 88.6 FL (80.0-100.0); MEAN CORPUSCULAR HEMOGLOBIN 29.4 PG (27.0-34.0); MEAN CORPUSCULAR HGB CONC 33.2 % (32.0-36.0); MEAN PLATELET VOLUME 9.7 FL (7.0-11.0); MONO % 8.7 % (0.0-8.0); MONOCYTE # 0.5 TH/MM3 (0-0.9); NEUT % 58.4 % (16.0-70.0); PLATELET COUNT 236 TH/MM3 (150-450); RED BLOOD COUNT 3.13 MIL/MM3 (4.00-5.30); RED CELL DISTRIBUTION WIDTH 13.5 % (11.6-17.2); WHITE BLOOD COUNT 5.3 TH/MM3 (4.0-11.0)
[2018-02-01 12:01] LABS: BICARBONATE 24.3 MEQ/L (21.0-32.0); CREATININE 1.3 MG/DL (0.50-1.00)
[2018-02-01 12:57] VITALS: BP 160/72; PULSE 63; RESP 16; TEMP 98.4; O2SAT 97
[2018-02-01 15:33] VITALS: BP 161/71; PULSE 59; RESP 16; TEMP 98.1; O2SAT 96
== END 2018-02-01 18:52 | disposition home or self-care (01) ==
LOC: NEPC 17:12 → NEDA 20:01 → NEDH 01-31 00:16 → NEPHCDU 01-31 12:54
PROVIDERS: ADMIT Internal Medicine; ATTEND Internal Medicine
DX: R07.89 Other chest pain (principal); J44.0 Chronic obstructive pulmonary disease with (acute) lower respiratory infection; J18.9 Pneumonia, unspecified organism; J44.1 Chronic obstructive pulmonary disease with (acute) exacerbation; I49.3 Ventricular premature depolarization; R94.31 Abnormal electrocardiogram [ECG] [EKG]; I25.10 Atherosclerotic heart disease of native coronary artery without angina pectoris; I12.9 Hypertensive chronic kidney disease with stage 1 through stage 4 chronic kidney disease, or unspecified chronic kidney disease; N18.3 Chronic kidney disease, stage 3 (moderate); E78.00 Pure hypercholesterolemia, unspecified; I05.9 Rheumatic mitral valve disease, unspecified; I25.2 Old myocardial infarction; N17.9 Acute kidney failure, unspecified; E11.65 Type 2 diabetes mellitus with hyperglycemia; E11.40 Type 2 diabetes mellitus with diabetic neuropathy, unspecified; E11.22 Type 2 diabetes mellitus with diabetic chronic kidney disease; F41.9 Anxiety disorder, unspecified; F32.9 Major depressive disorder, single episode, unspecified; M19.90 Unspecified osteoarthritis, unspecified site; Z79.02 Long term (current) use of antithrombotics/antiplatelets; Z79.899 Other long term (current) drug therapy; Z95.5 Presence of coronary angioplasty implant and graft; Z86.73 Personal history of transient ischemic attack (TIA), and cerebral infarction without residual deficits
CPT/HCPCS: 71045; 76775; 80048; 80053; 81001; 82550; 82948; 83690; 83880; 84443; 84484; 85025; 85610; 85730; 93005; 94150; 94640; 94664; 96361; 96365; 96366; 96368; 96372; 97162; 99291; G0378; G8987; G8988; J0456; J0696; J1644; J1815; J7030; J7050

== ENCOUNTER 2018-03-30 07:49 | Observation (INO) | payer OTHER, MEDICAID ==
[2018-03-30] VITALS (14 sets, daily range): BP systolic 161–236; BP diastolic 66–108; PULSE 48–68; RESP 13–22; TEMP 97.6–98.7; O2SAT 95–100
[~2018-03-30] VITALS: Ht 157.5 cm; Wt 78.0 kg
[~2018-03-30 07:49] MED LIST changes: +AZIT500T2 PO; +CEFU1TAB20 PO; -CYMB60CA PO; +FLUO10TA PO; +PANT40TA3 PO
[2018-03-30] MEDS ORDERED: SODIUM CHLORIDE 0.9% FLUSH 10 ML FLUSH IVF PRN (08:15)
--- NOTE | 2018-03-30 08:16 | PD ---
HPI Chief Complaint: Chest Pain Time Seen by Provider: 08:09 Travel History International Travel<30 days: No Contact w/Intl Traveler<30days: No Traveled to known affect area: No History of Present Illness HPI 77-year-old female patient with history of high cholesterol, hypertension, CAD with stents, had been told that she needs cardiac surgery but had refused, had been seen by Dr. Tena, presents to the ER today because she has had headaches, epigastric abdominal discomfort, left-sided chest discomfort, nausea and vomiting, and suprapubic discomfort all starting yesterday. She states the headache is currently a 9 out of 10 and the chest pain is currently a 6 out of 10. She denies any fevers, diarrhea, or other symptoms. She denies any headache worsening with light, or stiff neck. She does not know of any exacerbating alleviating factors. Modifying Factors: None Associated Signs & Symptoms: Headaches, chest discomfort, abdominal discomfort, nausea and vomiting Risk Factors: Elderly, cardiac history PFSH Past Medical History Hx Anticoagulant Therapy: Yes (PLAVIX) Arthritis: Yes Asthma: Yes Anxiety: Yes Depression: Yes Heart Rhythm Problems: Yes (TACHYCARDIA) Cancer: No Cardiac Catheterization: Yes (x 2 ) Cardiovascular Problems: Yes High Cholesterol: Yes Chest Pain: Yes Congestive Heart Failure: No Diabetes: Yes Patient Takes Glucophage: No Diminished Hearing: No Endocrine: Yes Gastrointestinal Disorders: Yes (constipation) Genitourinary: No Heparin Induced Thrombocytopen: No Hypertension: Yes Immune Disorder: No Implanted Vascular Access Dvce: No Kidney Stones: Yes Musculoskeletal: Yes (carpel tunel /bilat shoulder surgery) Neurologic: Yes (Diabetic neuropathy) Psychiatric: No Reproductive: No Respiratory: Yes (ASTHMA) Sickle Cell Disease: No ?: Not Menopausal: Yes : 2 Para: 2 Miscarriage: 0 : 0 Past Surgical History Cardiac Surgery: Yes (cardiac stent) Coronary Artery Bypass Graft: No Tonsillectomy: Yes Other Surgery: Yes Family History Family Myocardial Infarction: Yes (MOM, ) Social History Alcohol Use: No Tobacco Use: No Substance Use: No Allergies-Medications (Allergen,Severity, Reaction): Coded Allergies: shellfish derived (Verified Allergy, Severe, rash, 01/30/18) pork derived (porcine) (Verified Adverse Reaction, Unknown, nauseas/ diarrheas, 01/30/18) Reported Meds & Prescriptions Reported Meds & Active Scripts Active Pantoprazole (Pantoprazole Sodium) 40 Mg Tab 40 Mg PO DAILY Hydralazine HCl 25 Mg Tablet 25 Mg PO Q8HR Levemir Inj (Insulin Detemir) 1,000 unit/ 10 ML Vial 5 Units SQ HS 30 Days Do not mix with any other Insulin. Nifedipine ER (Nifedipine) 90 Mg Tab 90 Mg PO DAILY 30 Days Plavix (Clopidogrel Bisulfate) 75 Mg Tab 75 Mg PO DAILY 30 Days Duoneb (Ipratropium-Albuterol Neb) 0.5-2.5 Mg/3 Ml Neb 1 Nebule INH Q6HR NEB Advair Diskus Inh (Fluticasone-Salmeterol Inh) 250-50 Mcg/Blist Aer 1 Puff INH BID Rinse mouth after use. Reported Fluoxetine (Fluoxetine HCl) 10 Mg Tab 10 Mg PO DAILY Glipizide 5 Mg Tab 5 Mg PO DAILY Take 30 minutes before a meal Lasix (Furosemide) 20 Mg Tab 20 Mg PO DAILY Gabapentin 300 Mg Cap 300 Mg PO TID Labetalol (Labetalol HCl) 200 Mg Tab 200 Mg PO BID Janumet (Sitagliptin-Metformin) 50-1,000 Mg Tab 1 Tab PO BID Montelukast (Montelukast Sodium) 10 Mg Tab 10 Mg PO HS Atorvastatin (Atorvastatin Calcium) 20 Mg Tab 20 Mg PO HS Isosorbide Mononitrate ER (Isosorbide Mononitrate) 60 Mg Tab 60 Mg PO DAILY Review of Systems Except as stated in HPI: all other systems reviewed are Neg Physical Exam Narrative GENERAL: Well-developed elderly female patient currently and mild distress. Awake and oriented 3. Sitting in a lighted room without issues. SKIN: Focused skin assessment warm/dry. HEAD: Atraumatic. Normocephalic. EYES: Pupils equal and round. No scleral icterus. No injection or drainage. ENT: No nasal bleeding or discharge. Mucous membranes pink and moist. NECK: Trachea midline. No JVD. Supple. CARDIOVASCULAR: Regular rate and rhythm. No murmur appreciated. RESPIRATORY: No accessory muscle use. Clear to auscultation. Breath sounds equal bilaterally. GASTROINTESTINAL: Abdomen soft, mild epigastric tenderness and suprapubic tenderness on evaluation without guarding rebound, nondistended. Hepatic and splenic margins not palpable. MUSCULOSKELETAL: No obvious deformities. No clubbing. No cyanosis. No edema. NEUROLOGICAL: Awake and alert. No obvious cranial nerve deficits. Motor grossly within normal limits. Normal speech. PSYCHIATRIC: Appropriate mood and affect; insight and judgment normal. Data Data Last Documented VS Vital Signs Date Time Temp Pulse Resp B/P (MAP) Pulse Ox O2 Delivery O2 Flow Rate FiO2 03/30/18 08:15 99 Nasal Cannula 2.00 03/30/18 08:01 71 03/30/18 07:51 98.7 20 171/82 (111) Orders Orders Electrocardiogram (03/30/18 ) Electrocardiogram (03/30/18 08:10) Basic Metabolic Panel (Bmp) (03/30/18 08:10) Ckmb (Isoenzyme) Profile (03/30/18 08:10) Complete Blood Count With Diff (03/30/18 08:10) Magnesium (Mg) (03/30/18 08:10) Prothrombin Time / Inr (Pt) (03/30/18 08:10) Act Partial Throm Time (Ptt) (03/30/18 08:10) Troponin I (03/30/18 08:10) Lipase (03/30/18 08:10) Ecg Monitoring (03/30/18 08:10) Bilateral Bp Monitoring (03/30/18 08:10) Iv Access Insert/Monitor (03/30/18 08:10) Oximetry (03/30/18 08:10) Oxygen Administration (03/30/18 08:10) Sodium Chloride 0.9% Flush (Ns Flush) (03/30/18 08:15) Chest, Pa & Lat (03/30/18 08:10) Urinalysis - C+S If Indicated (03/30/18 08:10) Blood Culture (03/30/18 08:45) Ceftriaxone Inj (Rocephin Inj) (03/30/18 08:45) Azithromycin Inj (Zithromax Inj) (03/30/18 08:45) CKMB (03/30/18 08:10) CKMB% (03/30/18 08:10) Clonidine (Catapres) (03/30/18 09:15) Place In Observation (03/30/18 ) Vital Signs (Adult) Q4H (03/30/18 09:23) Activity Oob Ad Tiarra (03/30/18 09:23) Care Manager Cna / Telemetry .CONTINUOUS (03/30/18 09:23) Intake + Output KELLY.QSHIFT (03/30/18 09:23) Diet Heart Healthy (03/30/18 Breakfast) Sodium Chloride 0.9% Flush (Ns Flush) (03/30/18 09:30) Sodium Chloride 0.9% Flush (Ns Flush) (03/30/18 21:00) Metoclopramide Inj (Reglan Inj) (03/30/18 09:30) Comprehensive Metabolic Panel (03/31/18 06:00) Complete Blood Count With Diff (03/31/18 06:00) Electrocardiogram (03/30/18 09:23) Electrocardiogram (03/30/18 15:23) Heparin Inj (Heparin Inj) (03/30/18 09:30) Scd Bilateral/Knee High KELLY.BID (03/30/18 09:23) Naloxone Inj (Narcan Inj) (03/30/18 09:30) Docusate Sodium-Senna (Laine-Colace) (03/30/18 21:00) Magnesium Hydroxide Liq (Milk Of Magnesi (03/30/18 09:30) Sennosides (Senokot) (03/30/18 09:30) Bisacodyl Supp (Dulcolax Supp) (03/30/18 09:30) Lactulose Liq (Lactulose Liq) (03/30/18 09:30) Morphine Inj (Morphine Inj) (03/30/18 09:30) Nitroglycerin 2% Oint (Nitroglycerin 2% (03/30/18 09:30) Atorvastatin (Lipitor) (03/30/18 21:00) Clopidogrel (Plavix) (03/30/18 09:30) Fluoxetine (Prozac) (03/30/18 09:30) Furosemide (Lasix) (03/30/18 09:30) Gabapentin (Neurontin) (03/30/18 13:00) Glipizide (Glucotrol) (03/31/18 09:00) Hydralazine (Apresoline) (03/30/18 14:00) Insulin Detemir Inj (Levemir Inj) (03/30/18 21:00) Isosorbide Mononitrate (Imdur) (03/30/18 09:30) Labetalol (Trandate) (03/30/18 21:00) Montelukast (Singulair) (03/30/18 21:00) Nifedipine Sr (Procardia Xl) (03/30/18 09:30) Pantoprazole (Protonix) (03/31/18 09:00) (Nf) Fluticasone-Salmeterol Inh (Advair (03/30/18 21:00) (Nf) Sitagliptin-Metformin (Janumet) (03/30/18 21:00) Albuterol-Ipratropium Neb (Duoneb Neb) (03/30/18 09:30) Creatine Kinase (Cpk) (03/30/18 14:00) Troponin I (03/30/18 14:00) Electrocardiogram (03/30/18 14:00) Admit Order (Ed Use Only) (03/30/18 09:32) Labs Laboratory Tests Test 03/30/18 08:10 White Blood Count 7.2 TH/MM3 Red Blood Count 3.60 MIL/MM3 Hemoglobin 9.8 GM/DL Hematocrit 29.7 % Mean Corpuscular Volume 82.4 FL Mean Corpuscular Hemoglobin 27.2 PG Mean Corpuscular Hemoglobin Concent 33.0 % Red Cell Distribution Width 15.1 % Platelet Count 255 TH/MM3 Mean Platelet Volume 9.6 FL Neutrophils (%) (Auto) 68.0 % Lymphocytes (%) (Auto) 17.3 % Monocytes (%) (Auto) 10.1 % Eosinophils (%) (Auto) 3.6 % Basophils (%) (Auto) 1.0 % Neutrophils # (Auto) 4.9 TH/MM3 Lymphocytes # (Auto) 1.3 TH/MM3 Monocytes # (Auto) 0.7 TH/MM3 Eosinophils # (Auto) 0.3 TH/MM3 Basophils # (Auto) 0.1 TH/MM3 CBC Comment DIFF FINAL Differential Comment Prothrombin Time 10.1 SEC Prothromb Time International Ratio 1.0 RATIO Activated Partial Thromboplast Time 24.0 SEC Blood Urea Nitrogen 23 MG/DL Creatinine 1.29 MG/DL Random Glucose 120 MG/DL Calcium Level 8.8 MG/DL Magnesium Level 1.9 MG/DL Sodium Level 144 MEQ/L Potassium Level 4.0 MEQ/L Chloride Level 111 MEQ/L Carbon Dioxide Level 24.4 MEQ/L Anion Gap 9 MEQ/L Estimat Glomerular Filtration Rate 40 ML/MIN Total Creatine Kinase 120 U/L Creatine Kinase MB 2.3 NG/ML Troponin I LESS THAN 0.02 NG/ML Lipase 98 U/L MDM Medical Decision Making Medical Screen Exam Complete: Yes Emergency Medical Condition: Yes Medical Record Reviewed: Yes Interpretation(s) EKG shows NSR, no ST elevation or depression, and no arrhythmias. No significant T-wave inversions. Laboratory Tests Test 03/30/18 08:10 Red Blood Count 3.60 MIL/MM3 (4.00-5.30) Hemoglobin 9.8 GM/DL (11.6-15.3) Hematocrit 29.7 % (35.0-46.0) Monocytes (%) (Auto) 10.1 % (0.0-8.0) Activated Partial Thromboplast Time 24.0 SEC (24.3-30.1) Blood Urea Nitrogen 23 MG/DL (7-18) Creatinine 1.29 MG/DL (0.50-1.00) Random Glucose 120 MG/DL (74-106) Chloride Level 111 MEQ/L (98-107) Estimat Glomerular Filtration Rate 40 ML/MIN (>89) Troponin I LESS THAN 0.02 NG/ML Last 24 hours Impressions Chest X-Ray 03/30/18 0810 Signed Impressions: CONCLUSION: Mild interstitial change in the lower lung zones with fissural thickening could represent interstitial pulmonary edema in the appropriate clinical setting. Differential Diagnosis Viral syndrome versus gastritis versus pancreatitis versus migraine headaches versus ACS Narrative Course Chest x-ray is concerning for possible pneumonia and on further questioning, she does admit to coughing as well. She was given IV antibiotics in the ER. In addition, her blood pressure went up to 210/90 in the ER and she was given clonidine. Considering her chest pains, cardiac enzymes were drawn and they were negative. However, at this point considering symptoms, pneumonia, elevated blood pressure, plan would be to admit her for further observation and treatment. She had taken her own blood pressure medications at 2 AM. Case was then discussed with Dr. Martins for admission. Diagnosis Primary Impression: Chest pain Additional Impressions: Community acquired pneumonia Hypertension Admitting Information Admitting Physician Requests: it Trini Dinh MD Mar 30, 2018 08:16
[2018-03-30 08:27] LABS: AUTOMATED NEUTROPHIL # 4.9 TH/MM3 (1.8-7.7); BASOPHIL # 0.1 TH/MM3 (0-0.2); EOSINOPHIL # 0.3 TH/MM3 (0-0.4); EOSINOPHIL % 3.6 % (0.0-4.0); HEMATOCRIT 29.7 % (35.0-46.0); HEMOGLOBIN 9.8 GM/DL (11.6-15.3); LYMPH % 17.3 % (9.0-44.0); LYMPHOCYTE # 1.3 TH/MM3 (1.0-4.8); MEAN CELL VOLUME 82.4 FL (80.0-100.0); MEAN CORPUSCULAR HEMOGLOBIN 27.2 PG (27.0-34.0); MEAN PLATELET VOLUME 9.6 FL (7.0-11.0); MONO % 10.1 % (0.0-8.0); MONOCYTE # 0.7 TH/MM3 (0-0.9); PLATELET COUNT 255 TH/MM3 (150-450); RED CELL DISTRIBUTION WIDTH 15.1 % (11.6-17.2); WHITE BLOOD COUNT 7.2 TH/MM3 (4.0-11.0)
[2018-03-30 08:42] LABS: PROTHROMBIN TIME - PATIENT 10.1 SEC (9.8-11.6)
--- NOTE | 2018-03-30 08:44 | RADRPT ---
EXAM DATE: 03/30/2018 8:39 AM EDT AGE/SEX: 77 years / Female INDICATIONS: Chest pain. CLINICAL DATA: This is the patient's initial encounter. Patient reports that signs and symptoms have been present for 2 days and indicates a pain score of 8/10. MEDICAL/SURGICAL HISTORY: . Cardiovascular disease. Hypertension. Renal calculi. Diabetes None . [place] [facility] [place]. . FINDINGS: AP and lateral views of the chest demonstrate a normal-sized cardiac silhouette. Multiple EKG lines o verlie the patient. There are mild interstitial changes at the lung bases with fissural thickening. N o pleural effusion or pneumothorax is identified. The bones and soft tissues demonstrate no acute abn ormality. CONCLUSION: Mild interstitial change in the lower lung zones with fissural thickening could represent interstitia l pulmonary edema in the appropriate clinical setting. Electronically signed by: Mikey Burrows MD 03/30/2018 8:42 AM EDT
[2018-03-30] MEDS ORDERED: AZITHROMYCIN INJ 500 MG in SODIUM CHLOR 0.9% 250 ML INJ 250 ML IV STA (08:45)
[2018-03-30] MEDS ORDERED: cefTRIAXone INJ 2,000 MG in SODIUM CHLORIDE 0.9% INJ 100 ML IV STA (08:45)
[2018-03-30 08:55] LABS: BICARBONATE 24.4 MEQ/L (21.0-32.0); BLOOD UREA NITROGEN 23 MG/DL (7-18); CALCIUM 8.8 MG/DL (8.5-10.1); CHLORIDE 111 MEQ/L (98-107); CREATININE 1.29 MG/DL (0.50-1.00); GLOMERULAR FILTRATION RATE 40 ML/MIN (>89); GLUCOSE,RANDOM 120 MG/DL (74-106); MAGNESIUM 1.9 MG/DL (1.5-2.5); SODIUM (NA) 144 MEQ/L (136-145)
[2018-03-30 08:59] LABS: TROPONIN I LESS THAN 0.02 NG/ML (0.02-0.05)
[2018-03-30] MEDS ORDERED: cloNIDine HCL 0.2 MG TAB PO ONE (09:15)
[2018-03-30] MEDS ORDERED: METOCLOPRAMIDE HCL 10 MG/2 ML VIAL IV PUSH PRN (09:30)
[2018-03-30] MEDS ORDERED: MAGNESIUM HYDROXIDE SUSP 30 ML CUP PO PRN (09:30)
[2018-03-30] MEDS ORDERED: NALOXONE HCL 0.4 MG/ML AMP IV PUSH PRN (09:30)
[2018-03-30] MEDS ORDERED: SODIUM CHLORIDE 0.9% FLUSH 10 ML FLUSH IV FLUSH PRN (09:30)
[2018-03-30] MEDS ORDERED: MORPHINE SULFATE 4 MG/ML INJ IM PRN (09:30)
[2018-03-30] MEDS ORDERED: SENNOSIDES 8.6 MG TAB PO PRN (09:30)
[2018-03-30] MEDS ORDERED: LACTULOSE SYRUP 20 GM/30 ML CUP PO PRN (09:30)
[2018-03-30] MEDS ORDERED: BISACODYL 10 MG SUPP RECTAL PRN (09:30)
[2018-03-30] MEDS ORDERED: RESP: ALBUTEROL 2.5 MG/IPRATROPIUM 0.5 MG NEB (PRN) NEB (09:30)
[2018-03-30] MEDS ORDERED: NITROGLYCERIN 2% OINT 1 GM PACKET TOPICAL PRN (09:30)
[2018-03-30] MEDS ORDERED: GLUCAGON 1 MG/ML VIAL OTHER PRN (10:15)
[2018-03-30] MEDS ORDERED: DEXTROSE 50% IN WATER 50 ML VIAL(D50) IV PUSH PRN (10:15)
[2018-03-30] MEDS: HEPARIN SODIUM - SQ 10,000 UNITS/ML VIAL SQ SCH ×2 (10:32→21:04)
[2018-03-30] MEDS: FUROSEMIDE 20 MG TAB PO SCH (10:33)
[2018-03-30] MEDS: CLOPIDOGREL 75 MG TAB PO SCH (10:33)
[2018-03-30] MEDS: ISOSORBIDE MONONITRATE 60 MG CR TAB (IMDUR) PO SCH (10:34)
[2018-03-30 12:21] LABS: BACTERIA, URINE RARE /hpf; BILIRUBIN, URINE NEG (NEG); BLOOD, URINE NEG (NEG); GLUCOSE,URINE NEG (NEG); KETONE, URINE NEG (NEG); NITRITE,URINE NEG (NEG); SQUAMOUS EPITHELIAL CELL URINE <1 /hpf (0-5); URINE COLOR YELLOW (YELLW/STRAW); URINE LEUKOCYTE ESTERASE NEG (NEG)
[2018-03-30] MEDS: FLUoxetine HCL 10 MG CAP PO SCH ×2 (12:27→16:42)
[2018-03-30] MEDS: NIFEdipine 90 MG SUSTAINED RELEASE TAB PO SCH ×2 (12:27→16:42)
[2018-03-30] MEDS: GABAPENTIN 300 MG CAP PO SCH ×2 (12:41→18:09)
[2018-03-30] MEDS: INSULIN ASPART SUPPLEMENTAL SCALE SQ SCH ×3 (12:42→21:04)
[2018-03-30] MEDS: hydrALAZINE HCL 25 MG TAB PO SCH ×2 (14:49→22:00)
--- NOTE | 2018-03-30 15:00 | HHI.HP ---
[facility] Unknown Admission Diagnosis Chest pain/pneumonia/hypertension Diagnoses: Travel History International Travel<30 Days: No Contact w/Intl Traveler <30 Da: No Traveled to Known Affected Are: No History of Present Illness Patient is a 77-year-old female with past medical history of hypertension, diabetes, coronary artery disease, asthma, COPD, hyperlipidemia, CKD presented to the emergency room because she was experiencing headaches over night which radiated to her neck. She checked her blood pressure and it was in the 200s which she states is usual for her. She states that they have not been able to control her blood pressures very well and her blood sugars have been increasingly high. She tells me that this morning her blood sugar was in the 190s and her BP was greater than 200 systolic. She states she has been to her doctors and they have tried to adjust her medications with not much success. She states she has been compliant her medications. Yesterday she did experience some epigastric pain which at times would radiate to her chest. She states that eating makes her epigastric pain worse. Currently she feels a lot better. She denies any chest pain, denies any abdominal pain however she states that she has been told that she had a hernia last year. She did vomit last night but none at this time. She denies any burning with urination or increased urinary frequency. No problems with her bowels. She denies any worsening cough. She was recently treated for pneumonia and feels well, she states that her cough is from her asthma. Denies any fevers or chills. Review of Systems Except as stated in HPI: all other systems reviewed are Neg Past Family Social History Past Medical History hypertension, diabetes, coronary artery disease, asthma, COPD, hyperlipidemia, CKD Past Surgical History Bilateral tubal ligation, tonsillectomy, bilateral cataract surgery, right carpal tunnel release, bilateral shoulder surgery Reported Medications Reported Meds & Active Scripts Active Pantoprazole (Pantoprazole Sodium) 40 Mg Tab 40 Mg PO DAILY Hydralazine HCl 25 Mg Tablet 25 Mg PO Q8HR Levemir Inj (Insulin Detemir) 1,000 unit/ 10 ML Vial 5 Units SQ HS 30 Days Do not mix with any other Insulin. Nifedipine ER (Nifedipine) 90 Mg Tab 90 Mg PO DAILY 30 Days Plavix (Clopidogrel Bisulfate) 75 Mg Tab 75 Mg PO DAILY 30 Days Duoneb (Ipratropium-Albuterol Neb) 0.5-2.5 Mg/3 Ml Neb 1 Nebule INH Q6HR NEB Advair Diskus Inh (Fluticasone-Salmeterol Inh) 250-50 Mcg/Blist Aer 1 Puff INH BID Rinse mouth after use. Reported Fluoxetine (Fluoxetine HCl) 10 Mg Tab 10 Mg PO DAILY Glipizide 5 Mg Tab 5 Mg PO DAILY Take 30 minutes before a meal Lasix (Furosemide) 20 Mg Tab 20 Mg PO DAILY Gabapentin 300 Mg Cap 300 Mg PO TID Labetalol (Labetalol HCl) 200 Mg Tab 200 Mg PO BID Janumet (Sitagliptin-Metformin) 50-1,000 Mg Tab 1 Tab PO BID Montelukast (Montelukast Sodium) 10 Mg Tab 10 Mg PO HS Atorvastatin (Atorvastatin Calcium) 20 Mg Tab 20 Mg PO HS Isosorbide Mononitrate ER (Isosorbide Mononitrate) 60 Mg Tab 60 Mg PO DAILY Allergies: Coded Allergies: shellfish derived (Verified Allergy, Severe, rash, 01/30/18) pork derived (porcine) (Verified Adverse Reaction, Unknown, nauseas/ diarrheas, 01/30/18) Family History Both mother and father of heart disease and diabetes Social History Used to drink a glass of wine here and there however denies any recent alcohol intake. She denies any smoking history or illegal drug use She tells me that her COPD developed because she was around her who smoked a lot. Physical Exam Vital Signs Vital Signs Date Time Temp Pulse Resp B/P (MAP) Pulse Ox O2 Delivery O2 Flow Rate FiO2 03/30/18 14:43 03/30/18 12:00 97.6 58 13 179/79 (112) 96 03/30/18 11:40 166/67 (100) 03/30/18 11:22 51 161/66 (97) 03/30/18 11:01 48 203/84 (123) 03/30/18 10:48 52 213/84 (127) 03/30/18 10:44 22 03/30/18 10:22 64 22 236/108 (150) 100 Nasal Cannula 2.00 03/30/18 08:15 99 Nasal Cannula 2.00 03/30/18 08:01 71 96 Nasal Cannula 2.00 03/30/18 07:51 98.7 68 20 171/82 (111) 98 Physical Exam GENERAL: Obese patient, laying in bed, appears comfortable SKIN: Bruises noted on the right lower area of her abdomen, tender to palpation (injection site for insulin). HEAD: Atraumatic. Normocephalic. EYES: Pupils equal round and reactive. Extraocular motions intact. ENT: Nose without drainage. Throat without erythema. Uvula midline. Airway patent. NECK: Trachea midline. CARDIOVASCULAR: Regular rate and rhythm without murmurs. RESPIRATORY: Breath sounds somewhat decreased however I do not hear any crackles or wheezing. GASTROINTESTINAL: Abdomen soft, non-tender, nondistended. No guarding. MUSCULOSKELETAL: Extremities without edema. NEUROLOGICAL: Awake and alert. Cranial nerves II through XII intact. Motor and sensory grossly within normal limits. Normal speech. Laboratory Laboratory Tests Test 03/30/18 08:10 03/30/18 11:45 White Blood Count 7.2 Red Blood Count 3.60 Hemoglobin 9.8 Hematocrit 29.7 Mean Corpuscular Volume 82.4 Mean Corpuscular Hemoglobin 27.2 Mean Corpuscular Hemoglobin Concent 33.0 Red Cell Distribution Width 15.1 Platelet Count 255 Mean Platelet Volume 9.6 Neutrophils (%) (Auto) 68.0 Lymphocytes (%) (Auto) 17.3 Monocytes (%) (Auto) 10.1 Eosinophils (%) (Auto) 3.6 Basophils (%) (Auto) 1.0 Neutrophils # (Auto) 4.9 Lymphocytes # (Auto) 1.3 Monocytes # (Auto) 0.7 Eosinophils # (Auto) 0.3 Basophils # (Auto) 0.1 CBC Comment DIFF FINAL Differential Comment Prothrombin Time 10.1 Prothromb Time International Ratio 1.0 Activated Partial Thromboplast Time 24.0 Blood Urea Nitrogen 23 Creatinine 1.29 Random Glucose 120 Calcium Level 8.8 Magnesium Level 1.9 Sodium Level 144 Potassium Level 4.0 Chloride Level 111 Carbon Dioxide Level 24.4 Anion Gap 9 Estimat Glomerular Filtration Rate 40 Total Creatine Kinase 120 Creatine Kinase MB 2.3 Troponin I LESS THAN 0.02 Lipase 98 Urine Color YELLOW Urine Turbidity CLEAR Urine pH 5.0 Urine Specific [place] 1.012 Urine Protein 100 Urine Glucose (UA) NEG Urine Ketones NEG Urine Occult Blood NEG Urine Nitrite NEG Urine Bilirubin NEG Urine Urobilinogen LESS THAN 2 Urine Leukocyte Esterase NEG Urine WBC 1 Urine Squamous Epithelial Cells <1 Urine Bacteria RARE Microscopic Urinalysis Comment CULT NOT INDICATED Date/Time Source Procedure Growth Status 03/30/18 09:55 Blood Peripheral Aerobic Blood Culture Pending Received 03/30/18 09:55 Blood Peripheral Anaerobic Blood Culture Pending Received Result Diagram: 03/30/18 0810 03/30/18809 Imaging Last Impressions Chest X-Ray 03/30/18809 Signed Impressions: CONCLUSION: Mild interstitial change in the lower lung zones with fissural thickening could represent interstitial pulmonary edema in the appropriate clinical setting. Caprini VTE Risk Assessment Caprini VTE Risk Assessment: Mod/High Risk (score >= 2) Caprini Risk Assessment Model Point Value = 1 Point Value = 2 Point Value = 3 Point Value = 5 Age 41-60 Minor surgery BMI > 25 kg/m2 Swollen legs Varicose veins or History of unexplained or recurrent spontaneous Oral contraceptives or hormone replacement Sepsis (< 1 month) Serious lung disease, including pneumonia (< 1 month) Abnormal pulmonary function Acute myocardial infarction Congestive heart failure (< 1 month) History of inflammatory bowel disease Medical patient at bed rest Age 61-74 Arthroscopic surgery Major open surgery (> 45 min) Laparoscopic surgery (> 45 min) Malignancy Confined to bed (> 72 hours) Immobilizing plaster cast Central venous access Age >= 75 History of VTE Family history of VTE Factor V Leiden Prothrombin [id number] Lupus anticoagulant Anticardiolipin antibodies Elevated serum homocysteine Heparin-induced thrombocytopenia Other congenital or acquired thrombophilia Stroke (< 1 month) Elective arthroplasty Hip, pelvis, or leg fracture Acute spinal cord injury (< 1 month) Prophylaxis Regimen Total Risk Factor Score Risk Level Prophylaxis Regimen 0-1 Low Early ambulation 2 Moderate Order ONE of the following: *Sequential Compression Device (SCD) *Heparin 5000 units SQ BID 3-4 Higher Order ONE of the following medications: *Heparin 5000 units SQ TID *Enoxaparin/Lovenox 40 mg SQ daily (WT < 150 kg, CrCl > 30 mL/min) *Enoxaparin/Lovenox 30 mg SQ daily (WT < 150 kg, CrCl > 10-29 mL/min) *Enoxaparin/Lovenox 30 mg SQ BID (WT < 150 kg, CrCl > 30 mL/min) AND/OR *Sequential Compression Device (SCD) 5 or more Highest Order ONE of the following medications: *Heparin 5000 units SQ TID (Preferred with Epidurals) *Enoxaparin/Lovenox 40 mg SQ daily (WT < 150 kg, CrCl > 30 mL/min) *Enoxaparin/Lovenox 30 mg SQ daily (WT < 150 kg, CrCl > 10-29 mL/min) *Enoxaparin/Lovenox 30 mg SQ BID (WT < 150 kg, CrCl > 30 mL/min) AND *Sequential Compression Device (SCD) Assessment and Plan Assessment and Plan Hypertensive urgency: Patient presented with headache radiating down her neck. She has good range of motion of her neck. Blood pressure in the emergency room was as high as 236 systolic. Patient states that at home it runs in the 200s. She states that she has not been able to bring it down for long periods of time. Apparently they have been adjusting her blood pressure medications but when she used to live in [place], she had a regimen that worked well for her however when she moved here that regimen was switched. She will call her daughter to let us know what medication she used to be on. In the emergency room, patient received a dose of clonidine with good response. Her blood pressure went down to 170s systolic. I have resumed patient's medication. I spent a long time counseling the patient on the importance of being on a low- sodium diet but she is not following such diet. I have placed her on a heart healthy/diabetic diet. Monitor blood pressures closely. I have resume patient' s hydralazine, isosorbide, labetalol, nifedipine. she may need to be started on scheduled clonidine if no improvement. Per records, there is concerns of medication non compliance. Diabetes: Patient is on Levemir 5 units at bedtime, Janumet and glipizide. Hold the Janumet due to her kidney function. Started her on a low-dose insulin sliding scale. Monitor blood sugars QAC and HS. May need to increase her levemir dose if BS not well controlled. Cough: Per pt this is chronic and not worsened. Chest x-ray showed mild interstitial changes in the lower lung zones w fissural thickening which could represent interstitial pulm edema. Pt's sats are in the high 90's on 2 L. Pt was recently treated for PNA. On exam, clinically she is doing well. She has no leukocytosis on admission. She denies any fevers or chills. She received a dose rocephin/azithro while in the ED. at this time I will hold off on any abx. Most likely she has a lingering cough from her previous PNA. I have resumed her lasix. added tessalon pearls prn and duoneb prn abdominal discomfort w some radiation to her chest: pt tells me that she does have hx of hiatal hernia. Initial trop neg. Will trend EKGs and CE. Pt tells me that she was told by Dr. Tena that she needed a cardiac procedure and she adamantly refuses to have it done. Currently she doesn't have any pain in chest or abdomen. Some of her discomfort is at the site where she injects her insulin. Monitor for now. Morphine, nitro and BB available. Pt on plavix. continue her protonix. If her abdominal pain persists then we will consult GI. Pt was seen by Dr. Gooden, composite assembler, on 01/31/18 for similar symptoms. At that time, her CE were neg and it was felt that her pain was not cardiac in nature. if trop are elevated will consult cardiology. CKD stable. Cr 1.29 DVT proph: heparin Code Status full Discussed Condition With patient and ED physician Elvia Martins MD Mar 30, 2018 15:00
[2018-03-30] MEDS ORDERED: BENZONATATE 100 MG CAP PO PRN (15:45)
[2018-03-30] MEDS: cloNIDine HCL 0.1 MG TAB PO PRN ×2 (18:09→23:30)
[2018-03-30 19:16] LABS: TROPONIN I LESS THAN 0.02 NG/ML (0.02-0.05)
[2018-03-30] MEDS ORDERED: NON-FORMULARY DRUG (Sitagliptin-Metformin (Janumet) 1 TAB) PO SCH (21:00)
[2018-03-30] MEDS ORDERED: INSULIN DETEMIR 100 UNITS/ML VIAL SQ SCH (21:00)
[2018-03-30] MEDS ORDERED: MONTELUKAST SODIUM 10 MG TAB PO SCH (21:00)
[2018-03-30] MEDS: LABETALOL HCL 200 MG TAB PO SCH (21:00)
[2018-03-30] MEDS ORDERED: ATORVASTATIN 20 MG TAB PO SCH (21:00)
[2018-03-30] MEDS ORDERED: metFORMIN HCL 500 MG TAB PO SCH (21:00)
[2018-03-30] MEDS: DOCUSATE SODIUM 50 MG/SENNA 8.6 MG TAB PO SCH (21:05)
[2018-03-30] MEDS: SODIUM CHLORIDE 0.9% FLUSH 10 ML FLUSH IV FLUSH SCH (21:05)
[2018-03-30] MEDS: BUDESONIDE-FORMOTEROL 160/4.5 MCG INHALER INH SCH (23:30)
[2018-03-31 03:48] VITALS: BP 168/73; PULSE 60; RESP 16; TEMP 98.7; O2SAT 93
[2018-03-31] MEDS: hydrALAZINE HCL 25 MG TAB PO SCH ×2 (06:00→13:30)
[2018-03-31 07:14] LABS: AUTOMATED NEUTROPHIL # 2.7 TH/MM3 (1.8-7.7); BASOPHIL % 0.9 % (0.0-2.0); EOSINOPHIL # 0.2 TH/MM3 (0-0.4); EOSINOPHIL % 4.7 % (0.0-4.0); HEMATOCRIT 27.2 % (35.0-46.0); LYMPH % 26.5 % (9.0-44.0); LYMPHOCYTE # 1.3 TH/MM3 (1.0-4.8); MEAN CELL VOLUME 81.6 FL (80.0-100.0); MEAN CORPUSCULAR HEMOGLOBIN 27.1 PG (27.0-34.0); MEAN CORPUSCULAR HGB CONC 33.1 % (32.0-36.0); MEAN PLATELET VOLUME 9.6 FL (7.0-11.0); MONO % 12.7 % (0.0-8.0); MONOCYTE # 0.6 TH/MM3 (0-0.9); NEUT % 55.2 % (16.0-70.0); PLATELET COUNT 227 TH/MM3 (150-450); RED BLOOD COUNT 3.33 MIL/MM3 (4.00-5.30); RED CELL DISTRIBUTION WIDTH 15.1 % (11.6-17.2); WHITE BLOOD COUNT 4.9 TH/MM3 (4.0-11.0)
[2018-03-31 07:37] LABS: ALT (GPT) 13 U/L (10-53); AST (GOT) 11 U/L (15-37); BICARBONATE 24.8 MEQ/L (21.0-32.0); BLOOD UREA NITROGEN 21 MG/DL (7-18); CALCIUM 8.9 MG/DL (8.5-10.1); CHLORIDE 110 MEQ/L (98-107); GLOMERULAR FILTRATION RATE 44 ML/MIN (>89); GLUCOSE,RANDOM 135 MG/DL (74-106); SODIUM (NA) 144 MEQ/L (136-145)
[2018-03-31 07:39] LABS: ALKALINE PHOSPHATASE 52 U/L (45-117); TOTAL BILIRUBIN ADULT 0.6 MG/DL (0.2-1.0); TOTAL PROTEIN 5.9 GM/DL (6.4-8.2)
[2018-03-31 08:00] VITALS: BP 160/80; PULSE 60; RESP 19; TEMP 98.1; O2SAT 93
[2018-03-31] MEDS: INSULIN ASPART SUPPLEMENTAL SCALE SQ SCH ×2 (08:00→13:25)
[2018-03-31] MEDS: FUROSEMIDE 20 MG TAB PO SCH (08:22)
[2018-03-31] MEDS: FLUoxetine HCL 10 MG CAP PO SCH (08:22)
[2018-03-31] MEDS: CLOPIDOGREL 75 MG TAB PO SCH (08:22)
[2018-03-31] MEDS: SODIUM CHLORIDE 0.9% FLUSH 10 ML FLUSH IV FLUSH SCH (08:23)
[2018-03-31] MEDS: NIFEdipine 90 MG SUSTAINED RELEASE TAB PO SCH (08:23)
[2018-03-31] MEDS: GABAPENTIN 300 MG CAP PO SCH ×2 (08:23→13:24)
[2018-03-31] MEDS: DOCUSATE SODIUM 50 MG/SENNA 8.6 MG TAB PO SCH (08:23)
[2018-03-31] MEDS: LABETALOL HCL 200 MG TAB PO SCH (08:24)
[2018-03-31] MEDS: HEPARIN SODIUM - SQ 10,000 UNITS/ML VIAL SQ SCH (08:24)
[2018-03-31] MEDS: ISOSORBIDE MONONITRATE 60 MG CR TAB (IMDUR) PO SCH (08:24)
[2018-03-31] MEDS: BUDESONIDE-FORMOTEROL 160/4.5 MCG INHALER INH SCH (08:24)
[2018-03-31] MEDS ORDERED: glipiZIDE 5 MG TAB PO SCH (09:00)
[2018-03-31] MEDS ORDERED: PANTOPRAZOLE SOD 40 MG DELAYED RELEASE TAB PO SCH (09:00)
[2018-03-31] MEDS ORDERED: cloNIDine HCL 0.1 MG TAB PO ONE (11:00)
--- NOTE | 2018-03-31 11:05 | HHI.PR ---
Subjective Remarks Nursing denies any deterioration since last night. Patient what communicated was directly in Arabic says she feels better today. Denies any nausea vomiting or any chest pain. Objective Vital Signs Date Time Temp Pulse Resp B/P (MAP) Pulse Ox O2 Delivery O2 Flow Rate FiO2 03/31/18 08:00 98.1 60 19 160/80 (106) 93 03/31/18 03:48 98.7 60 16 168/73 (104) 93 03/30/18 23:20 97.8 55 16 177/72 (107) 98 03/30/18 19:33 97.6 57 16 173/76 (108) 95 Manual Cuff/Auscultation 03/30/18 18:06 210/80 (123) 03/30/18 17:31 Nasal Cannula 2.00 03/30/18 17:07 Manual Cuff/Auscultation 03/30/18 16:36 188/72 (110) 03/30/18 16:21 57 03/30/18 16:00 97.7 51 14 208/86 (126) 95 03/30/18 14:49 168/72 (104) 03/30/18 14:43 03/30/18 12:00 97.6 58 13 179/79 (112) 96 03/30/18 11:40 166/67 (100) 03/30/18 11:22 51 161/66 (97) I/O 03/30/18 03/30/18 03/30/18 03/31/18 03/31/18 03/31/18 07:00 15:00 23:00 07:00 15:00 23:00 Intake Total 350 ml 480 ml Balance 350 ml 480 ml Intake Oral 480 ml IV Total 350 ml # Voids 3 Result Diagram: 03/31/18 0540 03/31/18 0540 Objective Remarks No slurred speech lungs are clear bilaterally, unlabored breathing A/P Assessment and Plan Hypertensive urgency: H&P reviewed. Overall condition is significantly improved. Nursing is verified that the patient's local son who lives within the city helps manage her medications with her. The daughter lives in [place]. Medications have been verified with pharmacy. We will add on clonidine scheduled twice daily 0.1 mg Diabetes: Patient is on Levemir 5 units at bedtime, Janumet and glipizide. Hold the Janumet due to her kidney function. Started her on a low-dose insulin sliding scale. Monitor blood sugars QAC and HS. May need to increase her levemir dose if BS not well controlled. Chronic dysphagia: Patient says this been going on for months, but no episodes of choking were noted. Notified to follow-up with diagnostic imaging manager as outpatient for possible EGD. Cough: Per pt this is chronic and not worsened. Chest x-ray showed mild interstitial changes in the lower lung zones w fissural thickening which could represent interstitial pulm edema. Pt's sats are in the high 90's on 2 L. Pt was recently treated for PNA. On exam, clinically she is doing well. She has no leukocytosis on admission. She denies any fevers or chills. She received a dose rocephin/azithro while in the ED. at this time I will hold off on any abx. Most likely she has a lingering cough from her previous PNA. I have resumed her lasix. added tessalon pearls prn and duoneb prn abdominal discomfort w some radiation to her chest: This was verified that the patient was actually complaining of pain from her Levemir injection sites and no true intrinsic chest/anginal pain source. No further cardiac workup warranted. CKD stable. Cr 1.29 DVT proph: heparin Addendum: Pt BP stabilized. Remained afebrile. Pt meds verified w/ pharmacy. Will arrange for home health care. Pt has met maximal benefit from hospitalization and is clinically stable for discharge. [place] additionally prescribe clonidine and losartan. Shane Gonzales MD Mar 31, 2018 11:05
[2018-03-31 11:06] VITALS: BP 163/68; PULSE 56; RESP 18; TEMP 97.7; O2SAT 95
--- NOTE | 2018-03-31 11:25 | HHI.DCPOC ---
Discharge Care Plan Diagnosis: (1) Hypertensive emergency Goals to Promote Your Health * To prevent worsening of your condition and complications * To maintain your health at the optimal level Directions to Meet Your Goals Take your medications as prescribed Follow your dietary instruction Follow activity as directed Keep your appointments as scheduled Take your immunizations and boosters as scheduled If your symptoms worsen call your PCP, if no PCP go to Urgent Care Center or Emergency Room Smoking is Dangerous to Your Health. Avoid second hand smoke Call the 24-hour hour crisis hotline for domestic abuse at Shane Gonzales MD Mar 31, 2018 11:25
[2018-03-31] MEDS ORDERED: PANT40TA3 PO (11:27)
[2018-03-31] MEDS ORDERED: CLON0.1T PO (11:33)
[2018-03-31] MEDS ORDERED: LOSA25TA PO (11:33)
--- NOTE | 2018-03-31 12:03 | HHI.FF ---
Face to Face Verification Diagnosis: (1) Hypertension (2) Type 2 diabetes mellitus (3) Presence of stent in coronary artery in patient with coronary artery disease (4) Dysphagia Occupational Therapy Order: Evaluate and Treat, Improve ADL Home Health Nursing Order: Medical education Signs/symptoms of disease process Diabetic education Nursing assessment with vital signs [place] Hand Order: To Evaluate: Support services Order: To Provide: Community services I have seen patient Carolin Aguirre on 03/31/18. My clinical findings support the need for the requested home health care services because: Med compliance is questionable Limited ability to care for self I certify that my clinical findings support that this patient is homebound because: Unsafe to leave home unassisted Unable to use public transportation Nicole Ventura PA-C Mar 31, 2018 12:03 Shane Gonzales MD Mar 31, 2018 12:54
--- NOTE | 2018-03-31 13:44 | EKG ---
Date Performed: 03/30/2018 Time Performed: 07:10:00 PTAGE: 77 years EKG: Sinus rhythm NORMAL ECG PREVIOUS TRACING 01/31/18 Since the previous tracing, no significant change noted DOCTOR: Dru Pugh Interpretating Date/Time 03/31/2018 13:42:42
--- NOTE | 2018-03-31 13:45 | EKG ---
Date Performed: 03/30/2018 Time Performed: 14:34:51 PTAGE: 77 years EKG: SINUS BRADYCARDIA PROLONGED QT INTERVAL ABNORMAL ECG PREVIOUS TRACING : 03/30/2018 07.10 Since the previous tracing, no significant change noted DOCTOR: Dru Pugh Interpretating Date/Time 03/31/2018 13:42:50
[2018-03-31] MEDS ORDERED: cloNIDine HCL 0.1 MG TAB PO SCH (21:00)
== END 2018-03-31 17:00 | disposition home or self-care (01) ==
LOC: NEPE 07:49 → NEDA 09:33 → NEPFCDU 11:46
PROVIDERS: ADMIT Hospitalist; ATTEND Hospitalist
DX: I16.1 Hypertensive emergency (principal); E11.22 Type 2 diabetes mellitus with diabetic chronic kidney disease; R13.10 Dysphagia, unspecified; R05 Cough; J18.9 Pneumonia, unspecified organism; I25.10 Atherosclerotic heart disease of native coronary artery without angina pectoris; E78.00 Pure hypercholesterolemia, unspecified; R51 Headache; R11.2 Nausea with vomiting, unspecified; Z79.01 Long term (current) use of anticoagulants; J45.909 Unspecified asthma, uncomplicated; I12.9 Hypertensive chronic kidney disease with stage 1 through stage 4 chronic kidney disease, or unspecified chronic kidney disease; N18.9 Chronic kidney disease, unspecified; E78.5 Hyperlipidemia, unspecified; R10.13 Epigastric pain; K44.9 Diaphragmatic hernia without obstruction or gangrene; Z79.4 Long term (current) use of insulin; Z95.5 Presence of coronary angioplasty implant and graft
CPT/HCPCS: 71046; 80048; 80053; 81001; 82550; 82552; 82948; 83690; 83735; 84484; 85025; 85610; 85730; 87040; 93005; 96365; 96366; 96367; 96372; 99285; G0378; J0456; J0696; J1644; J1815; J2270; J7050

== ENCOUNTER 2018-10-23 13:56 | Observation (INO) ==
[2018-10-23] MEDS ORDERED: MethylPREDNISolone Sod Succinate Inj 125 MG/2 ML Vial IV.PUSH ONE (14:30)
--- NOTE | 2018-10-23 14:34 | ED ---
HPI General Chief complaint: Respiratory Symptoms Stated complaint: respiratory Time Seen by Provider: 10/23/18 14:23 Source: patient Mode of arrival: ambulatory Limitations: no limitations History of Present Illness HPI narrative: Is a 78-year-old woman who presents to the emergency department, as of breath ongoing for about a week or 2. She is Green[place]ic-speaking primarily and her history is obtained mostly to the family who acts as japanese interpreter's. She reports that she was started on antibiotic about a week or so ago. She has been taking some breathing medicines but they have really help. She had some cough. Fever a couple days ago. She also complaint of ongoing left shoulder pain. She has an appointment scheduled for an MRI for her shoulder. It has been bothering her for quite some time. No chest pain. No other complaints. Lives at home alone, no definite sick contacts, but lots of people in her apartment building a been sick. Related Data Home Medications Medication Instructions Recorded Confirmed atorvastatin 20 mg PO DAILY 05/21/18 05/21/18 clopidogrel [Plavix] 75 mg PO DAILY 05/21/18 05/21/18 fluoxetine 20 mg PO DAILY 05/21/18 05/21/18 furosemide [Lasix] 20 mg PO DAILY 05/21/18 05/21/18 gabapentin 300 mg PO BID 05/21/18 05/21/18 glipizide 5 mg PO DAILY 05/21/18 05/21/18 isosorbide mononitrate 60 mg PO DAILY 05/21/18 05/21/18 sitagliptin-metformin [Janumet] 1 tab PO BID 05/21/18 05/21/18 Allergies Allergy/AdvReac Type Severity Reaction Status Date / Time shellfish derived Allergy Severe rash Verified 01/30/18 18:18 pork derived (porcine) AdvReac Intermediate nauseas/mehran Verified 05/21/18 09:57 rrheas Review of Systems ROS: all other systems reviewed are negative [facility] Medical History Medical History Asthma (Acute) Depression (Acute) Diabetes (Acute) HBP (high blood pressure) (Acute) High cholesterol (Acute) Kidney stones (Acute) Surgical History Surgical History H/O tubal ligation (Acute) Hx of cataract surgery (Acute) Hx of tonsillectomy (Acute) Social History Social History Substance History: No History of Abuse Second Hand Smoke Exposure: No Smoking Status: Current every day smoker Tobacco Type: Cigarettes How Often Do You Have a Drink Containing Alcohol: Never Recent Travel in [facility] within the Last 8 Weeks: No Recent Out of Country Travel within the Last 8 Weeks: No Exam Narrative Exam Narrative: GENERAL: Well-appearing 78-year-old woman, nontoxic, no acute distress. SKIN: Focused skin assessment warm/dry. HEAD: Atraumatic. Normocephalic. EYES: Pupils equal and round. No scleral icterus. No injection or drainage. ENT: No nasal bleeding or discharge. Mucous membranes pink and moist. NECK: Trachea midline. No JVD. CARDIOVASCULAR: Regular rate and rhythm. No murmur appreciated. RESPIRATORY: No acute respiratory distress. Moderate diffuse wheezing. Coarse breath sounds. GASTROINTESTINAL: Abdomen soft, non-tender, nondistended. Hepatic and splenic margins not palpable. MUSCULOSKELETAL: No obvious deformities. No clubbing. No cyanosis. No edema. NEUROLOGICAL: Awake and alert. No obvious cranial nerve deficits. Motor grossly within normal limits. Normal speech. PSYCHIATRIC: Appropriate mood and affect; insight and judgment normal. Course Initial Documented Vital Signs Temperature 98.7 F 10/23/18 13:59 Pulse Rate 74 10/23/18 13:59 Respiratory Rate 22 10/23/18 13:59 Blood Pressure 180/80 H 10/23/18 13:59 Pulse Oximetry 97 10/23/18 13:59 Last Documented Vital Signs Temperature 98.7 F 10/23/18 13:59 Pulse Rate 64 10/23/18 14:50 Respiratory Rate 16 10/23/18 14:50 Blood Pressure 180/80 H 10/23/18 13:59 Pulse Oximetry 100 10/23/18 15:00 Medical Decision Making MDM Narrative Medical decision making narrative: Is a 78-year-old woman who presents to the emergency department with cough cold symptoms, ongoing for about a week or so, on antibiotics already, looks generally well. Nontoxic appearing. Coarse breath sounds. History of "asthma". Will check x-ray, will check labs given the time course of the symptoms, will check an influenza. She is not clear what antibiotic she is on. It does not sound like she is on steroids now. I think she can probably go home however she is not doing well would have low threshold to keep her for COPD and observation. CBC shows no acute abnormality. CMP shows elevated BUN 33, creatinine 2.21. Patient has history of chronic kidney disease. However, this is slightly worse than her baseline. She is given normal saline 500 mL bolus. Troponin is less than 0.02. Influenza is negative. Chest x-ray shows no appreciable change. Upon reexamination, patient still has diffuse wheezing after treatments. Patient lives alone. She has been on antibiotics for a week and been using nebulizers at home with no relief. I will bring the patient in for observation for COPD exacerbation. Dr. Hills accepted admission. Medical Screen Exam Complete: Yes Emergency Medical Condition: Yes Lab Data Result diagrams: 10/23/18 14:40 10/23/18 14:40 Lab Results 10/23/18 10/23/18 Range/Units 14:40 14:40 WBC 6.4 (4.0-11.0) th/mm3 RBC 4.05 (4.00-5.30) mil/mm3 Hgb 11.9 (11.6-15.3) gm/dL Hct 35.7 (35.0-46.0) % MCV 88.0 (80.0-100.0) fL MCH 29.4 (27.0-34.0) pg MCHC 33.5 (32.0-36.0) % RDW 14.4 (11.6-17.2) % Plt Count 236 (150-450) th/mm3 MPV 9.6 (7.0-11.0) fL Neut % (Auto) 59.5 (16.0-70.0) % Lymph % (Auto) 25.6 (9.0-44.0) % Coos % (Auto) 10.4 H (0.0-8.0) % Eos % (Auto) 3.9 (0.0-4.0) % Baso % (Auto) 0.6 (0.0-2.0) % Neut # (Auto) 3.8 (1.8-7.7) th/mm3 Lymph # (Auto) 1.6 (1.0-4.8) th/mm3 Coos # (Auto) 0.7 (0.0-0.9) th/mm3 Eos # (Auto) 0.3 (0.0-0.4) th/mm3 Baso # (Auto) 0.0 (0.0-0.2) th/mm3 WBC Differential . Differential Comment Auto diff final Sodium 139 (136-145) meq/L Potassium 4.4 (3.5-5.1) meq/L Chloride 107 (98-107) meq/L Carbon Dioxide 24.1 (21.0-32.0) meq/L Anion Gap 8 (5-15) meq/L BUN 33 H (7-18) mg/dL Creatinine 2.21 H (0.50-1.00) mg/dL Estimated GFR 21 L (>89) mL/min Random Glucose 137 H (74-106) mg/dL Calcium 9.1 (8.5-10.1) mg/dL Total Bilirubin 0.4 (0.2-1.0) mg/dL AST 18 (15-37) U/L ALT 17 (10-53) U/L Alkaline Phosphatase 78 (45-117) U/L Troponin I Less than 0.02 L (0.02-0.05) ng/mL Total Protein 7.1 (6.4-8.2) g/dL Albumin 3.4 (3.4-5.0) g/dL Imaging Data Radiologist's impression: Chest X-Ray 10/23/18 14:30 CONCLUSION: No appreciable change. Discharge Plan Discharge Disposition Patient Disposition: ED Admit(ED Internal Use Only) Discharge Details Diagnosis: Acute exacerbation of chronic obstructive pulmonary disease (COPD) Physicians Team ED Provider: Tod Vaca ED Midlevel Provider: Elizabeth Arriaga Primary Care Provider: UNKNOWN, Rxs /Orders / Referrals /Forms Prescriptions: No Action clopidogrel [Plavix] 75 mg Tablet 75 mg PO DAILY RF: 0 gabapentin 300 mg Capsule 300 mg PO BID RF: 0 furosemide [Lasix] 20 mg Tablet 20 mg PO DAILY RF: 0 glipizide 5 mg Tablet 5 mg PO DAILY RF: 0 isosorbide mononitrate 60 mg Tablet Extended Release 24 Hr 60 mg PO DAILY RF: 0 sitagliptin-metformin [Janumet] 50-1,000 mg Tablet 1 tab PO BID RF: 0 atorvastatin 20 mg Tablet 20 mg PO DAILY RF: 0 fluoxetine 20 mg Capsule 20 mg PO DAILY RF: 0 Status ED Status: With Doctor
[2018-10-23 15:18] LABS: Baso % (Auto) 0.6 % (0.0-2.0); Eos # (Auto) 0.3 th/mm3 (0.0-0.4); Eos % (Auto) 3.9 % (0.0-4.0); Hematocrit 35.7 % (35.0-46.0); Hemoglobin 11.9 gm/dL (11.6-15.3); Lymph # (Auto) 1.6 th/mm3 (1.0-4.8); Lymph % (Auto) 25.6 % (9.0-44.0); Mean Corpuscular HGB Conc 33.5 % (32.0-36.0); Mean Corpuscular Hemoglobin 29.4 pg (27.0-34.0); Mean Platelet Volume 9.6 fL (7.0-11.0); Mono # (Auto) 0.7 th/mm3 (0.0-0.9); Mono % (Auto) 10.4 % (0.0-8.0); Neut # (Auto) 3.8 th/mm3 (1.8-7.7); Neut % (Auto) 59.5 % (16.0-70.0); Platelet Count 236 th/mm3 (150-450); Red Blood Count 4.05 mil/mm3 (4.00-5.30); Red Cell Distribution Width 14.4 % (11.6-17.2); White Blood Count 6.4 th/mm3 (4.0-11.0)
[2018-10-23 15:36] LABS: Alkaline Phosphatase 78 U/L (45-117); Total Protein 7.1 g/dL (6.4-8.2)
--- NOTE | 2018-10-23 15:36 | XR ---
EXAM DATE: 10/23/2018 3:24 PM EST AGE/SEX: 78 years / Female INDICATIONS: Short of breath. CLINICAL DATA: This is the patient's initial encounter. Patient reports that signs and symptoms have been present for 1 day and indicates a pain score of 0/10. MEDICAL/SURGICAL HISTORY: None. None. COMPARISON: [facility] [place], CHEST 1V SINGLE AP, 05/21/2018. . FINDINGS: Lungs are clear. Slight cardiomegaly seen. CONCLUSION: No appreciable change. Electronically signed by: Tammy Lee MD Board Certified Radiologist 10/23/2018 3:34 PM EST
[2018-10-23 15:38] LABS: Alanine Aminotransferase 17 U/L (10-53); Albumin 3.4 g/dL (3.4-5.0); Anion Gap 8 meq/L (5-15); Aspartate Aminotransferase 18 U/L (15-37); Blood Urea Nitrogen 33 mg/dL (7-18); Calcium 9.1 mg/dL (8.5-10.1); Carbon Dioxide 24.1 meq/L (21.0-32.0); Chloride 107 meq/L (98-107); Glomerular Filtration Rate 21 mL/min (>89); Glucose,Random 137 mg/dL (74-106); Potassium 4.4 meq/L (3.5-5.1); Sodium 139 meq/L (136-145)
[2018-10-23] MEDS ORDERED: Sodium Chlor 0.9% Inj 500 ML IV.SIG ONE (15:44)
[2018-10-23] MEDS ORDERED: Acetaminophen 325 MG Tablet PO PRN (16:08)
[2018-10-23] MEDS ORDERED: Bisacodyl 10 MG Supp RECTAL PRN (16:08)
[2018-10-23] MEDS: Azithromycin 250 MG Tablet PO SCH (16:54)
[2018-10-23] MEDS: Sodium Chloride 0.45 % Inj 1,000 ML IV.CONT SCH (16:55)
[2018-10-23] MEDS ORDERED: MethylPREDNISolone Sod Succinate Inj 40 MG/ML Vial IV.PUSH SCH (17:00)
[2018-10-23] MEDS ORDERED: Dextrose 50% in Water 50 ML Vial IV.PUSH PRN (17:06)
[2018-10-23] MEDS ORDERED: Acetaminophen 500 MG Tablet PO PRN (17:06)
--- NOTE | 2018-10-23 17:14 | P.HPIM ---
History of Present Illness Primary Care Physician: UNKNOWN Chief Complaint: Shortness of breath History of Present Illness: This is a 78-year-old female with a history of asthma, diabetes mellitus, hypertension, GERD and hyper lipidemia. She presents to the emergency department because of shortness of breath for 1 week. She reports of dyspnea on exertion associated with wheezing, chills and productive cough of white phlegm. No fever. She was prescribed antibiotic by her PCP. She is not able to recall the name. In the emergency department, she continues to have wheezing despite nebulization and IV steroids and was recommended hospitalization. Chest x-ray image interpreted by me with no acute cardiopulmonary disease. She also reports of constant throbbing chest discomfort for 1 week without radiation or associated signs and symptoms. EKG interpreted by me with sinus rhythm with frequent PVCs with no acute ST elevation patient denies history of coronary artery disease. She reports that she had [address] Tena with no intervention. She was told that she has a leaky valve but she is too old for surgery. She was seen in the chest pain center in 2016 with negative stress test. 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 She received 2 intra-articular injection in the past week to no relief. She is scheduled to undergo MRI outpatient by her PCP. All other systems reviewed negative. HPI is taken from the patient with the aid of a [employer] healthcare interpreter Review of Systems Review of Systems: all other systems reviewed are negative [facility] Medical History Medical History Asthma (Acute) Depression (Acute) Diabetes (Acute) HBP (high blood pressure) (Acute) High cholesterol (Acute) Kidney stones (Acute) Surgical History Surgical History H/O tubal ligation (Acute) Hx of cataract surgery (Acute) Hx of tonsillectomy (Acute) Family History Family History Other Diabetes mellitus Social History Social History Substance History: No History of Abuse Smoking Status: Never smoker How Often Do You Have a Drink Containing Alcohol: Never Recent Travel in [facility] within the Last 8 Weeks: No Recent Out of Country Travel within the Last 8 Weeks: No Immunization History Tetanus Immunization: Unsure Medications and Allergies Allergies Allergy/AdvReac Type Severity Reaction Status Date / Time shellfish derived Allergy Severe rash Verified 01/30/18 18:18 pork derived (porcine) AdvReac Intermediate nauseas/mehran Verified 05/21/18 09:57 rrheas Home Medications Medication Instructions Recorded Confirmed Type atorvastatin 20 mg PO DAILY 05/21/18 10/23/18 History clopidogrel [Plavix] 75 mg PO DAILY 05/21/18 10/23/18 History fluoxetine 20 mg PO DAILY 05/21/18 10/23/18 History furosemide [Lasix] 20 mg PO BID 05/21/18 10/23/18 History gabapentin 300 mg PO BID 05/21/18 10/23/18 History glipizide 5 mg PO DAILY 05/21/18 10/23/18 History isosorbide mononitrate 60 mg PO DAILY 05/21/18 10/23/18 History sitagliptin-metformin [Janumet] 1 tab PO BID 05/21/18 10/23/18 History Active Medications: Active Medications Acetaminophen (Tylenol) 650 mg PO Q4H PRN PRN Reason: Temp > 100.4 Acetaminophen (Tylenol) 500 mg PO Q4H PRN PRN Reason: HEADACHE Hydrocodone Bitart/Acetaminophen ([place] 7.5/325) 1 tab PO Q4H PRN PRN Reason: PAIN SCALE 1 TO 7 Albuterol (Albuterol Neb (Prn)) 2.5 mg NEB Q2HR NEB PRN PRN Reason: SHORTNESS OF BREATH Albuterol (Duoneb Neb ([place])) 1 ampul NEB Q4HR NEB [place] Azithromycin (Zithromax) 500 mg PO DAILY [place] Stop: 10/25/18 09:01 Last Admin: 10/23/18 16:54 Dose: 500 mg Bisacodyl (Dulcolax Supp) 10 mg RECTAL DAILY PRN PRN Reason: SEVERE CONSITIPATION Budesonide/Formoterol Fumarate (Symbicort 160/4.5 Mcg Inh) 2 puff INH BID [place] Clonidine HCl (Catapres) 0.1 mg PO Q6H PRN PRN Reason: SEE LABEL COMMENTS Dextrose (D50w Vial) 50 ml IV.PUSH UNSCH PRN PRN Reason: PER HYPOGLYCEMIA PROTOCOL Glucagon (Glucagon Inj) 1 mg OTHER PRN PRN PRN Reason: for Hypoglycemia Protocol Sodium Chloride (1/2 Normal Saline Inj) 1,000 mls @ 75 mls/hr IV.CONT .[id number] [facility] Last Admin: 10/23/18 16:55 Dose: 75 mls/hr Insulin Aspart (Novolog Insulin Correctional Sugar Inj) 0 unit SQ ACHS [place]; Protocol Lactulose (Lactulose Liq) 30 ml PO DAILY PRN PRN Reason: SEVERE CONSITIPATION Methylprednisolone Sodium Succinate (Solumedrol Inj) 60 mg IV.PUSH Q6H [place] Morphine Sulfate (Morphine Inj) 2 mg IV.PUSH Q4H PRN PRN Reason: PAIN SCALE 8 TO 10 Ondansetron HCl (Zofran Inj) 4 mg IV.PUSH Q6H PRN PRN Reason: NAUSEA OR VOMITING Senna/Docusate Sodium (Laine-Colace) 1 tab PO BID [facility] Sennosides (Senokot) 17.2 mg PO Q12H PRN PRN Reason: Moderate Constipation Sodium Chloride (Ns Flush) 2 ml IV.FLUSH PRN PRN PRN Reason: FLUSH AFTER USING IV ACCESS Sodium Chloride (Ns Flush) 2 ml IV.FLUSH BID [facility] Sodium Chloride (Ns Flush) 2 ml IV.FLUSH BID [place] Sodium Chloride (Ns Flush) 2 ml IV.FLUSH PRN PRN PRN Reason: FLUSH AFTER USING IV ACCESS Physical Exam Vital signs: Vital Signs 10/23/18 13:59 10/23/18 14:50 10/23/18 14:58 Temperature 98.7 F Pulse Rate 74 64 Respiratory Rate 22 16 Blood Pressure 180/80 H Pulse Oximetry 97 97 10/23/18 15:00 Temperature Pulse Rate Respiratory Rate Blood Pressure Pulse Oximetry 100 Intake & Output 10/22/18 10/23/18 10/23/18 18:59 06:59 18:59 Weight 72.575 kg Narrative: GENERAL: Well-developed and well-nourished in no distress SKIN: Warm and dry. HEAD: Atraumatic. Normocephalic. EYES: Pupils equal and round. No scleral icterus. No injection or drainage. ENT: No nasal bleeding or discharge. Mucous membranes pink and moist. NECK: Trachea midline. No JVD. CARDIOVASCULAR: Regular rate and rhythm. RESPIRATORY: No accessory muscle use. Bilateral expiratory wheezes. Breath sounds equal bilaterally. GASTROINTESTINAL: Abdomen soft, non-tender, nondistended. MUSCULOSKELETAL: Extremities without clubbing, cyanosis, or edema. No obvious deformities. Tender left shoulder with limited range of motion. No swelling or redness NEUROLOGICAL: Awake and alert. No obvious cranial nerve deficits. Motor grossly within normal limits. Five out of 5 muscle strength in the arms and legs. Normal speech. PSYCHIATRIC: Appropriate mood and affect; insight and judgment normal. Results Labs CBC & Chem 7: 10/23/18 14:40 10/23/18 14:40 Imaging Impressions Chest X-Ray 10/23/18 14:30 CONCLUSION: No appreciable change. Caprini VTE Risk Assessment Caprini VTE Risk Assessment: Moderate/High Risk (score >= 2) Caprini Risk Assessment Model: Point Value = 1 Point Value = 2 Point Value = 3 Point Value = 5 Age 41-60 Minor surgery BMI > 25 kg/m2 Swollen legs Varicose veins or History of unexplained or recurrent spontaneous Oral contraceptives or hormone replacement Sepsis (< 1 month) Serious lung disease, including pneumonia (< 1 month) Abnormal pulmonary function Acute myocardial infarction Congestive heart failure (< 1 month) History of inflammatory bowel disease Medical patient at bed rest Age 61-74 Arthroscopic surgery Major open surgery (> 45 min) Laparoscopic surgery (> 45 min) Malignancy Confined to bed (> 72 hours) Immobilizing plaster cast Central venous access Age >= 75 History of VTE Family history of VTE Factor V Leiden Prothrombin [id number] Lupus anticoagulant Anticardiolipin antibodies Elevated serum homocysteine Heparin-induced thrombocytopenia Other congenital or acquired thrombophilia Stroke (< 1 month) Elective arthroplasty Hip, pelvis, or leg fracture Acute spinal cord injury (< 1 month) Prophylaxis Regimen: Total Risk Factor Score Risk Level Prophylaxis Regimen 0-1 Low Early ambulation 2 Moderate Order ONE of the following: *Sequential Compression Device (SCD) *Heparin 5000 units SQ BID 3-4 Higher Order ONE of the following medications: *Heparin 5000 units SQ TID *Enoxaparin/Lovenox 40 mg SQ daily (WT < 150 kg, CrCl > 30 mL/min) *Enoxaparin/Lovenox 30 mg SQ daily (WT < 150 kg, CrCl > 10-29 mL/min) *Enoxaparin/Lovenox 30 mg SQ BID (WT < 150 kg, CrCl > 30 mL/min) AND/OR *Sequential Compression Device (SCD) 5 or more Highest Order ONE of the following medications: *Heparin 5000 units SQ TID (Preferred with Epidurals) *Enoxaparin/Lovenox 40 mg SQ daily (WT < 150 kg, CrCl > 30 mL/min) *Enoxaparin/Lovenox 30 mg SQ daily (WT < 150 kg, CrCl > 10-29 mL/min) *Enoxaparin/Lovenox 30 mg SQ BID (WT < 150 kg, CrCl > 30 mL/min) AND *Sequential Compression Device (SCD) Assessment and Plan Plan This is a 78-year-old female with a history of asthma, diabetes mellitus, hypertension, GERD and hyper lipidemia. She presents to the emergency department because of shortness of breath, dyspnea on exertion associated with wheezing, chills, productive cough of white phlegm and chest pain. Chest x-ray without pneumonia. EKG with no ST elevation. Asthma exacerbation. Continue oxygen, nebulizations, IV steroids and start Zithromax. Atypical chest pain likely secondary to above but she does have multiple risk factors, will trend cardiac enzymes Acute on chronic kidney disease stage III. Patient received fluid bolus in the ED. Continue IV hydration and avoid nephrotoxins hold diuretic. Obtain CK Uncontrolled hypertension. Continue home medications with as needed clonidine Chronic left shoulder pain and left upper extremity numbness with history of shoulder surgery secondary to arthritis and degeneration. She received 2 intra- articular injection in the past week to no relief. She is scheduled to undergo MRI outpatient by her PCP. Pain management counseled regarding narcotics DVT prophylaxis with SCD and subcu heparin
[2018-10-23 19:40] LABS: Creatine Kinase 96 U/L (26-192)
[2018-10-23] MEDS: Senna/Docusate Sodium 8.6/50 MG Tablet PO SCH (21:35)
[2018-10-23] MEDS: Heparin - SQ 10,000 UNITS/ML Vial SQ SCH (21:35)
[2018-10-23] MEDS: Gabapentin 300 MG Capsule PO SCH (21:36)
[2018-10-23] MEDS: MethylPREDNISolone Sod Succinate Inj 40 MG/ML Vial IV.PUSH SCH (21:37)
[2018-10-23] MEDS: Budesonide-Formoterol 160/4.5 MCG 6 GM Inhaler INH SCH (23:14)
[2018-10-23] MEDS: Insulin NovoLOG Aspart Correctional Sugar Inj SQ SCH (23:42)
[2018-10-24 00:14] LABS: Creatine Kinase 156 U/L (26-192)
[2018-10-24] MEDS: MethylPREDNISolone Sod Succinate Inj 40 MG/ML Vial IV.PUSH SCH ×4 (03:01→23:41)
[2018-10-24] MEDS: Sodium Chloride 0.45 % Inj 1,000 ML IV.CONT SCH ×2 (05:57→19:12)
[2018-10-24] MEDS: Azithromycin 250 MG Tablet PO SCH (08:14)
[2018-10-24] MEDS: Heparin - SQ 10,000 UNITS/ML Vial SQ SCH ×2 (08:14→21:27)
[2018-10-24] MEDS: FLUoxetine 20 MG Capsule PO SCH (08:14)
[2018-10-24] MEDS: Isosorbide Mononitrate 60 MG ER 24HR Tablet (Imdur) PO SCH (08:14)
[2018-10-24] MEDS: Gabapentin 300 MG Capsule PO SCH ×2 (08:15→21:26)
[2018-10-24] MEDS: Senna/Docusate Sodium 8.6/50 MG Tablet PO SCH ×2 (08:15→22:04)
[2018-10-24] MEDS: Budesonide-Formoterol 160/4.5 MCG 6 GM Inhaler INH SCH ×2 (08:16→21:27)
[2018-10-24 08:17] LABS: Calcium 9.2 mg/dL (8.5-10.1); Carbon Dioxide 24.2 meq/L (21.0-32.0)
[2018-10-24 08:20] LABS: Potassium 4.1 meq/L (3.5-5.1)
[2018-10-24] MEDS: Insulin NovoLOG Aspart Correctional Sugar Inj SQ SCH ×4 (09:46→21:26)
[2018-10-24] MEDS ORDERED: Benzonatate 100 MG Capsule PO PRN (12:00)
--- NOTE | 2018-10-24 12:05 | P.PN ---
Subjective Interval history: Follow up for copd exacerbation: pt. seen and examined, awake, oriented x 3. Speaks Fijian mostly. Tremulous. Remains with wheezing, cough productive of castaneda sputum. Left shoulder and chest wall pain, had surgery to shoulder years ago and has had increased pain. Due to have MRI tomorrow. Received steroid injections in the past. No actual chest pressure. Pain exacerbated with raising arm. States she used to be on oxygen but she recently changed insurance so her former insurance company removed equipment from her home. Voiding ok, has hx of CKD. No fever, no chills. Physical Exam Vital signs: Vital Signs 10/23/18 13:59 10/23/18 14:50 10/23/18 14:58 Temperature 98.7 F Pulse Rate 74 64 Respiratory Rate 22 16 Blood Pressure 180/80 H Pulse Oximetry 97 97 10/23/18 15:00 10/23/18 15:05 10/23/18 15:20 Temperature Pulse Rate 65 65 Respiratory Rate 16 16 Blood Pressure Pulse Oximetry 100 10/23/18 17:07 10/23/18 17:51 10/23/18 18:33 Temperature 97.9 F Pulse Rate 64 68 73 Respiratory Rate 16 Blood Pressure 198/90 H 168/86 H Pulse Oximetry 98 91 L 10/23/18 18:47 10/23/18 19:39 10/23/18 19:52 Temperature 96.2 F L Pulse Rate 55 L 75 Respiratory Rate 16 20 Blood Pressure 160/71 H Pulse Oximetry 95 96 97 10/23/18 19:56 10/23/18 23:43 10/24/18 00:14 Temperature 98.2 F Pulse Rate 70 65 Respiratory Rate 20 16 Blood Pressure 180/77 H Pulse Oximetry 98 93 L 10/24/18 03:30 10/24/18 03:57 10/24/18 07:25 Temperature 98 F 97.5 F L Pulse Rate 61 68 117 H Respiratory Rate 16 20 16 Blood Pressure 179/79 H 192/81 H Pulse Oximetry 97 90 L 10/24/18 07:42 10/24/18 11:23 Temperature Pulse Rate 40 L 47 L Respiratory Rate 14 16 Blood Pressure Pulse Oximetry 98 Intake & Output 10/23/18 10/24/18 10/24/18 18:59 06:59 18:59 Intake Total 500 / 500 1000 / 1000 Balance 500 / 500 1000 / 1000 Weight 72.575 kg 72.58 kg Intake: IV 500 / 500 1000 / 1000 1/2 Normal Saline Inj 1,000 ML 1000 / 1000 @ 75 mls/hr IV.CONT .[id number] [facility] Rx#:[id number] NS Inj 500 ML @ Wide Open IV. 500 / 500 SIG BOLUS ONE Rx#:[id number] Other: Date of Last Bowel Movement 10/23/18 Weight On Admission 72.575 kg Narrative: GENERAL: Well-nourished, well-developed patient 78-year-old female, mild distress. SKIN: Warm and dry. HEAD: Atraumatic. Normocephalic. EYES: Pupils equal and round. No scleral icterus. No injection or drainage. ENT: No nasal bleeding or discharge. Mucous membranes pink and moist. NECK: Trachea midline. No JVD. CARDIOVASCULAR: Regular rate and rhythm. Soft murmur. RESPIRATORY: Diffuse expiratory wheezing and minimal rhonchi GASTROINTESTINAL: Abdomen soft, non-tender, nondistended. Hepatic and splenic margins not palpable. MUSCULOSKELETAL: Extremities without clubbing, cyanosis, or edema. No obvious deformities. Limited left shoulder mobility, has increased pain. Unable to raise greater than 45 degrees. NEUROLOGICAL: Awake and alert. No obvious cranial nerve deficits. Motor grossly within normal limits. Five out of 5 muscle strength in the arms and legs. Normal speech. PSYCHIATRIC: Appropriate mood and affect; insight and judgment normal. Results - Labs CBC & Chem 7: 10/23/18 14:40 10/24/18 06:08 Laboratory Results - last 24 hr 10/23/18 10/23/18 10/23/18 14:40 14:40 14:40 WBC 6.4 RBC 4.05 Hgb 11.9 Hct 35.7 MCV 88.0 MCH 29.4 MCHC 33.5 RDW 14.4 Plt Count 236 MPV 9.6 Neut % (Auto) 59.5 Lymph % (Auto) 25.6 [place] % (Auto) 10.4 H Eos % (Auto) 3.9 Baso % (Auto) 0.6 Neut # (Auto) 3.8 Lymph # (Auto) 1.6 [place] # (Auto) 0.7 Eos # (Auto) 0.3 Baso # (Auto) 0.0 WBC Differential . Differential Comment Auto diff final Sodium 139 Potassium 4.4 Chloride 107 Carbon Dioxide 24.1 Anion Gap 8 BUN 33 H Creatinine 2.21 H Estimated GFR 21 L POC Glucose Random Glucose 137 H Calcium 9.1 Total Bilirubin 0.4 AST 18 ALT 17 Alkaline Phosphatase 78 Total Creatine Kinase 125 Troponin I Less than 0.02 L Total Protein 7.1 Albumin 3.4 10/23/18 10/23/18 10/23/18 18:10 22:21 23:12 WBC RBC Hgb Hct MCV MCH MCHC RDW Plt Count MPV Neut % (Auto) Lymph % (Auto) [place] % (Auto) Eos % (Auto) Baso % (Auto) Neut # (Auto) Lymph # (Auto) [place] # (Auto) Eos # (Auto) Baso # (Auto) WBC Differential Differential Comment Sodium Potassium Chloride Carbon Dioxide Anion Gap BUN Creatinine Estimated GFR POC Glucose 426 H 452 H* Random Glucose Calcium Total Bilirubin AST ALT Alkaline Phosphatase Total Creatine Kinase 96 Troponin I Less than 0.02 L Total Protein Albumin 10/23/18 10/24/18 10/24/18 23:20 02:51 06:08 WBC RBC Hgb Hct MCV MCH MCHC RDW Plt Count MPV Neut % (Auto) Lymph % (Auto) [place] % (Auto) Eos % (Auto) Baso % (Auto) Neut # (Auto) Lymph # (Auto) [place] # (Auto) Eos # (Auto) Baso # (Auto) WBC Differential Differential Comment Sodium 137 Potassium 4.1 Chloride 106 Carbon Dioxide 24.2 Anion Gap 7 BUN 38 H Creatinine 1.83 H Estimated GFR 27 L POC Glucose 359 H Random Glucose 328 H D Calcium 9.2 Total Bilirubin AST ALT Alkaline Phosphatase Total Creatine Kinase 156 Troponin I Less than 0.02 L Total Protein Albumin 10/24/18 10/24/18 08:17 12:02 WBC RBC Hgb Hct MCV MCH MCHC RDW Plt Count MPV Neut % (Auto) Lymph % (Auto) [place] % (Auto) Eos % (Auto) Baso % (Auto) Neut # (Auto) Lymph # (Auto) [place] # (Auto) Eos # (Auto) Baso # (Auto) WBC Differential Differential Comment Sodium Potassium Chloride Carbon Dioxide Anion Gap BUN Creatinine Estimated GFR POC Glucose 295 H 434 H Random Glucose Calcium Total Bilirubin AST ALT Alkaline Phosphatase Total Creatine Kinase Troponin I Total Protein Albumin Microbiology 10/23/18 14:40 Nasal Wash Influenza Types A,B Antigen - Final Negative for FLU A and B antigen Infection due to influenza A or B cannot be ruled out since the antigen present in the sample may be below the detection limit of the test. - Imaging Impressions Chest X-Ray 10/23/18 14:30 CONCLUSION: No appreciable change. Assessment and Plan - Assessment (1) Acute exacerbation of chronic obstructive pulmonary disease (COPD) Code(s): J44.1 - Chronic obstructive pulmonary disease with (acute) exacerbation Status: Acute (2) Valvular heart disease Code(s): I38 - Endocarditis, valve unspecified Status: Chronic (3) Diabetes 1.5, managed as type 2 Code(s): E13.9 - Other specified diabetes mellitus without complications Status: Chronic (4) INGRIS (acute kidney injury) Code(s): N17.9 - Acute kidney failure, unspecified Status: Acute (5) CKD (chronic kidney disease) stage 3, GFR 30-59 ml/min Code(s): N18.3 - Chronic kidney disease, stage 3 (moderate) Status: Chronic (6) HTN (hypertension) Code(s): I10 - Essential (primary) hypertension Status: Chronic (7) CAD (coronary artery disease) Code(s): I25.10 - Atherosclerotic heart disease of [place] coronary artery without angina pectoris Status: Chronic - Plan This is a 78-year-old female with a history of asthma, diabetes mellitus, hypertension, GERD and hyper lipidemia. She presented to the emergency department because of shortness of breath, dyspnea on exertion associated with wheezing, chills, productive cough of white phlegm and chest pain. Chest x-ray without pneumonia. EKG with no ST elevation. COPD exacerbation, was on oxygen before -continue Oxygen to keep sats >90% -will do walk test in am -continue duonebs -continue IV steroids -add Tessalon PRN -continue Zithromax -will order pulse ox Atypical chest pain, hx of CAD/Stent (last cath in 2017-patent stent). Has risk factors Hx of mitral stenosis and mitral regurgitation, seen by vascular surgery, deemed a poor candidate due to poor lung function and DM/HTN. -EKG no acute ST segment elevation -Trop x 3 negative -Pt. states pain is associated with left shoulder pain, inc. with movement. Has chronic changes from previous surgery and required steroid injections recently -continue to monitor -cardiac monitoring -enc. to continue following with cardiology as OP for management of CAD. Was seeing Dr. Rogers -Continue Plavix, Imdur Chronic CHF, no evidence of fluid overload -CXR clear -holding Lasix due to INGRIS, will resume in am -dec. IVF to 30/hr Acute on chronic kidney disease stage III. Patient received fluid bolus in the ED. -Continue IV hydration, avoid fluid overload due to hx of CHF -dec. IVF to 30/hr -Avoid nephrotoxins -hold diuretic today and resume tomorrow -creat improved, 1.83, making urine Uncontrolled hypertension remains elevated, 190s -On Lasix only at home -will start Norvasc 5mg po daily -continue Clonidine PRN Chronic left shoulder pain and left upper extremity numbness with history of shoulder surgery secondary to arthritis and degeneration. She received 2 intra- articular injection in the past week to no relief. She is scheduled to undergo MRI outpatient by her PCP. -Pain management counseled regarding narcotics -continue Neurontin -can f/u as OP with PCP DM II, poorly controlled -resume Glipizide -hold Janumet due to INGRIS -Accuchecks AC/HS wit ISS DVT prophylaxis with SCD and subcu heparin CM for dc planning, will HHC, poss oxygen, will do walk test tomorrow Labs in am Code Status: Full code Discussed Condition With: RN, pt, CM Discharge Planning: Poss dc in 1-2 days, may need oxygen, will do walk test tomorrow. will arrange HHC (6) HTN (hypertension) Qualifiers: Hypertension type: essential hypertension Qualified Code(s): I10 - Essential (primary) hypertension (7) CAD (coronary artery disease) Qualifiers: Coronary Disease-Associated Artery/Lesion type: [place] artery [place] vs. transplanted heart: [place] heart Associated angina: without angina Qualified Code(s): I25.10 - Atherosclerotic heart disease of [place] coronary artery without angina pectoris
[2018-10-24] MEDS: glipiZIDE 5 MG Tablet PO SCH (14:11)
--- NOTE | 2018-10-24 15:05 | P.DCO ---
- Diagnosis (1) Acute exacerbation of chronic obstructive pulmonary disease (COPD) Status: Acute (2) Valvular heart disease Status: Chronic (3) Diabetes 1.5, managed as type 2 Status: Chronic (4) INGRIS (acute kidney injury) Status: Acute (5) CKD (chronic kidney disease) stage 3, GFR 30-59 ml/min Status: Chronic (6) HTN (hypertension) Status: Chronic (7) CAD (coronary artery disease) Status: Chronic - Home Health Nursing Order: Medical education, Signs/symptoms of disease process, Diabetic education , CHF education, Oxygen administration education, Nursing assessment with vital signs - Case Management Consult Case Management Consult-Home Health: Yes - Certification I have seen patient Carolin Aguirre on 10/24/18. My clinical findings support the need for the requested home health care services because: SOB, elderly, multiple comorbidities, limited mobility Limited mobility due to disease progression, Patient has SOB, Deconditioned with increased weakness, Need for psychosocial assistance I certify that my clinical findings support that this patient is homebound because: Multiple comorbidities, COPD, valvular heart disease, CAD, CHF. SOB with exertion Hx COPD - exertion dyspnea/weakness, Poor cardiac reserve (6) HTN (hypertension) Qualifiers: Hypertension type: essential hypertension Qualified Code(s): I10 - Essential (primary) hypertension (7) CAD (coronary artery disease) Qualifiers: Coronary Disease-Associated Artery/Lesion type: [place] artery [place] vs. transplanted heart: [place] heart Associated angina: without angina Qualified Code(s): I25.10 - Atherosclerotic heart disease of [place] coronary artery without angina pectoris
--- NOTE | 2018-10-24 16:46 | ECG ---
Date Performed: 10/23/2018 Time Performed: 21:26:43 PTAGE: 78 years EKG: Sinus rhythm WITH FREQUENT VENTRICULAR PREMATURE COMPLEXES NONSPECIFIC T-WAVE ABNORMALITY ABNORMAL RHYTHM ECG PREVIOUS TRACING : 10/23/2018 18.06 Since the previous tracing, no significant change noted DOCTOR: Neto Mendez Interpretating Date/Time 10/24/2018 16:45:40
--- NOTE | 2018-10-24 16:47 | ECG ---
Date Performed: 10/23/2018 Time Performed: 14:12:56 PTAGE: 78 years EKG: Sinus rhythm WITH FREQUENT VENTRICULAR PREMATURE COMPLEXES ABNORMAL RHYTHM ECG PREVIOUS TRACING : 05/21/2018 12.31 Since the previous tracing, no significant change noted DOCTOR: Neto Mendez Interpretating Date/Time 10/24/2018 16:46:02
--- NOTE | 2018-10-24 16:47 | ECG ---
Date Performed: 10/23/2018 Time Performed: 18:06:16 PTAGE: 78 years EKG: Sinus rhythm WITH FREQUENT VENTRICULAR PREMATURE COMPLEXES NONSPECIFIC T-WAVE ABNORMALITY ABNORMAL RHYTHM ECG INT ERPRETATION BASED ON A DEFAULT AGE OF 40 YEARS PREVIOUS TRACING : 10/23/2018 14.12 Since the previous tracing, no significant change not ed DOCTOR: Neto Mendez Interpretating Date/Time 10/24/2018 16:45:48
[2018-10-24] MEDS: amLODIPine 5 MG Tablet PO SCH (16:56)
[2018-10-24] MEDS: Insulin Detemir Inj 1,000 UNIT/10 ML Vial SQ SCH (21:27)
[2018-10-24] MEDS: Morphine Inj 4 MG/ML Vial IV.PUSH PRN (23:49)
[2018-10-25] MEDS: MethylPREDNISolone Sod Succinate Inj 40 MG/ML Vial IV.PUSH SCH ×2 (03:42→08:35)
[2018-10-25] MEDS: glipiZIDE 5 MG Tablet PO SCH (06:41)
--- NOTE | 2018-10-25 08:03 | ECG ---
Date Performed: 10/24/2018 Time Performed: 23:42:19 PTAGE: 78 years EKG: SINUS TACHYCARDIA WITH OCCASIONAL VENTRICULAR PREMATURE COMPLEXES ABNORMAL RHYTHM ECG Harry red to prior electrocardiogram, rate has increased . DOCTOR: Glen French Interpretating Date/Time 10/25/2018 08:02:24
[2018-10-25] MEDS: Heparin - SQ 10,000 UNITS/ML Vial SQ SCH ×2 (08:36→21:52)
[2018-10-25] MEDS: FLUoxetine 20 MG Capsule PO SCH (08:36)
[2018-10-25] MEDS: Senna/Docusate Sodium 8.6/50 MG Tablet PO SCH ×2 (08:37→22:41)
[2018-10-25] MEDS: Gabapentin 300 MG Capsule PO SCH ×2 (08:37→21:29)
[2018-10-25] MEDS: Azithromycin 250 MG Tablet PO SCH (08:37)
[2018-10-25] MEDS: Isosorbide Mononitrate 60 MG ER 24HR Tablet (Imdur) PO SCH (08:37)
[2018-10-25] MEDS: amLODIPine 5 MG Tablet PO SCH (08:37)
[2018-10-25] MEDS: Budesonide-Formoterol 160/4.5 MCG 6 GM Inhaler INH SCH ×2 (08:38→21:58)
[2018-10-25] MEDS: Insulin NovoLOG Aspart Correctional Sugar Inj SQ SCH ×4 (09:25→21:58)
[2018-10-25 11:38] LABS: Hematocrit 32.3 % (35.0-46.0); Hemoglobin 10.9 gm/dL (11.6-15.3); Mean Corpuscular HGB Conc 33.7 % (32.0-36.0); Mean Corpuscular Hemoglobin 28.8 pg (27.0-34.0); Mean Corpuscular Volume 85.5 fL (80.0-100.0); Mean Platelet Volume 9.8 fL (7.0-11.0); Platelet Count 227 th/mm3 (150-450); Red Blood Count 3.78 mil/mm3 (4.00-5.30); Red Cell Distribution Width 14.3 % (11.6-17.2); White Blood Count 12.1 th/mm3 (4.0-11.0)
[2018-10-25] MEDS: Furosemide 20 MG Tablet PO SCH ×2 (11:54→21:29)
[2018-10-25 12:07] LABS: Calcium 9.2 mg/dL (8.5-10.1); Carbon Dioxide 26.7 meq/L (21.0-32.0); Potassium 3.7 meq/L (3.5-5.1)
--- NOTE | 2018-10-25 12:53 | P.PN ---
Subjective Interval history: Follow up for copd exacerbation: pt. seen and examined, states she had a rough night, increased left shoulder, left chest wall pain. Shortness of breath with activity, less cough, minimal sputum. No fever. On room air, sats 98% Physical Exam Vital signs: Vital Signs 10/24/18 16:00 10/24/18 16:35 10/24/18 19:25 Temperature 97.9 F Pulse Rate 104 H 48 L 68 Respiratory Rate 18 20 18 Blood Pressure 163/79 H Pulse Oximetry 96 98 Pulse Oximetry [Exertion on Room Air] Pulse Oximetry [Resting on Room Air] 10/24/18 20:00 10/24/18 23:15 10/24/18 23:43 Temperature 98.1 F 98.0 F Pulse Rate 84 72 Respiratory Rate 16 16 Blood Pressure 180/73 H 217/81 H 200/90 H Pulse Oximetry 98 96 Pulse Oximetry [Exertion on Room Air] Pulse Oximetry [Resting on Room Air] 10/24/18 23:52 10/25/18 04:00 10/25/18 07:20 Temperature 98.0 F Pulse Rate 76 71 76 Respiratory Rate 20 16 Blood Pressure 149/67 H 173/80 H Pulse Oximetry 95 96 Pulse Oximetry [Exertion on Room Air] Pulse Oximetry [Resting on Room Air] 10/25/18 08:00 10/25/18 08:05 10/25/18 10:47 Temperature 97.3 F L Pulse Rate 82 79 92 H Respiratory Rate 16 26 H Blood Pressure 116/82 Pulse Oximetry 98 Pulse Oximetry [Exertion on Room Air] 97 Pulse Oximetry [Resting on Room Air] 96 Intake & Output 10/24/18 10/25/18 10/25/18 18:59 06:59 18:59 Intake Total 1000 / 1000 Balance 1000 / 1000 Intake: IV 1000 / 1000 1/2 Normal Saline Inj 1,000 ML 1000 / 1000 @ 30 mls/hr IV.CONT .Q24H [facility] Rx#:[id number] Other: Date of Last Bowel Movement 10/24/18 Narrative: GENERAL: Well-nourished, well-developed patient 78-year-old female, mild distress. SKIN: Warm and dry. HEAD: Atraumatic. Normocephalic. EYES: Pupils equal and round. No scleral icterus. No injection or drainage. ENT: No nasal bleeding or discharge. Mucous membranes pink and moist. NECK: Trachea midline. No JVD. CARDIOVASCULAR: Regular rate and rhythm. Soft murmur. RESPIRATORY: Exp. wheezing and ronchi, improved. GASTROINTESTINAL: Abdomen soft, non-tender, nondistended. Hepatic and splenic margins not palpable. MUSCULOSKELETAL: Extremities without clubbing, cyanosis, or edema. No obvious deformities. Limited left shoulder mobility, has increased pain. Unable to raise greater than 45 degrees. NEUROLOGICAL: Awake and alert. No obvious cranial nerve deficits. Motor grossly within normal limits. Five out of 5 muscle strength in the arms and legs. Normal speech. PSYCHIATRIC: Appropriate mood and affect; insight and judgment normal. Results - Labs CBC & Chem 7: 10/25/18 09:04 10/25/18 09:04 Laboratory Results - last 24 hr 10/24/18 10/24/18 10/25/18 18:12 23:09 08:42 WBC RBC Hgb Hct MCV MCH MCHC RDW Plt Count MPV Sodium Potassium Chloride Carbon Dioxide Anion Gap BUN Creatinine Estimated GFR POC Glucose 338 H 445 H 242 H Random Glucose Calcium 10/25/18 10/25/18 10/25/18 09:04 09:04 12:19 WBC 12.1 H RBC 3.78 L Hgb 10.9 L Hct 32.3 L MCV 85.5 MCH 28.8 MCHC 33.7 RDW 14.3 Plt Count 227 MPV 9.8 Sodium 140 Potassium 3.7 Chloride 106 Carbon Dioxide 26.7 Anion Gap 7 BUN 33 H Creatinine 1.38 H Estimated GFR 37 L POC Glucose 273 H Random Glucose 232 H Calcium 9.2 Assessment and Plan - Assessment (1) Acute exacerbation of chronic obstructive pulmonary disease (COPD) Code(s): J44.1 - Chronic obstructive pulmonary disease with (acute) exacerbation Status: Acute (2) Valvular heart disease Code(s): I38 - Endocarditis, valve unspecified Status: Chronic (3) Diabetes 1.5, managed as type 2 Code(s): E13.9 - Other specified diabetes mellitus without complications Status: Chronic (4) INGRIS (acute kidney injury) Code(s): N17.9 - Acute kidney failure, unspecified Status: Acute (5) CKD (chronic kidney disease) stage 3, GFR 30-59 ml/min Code(s): N18.3 - Chronic kidney disease, stage 3 (moderate) Status: Chronic (6) HTN (hypertension) Code(s): I10 - Essential (primary) hypertension Status: Chronic (7) CAD (coronary artery disease) Code(s): I25.10 - Atherosclerotic heart disease of [place] coronary artery without angina pectoris Status: Chronic - Plan This is a 78-year-old female with a history of asthma, diabetes mellitus, hypertension, GERD and hyper lipidemia. She presented to the emergency department because of shortness of breath, dyspnea on exertion associated with wheezing, chills, productive cough of white phlegm and chest pain. Chest x-ray without pneumonia. EKG with no ST elevation. COPD exacerbation, was on oxygen before -continue Oxygen to keep sats >90% -walk test ordered -continue IV steroids-dec to q 8. -Tessalon PRN -continue Zithromax - pulse ox Atypical chest pain, hx of CAD/Stent (last cath in 2017-patent stent). Has risk factors Hx of mitral stenosis and mitral regurgitation, seen by vascular surgery, deemed a poor candidate due to poor lung function and DM/HTN. -EKG no acute ST segment elevation -Trop x 3 negative -Pt. states pain is associated with left shoulder pain, inc. with movement. Has chronic changes from previous surgery and required steroid injections recently -continue to monitor -cardiac monitoring -enc. to continue following with cardiology as OP for management of CAD. Was seeing Dr. Rogers -Continue Plavix, Imdur Chronic CHF, no evidence of fluid overload -CXR clear -holding Lasix due to INGRIS, will resume in am -Discontinue IV fluid Acute on chronic kidney disease stage III. Patient received fluid bolus in the ED. -was given IVF -Avoid nephrotoxins -Resume Lasix, creatinine 1.38 -instructed to avoid NSAIDs at home Uncontrolled hypertension remains elevated, 190s -On Lasix at home -started Norvasc 5mg po daily -continue Clonidine PRN -Blood pressure improved. Chronic left shoulder pain and left upper extremity numbness with history of shoulder surgery secondary to arthritis and degeneration. She received 2 intra- articular injection in the past week to no relief. She is scheduled to undergo MRI outpatient by her PCP. -Pain management counseled regarding narcotics -continue Neurontin -can f/u as OP with PCP DM II, poorly controlled -resume Glipizide -hold Janumet due to INGRIS -Accuchecks AC/HS wit ISS DVT prophylaxis with SCD and subcu heparin Pt. not ready, still wheezing and SOB with activity CM for dc planning, arrange HHC with PT, poss oxygen poss dc in am Code Status: Full code Discussed Condition With: RN, pt, CM Discharge Planning: Poss dc in 1-2 days, may need oxygen, will do walk test tomorrow. will arrange HHC (6) HTN (hypertension) Qualifiers: Hypertension type: essential hypertension Qualified Code(s): I10 - Essential (primary) hypertension (7) CAD (coronary artery disease) Qualifiers: Coronary Disease-Associated Artery/Lesion type: [place] artery [place] vs. transplanted heart: [place] heart Associated angina: without angina Qualified Code(s): I25.10 - Atherosclerotic heart disease of [place] coronary artery without angina pectoris
[2018-10-25] MEDS: MethylPREDNISolone Sod Succinate Inj 125 MG/2 ML Vial IV.PUSH SCH ×2 (13:13→21:35)
[2018-10-25] MEDS ORDERED: hydrALAZINE 25 MG Tablet PO ONE ×2 (21:12→23:20)
[2018-10-25] MEDS: Insulin Detemir Inj 1,000 UNIT/10 ML Vial SQ SCH (21:30)
[2018-10-25] MEDS: Morphine Inj 4 MG/ML Vial IV.PUSH PRN (21:37)
[2018-10-25] MEDS ORDERED: amLODIPine 5 MG Tablet PO ONE (23:22)
[2018-10-26] MEDS ORDERED: hydrALAZINE 25 MG Tablet PO ONE (03:46)
[2018-10-26] MEDS: MethylPREDNISolone Sod Succinate Inj 125 MG/2 ML Vial IV.PUSH SCH (06:14)
[2018-10-26] MEDS: glipiZIDE 5 MG Tablet PO SCH (06:14)
[2018-10-26 06:59] LABS: Hematocrit 33.9 % (35.0-46.0); Hemoglobin 11.5 gm/dL (11.6-15.3); Mean Corpuscular HGB Conc 33.8 % (32.0-36.0); Mean Corpuscular Volume 85.7 fL (80.0-100.0); Mean Platelet Volume 9.8 fL (7.0-11.0); Platelet Count 218 th/mm3 (150-450); Red Blood Count 3.96 mil/mm3 (4.00-5.30); White Blood Count 8.6 th/mm3 (4.0-11.0)
[2018-10-26 07:08] LABS: Calcium 9.1 mg/dL (8.5-10.1); Carbon Dioxide 26.6 meq/L (21.0-32.0); Potassium 3.5 meq/L (3.5-5.1)
[2018-10-26] MEDS: Insulin NovoLOG Aspart Correctional Sugar Inj SQ SCH ×2 (08:00→12:00)
[2018-10-26] MEDS: Isosorbide Mononitrate 60 MG ER 24HR Tablet (Imdur) PO SCH (08:43)
[2018-10-26] MEDS: Gabapentin 300 MG Capsule PO SCH (08:43)
[2018-10-26] MEDS: Heparin - SQ 10,000 UNITS/ML Vial SQ SCH (08:43)
[2018-10-26] MEDS: Furosemide 20 MG Tablet PO SCH (08:43)
[2018-10-26] MEDS: Budesonide-Formoterol 160/4.5 MCG 6 GM Inhaler INH SCH (08:44)
[2018-10-26] MEDS: Senna/Docusate Sodium 8.6/50 MG Tablet PO SCH (08:44)
[2018-10-26] MEDS: FLUoxetine 20 MG Capsule PO SCH (08:44)
[2018-10-26] MEDS ORDERED: predniSONE 20 MG Tablet PO SCH (09:00)
[2018-10-26] MEDS ORDERED: amLODIPine 10 MG Tablet PO SCH (09:00)
--- NOTE | 2018-10-26 09:30 | P.PN ---
Subjective Interval history: Follow up for copd exacerbation: pt. seen and examined, states she feels much better. On RA, sats 95%. Some cough, no sputum. No fever. BP has been elevated , 190s. Pt. on Lasix, can't recall what meds she takes. She was in [place] in September and was hospitalized and meds were changed. Has hand tremors, PCP aware, has not had work up yet. addendum: home medication list obtained from pt's pharmacy, pt. had provided wrong pharmacy. Meds reviewed, pt. on multiple antihypertensive agents. Blood pressure improved, down to 170s. Requested that I speak to her son, left message, no answer. Physical Exam Vital signs: Vital Signs 10/25/18 10:47 10/25/18 12:00 10/25/18 16:00 Temperature 96.8 F L 96.7 F L Pulse Rate 92 H 76 72 Respiratory Rate 26 H 17 15 Blood Pressure 179/80 H 198/85 H Pulse Oximetry 96 96 Pulse Oximetry [Exertion on Room Air] 97 Pulse Oximetry [Resting on Room Air] 96 10/25/18 19:30 10/25/18 19:43 10/25/18 20:10 Temperature 97.7 F Pulse Rate 62 63 70 Respiratory Rate 18 16 Blood Pressure 219/89 H Pulse Oximetry 100 Pulse Oximetry [Exertion on Room Air] Pulse Oximetry [Resting on Room Air] 10/25/18 22:55 10/25/18 23:49 10/26/18 00:49 Temperature 97.7 F Pulse Rate 58 L 75 Respiratory Rate 16 18 Blood Pressure 224/99 H 192/76 H Pulse Oximetry 95 Pulse Oximetry [Exertion on Room Air] Pulse Oximetry [Resting on Room Air] 10/26/18 02:42 10/26/18 03:29 10/26/18 06:19 Temperature 97.9 F Pulse Rate 60 Respiratory Rate 16 Blood Pressure 198/76 H 223/88 H 196/93 H Pulse Oximetry 93 L Pulse Oximetry [Exertion on Room Air] Pulse Oximetry [Resting on Room Air] 10/26/18 07:41 Temperature 98.2 F Pulse Rate 63 Respiratory Rate 20 Blood Pressure 212/88 H Pulse Oximetry 95 Pulse Oximetry [Exertion on Room Air] Pulse Oximetry [Resting on Room Air] Intake & Output 10/25/18 10/26/1819 18:59 06:59 18:59 Intake Total 500 / 500 Balance 500 / 500 Intake: IV 500 / 500 1/2 Normal Saline Inj 1,000 ML 500 / 500 @ 30 mls/hr IV.CONT .Q24H [facility] Rx#:[id number] Narrative: GENERAL: Well-nourished, well-developed patient 78-year-old female, mild distress. SKIN: Warm and dry. HEAD: Atraumatic. Normocephalic. EYES: Pupils equal and round. No scleral icterus. No injection or drainage. ENT: No nasal bleeding or discharge. Mucous membranes pink and moist. NECK: Trachea midline. No JVD. CARDIOVASCULAR: Regular rate and rhythm. Soft murmur. RESPIRATORY: Exp. wheezing and ronchi, improved. GASTROINTESTINAL: Abdomen soft, non-tender, nondistended. Hepatic and splenic margins not palpable. MUSCULOSKELETAL: Extremities without clubbing, cyanosis, or edema. No obvious deformities. Limited left shoulder mobility, has increased pain. Unable to raise greater than 45 degrees. NEUROLOGICAL: Awake and alert. No obvious cranial nerve deficits. Motor grossly within normal limits. Five out of 5 muscle strength in the arms and legs. Normal speech. PSYCHIATRIC: Appropriate mood and affect; insight and judgment normal. Results - Labs CBC & Chem 7: 10/26/18 05:45 10/26/18 03:45 Laboratory Results - last 24 hr 10/25/18 10/25/18 10/25/18 09:04 09:04 12:19 WBC 12.1 H RBC 3.78 L Hgb 10.9 L Hct 32.3 L MCV 85.5 MCH 28.8 MCHC 33.7 RDW 14.3 Plt Count 227 MPV 9.8 Sodium 140 Potassium 3.7 Chloride 106 Carbon Dioxide 26.7 Anion Gap 7 BUN 33 H Creatinine 1.38 H Estimated GFR 37 L POC Glucose 273 H Random Glucose 232 H Calcium 9.2 10/25/18 10/25/18 10/26/18 17:35 20:57 03:45 WBC RBC Hgb Hct MCV MCH MCHC RDW Plt Count MPV Sodium 139 Potassium 3.5 Chloride 103 Carbon Dioxide 26.6 Anion Gap 9 BUN 42 H Creatinine 1.57 H Estimated GFR 32 L POC Glucose 412 H 361 H Random Glucose 311 H Calcium 9.1 10/26/18 10/26/18 05:45 08:31 WBC 8.6 RBC 3.96 L Hgb 11.5 L Hct 33.9 L MCV 85.7 MCH 29.0 MCHC 33.8 RDW 14.0 Plt Count 218 MPV 9.8 Sodium Potassium Chloride Carbon Dioxide Anion Gap BUN Creatinine Estimated GFR POC Glucose 295 H Random Glucose Calcium Assessment and Plan - Assessment (1) Acute exacerbation of chronic obstructive pulmonary disease (COPD) Code(s): J44.1 - Chronic obstructive pulmonary disease with (acute) exacerbation Status: Acute (2) Valvular heart disease Code(s): I38 - Endocarditis, valve unspecified Status: Chronic (3) Diabetes 1.5, managed as type 2 Code(s): E13.9 - Other specified diabetes mellitus without complications Status: Chronic (4) INGRIS (acute kidney injury) Code(s): N17.9 - Acute kidney failure, unspecified Status: Acute (5) CKD (chronic kidney disease) stage 3, GFR 30-59 ml/min Code(s): N18.3 - Chronic kidney disease, stage 3 (moderate) Status: Chronic (6) HTN (hypertension) Code(s): I10 - Essential (primary) hypertension Status: Chronic (7) CAD (coronary artery disease) Code(s): I25.10 - Atherosclerotic heart disease of [place] coronary artery without angina pectoris Status: Chronic - Plan This is a 78-year-old female with a history of asthma, diabetes mellitus, hypertension, GERD and hyper lipidemia. She presented to the emergency department because of shortness of breath, dyspnea on exertion associated with wheezing, chills, productive cough of white phlegm and chest pain. Chest x-ray without pneumonia. EKG with no ST elevation. COPD exacerbation, was on oxygen before -continue Oxygen to keep sats >90% -walk test ordered -continue IV steroids-dec to q 8. Change to PO steroids today -Tessalon PRN -completed Zithromax - pulse ox -better, minimal cough, ambulating okay no significant sob Atypical chest pain, hx of CAD/Stent (last cath in 2017-patent stent). Has risk factors Hx of mitral stenosis and mitral regurgitation, seen by vascular surgery, deemed a poor candidate due to poor lung function and DM/HTN. -EKG no acute ST segment elevation -Trop x 3 negative -Pt. states pain is associated with left shoulder pain, inc. with movement. Has chronic changes from previous surgery and required steroid injections recently -continue to monitor -cardiac monitoring -enc. to continue following with cardiology as OP for management of CAD. Was seeing Dr. Rogers -Continue Plavix, Imdur Chronic CHF, no evidence of fluid overload -CXR clear -holding Lasix due to INGRIS, will resume in am -Discontinued IV fluid Acute on chronic kidney disease stage III. Patient received fluid bolus in the ED. -was given IVF -Avoid nephrotoxins -Resumed Lasix, creatinine 1.57. -instructed to avoid NSAIDs at home Uncontrolled hypertension remains elevated, 190s -On Lasix at home -started Norvasc 5mg po daily, inc. to 10 mg po daily -continue Clonidine PRN -BP poorly controlled, meds were recently changed. Pt. doesn't know names, will have RN call pharmacy. Will adjust meds accordingly Chronic left shoulder pain and left upper extremity numbness with history of shoulder surgery secondary to arthritis and degeneration. She received 2 intra- articular injection in the past week to no relief. She is scheduled to undergo MRI outpatient by her PCP. -Pain management counseled regarding narcotics -continue Neurontin -can f/u as OP with PCP DM II, poorly controlled -continue Glipizide -hold Janumet due to INGRIS -Accuchecks AC/HS wit ISS -BGM elevated, on steroids. Adjust as necessary DVT prophylaxis with SCD and subcu heparin Tremors, pt. states they are getting worst at home. At times has trouble holding spoon. -follow up with PCP as OP BP uncontrolled, will have RN call pt's pharmacy and obtain med list. if BP better, dc this afternoon. walk test done, no oxygen needed plan to dc with [facility] needs to f/u with PCP, cardiology Diabetic diet Activity as tolerated Code Status: Full code Discussed Condition With: RN, pt, CM Left voice mail for son at pt's request. No answer Discharge Planning: Plan to dc today with HHC (6) HTN (hypertension) Qualifiers: Hypertension type: essential hypertension Qualified Code(s): I10 - Essential (primary) hypertension (7) CAD (coronary artery disease) Qualifiers: Coronary Disease-Associated Artery/Lesion type: [place] artery [place] vs. transplanted heart: [place] heart Associated angina: without angina Qualified Code(s): I25.10 - Atherosclerotic heart disease of [place] coronary artery without angina pectoris
[2018-10-26] MEDS ORDERED: clonazePAM 0.5 MG Tablet PO PRN (11:12)
[2018-10-26] MEDS ORDERED: Labetalol 200 MG Tablet PO SCH (11:15)
[2018-10-26] MEDS ORDERED: hydrALAZINE 25 MG Tablet PO SCH (11:15)
--- NOTE | 2018-10-26 16:04 | P.DS ---
Date of admission: 10/23/18 16:38 Primary care physician: UNKNOWN Attending physician on discharge: Jay Zavala Anticipated date of discharge: 10/26/18 Brief History from admission: This is a 78-year-old female with a history of asthma, diabetes mellitus, hypertension, GERD and hyper lipidemia. She presents to the emergency department because of shortness of breath for 1 week. She reports of dyspnea on exertion associated with wheezing, chills and productive cough of white phlegm. No fever. She was prescribed antibiotic by her PCP. She is not able to recall the name. In the emergency department, she continues to have wheezing despite nebulization and IV steroids and was recommended hospitalization. Chest x-ray image interpreted by me with no acute cardiopulmonary disease. She also reports of constant throbbing chest discomfort for 1 week without radiation or associated signs and symptoms. EKG interpreted by me with sinus rhythm with frequent PVCs with no acute ST elevation patient denies history of coronary artery disease. She reports that she had [address] Tena with no intervention. She was told that she has a leaky valve but she is too old for surgery. She was seen in the chest pain center in 2016 with negative stress test. 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 She received 2 intra-articular injection in the past week to no relief. She is scheduled to undergo MRI outpatient by her PCP. All other systems reviewed negative. HPI is taken from the patient with the aid of a [employer] senior painter DS: Diagnosis - Discharge Diagnosis (1) Acute exacerbation of chronic obstructive pulmonary disease (COPD) Status: Acute (2) Valvular heart disease Status: Chronic (3) Diabetes 1.5, managed as type 2 Status: Chronic (4) INGRIS (acute kidney injury) Status: Acute (5) CKD (chronic kidney disease) stage 3, GFR 30-59 ml/min Status: Chronic (6) HTN (hypertension) Status: Chronic (7) CAD (coronary artery disease) Status: Chronic DS: Medications - Discharge Medications Prescriptions: benzonatate [Tessalon Perles] 100 mg PO Q8H PRN 7 Days #21 cap PRN Reason: Cough budesonide-formoterol [Symbicort] 2 puff INH BID 30 Days #1 g prednisone [Deltasone] 20 mg PO BID 13 Days #16 tab DS: Summary Hospital Course: This is a 78-year-old female with a history of asthma, diabetes mellitus, hypertension, GERD and hyper lipidemia. She presented to the emergency department because of shortness of breath, dyspnea on exertion associated with wheezing, chills, productive cough of white phlegm and chest pain. Chest x-ray without pneumonia. EKG with no ST elevation. Patient admitted for COPD exacerbation, put on oxygen, IV steroids, duo nebs and empiric antibiotics. Patient also with atypical chest pain, history of coronary artery disease and stent. Troponin were negative, EKG no acute ST segment elevation. Patient was continued on Plavix and Imdur. Pain was atypical, also had left shoulder pain that increased with movement. Patient was instructed to follow-up with air bag stripper Dr. Rogers as outpatient. Patient initially noted with acute kidney injury, component of chronic renal disease. Initially held Lasix. Patient was noted with uncontrolled blood pressure, patient did not recall what medication she was on, she was put on clonidine as needed and started on Norvasc. Patient had provided the wrong pharmacy name, indicated she had recently traveled to [place] and had medications changed when she was hospitalized in that city. Correct pharmacy name was obtained and medications were verified. Patient was restarted on her correct home medications. Blood pressure improved. Case management was consulted to assist with home health care and PT. Patient's symptoms improved, she did not require oxygen, she was weaned down to p.o. steroids. Patient was discharged home in stable condition. - Time Spent with Patient Total time spent providing and/or coordinating discharge services: Less than 30 minutes - Quality: VTE Deep Vein Thrombosis/Pulmonary Embolism Present on Admission: No Exam Vital signs: Vital Signs 10/25/18 19:30 10/25/18 19:43 10/25/18 20:10 Temperature 97.7 F Pulse Rate 62 63 70 Respiratory Rate 18 16 Blood Pressure 219/89 H Pulse Oximetry 100 10/25/18 22:55 10/25/18 23:49 10/26/18 00:49 Temperature 97.7 F Pulse Rate 58 L 75 Respiratory Rate 16 18 Blood Pressure 224/99 H 192/76 H Pulse Oximetry 95 10/26/18 02:42 10/26/18 03:29 10/26/18 06:19 Temperature 97.9 F Pulse Rate 60 Respiratory Rate 16 Blood Pressure 198/76 H 223/88 H 196/93 H Pulse Oximetry 93 L 10/26/18 07:41 10/26/18 08:00 10/26/18 11:13 Temperature 98.2 F 98.2 F Pulse Rate 63 64 72 Respiratory Rate 20 20 Blood Pressure 212/88 H 176/72 H Pulse Oximetry 95 96 10/26/18 15:40 Temperature Pulse Rate 69 Respiratory Rate 18 Blood Pressure Pulse Oximetry Intake & Output 10/25/18 10/26/18 10/26/18 18:59 06:59 18:59 Intake Total 500 / 500 Balance 500 / 500 Intake: IV 500 / 500 1/2 Normal Saline Inj 1,000 ML 500 / 500 @ 30 mls/hr IV.CONT .Q24H [facility] Rx#:[id number] Other: Date of Last Bowel Movement 10/24/18 Results Procedures completed during hospitalization: None Labs on day of discharge: Labs from last 24 hours 10/26/18 10/26/18 10/26/18 12:03 08:31 05:45 WBC 8.6 RBC 3.96 L Hgb 11.5 L Hct 33.9 L MCV 85.7 MCH 29.0 MCHC 33.8 RDW 14.0 Plt Count 218 MPV 9.8 Sodium Potassium Chloride Carbon Dioxide Anion Gap BUN Creatinine Estimated GFR POC Glucose 434 H 295 H Random Glucose Calcium 10/26/18 10/25/18 10/25/18 03:45 20:57 17:35 WBC RBC Hgb Hct MCV MCH MCHC RDW Plt Count MPV Sodium 139 Potassium 3.5 Chloride 103 Carbon Dioxide 26.6 Anion Gap 9 BUN 42 H Creatinine 1.57 H Estimated GFR 32 L POC Glucose 361 H 412 H Random Glucose 311 H Calcium 9.1 - Impressions ITS Impressions Chest X-Ray 10/23/18 14:30 CONCLUSION: No appreciable change. Discharge Plan - Discharge Disposition Patient Disposition: Disch W/Home Health Service - Discharge Condition Condition: Good - Discharge Order Discharge Orders: Discharge Order (Routine); Ordered 10/26/18 Ordered By: Saida Robison ED Use Only Admit Order (Routine); Ordered 10/23/18 Ordered By: Elizabeth Arriaga - Discharge Details Anticipated Discharge Date: 10/26/18 - Physicians Team Primary Care Provider: UNKNOWN, Attending Provider: Jay Zavala Other Providers: Jt Waters
== END 2018-10-26 16:27 | disposition home health service (06) ==
LOC: NEDA 13:56 → NEPD 13:56 → NEDA 17:22 → NEPFCDU 17:27
PROVIDERS: ADMIT Hospitalist; ATTEND Hospitalist
CPT/HCPCS: 71010; 71045; 80048; 80053; 82550; 82948; 82962; 84484; 85025; 85027; 87275; 87276; 87804; 90774; 90784; 93005; 94618; 94620; 94640; 94664; 94665; 96361; 96372; 96374; 96375; 96376; 97161; 99285; C8952; G0378; G8987; G8988; J1644; J1815; J2270; J2920; J2930; J7040; J7506; J7512